=== PATIENT | female | born 1930 | race African-American/Black ===

== ENCOUNTER 2017-04-25 16:04 | Emergency (ER) | payer MEDICARE, MEDICAID ==
[2017-04-25 17:36] LABS: #Eosinphils 0.2 thou/uL (0.0-0.7); #Monocytes 0.5 thou/uL (0.11-0.59); #Neutrophils 3.4 thou/uL (1.40-6.50); %Basophils 0.6 % (0.0-1.0); %Eosinophils 2.3 % (0.0-10.0); %Lymphocytes 41.5 % (21.0-51.0); %Monocytes 7.2 % (0.0-10.0); %Neutrophils 48.4 % (42.0-75.0); Hemoglobin 11.1 g/dL (12.0-16.0); Mean Corpuscular HGB CONC 32.6 g/dL (32.0-36.0); Mean Corpuscular Volume 95.2 fl (81.0-99.0); Mean Platelet Volume 8.3 fL (7.4-10.4); Platelet Count 185 thou/uL (130-400); RBC Distribution Width 12.7 % (11.5-14.5); Red Blood Cell (RBC) Count 3.58 mill/uL (4.20-5.40); White Blood Cell (WBC) Count 7.1 thou/uL (4.8-10.8)
[2017-04-25 17:57] LABS: ALT (SGPT) Less than 7 U/L (8-55); AST (SGOT) 12 U/L (5-34); Albumin 3.5 g/dL (3.4-4.8); Alkaline Phosphatase 49 U/L (40-150); Anion Gap 13 mmol/L (10-20); BUN (Urea Nitrogen) 27 mg/dL (9.8-20.1); Bilirubin, Total 0.2 mg/dL (0.2-1.2); Calc. Creatinine Clearance 0 mL/min (70-130); Calcium 9.6 mg/dL (7.8-10.44); Carbon Dioxide 27 mmol/L (23-31); Chloride 103 mmol/L (98-107); Estimated GFR-MDRD 31; Globulin 3.9 g/dL (2.4-3.5); Glucose 181 mg/dL (83-110); Potassium 3.8 mmol/L (3.5-5.1); Protein, Total 7.4 g/dL (6.0-8.3); Sodium 139 mmol/L (136-145)
--- NOTE | 2017-04-25 18:45 | CT ---
CT BRAIN 04/25/17 PROVIDED CLINICAL HISTORY: Altered mental status. FINDINGS: Comparison made with the study dated 10/24/16. The ventricular system is normal in size and morphology. There is no evidence for intracranial hemorr brielle or mass effect. There is partial opacification of the right frontal sinus and right sided ethmoi d air cells as well as frontal ethmoidal recess,. The extracranial soft tissues and osseous structure s appear otherwise unremarkable. IMPRESSION: No evidence for intracranial hemorrhage or mass effect. POS: [facility]
--- NOTE | 2017-04-25 18:49 | RAD ---
TWO VIEWS CHEST 04/25/17 PROVIDED CLINICAL HISTORY: Altered mental status. FINDINGS: Comparison 07/09/16. Cardiac and mediastinal silhouette is unchanged in appearance. Atherosclerosis is noted involving the aortic arch. There is no focal consolidation, pleural fluid or pneumothorax apparent. IMPRESSION: No evidence for an acute cardiopulmonary process. POS: [facility]
[2017-04-25 19:46] LABS: CKMB 0.6 ng/mL (0-6.6); Troponin I 0.024 ng/mL (< 0.028)
[2017-04-25 20:18] LABS: Bilirubin Small (Negative); Blood, Urine Negative (Negative); Clarity CLEAR (Clear); Glucose, Urine (Dipstick) Negative (Negative); Leukocyte Small (Negative); Nitrite Negative (Negative); Protein, Urine (Dipstick) Negative (Neg-Trace); Specific Gravity, Urine 1.018 (1.002-1.036); Urobilinogen 0.2 mg/dL (0.2-1.0)
[2017-04-25 20:21] LABS: Bacteria/HPF None Seen HPF (None Seen); Pathc Cast-AUWi Flag 0.13 (0-2.49)
[2017-04-25 20:30] LABS: Hyaline Casts/LPF 0-3 HYALINE CAST LPF (0-3 Hyaline)
[2017-04-25 20:31] LABS: RBC/HPF 0-3 HPF (0-3)
[2017-04-25] MEDS ORDERED: Nitrofurantoin Monohyd/M-Cryst 100 MG CAP PO SCH (21:00)
== END 2017-04-25 21:05 | disposition home or self-care (01) ==
LOC: ERS 16:04
DX: N39.0 Urinary tract infection, site not specified (principal); E11.9 Type 2 diabetes mellitus without complications; E78.5 Hyperlipidemia, unspecified; I10 Essential (primary) hypertension; Z79.84 Long term (current) use of oral hypoglycemic drugs; Z79.891 Long term (current) use of opiate analgesic
CPT/HCPCS: 36415; 70450; 71046; 80053; 81003; 81015; 82140; 82550; 82553; 83605; 84484; 85025; 87086; 93005; 96360

== ENCOUNTER 2017-04-27 15:54 | Inpatient (IN) | payer MEDICARE, MEDICAID ==
[2017-04-27 16:39] LABS: #Eosinphils 0.7 thou/uL (0.0-0.7); #Lymphocytes 1.7 thou/uL (1.20-3.40); #Monocytes 0.5 thou/uL (0.11-0.59); #Neutrophils 9.6 thou/uL (1.40-6.50); %Basophils 0.3 % (0.0-1.0); %Eosinophils 5.3 % (0.0-10.0); %Lymphocytes 13.8 % (21.0-51.0); %Monocytes 4.3 % (0.0-10.0); %Neutrophils 76.3 % (42.0-75.0); Hemoglobin 10.2 g/dL (12.0-16.0); Mean Corpuscular HGB CONC 32.7 g/dL (32.0-36.0); Mean Corpuscular Hemoglobin 31.4 pg (27.0-31.0); Mean Platelet Volume 8.6 fL (7.4-10.4); Platelet Count 158 thou/uL (130-400); RBC Distribution Width 12.8 % (11.5-14.5); Red Blood Cell (RBC) Count 3.24 mill/uL (4.20-5.40); White Blood Cell (WBC) Count 12.6 thou/uL (4.8-10.8)
[2017-04-27 17:05] LABS: ALT (SGPT) Less than 7 U/L (8-55); AST (SGOT) 16 U/L (5-34); Alkaline Phosphatase 42 U/L (40-150); Anion Gap 13 mmol/L (10-20); BUN (Urea Nitrogen) 35 mg/dL (9.8-20.1); Bilirubin, Total 0.3 mg/dL (0.2-1.2); CK (CPK) 527 U/L (29-168); Calc. Creatinine Clearance 0 mL/min (70-130); Calcium 8.5 mg/dL (7.8-10.44); Carbon Dioxide 24 mmol/L (23-31); Chloride 105 mmol/L (98-107); Estimated GFR-MDRD 27; Globulin 3.6 g/dL (2.4-3.5); Glucose 174 mg/dL (83-110); Magnesium 1.5 mg/dL (1.6-2.6); Potassium 3.6 mmol/L (3.5-5.1); Protein, Total 6.6 g/dL (6.0-8.3); Sodium 138 mmol/L (136-145)
[2017-04-27 17:11] LABS: CKMB 3.1 ng/mL (0-6.6); Troponin I 0.036 ng/mL (< 0.028)
--- NOTE | 2017-04-27 17:16 | RAD ---
AP VIEW OF THE CHEST 04/27/17 INDICATION: Weakness. COMPARISON: Prior exam dated 04/25/17. FINDINGS: There is cardiomegaly with pulmonary vascular congestion and perihilar edema. There is small bilatera l pleural effusions, left greater than right. Right total shoulder replacement is similar. Diffuse os teopenia is similar. IMPRESSION: Findings suggesting mild CHF. POS: [facility]
[2017-04-27 17:21] LABS: Bilirubin Moderate (Negative); Blood, Urine Negative (Negative); Clarity CLOUDY (Clear); Glucose, Urine (Dipstick) Negative (Negative); Leukocyte Negative (Negative); Nitrite Negative (Negative); Protein, Urine (Dipstick) Negative (Neg-Trace); Specific Gravity, Urine 1.022 (1.002-1.036); Urobilinogen 0.2 mg/dL (0.2-1.0)
[2017-04-27 17:31] LABS: Amphetamine Not Detected (NotDetected); Barbiturates Screen Not Detected (NotDetected); Benzodiazepine Screen Not Detected (NotDetected); Cocaine Metabolite Screen Not Detected (NotDetected); Medtox Control Line Valid? VALID (VALID); Medtox Reader # READER 1; Methadone Not Detected (NotDetected); Methamphetamine Not Detected (NotDetected); Opiate Screen Detected (NotDetected); Oxycodone Screen Not Detected (NotDetected); Phencyclidine (PCP) Not Detected (NotDetected); THC/Cannabinoid Screen Not Detected (NotDetected); Tricyclic Screen Not Detected (NotDetected)
--- NOTE | 2017-04-27 20:08 | CT ---
NONCONTRAST HEAD CT 04/27/17 HISTORY: Right sided weakness and facial droop. Altered mental status. COMPARISON: 04/25/17. TECHNIQUE: A noncontrast head CT is performed from skull base to skull vertex. FINDINGS: No parenchymal hemorrhage. No extra-axial hematoma. No midline shift. Basilar cisterns are patent. B rain volume is age appropriate. Cortical zee-white matter differentiation is preserved. Ventricles and sulci are patent and symmetric. Stable sclerosis of the right frontal bone. Stable opa cification of the right frontal sinus and anterior right ethmoid air cells. Adequate aeration of the mastoid air cells. IMPRESSION: No acute intracranial process. Stable changes in the right paranasal sinuses along with stable change s of the osseous margins of the right frontal sinus suggesting chronic sinus disease. POS: [facility]
[2017-04-27 22:28] LABS: Troponin I 0.038 ng/mL (< 0.028)
[2017-04-27] MEDS ORDERED: hydrALAZINE 20 MG/ML VIAL SLOW IVP PRN (23:29)
[2017-04-27] MEDS ORDERED: Ondansetron HCl/PF 4 MG/2 ML Vial IVP PRN (23:39)
[2017-04-27] MEDS ORDERED: Magnesium 2 GM/NS 0.9% 100 ML 2 GM in Premix Bag 1 BAG IVPB SCH (23:59)
[2017-04-28 00:27] VITALS: BMI 37.4
[2017-04-28 00:30] LABS: Troponin I 0.035 ng/mL (< 0.028)
[2017-04-28] MEDS ORDERED: Sodium Chloride 0.9% 1,000 ML IV SCH (03:30)
[2017-04-28] MEDS: Mometasone/Formoterol 120 PUFF INHALER INH SCH ×2 (07:21→19:30)
--- NOTE | 2017-04-28 08:34 | HP ---
PRIMARY CARE DOCTOR: None reported. CODE STATUS: The patient has expressed DNR/DNI status in front of her daughter. CHIEF COMPLAINT: Participation was right-sided weakness. HISTORY OF PRESENT ILLNESS: This is an 87-year-old female patient with past medical history of diabetes, hyperlipidemia, hypertension, pulmonary embolism years ago who came to the hospital after having right-sided weakness, associated with right-sided facial droop, symptoms has improved, lasted for few hours, no clear tears, no alleviating factors, gait was not affected. As noted , the patient had been treated for UTI 2 days ago. REVIEW OF SYSTEMS: Constitutional: The patient reported generalized weakness. RESPIRATORY: No cough, sputum production, no shortness of breath. CARDIOVASCULAR: No chest pain or palpitations. No shortness of breath. GASTROINTESTINAL: No nausea or vomiting. No diarrhea, no abdominal pain. SECURITY SYSTEM ENGINEER: No dizziness, headache. The patient is not feeling lightheaded. The patient had right-sided weakness and right-sided facial droop. GENITOURINARY: On burning with urination. EXTREMITIES: Leg swelling. All other systems reviewed were negative except for the finding mentioned above. PAST MEDICAL HISTORY: Please see HPI. SOCIAL HISTORY: The patient had no history of alcohol use, known drug use. No smoking history. PAST SURGICAL HISTORY: Left knee, back surgery, carpal tunnel surgery, shoulder and neck surgery. PSYCHIATRIC HISTORY: No previous psychiatric history. KNOWN ALLERGIES: To PENICILLIN. REPORTED MEDICATIONS: Amlodipine/valsartan 5 mg/320 mg 1 tablet daily, citalopram 10 mg 1 tablet once a day, metformin 500 mg 1 tablet once a day, Crestor 10 mg 1 tablet once a day, gabapentin 300 mg 1 tablet orally 3 times a day, hydralazine 50 mg the patient takes 75 mg 3 times a day, carvedilol 12.5 mg 2 times a day, Advair Diskus 250mcg/50 mcg unknown dose, Lasix 20 mg orally once a day, Klor-Con 20 mEq once a day, fentanyl 72 hours patch the patient use 75 mcg transdermal, Macrobid 100 mg 1 tablet orally 2 times a day. PHYSICAL EXAMINATION: VITAL SIGNS: Blood pressure 101/49 with heart rate 68, respiratory rate 20, temperature 98, pain 0/10, oxygen saturation 100 on room air, blood pressure has been fluctuating between the 90s and 100s. GENERAL APPEARANCE: The patient is alert, oriented, no acute distress. HEENT: Eye: Normal conjunctivae. Moist mucous membranes. NECK: Anicteric. No JVD. RESPIRATORY: Bilateral air entry. No rales, bilateral wheezing, symmetric expansion. CARDIOVASCULAR: Normal rate, regular rhythm. No murmurs or gallops. No edema. ABDOMEN: Soft. Normal bowel sounds. MUSCULOSKELETAL: Baseline range of motion and strength. No tenderness. NEUROLOGIC: Baseline sensory. No evidence of any new focal weakness. Baseline speech. Cranial nerves seem to be intact. PSYCHIATRIC: The patient is in good mood. No anxiety, oriented, optimal judgment. LABORATORY DATA: Reviewed. The patient has white count 12.6, hemoglobin 10.2, platelet count 158. Sodium 138, potassium 3.6, chloride 105, anion gap 13, BUN 35, creatinine 2.06, GFR 27, glucose 174, lactic acid 1.9, calcium 9.5, magnesium 1.5, total bilirubin 0.3, AST 16, ALT 7, alkaline phosphatase 42. CK 527, troponin 0.036, second troponin 0.035, beta-natriuretic peptide 206.3. Serum total protein 6.6, albumin 3.0, globulin 3.6, albumin globulin ratio 0.8. Urine was reviewed and was negative. Toxicology was reviewed and the patient has opiates in urine. EKG was reviewed. The patient has sinus arrhythmia in rate of 65. No evidence of any acute ischemia. This was discussed with her doctor. Chest x-ray suggested the finding of mild CHF. Brain CT showed no acute intracranial process, stable changes in the right paranasal sinuses along with stable changes of the margin of the right frontal sinus suggesting chronic sinus disease. ASSESSMENT AND PLAN: 1. Possible transient ischemic attack. The patient has right-sided numbness and tingling and right-sided facial droop, we will do stroke protocol, management depending on findings.this place pt at high risk given new neurological symptoms, 2. Leukocytosis, unclear etiology. The patient had a recent urinary tract infection; however, urinary analysis was negative today. We will send cultures and adjust medications as needed. 3. Normocytic anemia, this is chronic. The patient seems to have chronic kidney disease, could be secondary to it, can be managed as outpatient. 4. Chronic kidney disease and previous records reviewed. The BUN and creatinine has been increasing slowly. It might be a component of acute kidney injury now. The patient is showing congestive heart failure findings on chest x -ray, so we are limited with fluids. Might need Nephrology evaluation if not improving. 5. Uncontrolled diabetes with blood sugar 174, hyperglycemia, we will treat with sliding scale, reconcile home medications. 6. Acute hypomagnesemia. The patient to receive magnesium replacement. 7. Mildly elevated troponins in the range of 0.036, 0.035, may need Cardiology evaluation in the morning. No chest pain. 8. Possible congestive heart failure with beta-natriuretic peptide of 206, reconcile home medications. The patient is in kidney failure. We will not diurese aggressively, might need Nephrology assistance for diuresis if needed. 9. Deep venous thrombosis prophylaxis. [facility]
[2017-04-28] MEDS ORDERED: Potassium Chloride 10 MEQ TAB PO SCH (09:00)
[2017-04-28] MEDS ORDERED: Furosemide 40 MG TAB PO SCH (09:00)
[2017-04-28] MEDS ORDERED: Aspirin 325 mg Enteric Coated Tablet PO SCH (09:00)
[2017-04-28] MEDS ORDERED: Non-Formulary Item 1 EACH (Fluticasone/Salmeterol [Advair Diskus 250/50] 2 INH) IH SCH (09:00)
[2017-04-28] MEDS ORDERED: Valsartan 80 MG TAB PO SCH (09:00)
[2017-04-28] MEDS ORDERED: fentaNYL 75 mcg/hour Patch TD SCH (09:00)
[2017-04-28] MEDS ORDERED: HYDROcodone/Acetaminophen 10/325 mg Tablet PO PRN (09:08)
--- NOTE | 2017-04-28 09:12 | PDOC.PN ---
- Subjective Encounter Start Date: 04/28/17 Encounter Start Time: 08:30 Subjective: Pleasant, cooperative and coherent. c/o diffuse aches, and back pain - Objective Resuscitation Status: Resuscitation Status DNR:Do Not Resuscitate MAR Reviewed: Yes Vital Signs & Weight: Vital Signs (12 hours) Temp Pulse Resp BP BP Pulse Ox 04/28/17 07:21 71 16 04/28/17 07:14 71 16 04/28/17 07:10 97.9 F 63 20 127/54 L 98 04/28/17 05:11 68 110/54 L 04/28/17 04:00 98.1 F 66 20 89/44 L 100 04/28/17 00:06 97.7 F 74 20 04/27/17 22:47 97.7 F 74 20 108/55 L 94 L Weight Weight 218 lb 4.122 oz Result Diagrams: 04/27/17 16:28 04/27/17 16:28 Radiology Reviewed by me: Yes Phys Exam - Physical Examination Constitutional: NAD HEENT: PERRLA discharge rt eye Neck: supple, full ROM crackles r greater than left Cardiovascular: RRR, no significant murmur Gastrointestinal: soft, non-tender, no distention Musculoskeletal: no edema Neurological: non-focal, moves all 4 limbs Psychiatric: normal affect, A&O x 3 Skin: no rash Dx/Plan (1) TIA (transient ischemic attack) Status: Acute (2) Anemia, normocytic normochromic Code(s): D64.9 - ANEMIA, UNSPECIFIED Status: Chronic (3) DM type 2 (diabetes mellitus, type 2) Status: Chronic Qualifiers: (4) HTN (hypertension) Code(s): I10 - ESSENTIAL (PRIMARY) HYPERTENSION Status: Chronic Qualifiers: (5) Obesity (BMI 30-39.9) Code(s): E66.9 - OBESITY, UNSPECIFIED Status: Chronic (6) Osteoarthritis Code(s): M19.90 - UNSPECIFIED OSTEOARTHRITIS, UNSPECIFIED SITE Status: Chronic (7) Physical deconditioning Code(s): R53.81 - OTHER MALAISE Status: Chronic (8) Acute kidney failure Status: Acute (9) Encephalopathy Code(s): G93.40 - ENCEPHALOPATHY, UNSPECIFIED Status: Resolved (10) Pulmonary hypertension Code(s): I27.2 - OTHER SECONDARY PULMONARY HYPERTENSION * DO NOT USE * Status : Chronic - Plan cont current plan of care, plan discussed w/ family, continue antibiotics neurology and cards eval pending * .
[2017-04-28] MEDS: Carvedilol 6.25 MG TAB PO SCH ×2 (09:44→21:28)
[2017-04-28] MEDS: Citalopram 10 MG TAB PO SCH (09:44)
[2017-04-28] MEDS: Heparin 5,000 UNITS/ML VIAL SC SCH ×2 (09:46→21:29)
--- NOTE | 2017-04-28 12:16 | CON ---
DATE OF CONSULTATION: 04/28/2017 CONSULTING PHYSICIAN: Hospitalist Service IMPRESSION: 1. Possible transient ischemic attack with transient right-sided weakness. 2. Diabetes. 3. Hypotension. 4. Chronic pain. 5. Renal insufficiency. PLAN: 1. Restart aspirin and Crestor. 2. Echocardiogram. 3. Carotid ultrasound. 4. MRI of the brain. HISTORY OF PRESENT ILLNESS: Ms. Melissa is an 87-year-old black female with the above noted medical pr oblems. Earlier this week, she had some mental status changes and was seen in the emergency room. S he was diagnosed with a urinary tract infection and treated with antibiotics. She was discharged jenny e. Daughter reported that she seemed to develop some right-sided weakness yesterday involving both a rm and the leg. She brought her back into the Emergency Room via ambulance. Reportedly, she was hyp otensive en route. She had a workup in the ER including a CT scan of the brain and lab work, nothing remarkable was found other than the renal insufficiency. Her daughter states that she had discontin ued all of her medications for about 5 days prior to this event since admission. At this point, she does not report any lateralized weakness or numbness. She also does not report any headache, nausea, vomiting, vertigo, or difficulty swallowing. PAST MEDICAL HISTORY: As listed above. ALLERGIES: PENICILLIN. MEDICATIONS: List was reviewed. SOCIAL HISTORY: No tobacco or alcohol use. FAMILY HISTORY: Noncontributory. REVIEW OF SYSTEMS: Chronic back pain. No complaints of chest pain or shortness of breath. PHYSICAL EXAMINATION: VITAL SIGNS: Blood pressure 127/54, pulse 63, respirations 20, temperature 97.9. HEENT: Pupils are equal and minimally reactive. Conjunctivae are a bit muddy. Oropharynx is clear. NECK: No lymphadenopathy noted. EXTREMITIES: No cyanosis noted. NEUROLOGIC: She is alert and cooperative. Her speech is fluent and clear. Cranial nerves II throug h XII are intact. Motor exam showed symmetric antigravity strength in arms and legs. Sensation was intact to light touch. No tremor or dysmetria was present. Gait was not tested. No abnormal moveme nts were seen. SUMMARY: An elderly lady who presented with possible right-sided weakness that has since improved. The hypotension may have been a contributing factor. She was off her usual medications which include aspirin and Crestor. I would restart these and complete her workup.
[2017-04-28] MEDS: Amlodipine 5 MG TAB PO SCH (12:17)
--- NOTE | 2017-04-28 12:40 | MRI ---
NONCONTRAST ENHANCED MRI BRAIN: Date: 04/28/17 HISTORY: 87-year-old with history of TIA versus stroke. Generalized weakness. TECHNIQUE: Multiplanar, multisequence noncontrast enhanced MRI brain obtained. COMPARISON: Previous MRI from 02/22/16. FINDINGS: Images demonstrate paranasal sinus disease in the right frontal sinus, as well as extensive paranasal sinus disease in right and left ethmoid sinuses. The patient has had bilateral cataract surgeries. The brain demonstrates old areas of infarction in the inferior cerebellar regions. There is age-appro priate cortical atrophy. No evidence of acute intracranial masses, hemorrhages, or strokes seen. No e vidence of areas of diffusion restriction seen. IMPRESSION: 1. 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 2. No evidence of acute intracranial strokes, hemorrhages, or lesions seen. POS: [facility]
[2017-04-28] MEDS: Gabapentin 300 MG CAP PO SCH ×2 (13:54→21:28)
[2017-04-28] MEDS: HYDROcodone/Acetaminophen 10/325 mg Tablet PO PRN (13:55)
--- NOTE | 2017-04-28 14:13 | ULT ---
ULTRASOUND RENAL BILATERAL: Date: 04/28/17 HISTORY: Kidney failure. COMPARISON: None. FINDINGS: Right kidney measures 10.9 x 3.9 x 3.9 cm. Left kidney measures 11.4 x 5.7 x 5.8 cm. Pre-void urinary bladder volume is 235 mL. No hydronephrosis. Superior pole left kidney has a simple cyst, exophytic, measuring 4.3 x 3.5 x 3.5 cm. IMPRESSION: Large superior pole simple cyst left kidney. POS: [facility]
[2017-04-28] MEDS: fentaNYL 50 mcg/hour Patch TD SCH (15:03)
[2017-04-28] MEDS ORDERED: VALSARTAN PO SCH (15:15)
[2017-04-28] MEDS ORDERED: AMLODIPINE PO SCH (15:15)
[2017-04-28] MEDS ORDERED: metFORMIN XR 500 MG TAB PO SCH (17:00)
[2017-04-28] MEDS ORDERED: Non-Formulary Item 1 EACH (Metformin Hcl [Metformin Hcl Er] 500 MG) PO SCH (17:00)
[2017-04-28] MEDS ORDERED: Sodium Chloride 0.9% 500 ML IV SCH (17:45)
[2017-04-28] MEDS: Sodium Chloride 0.9% 1,000 ML IV SCH (17:57)
--- NOTE | 2017-04-28 19:49 | CON ---
DATE OF CONSULTATION: 04/28/2017 INDICATION FOR CONSULTATION: An 87-year-old female with a TIA with indeterminate cardiac enzymes wit h a history of coronary artery disease, we were asked to see her in consultation. HISTORY OF PRESENT ILLNESS: This is a very unfortunate 87-year-old female who was admitted after, I believe, some mental status changes were noted. She also has some right-sided weakness. She was in the emergency room. There has been no acute findings on the CT scan and appears that she has possibl y suffered a TIA, but she did not have any significant specific findings that would indicate any type of CVA at this time and appears to have been already resolved. She has a long history of multiple m edical problems, which include diabetes, chronic pain syndrome, and chronic kidney disease. She has had a history of coronary artery disease. She had, I believe, a cardiac catheterization in 2006 whic h showed a 20% proximal right coronary artery lesion and she did not have any significant disease. S he had an echocardiogram in 2014, which showed an ejection fraction of 60-65%. She does have a histo ry of PE in 2006 as well as a history of COPD and some history of hypertension and peripheral neuropa thy. At this time, she appears to be very comfortable; howevear, her history of present illness is s omewhat confused and is unable to give a clear history. PAST MEDICAL HISTORY: Significant for history of TIAs in the past, perhaps coronary artery disease, COPD, history of asbestos exposure, pulmonary embolus in 2006, hypertension, diabetes, peripheral vik ropathy, chronic back pain, as well as chronic kidney disease. PAST SURGICAL HISTORY: She had hysterectomy, cholecystectomy, total left knee replacement, cataract surgery. She had small bowel obstruction which required surgical correction. Carpal tunnel release on the left side. MEDICATIONS: Prior to admission included Celexa, Neurontin, Crestor, metformin, Apresoline, insulin, Advair Diskus, Coreg, NovoLog, Humulin insulin 70/30, amlodipine, ipratropium, albuterol, DuoNebs, a spirin 81 mg a day, hydrocodone/acetaminophen, furosemide, Lasix 20 mg tablets 40 mg b.i.d., Duragesi c patches, tizanidine, and Coreg 12.5 mg 3 times a day. ALLERGIES: She is allergic to PENICILLIN. SOCIAL HISTORY: No history of alcohol or tobacco abuse. FAMILY HISTORY: Noncontributory. REVIEW OF SYSTEMS: A 12-point review of systems is difficult to obtain this patient who appears to b e somewhat confused and unable to give a clear history or review of systems. LABORATORY AND X-RAY FINDINGS: Indicates hemoglobin of 10.2. Her cardiac enzymes are indeterminate, the highest is 0.038. Her BNP is 206, which is not comparable with significant congestive heart marleni lure. This may be some mild heart failure. Her LDL was 68. Her creatinine was 2.06 with BUN of 35. Blood sugar was 174, total CK was 527. PHYSICAL EXAMINATION: GENERAL: Reveals an elderly female, who is in no acute distress. VITAL SIGNS: Blood pressure is 99/39, earlier was 122/66. O2 saturation 98%, respiratory rate was 2 0, heart rate is 61 and regular. She is afebrile. HEENT: Reveals the head to be normocephalic and atraumatic. Carotid pulses are present. Does not h ear any bruits. CHEST: Clear to auscultation. CARDIOVASCULAR: Exam reveals a regular rhythm, somewhat bradycardiac. Heart sounds are distant. Ve ry soft systolic murmur at the apex, otherwise unremarkable. ABDOMEN: Shows obesity with positive bowel sounds. No organomegaly or masses are noted. Femoral pu lses are difficult to palpate due to large pannus. EXTREMITIES: Showed no clubbing, cyanosis, or edema. I cannot palpate pedal pulses. NEUROLOGIC: The patient appears to be somewhat confused. This may be just overall dementia. Do not have any baseline. There were no family members present. IMPRESSION: 1. Abnormal cardiac enzymes which would not be too unremarkable in someone who has chronic kidney di sease and also has an elevated CK, uncertain the elevation of CK when she had a fall or not, but she had elevated CK also. At this time, we would just continue to monitor her. She did have some mild c oronary artery disease several years ago, be unlikely for developed severe coronary artery disease in such a short amount of time given her overall age. At this time, there will be no further cardiac e valuation indicated. As far as coronary artery disease is concerned, we will obtain echocardiogram a nd we will evaluate that and further recommendations will be pending versus the results of the echoca rdiogram. 2. Diabetes. This will be dealt with by the primary care service. 3. Hypertension. This is actually on the low side. At this time, she is hypotensive and will need to follow this very carefully. She may need more volume. Once we evaluate the echocardiogram, we ca n determine whether or not she may be volume depleted and would not appear so, looks like she just sun s chronic kidney disease. 4. History in the past of pulmonary emboli. 5. History of hypercholesterolemia. We would continue her present medications. We will be more than happy to continue to follow the patient with you through her hospital course. Armin hong will be very conservative in care of this patient without any aggressive cardiac interventions at t his time.
[2017-04-28] MEDS ORDERED: Atorvastatin Calcium 40 MG TAB PO SCH (21:00)
[2017-04-28] MEDS: Rosuvastatin 10 MG TAB PO SCH (21:29)
[2017-04-28] MEDS: Acetaminophen 325 MG TAB PO PRN (23:32)
[2017-04-29 05:31] LABS: #Eosinphils 0.5 thou/uL (0.0-0.7); #Lymphocytes 1.6 thou/uL (1.20-3.40); #Monocytes 0.6 thou/uL (0.11-0.59); %Basophils 0.2 % (0.0-1.0); %Eosinophils 6.8 % (0.0-10.0); %Lymphocytes 20.9 % (21.0-51.0); %Monocytes 7.3 % (0.0-10.0); %Neutrophils 64.9 % (42.0-75.0); Hemoglobin 9.5 g/dL (12.0-16.0); Mean Corpuscular HGB CONC 32.3 g/dL (32.0-36.0); Mean Corpuscular Hemoglobin 30.9 pg (27.0-31.0); Mean Corpuscular Volume 95.8 fl (81.0-99.0); Mean Platelet Volume 9.1 fL (7.4-10.4); Platelet Count 147 thou/uL (130-400); RBC Distribution Width 12.6 % (11.5-14.5); Red Blood Cell (RBC) Count 3.06 mill/uL (4.20-5.40); White Blood Cell (WBC) Count 7.7 thou/uL (4.8-10.8)
[2017-04-29 05:54] LABS: Anion Gap 13 mmol/L (10-20); BUN (Urea Nitrogen) 48 mg/dL (9.8-20.1); Calc. Creatinine Clearance 23 mL/min (70-130); Calcium 8.6 mg/dL (7.8-10.44); Carbon Dioxide 22 mmol/L (23-31); Chloride 103 mmol/L (98-107); Estimated GFR-MDRD 21; Glucose 132 mg/dL (83-110); Potassium 4.1 mmol/L (3.5-5.1); Sodium 134 mmol/L (136-145)
[2017-04-29] MEDS: Mometasone/Formoterol 120 PUFF INHALER INH SCH ×2 (07:25→20:56)
[2017-04-29] MEDS: HYDROcodone/Acetaminophen 10/325 mg Tablet PO PRN (07:36)
--- NOTE | 2017-04-29 08:18 | ULT ---
ULTRASOUND CAROTID DOPPLER: Date: 04/29/17/ HISTORY: TIA. COMPARISON: None. FINDINGS: There is low graft plaque of the proximal internal carotid arteries bilaterally. Antegrade flow both vertebral arteries. Elevated peak systolic velocity within the left proximal and mid internal carotid artery. Right ICA/CCA ratio is 0.94. Left ICA/CCA ratio is 1.47. 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 C T angiogram may be beneficial. CODE T. POS: [facility]
[2017-04-29] MEDS: Citalopram 10 MG TAB PO SCH (09:00)
[2017-04-29] MEDS ORDERED: VALSARTAN PO SCH (09:00)
[2017-04-29] MEDS: AMLODIPINE PO SCH (09:00)
[2017-04-29] MEDS ORDERED: AMLODIPINE PO SCH (09:00)
[2017-04-29] MEDS: Amlodipine 5 MG TAB PO SCH (09:00)
[2017-04-29] MEDS: VALSARTAN PO SCH (09:00)
[2017-04-29] MEDS: Heparin 5,000 UNITS/ML VIAL SC SCH ×2 (09:00→21:23)
[2017-04-29] MEDS: Aspirin 81 mg Enteric Coated Tablet PO SCH (09:00)
[2017-04-29] MEDS: Gabapentin 300 MG CAP PO SCH ×2 (09:00→21:23)
--- NOTE | 2017-04-29 10:22 | PDOC.PN ---
- Subjective Encounter Start Date: 04/29/17 Encounter Start Time: 07:30 Subjective: I FEEL BAD TODAY, LOTS OF ACHES - Objective MAR Reviewed: Yes Result Diagrams: 04/29/17 05:10 04/29/17 05:10 Phys Exam - Physical Examination MILD DISTRESS, ANXIOUS HEENT: moist MMs, sclera anicteric Neck: supple, full ROM Respiratory: no wheezing, no rhonchi Cardiovascular: RRR Gastrointestinal: soft, non-tender Musculoskeletal: no edema Neurological: moves all 4 limbs Psychiatric: A&O x 3 Deviation from normal: COHERENCY WAX AND WANE Skin: no rash Dx/Plan (1) TIA (transient ischemic attack) Status: Acute (2) Anemia, normocytic normochromic Code(s): D64.9 - ANEMIA, UNSPECIFIED Status: Chronic (3) DM type 2 (diabetes mellitus, type 2) Status: Chronic Qualifiers: (4) HTN (hypertension) Code(s): I10 - ESSENTIAL (PRIMARY) HYPERTENSION Status: Chronic Qualifiers: (5) Obesity (BMI 30-39.9) Code(s): E66.9 - OBESITY, UNSPECIFIED Status: Chronic (6) Osteoarthritis Code(s): M19.90 - UNSPECIFIED OSTEOARTHRITIS, UNSPECIFIED SITE Status: Chronic (7) Physical deconditioning Code(s): R53.81 - OTHER MALAISE Status: Chronic (8) Acute kidney failure Status: Acute (9) Encephalopathy Code(s): G93.40 - ENCEPHALOPATHY, UNSPECIFIED Status: Acute (10) Pulmonary hypertension Code(s): I27.2 - OTHER SECONDARY PULMONARY HYPERTENSION * DO NOT USE * Status : Chronic - Plan cont current plan of care, plan discussed w/ family I BELIEVE MS CHANGES ARE FROM OPIATES AND DECREASED CLEARANCE -: SECONDARY TO WORSENING RENAL FXN. NEPHROLOGY CONSULT REQUESTED. -: OPIATES HELD TODAY. LEFT ICA WITH 50-69% MAY ALSO BE CONTRIBUTING, WILL -: DEFER TO NEUROLOGY IF CEA IS INDICATED. * .
[2017-04-29] MEDS: Carvedilol 6.25 MG TAB PO SCH ×2 (10:40→21:23)
--- NOTE | 2017-04-29 12:55 | PRG ---
DATE OF SERVICE: 04/29/2017 SUBJECTIVE: Ms. Melissa had some transient confusion earlier today with some slurred speech. The nurs e thought she might have a bit of facial droop. This occurred while she was sitting up on the bedsid e toilet. I checked her vital signs and her blood pressure was in a normal range. She was moved renard k to bed and her symptoms seem to improve. She had an MRI of the brain done yesterday, which failed to reveal any acute ischemic changes. Carot id Doppler shows 50%-69% left carotid stenosis. Echocardiogram showed a normal ejection fraction of 60%-65% without other anomalies. She has been afebrile overnight. PHYSICAL EXAMINATION: On exam, she was alert and cooperative, is complaining of pain in her extremit ies. Her speech is fluent and clear. Cranial nerves were intact. She had equal cook tortilla strength. No fix or drift was noted. Sensation was intact to light touch. I do not see anything remarkable on her exam. It is possible that the narcotics might be playing a r ole in her transient slurring and confusion. Her neurologic workup is, otherwise, unremarkable at is point. Continue antiplatelet therapy and statin.
[2017-04-29] MEDS: Acetaminophen 325 MG TAB PO PRN ×2 (15:16→21:21)
[2017-04-29] MEDS: Sodium Chloride 0.9% 1,000 ML IV SCH ×2 (15:16→15:21)
[2017-04-29] MEDS ORDERED: Aspirin 81 mg Enteric Coated Tablet PO SCH (19:00)
--- NOTE | 2017-04-29 20:05 | PDOC.CTH ---
<Annette Merino - Last Filed: 04/29/17 19:58> Cardiology Progress Note - Subjective The pt seen and examined. She is having severe SOB with wheezing after receiving about 400ml NS today. She has to sit right up to breath now. Per RN , she also had low grade temp and greenish sputum. - Objective Vital Signs Temp Pulse Resp BP BP Pulse Ox 04/29/17 15:40 99.4 F 65 18 143/64 H 97 04/29/17 12:00 98.7 F 60 18 118/63 95 04/29/17 10:40 117/60 04/29/17 09:00 113 H 04/28/17 04/29/17 04/30/17 06:59 06:59 06:59 Intake Total 800 Balance 800 - Physical Examination General/Neuro: alert & oriented x3 Neck: no JVD present Lungs: other: (Wheezing) Heart: RRR Abdomen: soft Extremities: other: (No edema) - Telemetry Telemetry Rhythm: SR - Labs Result Diagrams: 04/29/17 05:10 04/29/17 05:10 Troponin/CKMB CK-MB (CK-2) 3.1 ng/mL (0-6.6) 04/27/17 16:28 Troponin I 0.035 ng/mL (< 0.028) H 04/27/17 23:58 - Assessment/Plan 1. SOB w/ wheezing - Wheezing after receiving 400ml NS today; also per RN, the pt had low-grade temp with greenish sputum today. EF during this admission was 60-65%; STAT CXR now; Possible [place]? managed by PCP 2. TIA - stable; managed by neourologist 3. HTN - stable with Coreg, but the pt's family has refused Norvasc. 4. DM type 2 - on ACHS BG check with Metformin; managed by PCP 5. SALLY - managed by string studies director 6. Hyperlipidemia - on Statin 7. Hx of PE - MAR reviewed Review of Systems - Review of Systems Constitutional: reports: weakness EENTM: reports: no symptoms reported Respiratory: reports: see HPI Cardiac (ROS): reports: no symptoms reported <Liz Yi - Last Filed: 04/29/17 20:44> Cardiology Progress Note - Objective Vital Signs Temp Pulse Resp BP BP Pulse Ox 04/29/17 15:40 99.4 F 65 18 143/64 H 97 04/29/17 12:00 98.7 F 60 18 118/63 95 04/29/17 10:40 117/60 04/29/17 09:00 113 H 04/28/17 04/29/17 04/30/17 06:59 06:59 06:59 Intake Total 800 Balance 800 - Labs Result Diagrams: 04/29/17 05:10 04/29/17 05:10 Troponin/CKMB CK-MB (CK-2) 3.1 ng/mL (0-6.6) 04/27/17 16:28 Troponin I 0.035 ng/mL (< 0.028) H 04/27/17 23:58 - Assessment/Plan Pt. was seen and eval. by me this PM. She appears more confused this pm. She denies any symptoms but is not reliable.I agree with the A/P by the [employer]. Chest : few basilar rales, wheezing. O2 sats are good. RRR.
--- NOTE | 2017-04-29 21:06 | RAD ---
CHEST 1 VIEW: Date: 04/29/17 HISTORY: Shortness of breath. COMPARISON: 04/29/15. FINDINGS: Atherosclerosis of aorta. Stable cardiac silhouette. Calcified lymph nodes in the left hilum are note d. Slight increased prominence of the pulmonary vasculature. Reticulonodular opacities are noted. No masses or consolidation. No pneumothorax. Right shoulder replacement is unchanged. IMPRESSION: Pulmonary vascular prominence and interstitial opacities. Correlate for volume overload. POS: RAD[facility]
[2017-04-29] MEDS: Rosuvastatin 10 MG TAB PO SCH (21:22)
--- NOTE | 2017-04-29 21:25 | CON ---
DATE OF CONSULTATION: 04/29/2017 CONSULTING PHYSICIAN: Dr. Leblanc. REASON FOR CONSULTATION: Acute kidney injury and oliguria. REASON FOR ADMISSION: Right-sided weakness. HISTORY OF PRESENT ILLNESS: This is an 87-year-old female with history of type 2 diabetes, hypertens ion, hyperlipidemia, who came to the hospital with above complaints and was found to have inability t o urinate and creatinine level going up, this morning was 2.5. Patient was on valsartan, which was s topped and she was also on metformin. She was given IV fluids at 50 mL per hour, but then she was hy pertensive yesterday and IV fluids were off. Patient denies any abdominal pain, no nausea, vomiting, no chest pain. Family members at the bedside. PAST MEDICAL HISTORY: Positive for hyperlipidemia, hypertension, diabetes. PAST SURGICAL HISTORY: Left knee surgery, back surgery, carpal tunnel surgery, shoulder and neck rahul geries. HOME MEDICATIONS: Include amlodipine, valsartan, citalopram, metformin, Crestor, gabapentin, hydrala zine, carvedilol, Advair, Lasix, Klor-Con, Macrobid. ALLERGIES: PENICILLIN. SOCIAL HISTORY: No smoking, alcohol, or illicit drug abuse. FAMILY HISTORY: No history of any kidney disease. REVIEW OF SYSTEM: The following complete review of systems was negative, unless otherwise mentioned in the HPI or below: Constitutional: Weight loss or gain, ability to conduct usual activities. Skin: Rash, itching. Eyes: Double vision, pain. ENT/Mouth: Nose bleeding, neck stiffness, pain, tenderness. Cardiovascular: Palpitations, dyspnea on exertion, orthopnea. Respiratory: Shortness of breath, wheezing, cough, hemoptysis, fever or night sweats. Gastrointestinal: Poor appetite, abdominal pain, heartburn, nausea, vomiting, constipation, or diarr hea. Genitourinary: Urgency, frequency, dysuria, nocturia. Musculoskeletal: Pain, swelling. Neurologic/Psychiatric: Anxiety, depression. Allergy/Immunologic: Skin rash, bleeding tendency. PHYSICAL EXAMINATION: GENERAL: This is a well-built female in no apparent distress. VITAL SIGNS: Temperature 99.4, pulse 64, respiratory rate 18, blood pressure 118/63. LABORATORY DATA: Potassium is 4.1, BUN is 40, creatinine is 2.5. ASSESSMENT AND PLAN: 1. Acute kidney injury - most likely from ischemic acute tubular necrosis. We will increase IV flui ds to 100 mL per hour. I talked with the nurse, check bladder ultrasound, renal ultrasound yesterday was unremarkable. 2. Hyponatremia. 3. Acidosis. 4. Hypertension. 5. Anemia. MEDICATION LIST: Reviewed. We will stop metformin and valsartan. Renally dose gabapentin and cauti ous use of pain medication built up. Continue supportive care with IV antibiotics. Plan is to increase IV fluids to 100 mL per hour. Avoid nephrotoxins. Renally dose all the medicine s and we will follow. Family updated at the bedside. Thank you for the consultation.
[2017-04-29] MEDS ORDERED: Furosemide 40 MG/4 ML VIAL SLOW IVP SCH (23:45)
[2017-04-30 05:44] LABS: #Eosinphils 0.6 thou/uL (0.0-0.7); #Lymphocytes 1.9 thou/uL (1.20-3.40); #Monocytes 0.6 thou/uL (0.11-0.59); #Neutrophils 3.8 thou/uL (1.40-6.50); %Basophils 0.1 % (0.0-1.0); %Eosinophils 8.3 % (0.0-10.0); %Lymphocytes 27.6 % (21.0-51.0); %Monocytes 8.1 % (0.0-10.0); %Neutrophils 55.9 % (42.0-75.0); Hemoglobin 9.4 g/dL (12.0-16.0); Mean Corpuscular HGB CONC 32.5 g/dL (32.0-36.0); Mean Corpuscular Volume 95.3 fl (81.0-99.0); Mean Platelet Volume 9.2 fL (7.4-10.4); Platelet Count 166 thou/uL (130-400); RBC Distribution Width 12.5 % (11.5-14.5); Red Blood Cell (RBC) Count 3.03 mill/uL (4.20-5.40); White Blood Cell (WBC) Count 6.9 thou/uL (4.8-10.8)
[2017-04-30] MEDS: Sodium Chloride 0.9% 1,000 ML IV SCH ×3 (06:10→20:49)
[2017-04-30 06:13] LABS: Anion Gap 9 mmol/L (10-20); BUN (Urea Nitrogen) 44 mg/dL (9.8-20.1); Calc. Creatinine Clearance 51 mL/min (70-130); Calcium 9.4 mg/dL (7.8-10.44); Carbon Dioxide 27 mmol/L (23-31); Chloride 105 mmol/L (98-107); Estimated GFR-MDRD 52; Glucose 119 mg/dL (83-110); Potassium 4.2 mmol/L (3.5-5.1); Sodium 137 mmol/L (136-145)
[2017-04-30] MEDS: Mometasone/Formoterol 120 PUFF INHALER INH SCH ×2 (07:03→18:51)
[2017-04-30] MEDS ORDERED: Furosemide 20 MG/2 ML VIAL SLOW IVP SCH (08:30)
[2017-04-30] MEDS ORDERED: Amlodipine 5 MG TAB PO SCH (09:00)
--- NOTE | 2017-04-30 09:48 | PRG ---
DATE OF SERVICE: 04/30/2017 SUBJECTIVE: An 87-year-old female being seen for acute kidney injury. The patient denies any nausea , vomiting or chest pain. PHYSICAL EXAMINATION: GENERAL: Patient is awake, alert. VITAL SIGNS: Afebrile, pulse 92, breathing at 16, blood pressure 156/62. OBJECTIVE: See above. Awake, alert, in no acute distress. GENERAL APPEARANCE AND MENTAL STATUS: Fair. HEAD/NECK: Normocephalic. Atraumatic. EYES: EOMI. No deformity. EARS: Clear. No ulcers. NOSE: Intact. No lesions. MOUTH: Clear. No discharge. THROAT: Clear. No exudate. LUNGS: Clear. No crackles. CARDIAC: S1, S2. No rub. ABDOMEN: Benign. BS+. GENITALIA/RECTUM: Beltran absent. BACK/EXTREMITIES: Edema 0+ Ulcer- NEUROLOGICAL: Alert and motor intact. SKIN: Rash- Bruise- LYMPHATICS: Edema- Ulcer- LABORATORY: Hemoglobin 9.4, creatinine 1.1. RECOMMENDATIONS: 1. Acute kidney injury, improved. 2. Hypertension. 3. Anemia, stable. 4. Medications based on GFR are appropriate.
[2017-04-30] MEDS: Aspirin 81 mg Enteric Coated Tablet PO SCH (10:05)
[2017-04-30] MEDS: Heparin 5,000 UNITS/ML VIAL SC SCH ×2 (10:06→20:48)
[2017-04-30] MEDS: Citalopram 10 MG TAB PO SCH (10:06)
[2017-04-30] MEDS: Carvedilol 6.25 MG TAB PO SCH ×2 (11:35→20:47)
[2017-04-30] MEDS: Acetaminophen 325 MG TAB PO PRN ×2 (11:35→20:47)
[2017-04-30] MEDS: VALSARTAN PO SCH (11:36)
[2017-04-30] MEDS: AMLODIPINE PO SCH (11:36)
[2017-04-30] MEDS: fentaNYL 50 mcg/hour Patch TD SCH (16:18)
--- NOTE | 2017-04-30 16:49 | PDOC.PN ---
- Subjective Encounter Start Date: 04/30/17 Encounter Start Time: 16:48 Subjective: feels better. wants to go home.breathing easier now. -: some whhezing -: family at bedside.Care discussed - Objective MAR Reviewed: Yes Vital Signs & Weight: Vital Signs (12 hours) Temp Pulse Pulse Pulse Resp BP BP 04/30/17 15:08 98.5 F 65 18 04/30/17 14:20 62 66 145/95 H 146/54 H 04/30/17 11:08 99.3 F 74 14 04/30/17 08:00 99.3 F 74 14 04/30/17 07:13 99.3 F 65 22 H 04/30/17 07:03 73 20 04/30/17 04:58 98.9 F 67 20 BP Pulse Ox 04/30/17 15:08 149/67 H 96 04/30/17 14:20 04/30/17 11:08 167/69 H 94 L 04/30/17 08:00 04/30/17 07:13 150/62 H 92 L 04/30/17 07:03 04/30/17 04:58 156/62 H 93 L Weight Weight 200 lb I&O: 04/29/17 04/30/17 05/01/17 06:59 06:59 06:59 Intake Total 830 480 Balance 830 480 Result Diagrams: 04/30/17 05:12 04/30/17 05:12 Additional Labs: Accuchecks 04/30/17 04/30/17 04/29/17 10:27 04:56 20:19 POC Glucose 162 H 122 H 143 H 04/29/17 16:53 POC Glucose 213 H Laboratory Tests 04/27/17 04/29/17 04/30/17 16:28 05:10 05:12 Creatinine 2.06 H 2.59 H 1.18 H Phys Exam - Physical Examination Constitutional: NAD HEENT: PERRLA, moist MMs, sclera anicteric, TM's clear, oral pharynx no lesions , 2+ tonsils Neck: no nodes, no JVD, supple, full ROM Respiratory: no rales, no rhonchi, wheezing present, clear to auscultation bilateral Cardiovascular: RRR systolic murmur Gastrointestinal: soft, non-tender, no distention, positive bowel sounds Musculoskeletal: no edema, pulses present Neurological: non-focal, normal sensation, moves all 4 limbs Psychiatric: normal affect, A&O x 3 Skin: no rash Dx/Plan (1) Acute kidney failure Status: Acute Comment: improving (2) Chronic CHF (congestive heart failure) Code(s): I50.9 - HEART FAILURE, UNSPECIFIED Status: Acute Qualifiers: Congestive heart failure type: diastolic Qualified Code(s): I50.32 - Chronic diastolic (congestive) heart failure (3) Encephalopathy Code(s): G93.40 - ENCEPHALOPATHY, UNSPECIFIED Status: Resolved (4) Anemia, normocytic normochromic Code(s): D64.9 - ANEMIA, UNSPECIFIED Status: Chronic (5) Anxiety and depression Code(s): F41.9 - ANXIETY DISORDER, UNSPECIFIED; F32.9 - MAJOR DEPRESSIVE DISORDER, SINGLE EPISODE, UNSPECIFIED Status: Chronic (6) DM type 2 (diabetes mellitus, type 2) Status: Chronic Qualifiers: (7) HTN (hypertension) Code(s): I10 - ESSENTIAL (PRIMARY) HYPERTENSION Status: Chronic Qualifiers: (8) Osteoarthritis Code(s): M19.90 - UNSPECIFIED OSTEOARTHRITIS, UNSPECIFIED SITE Status: Chronic (9) Physical deconditioning Code(s): R53.81 - OTHER MALAISE Status: Chronic (10) Pulmonary hypertension Code(s): I27.2 - OTHER SECONDARY PULMONARY HYPERTENSION * DO NOT USE * Status : Chronic - Plan plan discussed w/ family, PT/OT, social worker health services, out of bed/ambulate, DVT proph w/SCDs AMS resolved.likley hypotensive episode.will adjust home meds -: lasix X 1 today for mild fluid OL.cont nebs,O2 -: home o2 eval on Dc again. -: renal Fx improving.nephrology following. -: Bp higher now. monitor & slowly re introduce meds * .DC ABX. urine Cx negative X2. Review of Systems - Review of Systems Constitutional: weakness. negative: fever, chills, sweats, malaise, other ENT: negative: Ear Pain, Ear Discharge, Nose Pain, Nose Discharge, Nose Congestion, Mouth Pain, Mouth Swelling, Throat Pain, Throat Swelling, Other Respiratory: SOB with Excertion. negative: Cough, Dry, Shortness of Breath, Hemoptysis, Pleuritic Pain, Sputum, Wheezing Cardiovascular: negative: chest pain, palpitations, orthopnea, paroxysmal nocturnal dyspnea, edema, light headedness, other Gastrointestinal: negative: Nausea, Vomiting, Abdominal Pain, Diarrhea, Constipation, Melena, Hematochezia, Other Genitourinary: negative: Dysuria, Frequency, Incontinence, Hematuria, Retention , Other Musculoskeletal: negative: Neck Pain, Shoulder Pain, Arm Pain, Back Pain, Hand Pain, Leg Pain, Foot Pain, Other Neurological: negative: Weakness, Numbness, Incoordination, Change in Speech, Confusion, Seizures, Other - Medications/Allergies Allergies/Adverse Reactions: Allergies Allergy/AdvReac Type Severity Reaction Status Date / Time Penicillins Allergy Verified 04/27/17 23:06 Medications: Current Medications Acetaminophen (Tylenol) 650 mg PO Q4H PRN PRN Reason: Headache/Fever or Pain Last Admin: 04/30/17 11:35 Dose: 650 mg Albuterol/Ipratropium (Duoneb) 3 ml NEB Q4H PRN PRN Reason: Dyspnea Last Admin: 04/30/17 07:03 Dose: 3 ml Aspirin (Ecotrin) 81 mg PO DAILY [facility] Last Admin: 04/30/17 10:05 Dose: 81 mg Carvedilol (Coreg) 12.5 mg PO BID [facility] Last Admin: 04/30/17 11:35 Dose: 12.5 mg Citalopram Hydrobromide (Celexa) 10 mg PO DAILY [facility] Last Admin: 04/30/17 10:06 Dose: 10 mg Fentanyl (Duragesic) 50 mcg TD Q2D [facility] Last Admin: 04/30/17 16:18 Dose: 50 mcg Gabapentin (Neurontin) 300 mg PO HS [facility] Last Admin: 04/29/17 21:23 Dose: 300 mg Heparin Sodium (Porcine) (Heparin) 5,000 units SC Q12HR [facility] Last Admin: 04/30/17 10:06 Dose: 5,000 units Hydralazine HCl (Apresoline) 10 mg SLOW IVP Q4H PRN PRN Reason: BP > 220/110 Sodium Chloride (Normal Saline 0.9%) 1,000 mls @ 100 mls/hr IV .Q10H [facility] Last Admin: 04/30/17 11:37 Dose: Not Given Mometasone Furoate/Formoterol Fumar (Dulera 200 Mcg/5 Mcg Inhaler) 2 puff INH BID-RT [facility] Last Admin: 04/30/17 07:03 Dose: 2 puff Amlodipine/Valsartan (5mg/320mg Tab) 0 each PO DAILY [facility] Last Admin: 04/30/17 11:36 Dose: Not Given Rosuvastatin Calcium (Crestor) 10 mg PO HS [facility] Last Admin: 04/29/17 21:22 Dose: 10 mg Sodium Chloride (Flush - Normal Saline) 10 ml IVF Q12HR [facility] Last Admin: 04/30/17 10:09 Dose: 10 ml Sodium Chloride (Flush - Normal Saline) 10 ml IVF PRN PRN PRN Reason: Saline Flush
[2017-04-30] MEDS: Gabapentin 300 MG CAP PO SCH (20:48)
[2017-04-30] MEDS: Rosuvastatin 10 MG TAB PO SCH (20:49)
[2017-05-01] MEDS: Acetaminophen 325 MG TAB PO PRN (04:47)
[2017-05-01 05:56] LABS: #Eosinphils 0.4 thou/uL (0.0-0.7); #Lymphocytes 1.7 thou/uL (1.20-3.40); #Monocytes 0.5 thou/uL (0.11-0.59); #Neutrophils 3.7 thou/uL (1.40-6.50); %Basophils 0.2 % (0.0-1.0); %Eosinophils 6.7 % (0.0-10.0); %Lymphocytes 27.2 % (21.0-51.0); %Monocytes 7.6 % (0.0-10.0); %Neutrophils 58.3 % (42.0-75.0); Hemoglobin 10.3 g/dL (12.0-16.0); Mean Corpuscular HGB CONC 32.2 g/dL (32.0-36.0); Mean Corpuscular Hemoglobin 30.8 pg (27.0-31.0); Mean Corpuscular Volume 95.5 fl (81.0-99.0); Platelet Count 172 thou/uL (130-400); RBC Distribution Width 12.5 % (11.5-14.5); Red Blood Cell (RBC) Count 3.33 mill/uL (4.20-5.40); White Blood Cell (WBC) Count 6.3 thou/uL (4.8-10.8)
[2017-05-01 06:01] LABS: Anion Gap 12 mmol/L (10-20); BUN (Urea Nitrogen) 23 mg/dL (9.8-20.1); Calc. Creatinine Clearance 74 mL/min (70-130); Carbon Dioxide 27 mmol/L (23-31); Chloride 107 mmol/L (98-107); Estimated GFR-MDRD 89; Glucose 129 mg/dL (83-110); Potassium 3.9 mmol/L (3.5-5.1); Sodium 142 mmol/L (136-145)
[2017-05-01] MEDS: Mometasone/Formoterol 120 PUFF INHALER INH SCH (07:08)
[2017-05-01] MEDS: Sodium Chloride 0.9% 1,000 ML IV SCH (09:00)
[2017-05-01] MEDS ORDERED: Furosemide 20 MG/2 ML VIAL SLOW IVP SCH (09:00)
[2017-05-01] MEDS: Heparin 5,000 UNITS/ML VIAL SC SCH (09:01)
[2017-05-01] MEDS: Citalopram 10 MG TAB PO SCH (09:02)
[2017-05-01] MEDS: Carvedilol 6.25 MG TAB PO SCH (09:02)
[2017-05-01] MEDS: Aspirin 81 mg Enteric Coated Tablet PO SCH (09:03)
[2017-05-01] MEDS: hydrALAZINE 25 MG TAB PO SCH ×2 (09:10→18:37)
[2017-05-01] MEDS: VALSARTAN PO SCH (09:10)
[2017-05-01] MEDS: AMLODIPINE PO SCH (09:10)
[2017-05-01] MEDS ORDERED: Polyethylene Glycol 3350 17 GM Packet PO PRN (11:31)
[2017-05-01 11:41] VITALS: BP 161/94; TEMP 98.4
--- NOTE | 2017-05-02 00:38 | DIS ---
DATE OF ADMISSION: 04/28/2017 DATE OF DISCHARGE: 05/01/2017 CONDITION AT THE TIME OF DISCHARGE: Stable and improved. PRIMARY CARE PHYSICIAN: Nicole Gary M.D. DISCHARGE DIAGNOSES: 1. Altered mental status. 2. Acute renal insufficiency. 3. Chronic congestive heart failure. 4. Normocytic normochromic anemia. 5. Diabetes. 6. Anxiety. 7. Hypertension. 8. Osteoarthritis. 9. Pulmonary hypertension. 10. Physical deconditioning. DISCHARGE DISPOSITION: Home with home health as per the patient's request. DISCHARGE MEDICATIONS: Nebulizers as needed, NovoLog 70/30 five units at bedtime and 10 units in the morning, Advair Diskus 2 inhalations b.i.d., Duragesic patch 50 mcg every 2 days, Lasix 40 mg p.o. b .i.d., Crestor 10 mg daily, aspirin 81 mg daily, hydralazine 75 mg p.o. t.i.d., amlodipine/valsartan 5/320 one tablet daily, tizanidine as needed, Coreg 12.5 mg p.o. b.i.d., Neurontin 300 mg p.o. b.i.d. , Celexa 10 mg daily, metformin 500 mg daily. CONSULTATIONS IN-HOUSE: 1. Neurology, Dr. Matheus Wing. 2. Cardiology, Dr. Haley Yi. 3. Nephrology, Dr. Lopez. PROCEDURES DONE IN THE HOSPITAL: 1. Renal ultrasound, which showed large superior pole simple cyst of the left kidney. 2. CT scan of the brain upon presentation, which is negative for any acute intracranial process. Tan hong has chronic sinus disease. 3. 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 4. Carotid Doppler ultrasound, which was once again negative for any hemodynamically significant dahlia nosis. 5. Transthoracic echocardiogram, which showed preserved ejection fraction of 60% to 65% with normal size and wall motions. HISTORY OF PRESENTING ILLNESS: Ms. Melissa is an 87-year-old female with known history of chronic willis estive heart failure with multiple hospitalizations in the past, who presented to the emergency room with complaints of altered mental status as well as some right-sided weakness and right-sided facial droop. The patient's symptoms have resolved prior to her admission to the hospital. She was admitte d with a presumptive diagnosis of possible transient ischemic attack. Initial EKG and a CT scan of t he brain were unremarkable. Chest x-ray was adjusted mild congestive heart failure. She was admitte d to the stroke floor and Neurology was consulted. Please see admission history and physical for fur ther details. The patient's symptoms did not return. She had some waxing and waning of her mentation, which eventu ally stabilized and she was back to her being herself and awake, alert, and oriented x3. Neurology s aw her and her TIA/CVA workup was essentially unremarkable. It was thought more so to be metabolic e ncephalopathy. She did have mild elevation of her cardiac enzymes upon presentation to 0.036 range. Cardiology was consulted with regards and Dr. Yi saw the patient. She had no further recommendation except for co ntinuation of medical management. The patient has chronically elevated troponins in the setting of c hronic kidney disease. Nephrology was consulted as the patient had some evidence of acute kidney injury and oliguria. This was treated with some IV fluids and her renal function improved back to baseline. On the day of , her GFR is at 89. She was seen on a day to day basis and all of her workup was negative. Her urine culture showed non- hemolytic streptococci with less than 5000 CFU per HPF. She was seen and examined prior to discharge. Discharge plan was discussed with the patient and aziza castano. She wanted to go home and did not want to go rehabilitation. This was arranged for her. PHYSICAL EXAMINATION: VITAL SIGNS: Temperature 98.4, pulse is 72, respirations 14, saturating 91% on room air. Blood pres sure 161/94. GENERAL: In no acute distress. CHEST: Clear to auscultation. Rate and rhythm is regular. NEUROLOGIC: Nonfocal. The patient is instructed to follow with her primary care physician and home health was arranged for her. She is back to her baseline. All questions were answered for the family. Prescriptions were p rovided and medications were reconciled as needed. Total time spent in the discharge of this patient 32 minutes.
--- NOTE | 2017-05-05 13:44 | EKG ---
Test Reason : WEAKNESS Blood Pressure : / mmHG Vent. Rate : 065 BPM Atrial Rate : 065 BPM P-R Int : 164 ms QRS Dur : 078 ms QT Int : 424 ms P-R-T Axes : 030 022 007 degrees QTc Int : 440 ms Normal sinus rhythm with sinus arrhythmia Nonspecific T wave abnormality Abnormal ECG Confirmed by SRINIVASAN MCKINLEY ([id number]), medical transcription editor WILLIAM ALANIZ ([id number]) on 05/05/2017 1:44:03 PM Referred By: Confirmed By:SRINIVASAN MCKINLEY
== END 2017-05-01 15:00 | disposition home health service (06) | DRG 71 ==
LOC: ERS 15:54 → 2SE 20:45 → OBSVTOIN 04-29 08:26
PROVIDERS: ADMIT Hospitalist; ATTEND Hospitalist
PROC: B030ZZZ Magnetic Resonance Imaging (MRI) of Brain (ICD-10-PCS; principal; 2017-04-28)
DX: G93.41 Metabolic encephalopathy (principal); N17.9 Acute kidney failure, unspecified; E87.2 Acidosis; E11.65 Type 2 diabetes mellitus with hyperglycemia; I27.20 Pulmonary hypertension, unspecified; E83.42 Hypomagnesemia; E87.1 Hypo-osmolality and hyponatremia; I13.0 Hypertensive heart and chronic kidney disease with heart failure and stage 1 through stage 4 chronic kidney disease, or unspecified chronic kidney disease; I50.32 Chronic diastolic (congestive) heart failure; J84.10 Pulmonary fibrosis, unspecified; D64.9 Anemia, unspecified; I25.10 Atherosclerotic heart disease of native coronary artery without angina pectoris; D72.829 Elevated white blood cell count, unspecified; E78.00 Pure hypercholesterolemia, unspecified; E78.5 Hyperlipidemia, unspecified; N18.9 Chronic kidney disease, unspecified; M19.90 Unspecified osteoarthritis, unspecified site; E66.9 Obesity, unspecified; Z68.34 Body mass index [BMI] 34.0-34.9, adult; R74.8 Abnormal levels of other serum enzymes; Z88.0 Allergy status to penicillin; Z91.19 Patient's noncompliance with other medical treatment and regimen; Z66 Do not resuscitate; Z96.652 Presence of left artificial knee joint; Z86.711 Personal history of pulmonary embolism
CPT/HCPCS: 36415; 36416; 51701; 70450; 70551; 71045; 76770; 80048; 80053; 80061; 80306; 81003; 82550; 82553; 83605; 83735; 83880; 84484; 85025; 87086; 93005; 93306; 93880; 94640; 94664; A4216; G8978-GP-CK; G8979-GP-CI; J0360; J1644; J1940; J1956; J3475; J7620

== ENCOUNTER 2017-05-03 09:18 | Inpatient (IN) | payer MEDICARE, MEDICAID ==
[2017-05-03 09:59] LABS: #Eosinphils 0.2 thou/uL (0.0-0.7); #Lymphocytes 1.2 thou/uL (1.20-3.40); #Monocytes 0.3 thou/uL (0.11-0.59); #Neutrophils 12.2 thou/uL (1.40-6.50); %Basophils 0.2 % (0.0-1.0); %Eosinophils 1.4 % (0.0-10.0); %Lymphocytes 8.4 % (21.0-51.0); %Monocytes 2.1 % (0.0-10.0); %Neutrophils 87.9 % (42.0-75.0); Hemoglobin 11.5 g/dL (12.0-16.0); Mean Corpuscular HGB CONC 31.9 g/dL (32.0-36.0); Mean Corpuscular Hemoglobin 30.4 pg (27.0-31.0); Mean Corpuscular Volume 95.2 fl (81.0-99.0); Mean Platelet Volume 8.3 fL (7.4-10.4); Platelet Count 250 thou/uL (130-400); RBC Distribution Width 12.5 % (11.5-14.5); Red Blood Cell (RBC) Count 3.78 mill/uL (4.20-5.40); White Blood Cell (WBC) Count 13.9 thou/uL (4.8-10.8)
[2017-05-03] MEDS ORDERED: Ondansetron HCl/PF 4 MG/2 ML Vial ONE (10:02)
--- NOTE | 2017-05-03 10:16 | RAD ---
CHEST ONE VIEW: History: Dyspnea, difficulty breathing. Comparison: 04-29-17 FINDINGS: Right reverse total shoulder arthroplasty. Moderate pulmonary edema as well as cephalization of pulmo nary vasculature. Small effusions. No pneumothorax. IMPRESSION: Mildly worsening pulmonary edema. POS: OFF
[2017-05-03 10:20] LABS: ALT (SGPT) Less than 7 U/L (8-55); AST (SGOT) 18 U/L (5-34); Albumin 3.4 g/dL (3.4-4.8); Alkaline Phosphatase 61 U/L (40-150); Anion Gap 14 mmol/L (10-20); BUN (Urea Nitrogen) 12 mg/dL (9.8-20.1); Bilirubin, Total 0.9 mg/dL (0.2-1.2); CK (CPK) 125 U/L (29-168); Calc. Creatinine Clearance 0 mL/min (70-130); Carbon Dioxide 29 mmol/L (23-31); Chloride 100 mmol/L (98-107); Estimated GFR-MDRD 84; Globulin 4.5 g/dL (2.4-3.5); Glucose 194 mg/dL (83-110); Potassium 3.5 mmol/L (3.5-5.1); Protein, Total 7.9 g/dL (6.0-8.3); Sodium 139 mmol/L (136-145)
[2017-05-03 10:23] LABS: CKMB 0.6 ng/mL (0-6.6); Troponin I 0.026 ng/mL (< 0.028)
--- NOTE | 2017-05-03 11:13 | CT ---
CT OF THE ABDOMEN AND PELVIS WITH IV CONTRAST: Date: 05/03/17 INDICATION: Right-sided abdominal pain. COMPARISON: CT of the abdomen and pelvis dated 10/12/[address] of the chest dated 03/16/12 and 03/08/16. FINDINGS: There is an area of persistent peripheral consolidation within the right lower lobe which has increas ed in size from the 2016, now measuring 4.2 cm. There is a calcified granuloma in the left lower lobe . There is some subsegmental volume loss within both lower lobes. There is a small hiatal hernia. Gallbladder is surgically absent. No focal hepatic lesion is evident. There are stable bilateral nick l cysts. There is a calcified granuloma in the spleen. No drainable fluid collection is evident. No d efinite acute osseous abnormality is noted. IMPRESSION: 1. Persistent right lower lobe peripheral air space consolidation. Findings are concerning for adeno carcinoma of the lung versus a chronic area of pulmonary consolidation, possibly related to cryptogen ic organizing pneumonia or chronic eosinophilic pneumonia. Chronic pulmonary infarct cannot be entire ly excluded. Would recommend pulmonary consultation and a complete CT of the thorax with IV contrast for additional evaluation for additional pulmonary lesions. 2. No definite acute abnormality seen within the abdomen or pelvis. 3. Stable bilateral renal cysts and postsurgical change of prior cholecystectomy. Uterus is surgical ly absent. There is postsurgical change of a small bowel resection with anastomosis in the right lowe r quadrant of the abdomen. 4. Other chronic findings as above. CODE T. POS: [facility]
[2017-05-03] MEDS ORDERED: Albuterol Sulfate 2.5 mg/3 ml Neb ONE (11:17)
[2017-05-03] MEDS ORDERED: Albuterol Sulfate 2.5 mg/0.5 ml Neb ONE (11:17)
[2017-05-03] MEDS ORDERED: Piperacillin/Tazobactam 3.375 GM in Sodium Chloride 0.9% 100 ML IVPB ONE (11:30)
[2017-05-03] MEDS ORDERED: ISOVUE-370 76%-LOCM 1 ML ONE (13:00)
[2017-05-03] MEDS ORDERED: Ondansetron ODT 4 MG TAB SL PRN (14:41)
[2017-05-03] MEDS ORDERED: Acetaminophen 325 MG TAB PO PRN (14:41)
[2017-05-03] MEDS ORDERED: Ondansetron HCl/PF 4 MG/2 ML Vial IVP PRN ×2 (14:41→14:51)
[2017-05-03] MEDS ORDERED: Albuterol Sulfate 2.5 mg/3 ml Neb NEB PRN (14:44)
[2017-05-03 14:47] VITALS: BMI 27.1
[2017-05-03] MEDS ORDERED: hydrALAZINE 20 MG/ML VIAL SLOW IVP PRN (14:51)
[2017-05-03] MEDS ORDERED: Ondansetron ODT 4 MG TAB PO PRN (14:51)
[2017-05-03] MEDS ORDERED: Dextrose 5% in Water 1,000 ML IV PRN (14:51)
[2017-05-03] MEDS ORDERED: Dextrose 50% Abboject 50 ML SYRINGE SLOW IVP PRN (14:51)
[2017-05-03] MEDS ORDERED: Furosemide 40 MG/4 ML VIAL SLOW IVP SCH (15:15)
[2017-05-03] MEDS: hydrALAZINE 25 MG TAB PO SCH ×2 (16:00→20:46)
--- NOTE | 2017-05-03 17:05 | HP ---
PRIMARY CARE PHYSICIAN: Nicole Gary M.D. CHIEF COMPLAINT: Epigastric pain and shortness of breath. HISTORY OF PRESENT ILLNESS: The history of present illness is taken primarily from the patient's son who is at the bed. The patient also does contribute some information as well. Ms. Melissa is a very pleasant 87-year-old female that has a history of COPD as well as chronic kidney disease and diabetes mellitus. She was actually recently discharged from our facility approximately 3 days ago. At that time, she was admitted for some confusion as well as some right-sided weakness. She had a full work up including an MRI of the brain as well as an echocardiogram and carotid Dopplers, these were essent ially negative. She did have some mild increase in velocities in the carotid artery, but it was attr ibuted to being a transient ischemic attack. Her symptoms had essentially resolved. She also had de veloped some acute on chronic kidney disease and this was likely from volume depletion and this has a lso resolved. The patient was doing well at home other than being a little bit weaker than her basel ine according to her family when this morning she began complaining of some epigastric discomfort and some cramping. She also had some nausea off and on. She also appeared to be short of breath and wa s having trouble breathing. They called EMS and they came and placed her on oxygen and she was impro denae. Then when they arrived in the emergency room, she was being evaluated and in the process of the evaluation, they found that she had 2 fentanyl patches on. They removed both patches and then her s ymptoms of shortness of breath as well as the epigastric pain actually resolved. Now, she feels back at her baseline. However, during the course of her evaluation in the ER, she had a CT scan of her a bdomen and pelvis performed and on the CT scan, it demonstrated that she had a persistent right lower lobe peripheral airspace disease which was concerning for either adenocarcinoma versus a chronic are a of pulmonary consolidation. It is actually for this reason that she is being admitted to the [facility]. She also may have some degree of acute on chronic systolic heart failure. Otherwise, the patie nt has no other complaints. She complains of chronic headache off and on and also chronic back pain. REVIEW OF SYSTEMS: Constitutional: There have been no fevers or chills. No night sweats, no weight loss. HEENT: She does complain of headache which she says is chronic. No visual changes, no sore throat, no rhinorrhea, no adenopathy. Pulmonary: As in the history of present illness. She denies any cough or congestion. No hemoptysis. Cardiovascular: She denies any chest pain. She did have s ome shortness of breath starting this morning at rest. No PND, no orthopnea. No lower extremity chichi ma. Gastrointestinal: She has complained of some epigastric discomfort, no vomiting. She has been constipated which she says is chronic. No blood in the stool. Her last bowel movement was this morn ing and she says it was normal. Genitourinary: No urinary frequency, hematuria, or hesitancy. Neur ologic: She denies any focal weakness. Her family does say that she seems to be more or less weak a ll around, more generalized with difficulty with activities of daily living. Musculoskeletal: She d oes complain of chronic low back pain, but no focal weakness once again. Skin/Integument: No skin c hanges. No rashes. Psychiatric: No symptoms of anxiety or depression. PAST MEDICAL HISTORY: Significant for diabetes mellitus, hyperlipidemia, remote history of pulmonary embolism, pulmonary hypertension, osteoarthritis, COPD, chronic kidney disease. PAST SURGICAL HISTORY: She has had back surgery, cholecystectomy, knee surgery, and 3 shoulder surge carmen. ALLERGIES: PENICILLIN. FAMILY HISTORY: No known heritable diseases. CURRENT MEDICATIONS: As taken from the emergency room records as she says these were given to the [facility]. These include amlodipine/valsartan 5/320 one daily, citalopram 10 mg daily, metformin 500 mg americo navarro, gabapentin 300 mg t.i.d., hydralazine 75 mg t.i.d., carvedilol 12.5 mg twice a day, Lasix 20 mg daily, aspirin 81 mg daily, etodolac 500 mg twice a day. PHYSICAL EXAMINATION: GENERAL: She is alert and oriented. She appears to be in no acute distress. VITAL SIGNS: Blood pressure was 179/90, heart rate 80, respiratory rate of 24, temperature is 99.3. HEENT: Pupils are equal, round, and reactive. Extraocular muscles are intact. Her sclerae are anic teric. Throat; no erythema, no exudates. NECK: No adenopathy, no bruits. LUNGS: She has some scattered mild expiratory wheezing. She did have some rales in the left base wi th some rhonchi. CARDIOVASCULAR: She has a normal S1 and S2. I did appreciate 2/6 systolic murmur around the base. ABDOMEN: Obese, it is soft. There is some mild diffuse tenderness. There is no rebound, no guardin g. Positive for bowel sounds. EXTREMITIES: There is some trace nonpitting edema. NEUROLOGIC: Cranial nerves II-XII are grossly intact. Her muscle strength is 5/5 in both her upper and lower extremities. SKIN AND INTEGUMENT: There are no significant skin lesions or rash. SIGNIFICANT LABORATORY AND X-RAY FINDINGS: White blood cell count 13.9, hemoglobin 11.5, hematocrit 36.1, platelet count is 250. Sodium 139, potassium 3.5, chloride is 100, CO2 is 29, BUN 12, creatini ne 0.78, glucose is 195. Troponin is 0.026, natriuretic peptide was 225.7. The patient had a chest x-ray showing mild worsening of pulmonary edema and CT scan findings are as previously mentioned and include a persistent right lower lobe infiltrate or airspace disease, some of which were concerning f or possible adenocarcinoma. ASSESSMENT AND PLAN: 1. This is a very pleasant 87-year-old female who is being admitted for a transient episode of epiga stric pain as well as shortness of breath. This appears to have actually resolved in the ER after th e removal of the fentanyl patches. Some of her symptoms could be the result of an accidental opiate overmedication with the fentanyl; however, she does have some volume overload radiographically. She will be admitted to the medical floor. We will give her one dose of IV Lasix to help with the volume overload and then likely this could be transitioned back to her regular oral dose tomorrow. We will treat her for pneumonia given the findings on the CT scan and will also consult her video news editor Dr Cynthia Gay for further recommendations. 2. With regards to diabetes mellitus, we will actually hold metformin for now until we get further r ecommendations from Dr. Gay and cover her with a sliding scale insulin. 3. Chronic obstructive pulmonary disease. We will continue DuoNebs both scheduled and p.r.n. She w ill also be placed on deep venous thrombosis and gastrointestinal prophylaxis.
[2017-05-03] MEDS: HumaLOG 300 UNITS/3 ML VIAL SC PRN ×2 (17:20→20:48)
--- NOTE | 2017-05-03 17:27 | CON ---
DATE OF CONSULTATION: 05/03/2017 CONSULTING PHYSICIAN: Dr. Méndez from [facility]. REASON FOR CONSULTATION: Lung mass and pneumonia. HISTORY OF PRESENT ILLNESS: History is obtained from speaking with the patient , her family, reviewing notes in the chart. She is an 87-year-old female who just got discharged from the hospital 2 days ago. She came in today complaining of increasing shortness of breath and weakness. One of her family members told me that they found that they had inadvertently put 2 fentanyl patches on her as soon as they took the patch is off. Her breathing became better. The patient has been coughing since her last hospitalization. Discharge summary indicates at that time, she was being treated for altered mental status, but did not mention the possibility of pneumonia. During this emergency room visit, she underwent a CT scan of the abdomen, which was called a right lower lobe pneumonia; however, in reviewing films from 03/2016, she had an infiltrate in the exact same region compared to that. In fact, the size has not changed very much. The patient denies any fever or chills. PAST MEDICAL HISTORY: 1. COPD - followed by Dr. Gay. 2. Diabetes mellitus. 3. Hyperlipidemia. 4. Hypertension. 5. Pulmonary embolism. 6. Anxiety. PAST SURGICAL HISTORY: Cholecystectomy, hysterectomy, rotator cuff repair, arthroplasty, cataract surgery, small bowel removal. MEDICATIONS: Prior to admission, amlodipine 5 mg daily, valsartan 320 mg daily , citalopram 10 mg daily, metformin 500 mg daily, gabapentin 300 mg 3 times daily, carvedilol 12.5 mg twice daily, hydralazine 75 mg 3 times daily, Lasix 20 mg daily, aspirin 81 mg daily, etodolac 500 mg daily. Additionally, she is on some type of Duragesic patch. ALLERGIES: PENICILLINS. SOCIAL HISTORY: Nonsmoker, does not consume alcohol. REVIEW OF SYSTEMS: Twelve point review of systems otherwise negative. PHYSICAL EXAMINATION: VITAL SIGNS: Temperature 98.4, pulse 65, respirations 18, O2 sat 97% on 2 liters, blood pressure 172/67. GENERAL: She is awake and alert and in no acute distress. HEENT: Unremarkable. NECK: Without adenopathy or JVD. LUNGS: She has some coarse crackles bilaterally. No wheezes. CARDIAC: S1, S2 regular, without murmur. ABDOMEN: Soft, nontender. EXTREMITIES: No clubbing, cyanosis, or edema. NEUROLOGIC: Grossly intact throughout. SKIN: Shows no lesions. PSYCHIATRIC: Alert and oriented x3. LABORATORY DATA: White blood cell count 13.9, hematocrit 36.1, platelet count 250. Sodium 139, potassium 3.5, chloride 100, CO2 of 29, BUN 12, creatinine 0.7 , glucose 194. I personally reviewed her current CT of the abdomen as well as a CT of the chest from 2016. Her chest x-ray from today shows some blunting of costophrenic angles, but overall does not look bad. ASSESSMENT: 1. Aforementioned area in the right lower lobe is probably chronic scarring in nature. I doubt that this is malignancy. 2. Question of concurrent underlying pneumonia. More likely, her respiratory status is also due to excess Duragesic in her system. 3. Underlying chronic obstructive pulmonary disease. RECOMMENDATIONS: I would consolidate her antibiotics rapidly. Continue nebulization treatments. I will have Dr. Gay look at the case tomorrow. Currently, I would not favor doing any type of biopsy. 70 min spent on patient at the bedside and/or on the patient's floor [facility]
[2017-05-03] MEDS: HYDROcodone/Acetaminophen 5/325 mg Tablet PO PRN (17:42)
[2017-05-03] MEDS ORDERED: Piperacillin/Tazobactam 3.375 GM in Sodium Chloride 0.9% 100 ML IVPB SCH (20:00)
[2017-05-03] MEDS: Docusate 100 MG CAP PO SCH (20:47)
[2017-05-03] MEDS: Rosuvastatin 10 MG TAB PO SCH (20:47)
[2017-05-03] MEDS: Gabapentin 300 MG CAP PO SCH (20:47)
[2017-05-03] MEDS: Carvedilol 25 MG TAB PO SCH (20:47)
[2017-05-03] MEDS: Famotidine 20 MG TAB PO SCH (20:47)
[2017-05-04] MEDS ORDERED: Vancomycin HCl 1 GM in Premix Bag 1 BAG IVPB SCH (01:00)
[2017-05-04] MEDS: Acetaminophen 325 MG TAB PO PRN ×2 (01:00→21:29)
[2017-05-04 05:14] LABS: Anion Gap 12 mmol/L (10-20); BUN (Urea Nitrogen) 20 mg/dL (9.8-20.1); Calc. Creatinine Clearance 36 mL/min (70-130); Calcium 8.8 mg/dL (7.8-10.44); Carbon Dioxide 27 mmol/L (23-31); Chloride 97 mmol/L (98-107); Estimated GFR-MDRD 50; Glucose 288 mg/dL (83-110); Potassium 4.2 mmol/L (3.5-5.1); Sodium 132 mmol/L (136-145)
[2017-05-04] MEDS: HumaLOG 300 UNITS/3 ML VIAL SC PRN ×2 (05:42→12:18)
[2017-05-04 06:13] LABS: Band 26 % (5-11); Hemoglobin 9.4 g/dL (12.0-16.0); Lymphocytes 5 % (21-51); MDiff Complete? YES; Mean Corpuscular HGB CONC 31.3 g/dL (32.0-36.0); Mean Corpuscular Hemoglobin 29.9 pg (27.0-31.0); Mean Corpuscular Volume 95.5 fl (81.0-99.0); Mean Platelet Volume 8.6 fL (7.4-10.4); Monocytes 3 % (0-10); Neutrophil 66 % (42-75); Platelet Count 235 thou/uL (130-400); RBC Distribution Width 12.3 % (11.5-14.5); Red Blood Cell (RBC) Count 3.14 mill/uL (4.20-5.40); White Blood Cell (WBC) Count 19.4 thou/uL (4.8-10.8)
[2017-05-04] MEDS ORDERED: HYDROcodone/Acetaminophen 10/325 mg Tablet PO PRN ×2 (07:31→07:39)
[2017-05-04] MEDS ORDERED: Chloraseptic Spray 180 ml Bottle PO PRN (07:35)
[2017-05-04] MEDS ORDERED: Loperamide HCl 2 MG CAP PO PRN (07:35)
[2017-05-04] MEDS ORDERED: Mag-Al 1200 mg/1200 mg/30 ML UDCUP PO PRN (07:35)
[2017-05-04] MEDS ORDERED: Loratadine 10 MG TAB PO PRN (07:35)
[2017-05-04] MEDS ORDERED: Eucerin (Mineral Oil/Petrolatum,White) 30 gm Jar TOP PRN (07:35)
[2017-05-04] MEDS ORDERED: Milk Of Magnesia 30 ML UDCUP PO PRN (07:35)
[2017-05-04] MEDS ORDERED: Artificial Tears 18 DROP/0.9 ML EA EYE PRN (07:35)
[2017-05-04] MEDS ORDERED: Diabetic Tussin 200 MG/10 ML UDCUP PO PRN (07:35)
[2017-05-04] MEDS ORDERED: Sodium Chloride 0.65% Nasal 44 ML BOT EA NARE PRN (07:35)
[2017-05-04] MEDS: Aspirin 81 mg Enteric Coated Tablet PO SCH (08:32)
[2017-05-04] MEDS: Valsartan 80 MG TAB PO SCH (08:32)
[2017-05-04] MEDS: Docusate 100 MG CAP PO SCH ×2 (08:32→21:21)
[2017-05-04] MEDS: Amlodipine 5 MG TAB PO SCH (08:33)
[2017-05-04] MEDS: Famotidine 20 MG TAB PO SCH ×2 (08:39→21:21)
[2017-05-04] MEDS: Citalopram 10 MG TAB PO SCH (08:39)
[2017-05-04] MEDS: Gabapentin 300 MG CAP PO SCH ×2 (08:39→21:21)
[2017-05-04] MEDS: Enoxaparin Sodium 30 MG/0.3 ML SYRINGE SC SCH (08:43)
[2017-05-04] MEDS: Carvedilol 25 MG TAB PO SCH ×2 (08:44→21:20)
[2017-05-04] MEDS ORDERED: Furosemide 40 MG TAB PO SCH (09:00)
[2017-05-04] MEDS ORDERED: Furosemide 20 MG TAB PO SCH (09:00)
[2017-05-04] MEDS ORDERED: ETODOLAC 500 MG PO SCH (09:00)
[2017-05-04] MEDS: fentaNYL 50 mcg/hour Patch TD SCH (10:22)
[2017-05-04] MEDS: hydrALAZINE 25 MG TAB PO SCH ×3 (10:25→21:21)
[2017-05-04] MEDS: Insulin NPH/Reg Insulin Hm 300 UNITS/3 ML VIAL SC SCH ×2 (10:26→21:27)
--- NOTE | 2017-05-04 10:27 | PRG ---
DATE OF SERVICE: 05/04/2017 She is an 87-year-old female who is a DNR was admitted last night with shortness of breath, confusion . PHYSICAL EXAMINATION: VITAL SIGNS: Sats are 90% on 2 liters, temperature 98, blood pressure 109/58, respirations 18. GENE RAL: She is awake, alert, responsive. CHEST: Chest reveals bilateral crackles. There is no wheezing. CARDIAC: Normal S1, S2. ABDOMEN: Soft, no masses. LABORATORY: Glucose 263. Sodium 132, creatinine 1.23. White count 19,000. Chest x-ray taken yeste rday, it is noted the report shows bilateral increased interstitial marking, slightly more pronounced in the left base. Clearly, there is no mass. It is unclear whether a CT of the abdomen was ordered, but the lower half of the lung on the CT abdomen shows no masses that I can see. IMPRESSION: 1. Respiratory failure. 2. Former smoker. Pulmonary function tests showing restrictive pulmonary impairment. PLAN: Continue present neb treatments, deescalate antibiotics, steroids. I see no evidence of staph. Hopefully, she can be discharged home in the next several days.
--- NOTE | 2017-05-04 11:34 | PDOC.PN ---
- Subjective Encounter Start Date: 05/04/17 Encounter Start Time: 10:30 -: old records requested/rev Patient seen and examined. No new complaints. No overnight events has cough, has dyspnea - Objective Resuscitation Status: Resuscitation Status DNR:Do Not Resuscitate MAR Reviewed: Yes Vital Signs & Weight: Vital Signs (12 hours) Temp Pulse Resp BP BP BP BP 05/04/17 10:25 64 137/68 05/04/17 09:50 120/66 138/64 05/04/17 08:33 68 05/04/17 06:56 68 14 05/04/17 06:52 98.2 F 68 16 119/58 L 05/04/17 05:00 98.5 F 60 20 163/65 H 05/04/17 00:47 61 14 05/04/17 00:28 98.3 F 60 19 130/64 Pulse Ox Pulse Ox Pulse Ox 05/04/17 10:25 05/04/17 09:50 100 100 05/04/17 08:33 05/04/17 06:56 05/04/17 06:52 99 05/04/17 05:00 99 05/04/17 00:47 98 05/04/17 00:28 99 Weight Admit Weight 163 lb 1 oz Weight 163 lb 1 oz I&O: 05/03/17 05/04/17 05/05/17 06:59 06:59 06:59 Intake Total 1150 Balance 1150 Result Diagrams: 05/04/17 04:21 05/04/17 04:21 Additional Labs: Accuchecks 05/04/17 05/03/17 05/03/17 05:40 20:46 15:55 POC Glucose 263 H 337 H 287 H Radiology Reviewed by me: Yes (Chest xray and CT abdomen) Phys Exam - Physical Examination Constitutional: NAD HEENT: PERRLA, moist MMs, sclera anicteric Neck: no JVD, supple Respiratory: no wheezing, no rhonchi right base rales Cardiovascular: RRR, no significant murmur, no rub Gastrointestinal: soft, non-tender, no distention, positive bowel sounds Musculoskeletal: no edema, pulses present Neurological: non-focal, normal sensation Lymphatic: no nodes Psychiatric: normal affect, A&O x 3 Skin: no rash, normal turgor Dx/Plan (1) Right lower lobe pneumonia Code(s): J18.1 - LOBAR PNEUMONIA, UNSPECIFIED ORGANISM Status: Acute Qualifiers: Aspiration pneumonia type: unspecified (2) Anemia, normocytic normochromic Code(s): D64.9 - ANEMIA, UNSPECIFIED Status: Chronic (3) Anxiety and depression Code(s): F41.9 - ANXIETY DISORDER, UNSPECIFIED; F32.9 - MAJOR DEPRESSIVE DISORDER, SINGLE EPISODE, UNSPECIFIED Status: Chronic (4) CKD (chronic kidney disease) stage 3, GFR 30-59 ml/min Code(s): N18.3 - CHRONIC KIDNEY DISEASE, STAGE 3 (MODERATE) Status: Chronic (5) COPD (chronic obstructive pulmonary disease) Status: Chronic (6) DM type 2 (diabetes mellitus, type 2) Status: Chronic Qualifiers: (7) HTN (hypertension) Code(s): I10 - ESSENTIAL (PRIMARY) HYPERTENSION Status: Chronic Qualifiers: (8) Osteoarthritis Code(s): M19.90 - UNSPECIFIED OSTEOARTHRITIS, UNSPECIFIED SITE Status: Chronic (9) Physical deconditioning Code(s): R53.81 - OTHER MALAISE Status: Chronic (10) Pulmonary hypertension Code(s): I27.2 - OTHER SECONDARY PULMONARY HYPERTENSION * DO NOT USE * Status : Chronic - Plan cont current plan of care, continue antibiotics, respiratory therapy * currently on levaquin and vancomycin * pulmonary consulted * continue respiratory therapy * continue selected home meds * medication reviewed as below * symptomatic treatment * will repeat labs tomorrow. Review of Systems - Review of Systems Constitutional: weakness. negative: fever, chills, sweats, malaise, other Respiratory: Cough, Shortness of Breath. negative: Dry, Hemoptysis, SOB with Excertion, Pleuritic Pain, Sputum, Wheezing Cardiovascular: negative: chest pain, palpitations, orthopnea, paroxysmal nocturnal dyspnea, edema, light headedness, other Gastrointestinal: negative: Nausea, Vomiting, Abdominal Pain, Diarrhea, Constipation, Melena, Hematochezia, Other Genitourinary: negative: Dysuria, Frequency, Incontinence, Hematuria, Retention , Other Musculoskeletal: negative: Neck Pain, Shoulder Pain, Arm Pain, Back Pain, Hand Pain, Leg Pain, Foot Pain, Other Skin: negative: Rash, Lesions, Calos, Bruising, Other - Medications/Allergies Allergies/Adverse Reactions: Allergies Allergy/AdvReac Type Severity Reaction Status Date / Time Penicillins Allergy Verified 04/27/17 23:06 Medications: Current Medications Acetaminophen (Tylenol) 650 mg PO Q4H PRN PRN Reason: Headache/Fever or Pain Last Admin: 05/04/17 01:00 Dose: 650 mg Hydrocodone Bitart/Acetaminophen ([place] 5/325) 1 tab PO Q4H PRN PRN Reason: Moderate Pain (4-6) Last Admin: 05/03/17 17:42 Dose: 1 tab Hydrocodone Bitart/Acetaminophen ([place] 10/325) 1 tab PO Q4H PRN PRN Reason: Pain Al Hydroxide/Mg Hydroxide (Maalox) 15 ml PO Q4H PRN PRN Reason: Heartburn or Indigestion Albuterol Sulfate (Ventolin) 5 mg NEB Q4H PRN PRN Reason: SOB &/or Wheezing Albuterol/Ipratropium (Duoneb) 3 ml NEB [id number] [facility] Last Admin: 05/04/17 06:56 Dose: 3 ml Albuterol/Ipratropium (Duoneb) 3 ml NEB [id number] PRN PRN Reason: SOB &/or Wheezing Amlodipine Besylate (Norvasc) 5 mg PO DAILY [facility] Last Admin: 05/04/17 08:33 Dose: 5 mg Artificial Tears (Tears Naturale) 0 drop EA EYE PRN PRN PRN Reason: Dry Eyes Aspirin (Ecotrin) 81 mg PO DAILY [facility] Last Admin: 05/04/17 08:32 Dose: 81 mg Carvedilol (Coreg) 12.5 mg PO BID [facility] Last Admin: 05/04/17 08:44 Dose: 12.5 mg Citalopram Hydrobromide (Celexa) 10 mg PO DAILY [facility] Last Admin: 05/04/17 08:39 Dose: 10 mg Dextrose/Water (Dextrose 50%) 25 gm SLOW IVP PRN PRN PRN Reason: Hypoglycemia Docusate Sodium (Colace) 100 mg PO BID [facility] Last Admin: 05/04/17 08:32 Dose: 100 mg Enoxaparin Sodium (Lovenox) 30 mg SC 0900 [facility] Last Admin: 05/04/17 08:43 Dose: 30 mg Famotidine (Pepcid) 20 mg PO BID [facility] Last Admin: 02/02/18 08:39 Dose: 20 mg Fentanyl (Duragesic) 50 mcg TD Q2DAYS [facility] Last Admin: 05/04/17 10:22 Dose: 50 mcg Gabapentin (Neurontin) 300 mg PO BID [facility] Last Admin: 05/04/17 08:39 Dose: 300 mg Glucagon (Glucagon) 1 mg IM PRN PRN PRN Reason: Hypoglycemia Guaifenesin (Robitussin Sf) 200 mg PO Q4H PRN PRN Reason: Cough Hydralazine HCl (Apresoline) 10 mg SLOW IVP Q4H PRN PRN Reason: Systolic BP > 180 Hydralazine HCl (Apresoline) 75 mg PO TID [facility] Last Admin: 05/04/17 10:25 Dose: 75 mg Dextrose/Water (D5w) 1,000 mls @ 0 mls/hr IV .Q0M PRN; As Directed PRN Reason: Hypoglycemia Insulin Human Isoph/Insulin Regular (Humulin 70/30) 5 units SC [facility] Insulin Human Isoph/Insulin Regular (Humulin 70/30) 10 units SC QAM [facility] Last Admin: 05/04/17 10:26 Dose: 10 unit Insulin Human Lispro (Humalog) 0 units SC .MODERATE SLIDING SC PRN PRN Reason: Moderate Correctional Scale Last Admin: 05/04/17 05:42 Dose: 6 unit Insulin Human Lispro (Humalog) 0 units SC .BEDTIME SLIDING SC PRN PRN Reason: Bedtime Correctional Scale Last Admin: 05/03/17 20:48 Dose: 4 unit Levofloxacin (Levaquin) 500 mg PO 0600 [facility] Loperamide HCl (Imodium) 2 mg PO PRN PRN PRN Reason: Diarrhea/Loose Stools Loratadine (Claritin) 10 mg PO DAILYPRN PRN PRN Reason: Sinus Symptoms Magnesium Hydroxide (Milk Of Magnesium) 30 ml PO DAILYPRN PRN PRN Reason: Constipation Metformin HCl (Glucophage Xr) 500 mg PO 1700 [facility] Mineral Oil/White Petrolatum (Eucerin Cream) 0 gm TOP BIDPRN PRN PRN Reason: Dry Skin Ondansetron HCl (Zofran Odt) 4 mg PO Q6H PRN PRN Reason: Nausea/Vomiting Ondansetron HCl (Zofran) 4 mg IVP Q6H PRN PRN Reason: Nausea/Vomiting [Etodolac] 500 Mg 0 each PO BID [facility] Phenol (Chloraseptic [place] 180 Ml Bot) 0 ml PO PRN PRN PRN Reason: Sore Throat Prednisone (Prednisone) 20 mg PO QAM[facility] Rosuvastatin Calcium (Crestor) 10 mg PO HS [facility] Last Admin: 05/03/17 20:47 Dose: 10 mg Sodium Chloride (Flush - Normal Saline) 10 ml IVF Q12HR [facility] Last Admin: 05/04/17 10:26 Dose: 10 ml Sodium Chloride (Flush - Normal Saline) 10 ml IVF PRN PRN PRN Reason: Saline Flush Sodium Chloride ([place] Nasal [place] 0.65%) 0 ml EA NARE QIDPRN PRN PRN Reason: Nasal Congestion Valsartan (Diovan) 320 mg PO DAILY [facility] Last Admin: 05/04/17 08:32 Dose: 320 mg
[2017-05-04] MEDS ORDERED: Non-Formulary Item 1 EACH (Metformin Hcl [Metformin Hcl Er] 500 MG) PO SCH (17:00)
[2017-05-04] MEDS: metFORMIN XR 500 MG TAB PO SCH (17:33)
[2017-05-04] MEDS ORDERED: INSULIN ASPART PROTAMINE SC SCH (21:00)
[2017-05-04] MEDS ORDERED: [UNRECOGNIZED DRUG - OTHER] SC SCH (21:00)
[2017-05-04] MEDS ORDERED: INSULIN ASPART SC SCH (21:00)
[2017-05-04] MEDS: Rosuvastatin 10 MG TAB PO SCH (21:33)
[2017-05-05 05:23] LABS: #Eosinphils 0.3 thou/uL (0.0-0.7); #Lymphocytes 2.4 thou/uL (1.20-3.40); #Monocytes 0.6 thou/uL (0.11-0.59); #Neutrophils 9.7 thou/uL (1.40-6.50); %Basophils 0.1 % (0.0-1.0); %Eosinophils 2.5 % (0.0-10.0); %Lymphocytes 18.3 % (21.0-51.0); %Monocytes 4.6 % (0.0-10.0); %Neutrophils 74.6 % (42.0-75.0); Hemoglobin 9.1 g/dL (12.0-16.0); Mean Corpuscular HGB CONC 32.6 g/dL (32.0-36.0); Mean Corpuscular Hemoglobin 31.4 pg (27.0-31.0); Mean Corpuscular Volume 96.3 fl (81.0-99.0); Mean Platelet Volume 8.7 fL (7.4-10.4); Platelet Count 267 thou/uL (130-400); RBC Distribution Width 12.5 % (11.5-14.5)
[2017-05-05 06:07] LABS: ALT (SGPT) 7 U/L (8-55); AST (SGOT) 16 U/L (5-34); Albumin 2.7 g/dL (3.4-4.8); Alkaline Phosphatase 52 U/L (40-150); Anion Gap 15 mmol/L (10-20); BUN (Urea Nitrogen) 33 mg/dL (9.8-20.1); Bilirubin, Total 0.3 mg/dL (0.2-1.2); Calc. Creatinine Clearance 33 mL/min (70-130); Calcium 8.8 mg/dL (7.8-10.44); Carbon Dioxide 26 mmol/L (23-31); Chloride 99 mmol/L (98-107); Estimated GFR-MDRD 44; Globulin 3.9 g/dL (2.4-3.5); Glucose 115 mg/dL (83-110); Protein, Total 6.6 g/dL (6.0-8.3); Sodium 136 mmol/L (136-145)
[2017-05-05] MEDS: Aspirin 81 mg Enteric Coated Tablet PO SCH (08:01)
[2017-05-05] MEDS: Famotidine 20 MG TAB PO SCH ×2 (08:01→20:28)
[2017-05-05] MEDS: Gabapentin 300 MG CAP PO SCH ×2 (08:01→20:28)
[2017-05-05] MEDS: Docusate 100 MG CAP PO SCH ×2 (08:01→20:28)
[2017-05-05] MEDS: predniSONE 20 MG TAB PO SCH (08:02)
[2017-05-05] MEDS: Carvedilol 25 MG TAB PO SCH ×2 (08:02→20:27)
[2017-05-05] MEDS: Citalopram 10 MG TAB PO SCH (08:02)
[2017-05-05] MEDS: hydrALAZINE 25 MG TAB PO SCH ×3 (08:02→20:28)
[2017-05-05] MEDS: Amlodipine 5 MG TAB PO SCH (08:02)
[2017-05-05] MEDS: Valsartan 80 MG TAB PO SCH (08:14)
[2017-05-05] MEDS: Enoxaparin Sodium 30 MG/0.3 ML SYRINGE SC SCH (08:14)
[2017-05-05] MEDS: Insulin NPH/Reg Insulin Hm 300 UNITS/3 ML VIAL SC SCH ×2 (08:14→20:31)
[2017-05-05] MEDS: HYDROcodone/Acetaminophen 5/325 mg Tablet PO PRN (12:16)
--- NOTE | 2017-05-05 12:51 | PDOC.PN ---
- Subjective Encounter Start Date: 05/05/17 Encounter Start Time: 09:10 Patient seen and examined. No new complaints. No overnight events - Objective Resuscitation Status: Resuscitation Status DNR:Do Not Resuscitate MAR Reviewed: Yes Vital Signs & Weight: Vital Signs (12 hours) Temp Pulse Resp BP BP Pulse Ox 05/05/17 08:06 98.2 F 65 16 155/70 H 98 05/05/17 08:02 62 155/70 H 05/05/17 08:00 98.2 F 62 18 05/05/17 07:51 65 15 98 Weight Admit Weight 163 lb 1 oz Weight 163 lb 1 oz I&O: 05/04/17 05/05/17 05/06/17 06:59 06:59 06:59 Intake Total 1150 975 Balance 1150 975 Result Diagrams: 05/05/17 04:19 05/05/17 04:19 Additional Labs: Accuchecks 05/05/17 05/05/17 05/04/17 11:41 05:53 20:44 POC Glucose 178 H 133 H 181 H 05/04/17 16:50 POC Glucose 183 H Phys Exam - Physical Examination Constitutional: NAD HEENT: PERRLA, moist MMs, sclera anicteric Neck: no JVD, supple Respiratory: no wheezing, no rhonchi right base rales Cardiovascular: RRR, no significant murmur, no rub Gastrointestinal: soft, non-tender, no distention, positive bowel sounds Musculoskeletal: no edema, pulses present Neurological: non-focal, normal sensation, moves all 4 limbs Psychiatric: normal affect, A&O x 3 Skin: no rash, normal turgor Dx/Plan (1) Right lower lobe pneumonia Code(s): J18.1 - LOBAR PNEUMONIA, UNSPECIFIED ORGANISM Status: Acute Qualifiers: Aspiration pneumonia type: unspecified (2) Anemia, normocytic normochromic Code(s): D64.9 - ANEMIA, UNSPECIFIED Status: Chronic (3) Anxiety and depression Code(s): F41.9 - ANXIETY DISORDER, UNSPECIFIED; F32.9 - MAJOR DEPRESSIVE DISORDER, SINGLE EPISODE, UNSPECIFIED Status: Chronic (4) CKD (chronic kidney disease) stage 3, GFR 30-59 ml/min Code(s): N18.3 - CHRONIC KIDNEY DISEASE, STAGE 3 (MODERATE) Status: Chronic (5) COPD (chronic obstructive pulmonary disease) Status: Chronic (6) DM type 2 (diabetes mellitus, type 2) Status: Chronic Qualifiers: (7) HTN (hypertension) Code(s): I10 - ESSENTIAL (PRIMARY) HYPERTENSION Status: Chronic Qualifiers: (8) Osteoarthritis Code(s): M19.90 - UNSPECIFIED OSTEOARTHRITIS, UNSPECIFIED SITE Status: Chronic (9) Physical deconditioning Code(s): R53.81 - OTHER MALAISE Status: Chronic (10) Pulmonary hypertension Code(s): I27.2 - OTHER SECONDARY PULMONARY HYPERTENSION * DO NOT USE * Status : Chronic - Plan cont current plan of care, continue antibiotics * pt wants to go to rehab * medication reviewed as below * symptomatic treatment * continue levaquin. Review of Systems - Review of Systems Constitutional: weakness. negative: fever, chills, sweats, malaise, other ENT: negative: Ear Pain, Ear Discharge, Nose Pain, Nose Discharge, Nose Congestion, Mouth Pain, Mouth Swelling, Throat Pain, Throat Swelling, Other Respiratory: negative: Cough, Dry, Shortness of Breath, Hemoptysis, SOB with Excertion, Pleuritic Pain, Sputum, Wheezing Cardiovascular: negative: chest pain, palpitations, orthopnea, paroxysmal nocturnal dyspnea, edema, light headedness, other Gastrointestinal: negative: Nausea, Vomiting, Abdominal Pain, Diarrhea, Constipation, Melena, Hematochezia, Other Genitourinary: negative: Dysuria, Frequency, Incontinence, Hematuria, Retention , Other Musculoskeletal: negative: Neck Pain, Shoulder Pain, Arm Pain, Back Pain, Hand Pain, Leg Pain, Foot Pain, Other - Medications/Allergies Allergies/Adverse Reactions: Allergies Allergy/AdvReac Type Severity Reaction Status Date / Time Penicillins Allergy Verified 04/27/17 23:06 Medications: Current Medications Acetaminophen (Tylenol) 650 mg PO Q4H PRN PRN Reason: Headache/Fever or Pain Last Admin: 05/04/17 21:29 Dose: 650 mg Hydrocodone Bitart/Acetaminophen ([place] 5/325) 1 tab PO Q4H PRN PRN Reason: Moderate Pain (4-6) Last Admin: 05/05/17 12:16 Dose: 1 tab Hydrocodone Bitart/Acetaminophen ([place] 10/325) 1 tab PO Q4H PRN PRN Reason: Pain Al Hydroxide/Mg Hydroxide (Maalox) 15 ml PO Q4H PRN PRN Reason: Heartburn or Indigestion Albuterol Sulfate (Ventolin) 5 mg NEB Q4H PRN PRN Reason: SOB &/or Wheezing Albuterol/Ipratropium (Duoneb) 3 ml NEB [id number] [facility] Last Admin: 05/05/17 07:51 Dose: 3 ml Albuterol/Ipratropium (Duoneb) 3 ml NEB [id number] PRN PRN Reason: SOB &/or Wheezing Amlodipine Besylate (Norvasc) 5 mg PO DAILY [facility] Last Admin: 05/05/17 08:02 Dose: 5 mg Artificial Tears (Tears Naturale) 0 drop EA EYE PRN PRN PRN Reason: Dry Eyes Aspirin (Ecotrin) 81 mg PO DAILY [facility] Last Admin: 05/05/17 08:01 Dose: 81 mg Carvedilol (Coreg) 12.5 mg PO BID [facility] Last Admin: 05/05/17 08:02 Dose: 12.5 mg Citalopram Hydrobromide (Celexa) 10 mg PO DAILY [facility] Last Admin: 05/05/17 08:02 Dose: 10 mg Dextrose/Water (Dextrose 50%) 25 gm SLOW IVP PRN PRN PRN Reason: Hypoglycemia Docusate Sodium (Colace) 100 mg PO BID [facility] Last Admin: 05/05/17 08:01 Dose: 100 mg Enoxaparin Sodium (Lovenox) 30 mg SC 0900 [facility] Last Admin: 05/05/17 08:14 Dose: 30 mg Famotidine (Pepcid) 20 mg PO BID [facility] Last Admin: 05/05/17 08:01 Dose: 20 mg Fentanyl (Duragesic) 50 mcg TD Q2DAYS [facility] Last Admin: 05/04/17 10:22 Dose: 50 mcg Gabapentin (Neurontin) 300 mg PO BID [facility] Last Admin: 05/05/17 08:01 Dose: 300 mg Glucagon (Glucagon) 1 mg IM PRN PRN PRN Reason: Hypoglycemia Guaifenesin (Robitussin Sf) 200 mg PO Q4H PRN PRN Reason: Cough Last Admin: 05/04/17 14:43 Dose: 200 mg Hydralazine HCl (Apresoline) 10 mg SLOW IVP Q4H PRN PRN Reason: Systolic BP > 180 Hydralazine HCl (Apresoline) 75 mg PO TID [facility] Last Admin: 05/05/17 08:02 Dose: 75 mg Dextrose/Water (D5w) 1,000 mls @ 0 mls/hr IV .Q0M PRN; As Directed PRN Reason: Hypoglycemia Insulin Human Isoph/Insulin Regular (Humulin 70/30) 5 units SC [facility] Last Admin: 05/04/17 21:27 Dose: 5 unit Insulin Human Isoph/Insulin Regular (Humulin 70/30) 10 [facility] [place] [facility] Last Admin: 05/05/17 08:14 Dose: 10 unit Insulin Human Lispro (Humalog) 0 units SC .MODERATE SLIDING SC PRN PRN Reason: Moderate Correctional Scale Last Admin: 05/04/17 12:18 Dose: 4 unit Insulin Human Lispro (Humalog) 0 units SC .BEDTIME SLIDING SC PRN PRN Reason: Bedtime Correctional Scale Last Admin: 05/03/17 20:48 Dose: 4 unit Levofloxacin (Levaquin) 500 mg PO 0600 [facility] Last Admin: 05/05/17 06:22 Dose: 500 mg Loperamide HCl (Imodium) 2 mg PO PRN PRN PRN Reason: Diarrhea/Loose Stools Loratadine (Claritin) 10 mg PO DAILYPRN PRN PRN Reason: Sinus Symptoms Magnesium Hydroxide (Milk Of Magnesium) 30 ml PO DAILYPRN PRN PRN Reason: Constipation Last Admin: 05/04/17 14:43 Dose: 30 ml Metformin HCl (Glucophage Xr) 500 mg PO 1700 [facility] Last Admin: 05/04/17 17:33 Dose: 500 mg Mineral Oil/White Petrolatum (Eucerin Cream) 0 gm TOP BIDPRN PRN PRN Reason: Dry Skin Ondansetron HCl (Zofran Odt) 4 mg PO Q6H PRN PRN Reason: Nausea/Vomiting Ondansetron HCl (Zofran) 4 mg IVP Q6H PRN PRN Reason: Nausea/Vomiting [Etodolac] 500 Mg 0 each PO BID [facility] Last Admin: 05/05/17 07:59 Dose: Not Given Phenol (Chloraseptic [place] 180 Ml Bot) 0 ml PO PRN PRN PRN Reason: Sore Throat Prednisone (Prednisone) 20 mg PO QAM-[facility] Last Admin: 05/05/17 08:02 Dose: 20 mg Rosuvastatin Calcium (Crestor) 10 mg PO HS [facility] Last Admin: 05/04/17 21:33 Dose: 10 mg Sodium Chloride (Flush - Normal Saline) 10 ml IVF Q12HR [facility] Last Admin: 05/05/17 08:22 Dose: 10 ml Sodium Chloride (Flush - Normal Saline) 10 ml IVF PRN PRN PRN Reason: Saline Flush Sodium Chloride ([place] Nasal [place] 0.65%) 0 ml EA NARE QIDPRN PRN PRN Reason: Nasal Congestion Valsartan (Diovan) 320 mg PO DAILY [facility] Last Admin: 05/05/17 08:14 Dose: 320 mg
[2017-05-05] MEDS: metFORMIN XR 500 MG TAB PO SCH (17:09)
[2017-05-05] MEDS: HumaLOG 300 UNITS/3 ML VIAL SC PRN ×2 (17:10→20:33)
--- NOTE | 2017-05-05 17:35 | EKG ---
Test Reason : ER INDICATION Blood Pressure : / mmHG Vent. Rate : 073 BPM Atrial Rate : 073 BPM P-R Int : 152 ms QRS Dur : 088 ms QT Int : 418 ms P-R-T Axes : 044 013 036 degrees QTc Int : 460 ms Normal sinus rhythm Normal ECG Confirmed by GINA PRICE D.O. ([id number]), online content editor WILLIAM ALANIZ ([id number]) on 05/05/2017 5:34:43 PM Referred By: Confirmed By:GINA PRICE D.O.
[2017-05-05] MEDS: Rosuvastatin 10 MG TAB PO SCH (20:28)
[2017-05-05] MEDS: Acetaminophen 325 MG TAB PO PRN (21:03)
--- NOTE | 2017-05-05 21:14 | PRG ---
DATE OF SERVICE: 05/05/2017 SERVICE: Pulmonary Medicine. INTERVAL HISTORY: The patient is doing really quite well from a respiratory standpoint. She denies any current fevers or chills. She is on a little bit of oxygen. Otherwise, there has been no interval change to her condition. She feels fairly comfortable today. She is able to walk with physical therapy, but at one point became extraordinarily weak and had to rest abruptly. Outside of that, she has been able to get around her room a little bit with some minimal assistance. PHYSICAL EXAMINATION: VITAL SIGNS: Afebrile, pulse 65, blood pressure 155/70, respirations 16, and saturation 98% on 2 liters nasal cannula. GENERAL: Patient is awake, alert, in no apparent distress. LUNGS: Decreased air entry. There is no prolonged expiratory phase. Dependent crackles are minimal. HEART: Normal rate, regular. ABDOMEN: Soft, nontender, nondistended. Bowel sounds positive. MUSCULOSKELETAL: No cyanosis or clubbing. There is trace to 1+ pitting in the bilateral lower extremities. NEUROLOGIC: Grossly nonfocal. LABORATORY DATA: WBC 13.0, hemoglobin 9.1, platelets 267,000. Creatinine 1.37 and gently up trending. Basic metabolic profile and liver function studies are otherwise unremarkable. Influenza A and B is negative. Blood cultures x2 is unremarkable. ASSESSMENT: 1. Acute hypoxic respiratory failure. 2. Acute on chronic diastolic heart failure. 3. Minimal volume overload. 4. Pulmonary infiltrate that dates back all the way of May 2013. PLAN: I give the patient dose of Lasix tomorrow morning. From my perspective, she is stable for transition out of the hospital. The question of what this infiltrate is in the recess of the right lower lobe is never been answered. That being said, it has been very slow to grow over a period of 4 years. In this 87-year-old with limited functional status, I would argue that we really do not need to investigate this. Pulmonary Critical Care will continue to follow while she remains in this location, but otherwise, supportive measures will be continue. GREGORIO
[2017-05-06 06:16] LABS: Anion Gap 11 mmol/L (10-20); BUN (Urea Nitrogen) 29 mg/dL (9.8-20.1); Calc. Creatinine Clearance 52 mL/min (70-130); Calcium 9.1 mg/dL (7.8-10.44); Carbon Dioxide 30 mmol/L (23-31); Chloride 103 mmol/L (98-107); Estimated GFR-MDRD 75; Glucose 118 mg/dL (83-110); Potassium 4.7 mmol/L (3.5-5.1); Sodium 139 mmol/L (136-145)
[2017-05-06] MEDS: Valsartan 80 MG TAB PO SCH (07:52)
[2017-05-06] MEDS: predniSONE 20 MG TAB PO SCH (07:53)
[2017-05-06] MEDS: Gabapentin 300 MG CAP PO SCH ×2 (07:53→20:16)
[2017-05-06] MEDS: Amlodipine 5 MG TAB PO SCH (07:53)
[2017-05-06] MEDS: Famotidine 20 MG TAB PO SCH ×2 (07:53→20:15)
[2017-05-06] MEDS: hydrALAZINE 25 MG TAB PO SCH ×3 (07:53→20:15)
[2017-05-06] MEDS: Citalopram 10 MG TAB PO SCH (07:54)
[2017-05-06] MEDS: Enoxaparin Sodium 30 MG/0.3 ML SYRINGE SC SCH (07:54)
[2017-05-06] MEDS: Furosemide 40 MG/4 ML VIAL SLOW IVP SCH (07:54)
[2017-05-06] MEDS: Aspirin 81 mg Enteric Coated Tablet PO SCH (07:54)
[2017-05-06] MEDS: Insulin NPH/Reg Insulin Hm 300 UNITS/3 ML VIAL SC SCH ×2 (07:54→20:16)
[2017-05-06] MEDS: Carvedilol 25 MG TAB PO SCH ×2 (07:54→20:16)
[2017-05-06] MEDS: Docusate 100 MG CAP PO SCH ×2 (07:54→20:15)
[2017-05-06] MEDS: HYDROcodone/Acetaminophen 5/325 mg Tablet PO PRN ×2 (10:08→20:22)
[2017-05-06] MEDS: fentaNYL 50 mcg/hour Patch TD SCH (10:13)
--- NOTE | 2017-05-06 11:17 | PDOC.PN ---
- Subjective Encounter Start Date: 05/06/17 Encounter Start Time: 09:10 Patient seen and examined. No new complaints. No overnight events she wants to go to rehab - Objective Resuscitation Status: Resuscitation Status DNR:Do Not Resuscitate MAR Reviewed: Yes Vital Signs & Weight: Vital Signs (12 hours) Temp Pulse Resp BP BP BP Pulse Ox 05/06/17 10:10 132/71 05/06/17 08:00 98.2 F 67 18 05/06/17 07:53 67 187/74 H 05/06/17 07:46 98.2 F 67 16 187/74 H 97 05/06/17 06:47 98 05/06/17 06:46 76 15 98 05/06/17 01:30 70 16 97 Weight Admit Weight 163 lb 1 oz Weight 163 lb 1 oz I&O: 05/05/17 05/06/17 05/07/17 06:59 06:59 06:59 Intake Total 975 Balance 975 Result Diagrams: 05/05/17 04:19 05/06/17 04:57 Additional Labs: Accuchecks 05/06/17 05/05/17 05/05/17 04:26 20:32 20:01 POC Glucose 148 H 274 H 286 H 05/05/17 05/05/17 16:49 11:41 POC Glucose 362 H 178 H Phys Exam - Physical Examination Constitutional: NAD HEENT: PERRLA, moist MMs, sclera anicteric Neck: no JVD, supple Respiratory: no wheezing, no rhonchi right base rales Cardiovascular: RRR, no significant murmur, no rub Gastrointestinal: soft, non-tender, no distention, positive bowel sounds Musculoskeletal: no edema, pulses present Neurological: non-focal, normal sensation, moves all 4 limbs Lymphatic: no nodes Psychiatric: normal affect, A&O x 3 Skin: no rash, normal turgor Dx/Plan (1) Right lower lobe pneumonia Code(s): J18.1 - LOBAR PNEUMONIA, UNSPECIFIED ORGANISM Status: Acute Qualifiers: Aspiration pneumonia type: unspecified (2) Anemia, normocytic normochromic Code(s): D64.9 - ANEMIA, UNSPECIFIED Status: Chronic (3) Anxiety and depression Code(s): F41.9 - ANXIETY DISORDER, UNSPECIFIED; F32.9 - MAJOR DEPRESSIVE DISORDER, SINGLE EPISODE, UNSPECIFIED Status: Chronic (4) CKD (chronic kidney disease) stage 3, GFR 30-59 ml/min Code(s): N18.3 - CHRONIC KIDNEY DISEASE, STAGE 3 (MODERATE) Status: Chronic (5) COPD (chronic obstructive pulmonary disease) Status: Chronic (6) DM type 2 (diabetes mellitus, type 2) Status: Chronic Qualifiers: (7) HTN (hypertension) Code(s): I10 - ESSENTIAL (PRIMARY) HYPERTENSION Status: Chronic Qualifiers: (8) Osteoarthritis Code(s): M19.90 - UNSPECIFIED OSTEOARTHRITIS, UNSPECIFIED SITE Status: Chronic (9) Physical deconditioning Code(s): R53.81 - OTHER MALAISE Status: Chronic (10) Pulmonary hypertension Code(s): I27.2 - OTHER SECONDARY PULMONARY HYPERTENSION * DO NOT USE * Status : Chronic - Plan cont current plan of care, 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 * lasix given * will repeat labs tomorrow Review of Systems - Review of Systems ENT: negative: Ear Pain, Ear Discharge, Nose Pain, Nose Discharge, Nose Congestion, Mouth Pain, Mouth Swelling, Throat Pain, Throat Swelling, Other Respiratory: negative: Cough, Dry, Shortness of Breath, Hemoptysis, SOB with Excertion, Pleuritic Pain, Sputum, Wheezing Cardiovascular: negative: chest pain, palpitations, orthopnea, paroxysmal nocturnal dyspnea, edema, light headedness, other Gastrointestinal: negative: Nausea, Vomiting, Abdominal Pain, Diarrhea, Constipation, Melena, Hematochezia, Other Genitourinary: negative: Dysuria, Frequency, Incontinence, Hematuria, Retention , Other Musculoskeletal: negative: Neck Pain, Shoulder Pain, Arm Pain, Back Pain, Hand Pain, Leg Pain, Foot Pain, Other Skin: negative: Rash, Lesions, Calos, Bruising, Other - Medications/Allergies Allergies/Adverse Reactions: Allergies Allergy/AdvReac Type Severity Reaction Status Date / Time Penicillins Allergy Verified 04/27/17 23:06 Medications: Current Medications Acetaminophen (Tylenol) 650 mg PO Q4H PRN PRN Reason: Headache/Fever or Pain Last Admin: 05/05/17 21:03 Dose: 650 mg Hydrocodone Bitart/Acetaminophen ([place] 5/325) 1 tab PO Q4H PRN PRN Reason: Moderate Pain (4-6) Last Admin: 05/06/17 10:08 Dose: 1 tab Hydrocodone Bitart/Acetaminophen ([place] 10/325) 1 tab PO Q4H PRN PRN Reason: Pain Al Hydroxide/Mg Hydroxide (Maalox) 15 ml PO Q4H PRN PRN Reason: Heartburn or Indigestion Albuterol Sulfate (Ventolin) 5 mg NEB Q4H PRN PRN Reason: SOB &/or Wheezing Albuterol/Ipratropium (Duoneb) 3 ml NEB [id number] [facility] Last Admin: 05/06/17 06:46 Dose: 3 ml Albuterol/Ipratropium (Duoneb) 3 ml NEB [id number] PRN PRN Reason: SOB &/or Wheezing Amlodipine Besylate (Norvasc) 5 mg PO DAILY [facility] Last Admin: 05/06/17 07:53 Dose: 5 mg Artificial Tears (Tears Naturale) 0 drop EA EYE PRN PRN PRN Reason: Dry Eyes Aspirin (Ecotrin) 81 mg PO DAILY [facility] Last Admin: 05/06/17 07:54 Dose: 81 mg Carvedilol (Coreg) 12.5 mg PO BID [facility] Last Admin: 05/06/17 07:54 Dose: 12.5 mg Citalopram Hydrobromide (Celexa) 10 mg PO DAILY [facility] Last Admin: 05/06/17 07:54 Dose: 10 mg Dextrose/Water (Dextrose 50%) 25 gm SLOW IVP PRN PRN PRN Reason: Hypoglycemia Docusate Sodium (Colace) 100 mg PO BID [facility] Last Admin: 05/06/17 07:54 Dose: 100 mg Enoxaparin Sodium (Lovenox) 30 mg SC 0900 [facility] Last Admin: 05/06/17 07:54 Dose: 30 mg Famotidine (Pepcid) 20 mg PO BID [facility] Last Admin: 05/06/17 07:53 Dose: 20 mg Fentanyl (Duragesic) 50 mcg TD Q2DAYS [facility] Last Admin: 05/06/17 10:13 Dose: 50 mcg Furosemide (Lasix) 40 mg SLOW IVP DAILY [facility] Stop: 05/08/17 09:01 Last Admin: 05/06/17 07:54 Dose: 40 mg Gabapentin (Neurontin) 300 mg PO BID [facility] Last Admin: 05/06/17 07:53 Dose: 300 mg Glucagon (Glucagon) 1 mg IM PRN PRN PRN Reason: Hypoglycemia Guaifenesin (Robitussin Sf) 200 mg PO Q4H PRN PRN Reason: Cough Last Admin: 05/04/17 14:43 Dose: 200 mg Hydralazine HCl (Apresoline) 10 mg SLOW IVP Q4H PRN PRN Reason: Systolic BP > 180 Hydralazine HCl (Apresoline) 75 mg PO TID [facility] Last Admin: 05/06/17 07:53 Dose: 75 mg Dextrose/Water (D5w) 1,000 mls @ 0 mls/hr IV .Q0M PRN; As Directed PRN Reason: Hypoglycemia Insulin Human Isoph/Insulin Regular (Humulin 70/30) 5 units SC [facility] Last Admin: 05/05/17 20:31 Dose: 5 unit Insulin Human Isoph/Insulin Regular (Humulin 70/30) 10 units [facility] Last Admin: 05/06/17 07:54 Dose: 10 unit Insulin Human Lispro (Humalog) 0 units SC .MODERATE SLIDING SC PRN PRN Reason: Moderate Correctional Scale Last Admin: 05/05/17 17:10 Dose: 10 unit Insulin Human Lispro (Humalog) 0 units SC .BEDTIME SLIDING SC PRN PRN Reason: Bedtime Correctional Scale Last Admin: 05/05/17 20:33 Dose: 3 unit Levofloxacin (Levaquin) 500 mg PO 0600 [facility] Last Admin: 05/06/17 05:42 Dose: 500 mg Loperamide HCl (Imodium) 2 mg PO PRN PRN PRN Reason: Diarrhea/Loose Stools Loratadine (Claritin) 10 mg PO DAILYPRN PRN PRN Reason: Sinus Symptoms Last Admin: 05/05/17 20:40 Dose: 10 mg Magnesium Hydroxide (Milk Of Magnesium) 30 ml PO DAILYPRN PRN PRN Reason: Constipation Last Admin: 05/04/17 14:43 Dose: 30 ml Metformin HCl (Glucophage Xr) 500 mg PO 1700 [facility] Last Admin: 05/05/17 17:09 Dose: 500 mg Mineral Oil/White Petrolatum (Eucerin Cream) 0 gm TOP BIDPRN PRN PRN Reason: Dry Skin Ondansetron HCl (Zofran Odt) 4 mg PO Q6H PRN PRN Reason: Nausea/Vomiting Ondansetron HCl (Zofran) 4 mg IVP Q6H PRN PRN Reason: Nausea/Vomiting [Etodolac] 500 Mg 0 each PO BID [facility] Last Admin: 05/06/17 08:08 Dose: Not Given Phenol (Chloraseptic [place] 180 Ml Bot) 0 ml PO PRN PRN PRN Reason: Sore Throat Prednisone (Prednisone) 20 mg PO QAM-WM [facility] Last Admin: 05/06/17 07:53 Dose: 20 mg Rosuvastatin Calcium (Crestor) 10 mg PO HS [facility] Last Admin: 05/05/17 20:28 Dose: 10 mg Sodium Chloride (Flush - Normal Saline) 10 ml IVF Q12HR [facility] Last Admin: 05/06/17 08:09 Dose: 10 ml Sodium Chloride (Flush - Normal Saline) 10 ml IVF PRN PRN PRN Reason: Saline Flush Sodium Chloride ([place] Nasal [place] 0.65%) 0 ml EA NARE QIDPRN PRN PRN Reason: Nasal Congestion Valsartan (Diovan) 320 mg PO DAILY [facility] Last Admin: 05/06/17 07:52 Dose: 320 mg
[2017-05-06] MEDS: metFORMIN XR 500 MG TAB PO SCH (17:16)
--- NOTE | 2017-05-06 19:08 | PRG ---
DATE OF SERVICE: 05/06/2017 SERVICE: Pulmonary Medicine. INTERVAL HISTORY: The patient is breathing comfortably today. She denies any current chest pain, fe vers, chills, nausea or vomiting. She does not feel much better today compared to yesterday. That jose mckee said, she is no worse off. Otherwise, there has been no interval change to her condition. PHYSICAL EXAMINATION: VITAL SIGNS: Afebrile, pulse 73, blood pressure 173/69, respirations 16, saturation 97% on 1 liter n nicholas cannula. GENERAL: Patient is awake, alert, in no apparent distress. LUNGS: Good air entry. Dependent crackles are minimal. No prolonged expiratory phase is identified . HEART: Normal rate, regular. ABDOMEN: Soft, nontender, nondistended. Bowel sounds positive. MUSCULOSKELETAL: No cyanosis or clubbing. No pitting in the bilateral lower extremities. NEUROLOGIC: Grossly nonfocal. LABORATORY DATA: Creatinine 0.86. Basic metabolic profile is otherwise unremarkable. Blood culture s x2 and Influenza A and B are unremarkable. ASSESSMENT: 1. Acute hypoxic respiratory failure, improving. 2. Acute on chronic diastolic heart failure. 3. Pulmonary infiltrate that dates all the way back to 05/2013. PLAN: We will give the patient an additional dose of Lasix tomorrow morning. From a clearly respira tory standpoint, she is stable for transition out of the hospital. The infiltrate probably requires no additional investigation as it is growing extraordinarily slowly over period of 4 years. That aftab jay said, Dr. Gay can address this in the outpatient setting.
[2017-05-06] MEDS: Rosuvastatin 10 MG TAB PO SCH (20:16)
[2017-05-06] MEDS: HumaLOG 300 UNITS/3 ML VIAL SC PRN (20:17)
[2017-05-07 05:10] LABS: #Basophils 0.1 thou/uL (0.0-0.2); #Eosinphils 0.2 thou/uL (0.0-0.7); #Lymphocytes 3.1 thou/uL (1.20-3.40); #Monocytes 0.6 thou/uL (0.11-0.59); #Neutrophils 7.6 thou/uL (1.40-6.50); %Basophils 0.5 % (0.0-1.0); %Eosinophils 1.7 % (0.0-10.0); %Lymphocytes 27.1 % (21.0-51.0); %Neutrophils 65.7 % (42.0-75.0); Hemoglobin 9.9 g/dL (12.0-16.0); Mean Corpuscular Volume 96.8 fl (81.0-99.0); Platelet Count 313 thou/uL (130-400); RBC Distribution Width 12.7 % (11.5-14.5); Red Blood Cell (RBC) Count 3.19 mill/uL (4.20-5.40); White Blood Cell (WBC) Count 11.5 thou/uL (4.8-10.8)
[2017-05-07 05:45] LABS: Anion Gap 10 mmol/L (10-20); BUN (Urea Nitrogen) 23 mg/dL (9.8-20.1); Calc. Creatinine Clearance 53 mL/min (70-130); Calcium 9.2 mg/dL (7.8-10.44); Carbon Dioxide 31 mmol/L (23-31); Chloride 101 mmol/L (98-107); Estimated GFR-MDRD 77; Glucose 89 mg/dL (83-110); Potassium 4.2 mmol/L (3.5-5.1); Sodium 138 mmol/L (136-145)
[2017-05-07] MEDS: Furosemide 40 MG/4 ML VIAL SLOW IVP SCH (08:44)
[2017-05-07] MEDS: Carvedilol 25 MG TAB PO SCH (08:45)
[2017-05-07] MEDS: Citalopram 10 MG TAB PO SCH (08:45)
[2017-05-07] MEDS: Docusate 100 MG CAP PO SCH (08:45)
[2017-05-07] MEDS: hydrALAZINE 25 MG TAB PO SCH ×2 (08:45→16:01)
[2017-05-07] MEDS: predniSONE 20 MG TAB PO SCH (08:45)
[2017-05-07] MEDS: Aspirin 81 mg Enteric Coated Tablet PO SCH (08:45)
[2017-05-07] MEDS: Gabapentin 300 MG CAP PO SCH (08:46)
[2017-05-07] MEDS: Famotidine 20 MG TAB PO SCH (08:46)
[2017-05-07] MEDS: Enoxaparin Sodium 30 MG/0.3 ML SYRINGE SC SCH (08:46)
[2017-05-07] MEDS: Amlodipine 5 MG TAB PO SCH (08:46)
[2017-05-07] MEDS: Insulin NPH/Reg Insulin Hm 300 UNITS/3 ML VIAL SC SCH (08:48)
--- NOTE | 2017-05-07 09:35 | PRG ---
DATE OF SERVICE: 05/07/2017 PHYSICAL EXAMINATION: VITAL SIGNS: Sats are 94% on room air, respirations 20, temperature 98, pulse 57, blood pressure 180 /71. CHEST: Denies difficulty breathing or coughing. Chest reveals bilateral crackles. CARDIAC: Normal S1 and S2. ABDOMEN: Soft, no masses. LABORATORY: White count 11,000, H&H 9 and 30. Electrolytes are normal. IMPRESSION: 1. Bilateral crackles, chronic. 2. Chronic lung disease. 3. Diastolic dysfunction. 4. Respiratory failure. 5. Obesity. PLAN: She can be discharged home anytime with oral medication. Follow up with her primary care phys agustina. Follow up with Dr. Gay in a month.
[2017-05-07] MEDS: Valsartan 80 MG TAB PO SCH (10:17)
--- NOTE | 2017-05-07 11:43 | PDOC.PN ---
- Subjective Encounter Start Date: 05/07/17 Encounter Start Time: 08:20 Patient seen and examined. No new complaints. No overnight events - Objective Resuscitation Status: Resuscitation Status DNR:Do Not Resuscitate MAR Reviewed: Yes Vital Signs & Weight: Vital Signs (12 hours) Temp Pulse Resp BP BP Pulse Ox 05/07/17 08:46 57 L 181/71 H 05/07/17 08:45 57 L 181/71 H 05/07/17 07:42 98.3 F 57 L 20 181/71 H 94 L 05/07/17 06:35 59 L 16 99 05/07/17 04:16 96 05/07/17 00:07 65 16 98 Weight Admit Weight 163 lb 1 oz Weight 163 lb 1 oz I&O: 05/06/17 05/07/17 05/08/17 06:59 06:59 06:59 Intake Total 460 180 Balance 460 180 Result Diagrams: 05/07/17 04:14 05/07/17 04:14 Additional Labs: Accuchecks 05/07/17 05/06/17 05/06/17 06:20 19:34 17:15 POC Glucose 97 356 H 295 H 05/06/17 11:13 POC Glucose 159 H Phys Exam - Physical Examination Constitutional: NAD HEENT: PERRLA, moist MMs, sclera anicteric Neck: no JVD, supple Respiratory: no wheezing, no rales, no rhonchi Cardiovascular: RRR, no significant murmur, no rub Gastrointestinal: soft, non-tender, no distention, positive bowel sounds Musculoskeletal: no edema, pulses present Neurological: non-focal, normal sensation, moves all 4 limbs Lymphatic: no nodes Psychiatric: normal affect, A&O x 3 Skin: no rash, normal turgor Dx/Plan (1) Right lower lobe pneumonia Code(s): J18.1 - LOBAR PNEUMONIA, UNSPECIFIED ORGANISM Status: Acute Qualifiers: Aspiration pneumonia type: unspecified (2) Anemia, normocytic normochromic Code(s): D64.9 - ANEMIA, UNSPECIFIED Status: Chronic (3) Anxiety and depression Code(s): F41.9 - ANXIETY DISORDER, UNSPECIFIED; F32.9 - MAJOR DEPRESSIVE DISORDER, SINGLE EPISODE, UNSPECIFIED Status: Chronic (4) CKD (chronic kidney disease) stage 3, GFR 30-59 ml/min Code(s): N18.3 - CHRONIC KIDNEY DISEASE, STAGE 3 (MODERATE) Status: Chronic (5) COPD (chronic obstructive pulmonary disease) Status: Chronic (6) DM type 2 (diabetes mellitus, type 2) Status: Chronic Qualifiers: (7) HTN (hypertension) Code(s): I10 - ESSENTIAL (PRIMARY) HYPERTENSION Status: Chronic Qualifiers: (8) Osteoarthritis Code(s): M19.90 - UNSPECIFIED OSTEOARTHRITIS, UNSPECIFIED SITE Status: Chronic (9) Physical deconditioning Code(s): R53.81 - OTHER MALAISE Status: Chronic (10) Pulmonary hypertension Code(s): I27.2 - OTHER SECONDARY PULMONARY HYPERTENSION * DO NOT USE * Status : Chronic - Plan cont current plan of care, continue antibiotics * medication reviewed as below * symptomatic treatment * await rehab placement if approved * if not approved, will DC to home tomorrow. Review of Systems - Review of Systems ENT: negative: Ear Pain, Ear Discharge, Nose Pain, Nose Discharge, Nose Congestion, Mouth Pain, Mouth Swelling, Throat Pain, Throat Swelling, Other Respiratory: negative: Cough, Dry, Shortness of Breath, Hemoptysis, SOB with Excertion, Pleuritic Pain, Sputum, Wheezing Cardiovascular: negative: chest pain, palpitations, orthopnea, paroxysmal nocturnal dyspnea, edema, light headedness, other Gastrointestinal: negative: Nausea, Vomiting, Abdominal Pain, Diarrhea, Constipation, Melena, Hematochezia, Other Genitourinary: negative: Dysuria, Frequency, Incontinence, Hematuria, Retention , Other Musculoskeletal: negative: Neck Pain, Shoulder Pain, Arm Pain, Back Pain, Hand Pain, Leg Pain, Foot Pain, Other - Medications/Allergies Allergies/Adverse Reactions: Allergies Allergy/AdvReac Type Severity Reaction Status Date / Time Penicillins Allergy Verified 04/27/17 23:06 Medications: Current Medications Acetaminophen (Tylenol) 650 mg PO Q4H PRN PRN Reason: Headache/Fever or Pain Last Admin: 05/05/17 21:03 Dose: 650 mg Hydrocodone Bitart/Acetaminophen ([place] 5/325) 1 tab PO Q4H PRN PRN Reason: Moderate Pain (4-6) Last Admin: 05/06/17 20:22 Dose: 1 tab Hydrocodone Bitart/Acetaminophen ([place] 10/325) 1 tab PO Q4H PRN PRN Reason: Pain Al Hydroxide/Mg Hydroxide (Maalox) 15 ml PO Q4H PRN PRN Reason: Heartburn or Indigestion Albuterol Sulfate (Ventolin) 5 mg NEB Q4H PRN PRN Reason: SOB &/or Wheezing Albuterol/Ipratropium (Duoneb) 3 ml NEB [id number] [facility] Last Admin: 05/07/17 06:35 Dose: 3 ml Albuterol/Ipratropium (Duoneb) 3 ml NEB [id number] PRN PRN Reason: SOB &/or Wheezing Amlodipine Besylate (Norvasc) 5 mg PO DAILY [facility] Last Admin: 05/07/17 08:46 Dose: 5 mg Artificial Tears (Tears Naturale) 0 drop EA EYE PRN PRN PRN Reason: Dry Eyes Aspirin (Ecotrin) 81 mg PO DAILY [facility] Last Admin: 05/07/17 08:45 Dose: 81 mg Carvedilol (Coreg) 12.5 mg PO BID [facility] Last Admin: 05/07/17 08:45 Dose: 12.5 mg Citalopram Hydrobromide (Celexa) 10 mg PO DAILY [facility] Last Admin: 05/07/17 08:45 Dose: 10 mg Dextrose/Water (Dextrose 50%) 25 gm SLOW IVP PRN PRN PRN Reason: Hypoglycemia Docusate Sodium (Colace) 100 mg PO BID [facility] Last Admin: 05/07/17 08:45 Dose: 100 mg Enoxaparin Sodium (Lovenox) 30 mg SC 0900 [facility] Last Admin: 05/07/17 08:46 Dose: 30 mg Famotidine (Pepcid) 20 mg PO BID [facility] Last Admin: 05/07/17 08:46 Dose: 20 mg Fentanyl (Duragesic) 50 mcg TD Q2DAYS [facility] Last Admin: 05/06/17 10:13 Dose: 50 mcg Furosemide (Lasix) 40 mg SLOW IVP DAILY [facility] Stop: 05/08/17 09:01 Last Admin: 05/07/17 08:44 Dose: 40 mg Gabapentin (Neurontin) 300 mg PO BID [facility] Last Admin: 05/07/17 08:46 Dose: 300 mg Glucagon (Glucagon) 1 mg IM PRN PRN PRN Reason: Hypoglycemia Guaifenesin (Robitussin Sf) 200 mg PO Q4H PRN PRN Reason: Cough Last Admin: 05/04/17 14:43 Dose: 200 mg Hydralazine HCl (Apresoline) 10 mg SLOW IVP Q4H PRN PRN Reason: Systolic BP > 180 Hydralazine HCl (Apresoline) 75 mg PO TID [facility] Last Admin: 05/07/17 08:45 Dose: 75 mg Dextrose/Water (D5w) 1,000 mls @ 0 mls/hr IV .Q0M PRN; As Directed PRN Reason: Hypoglycemia Insulin Human Isoph/Insulin Regular (Humulin 70/30) 5 units SC [facility] Last Admin: 05/06/17 20:16 Dose: 5 unit Insulin Human Isoph/Insulin Regular (Humulin 70/30) 10 units [facility] Last Admin: 05/07/17 08:48 Dose: 10 unit Insulin Human Lispro (Humalog) 0 units SC .MODERATE SLIDING SC PRN PRN Reason: Moderate Correctional Scale Last Admin: 05/05/17 17:10 Dose: 10 unit Insulin Human Lispro (Humalog) 0 units SC .BEDTIME SLIDING SC PRN PRN Reason: Bedtime Correctional Scale Last Admin: 05/06/17 20:17 Dose: 5 unit Levofloxacin (Levaquin) 500 mg PO 0600 [facility] Last Admin: 05/07/17 05:28 Dose: 500 mg Loperamide HCl (Imodium) 2 mg PO PRN PRN PRN Reason: Diarrhea/Loose Stools Loratadine (Claritin) 10 mg PO DAILYPRN PRN PRN Reason: Sinus Symptoms Last Admin: 05/05/17 20:40 Dose: 10 mg Magnesium Hydroxide (Milk Of Magnesium) 30 ml PO DAILYPRN PRN PRN Reason: Constipation Last Admin: 05/04/17 14:43 Dose: 30 ml Metformin HCl (Glucophage Xr) 500 mg PO 1700 [facility] Last Admin: 05/06/17 17:16 Dose: 500 mg Mineral Oil/White Petrolatum (Eucerin Cream) 0 gm TOP BIDPRN PRN PRN Reason: Dry Skin Ondansetron HCl (Zofran Odt) 4 mg PO Q6H PRN PRN Reason: Nausea/Vomiting Ondansetron HCl (Zofran) 4 mg IVP Q6H PRN PRN Reason: Nausea/Vomiting [Etodolac] 500 Mg 0 each PO BID [facility] Last Admin: 05/07/17 08:48 Dose: Not Given Phenol (Chloraseptic [place] 180 Ml Bot) 0 ml PO PRN PRN PRN Reason: Sore Throat Prednisone (Prednisone) 20 mg PO QAM-WM [facility] Last Admin: 05/07/17 08:45 Dose: 20 mg Rosuvastatin Calcium (Crestor) 10 mg PO HS [facility] Last Admin: 05/06/17 20:16 Dose: 10 mg Sodium Chloride (Flush - Normal Saline) 10 ml IVF Q12HR [facility] Last Admin: 05/07/17 08:48 Dose: 10 ml Sodium Chloride (Flush - Normal Saline) 10 ml IVF PRN PRN PRN Reason: Saline Flush Sodium Chloride ([place] Nasal [place] 0.65%) 0 ml EA NARE QIDPRN PRN PRN Reason: Nasal Congestion Valsartan (Diovan) 320 mg PO DAILY [facility] Last Admin: 05/07/17 10:17 Dose: 320 mg
[2017-05-07] MEDS: HumaLOG 300 UNITS/3 ML VIAL SC PRN (12:04)
[2017-05-07] MEDS: HYDROcodone/Acetaminophen 5/325 mg Tablet PO PRN (12:05)
[2017-05-07 16:02] VITALS: BP 144/69
[2017-05-07 16:03] VITALS: TEMP 98.7
[2017-05-07] MEDS ORDERED: hydrALAZINE 25 MG TAB PO SCH (16:15)
--- NOTE | 2017-05-07 16:35 | DIS ---
PRIMARY CARE PHYSICIAN: Nicole Gary M.D. DATE OF ADMISSION: 05/03/2017 DATE OF DISCHARGE: 05/07/2017 DISCHARGE DISPOSITION: Rehabilitation. PRIMARY DISCHARGE DIAGNOSES: Right lower lobe pneumonia; acute on chronic diastolic heart failure; a cute hypoxic respiratory failure, resolved; chronic obstructive pulmonary disease exacerbation. SECONDARY DISCHARGE DIAGNOSES: Pulmonary hypertension, physical deconditioning, osteoarthritis, hype rtension, diabetes type 2, COPD, chronic kidney disease stage 3, anxiety, depression, normocytic norm ochromic anemia, chronic diastolic heart failure. PRIMARY PROCEDURES/OPERATIONS: None. RADIOLOGICAL INVESTIGATION: Chest x-ray showed right lower lobe infiltration as well as mildly worse tutu pulmonary edema. Abdomen and pelvis CT scan showed persistent right lower lobe peripheral airsp tres consolidation. SIGNIFICANT LABS: WBC 11.5, hemoglobin 9.9, platelets 313. Sodium 138, potassium 4.2, BUN 23, creat inine 0.84, calcium 9.2. Blood culture negative, influenza negative. DISCHARGE MEDICATIONS: Amlodipine with valsartan 5/320 one tablet p.o. daily, aspirin 81 mg p.o. halle ly, Coreg 12.5 mg p.o. t.i.d., Celexa 10 mg p.o. daily, etodolac 500 mg p.o. b.i.d., Duragesic 50 mcg transdermal every 2 days, Advair 2 inhalations b.i.d., Lasix 40 mg p.o. b.i.d., gabapentin 300 mg p. o. t.i.d., hydralazine 75 mg p.o. t.i.d., [place] 1 tablet q.4 hourly p.r.n., insulin 70/30 10 units in the morning and 5 units at bedtime, DuoNeb q.4 hourly, Levaquin 500 mg p.o. daily for 7 days, metfor min 500 mg p.o. daily, prednisone 20 mg p.o. daily for 7 days, Crestor 10 mg p.o. at bedtime. CONTRAINDICATIONS: None. CODE STATUS: DNR. INPATIENT CONSULTANTS: Dr. Mchugh, Dr. Gay, and Dr. Priest saw this patient while in hospital and they are not thinking that this patient needs anymore investigation and they are not thinking about adenocarcinoma of lung. DISCHARGE PLAN: Post hospital, the patient is planned for discharge to rehab. Subsequently, the pat ient will follow up with primary care physician. HOSPITAL COURSE: An 87-year-old female with above-mentioned medical problem who was admitted by Dr. Méndez. Please see her H&P for further details. This patient was presented to the emergency room wi th increasing shortness of breath and epigastric pain. She had chest x-ray which showed worsening pu lmonary edema as the patient was complaining of epigastric pain and that is why CT of the abdomen and pelvis was done which showed right lower lobe persistent infiltration. The patient was treated with IV Lasix. The patient was given empiric antibiotic therapy. Dr. Gay, Dr. Mchugh, and Dr. Priest saw this patient while in hospital. She was also treated for COPD flare-up. This patient requested to go to rehab because of her physical deconditioning. This patient was DNR. Palliative Care saw t his patient. Out of hospital DNR paperwork was done. The patient was accepted for rehab today. Paperwork for discharge done. Discharge medication reconc iliation done. The patient was earlier seen bedside and examined. Please see my progress note from today for furthe r detail. After rehabilitation acceptance, the patient was notified and the patient is planned for d ischarge to rehabilitation. Overall, the patient is medically stable for discharge today. Total time spent on discharge day 31 minutes.
[2017-05-07] MEDS: metFORMIN XR 500 MG TAB PO SCH (17:06)
== END 2017-05-07 17:14 | DRG 177 ==
LOC: ERS 09:18 → T4-B 11:39
PROVIDERS: ADMIT Internal Medicine; ATTEND Internal Medicine
DX: J69.0 Pneumonitis due to inhalation of food and vomit (principal); J96.01 Acute respiratory failure with hypoxia; I50.33 Acute on chronic diastolic (congestive) heart failure; J44.0 Chronic obstructive pulmonary disease with (acute) lower respiratory infection; J44.1 Chronic obstructive pulmonary disease with (acute) exacerbation; I13.0 Hypertensive heart and chronic kidney disease with heart failure and stage 1 through stage 4 chronic kidney disease, or unspecified chronic kidney disease; I27.20 Pulmonary hypertension, unspecified; M19.90 Unspecified osteoarthritis, unspecified site; F41.9 Anxiety disorder, unspecified; F32.9 Major depressive disorder, single episode, unspecified; D64.9 Anemia, unspecified; Z66 Do not resuscitate; E78.5 Hyperlipidemia, unspecified; Z86.711 Personal history of pulmonary embolism; E11.22 Type 2 diabetes mellitus with diabetic chronic kidney disease; N18.3 Chronic kidney disease, stage 3 (moderate); Z79.84 Long term (current) use of oral hypoglycemic drugs; Z79.82 Long term (current) use of aspirin; E66.9 Obesity, unspecified; Z87.891 Personal history of nicotine dependence; Z68.27 Body mass index [BMI] 27.0-27.9, adult
CPT/HCPCS: 36415; 36416; 71045; 74177; 80048; 80053; 82553; 83605; 83880; 84484; 85025; 87040; 93005; 94640; 94760; 96365; 96375; A4216; G8978-GP-CI; G8979-GP-CI; G8980-GP-CI; G8987-GO-CL; G8988-GO-CI; J1650; J1940; J1956; J2405; J2543; J3370; J7050; J7506; J7611; J7620

== ENCOUNTER 2017-05-15 19:03 | Inpatient (IN) | payer MEDICARE, MEDICAID ==
[2017-05-15 19:55] LABS: #Lymphocytes 1.5 thou/uL (1.20-3.40); #Monocytes 0.5 thou/uL (0.11-0.59); #Neutrophils 14.3 thou/uL (1.40-6.50); %Basophils 0.2 % (0.0-1.0); %Eosinophils 0.3 % (0.0-10.0); %Lymphocytes 9.2 % (21.0-51.0); %Monocytes 2.9 % (0.0-10.0); %Neutrophils 87.5 % (42.0-75.0); Hemoglobin 11.6 g/dL (12.0-16.0); Mean Corpuscular HGB CONC 32.5 g/dL (32.0-36.0); Mean Corpuscular Hemoglobin 30.5 pg (27.0-31.0); Mean Corpuscular Volume 93.9 fl (81.0-99.0); Mean Platelet Volume 8.1 fL (7.4-10.4); Platelet Count 292 thou/uL (130-400); Red Blood Cell (RBC) Count 3.81 mill/uL (4.20-5.40); White Blood Cell (WBC) Count 16.3 thou/uL (4.8-10.8)
[2017-05-15] MEDS ORDERED: Ondansetron HCl/PF 4 MG/2 ML Vial ONE (20:05)
[2017-05-15 20:18] LABS: ALT (SGPT) Less than 7 U/L (8-55); AST (SGOT) 13 U/L (5-34); Albumin 3.6 g/dL (3.4-4.8); Alkaline Phosphatase 49 U/L (40-150); Anion Gap 17 mmol/L (10-20); BUN (Urea Nitrogen) 73 mg/dL (9.8-20.1); Bilirubin, Total 0.4 mg/dL (0.2-1.2); Calc. Creatinine Clearance 0 mL/min (70-130); Calcium 9.4 mg/dL (7.8-10.44); Carbon Dioxide 31 mmol/L (23-31); Chloride 91 mmol/L (98-107); Estimated GFR-MDRD 16; Globulin 3.9 g/dL (2.4-3.5); Glucose 225 mg/dL (83-110); Lipase 126 U/L (8-78); Potassium 5.3 mmol/L (3.5-5.1); Protein, Total 7.5 g/dL (6.0-8.3); Sodium 134 mmol/L (136-145)
--- NOTE | 2017-05-15 21:06 | CT ---
ABDOMEN AND PELVIC CT NONCONTRAST 05/15/17 INDICATION: Abdominal pain and vomiting. Reference made to 05/11/13 exam. There is abnormal distention of the small bowel with fluid and fecal contents, incompletely assessed by noncontrast technique although given decompressed small caliber distal small bowel, this indicates a moderate to high grade mechanical obstruction. There is prominent distention of the gastric lumen, as well. No portal venous gas or disseminated free air. There is moderate distention of the urinary bladder. Diffuse vascular disease present. Redemonstration of exophytic hypodensity emanating from th e posterolateral left kidney. Splenic granulomatous calcifications are present and there are calcifie d granulomas of the imaged lower chest. Fibrosis and/or scarring seen at the lung bases. There is shabana stomotic suture material seen within the right lower quadrant. Correlate with prior surgical history. IMPRESSION: Findings indicate moderate to high grade mechanical bowel obstruction, although limited by noncontras t technique. Site of transition is favored to reside within the central low abdomen. Recommend surgic al consultation for further assessment. POS: [facility]
[2017-05-15 22:00] LABS: Bilirubin Negative (Negative); Blood, Urine Negative (Negative); Clarity CLEAR (Clear); Glucose, Urine (Dipstick) Negative (Negative); Leukocyte Negative (Negative); Nitrite Negative (Negative); Protein, Urine (Dipstick) Negative (Neg-Trace); Specific Gravity, Urine 1.018 (1.002-1.036); Urobilinogen 0.2 mg/dL (0.2-1.0); pH, Urine 5.5 (5.0-9.0)
--- NOTE | 2017-05-15 22:59 | RAD ---
PORTABLE AP CHEST X-RAY 05/15/17 HISTORY: Small bowel obstruction. FINDINGS: Comparison 05/03/17. FINDINGS: A nasogastric tube is noted in place, but the tip overlies the right main stem bronchus with the tip at the right lung base. The cardiac silhouette and pulmonary vasculature are within normal limits. Mi nimal interstitial densities are seen at each lung base probably related to mild chronic lung change The lungs are otherwise clear. There is gaseous distention of the stomach. Postsurgical changes relat ed to right glenohumeral prosthesis are present. Vascular calcifications are seen in the thoracic aor ta. IMPRESSION: 1. Nasogastric tube is noted to overlie the right main stem bronchus and should be removed. 2. Gaseous distention of the stomach. 3. Mild chronic lung changes without evidence of an acute cardiopulmonary process. 4. Above findings discussed with Dr. Chavira in the Emergency Department on 05/15/17 at 2247 hour s POS: [facility]
--- NOTE | 2017-05-15 23:36 | RAD ---
AP ABDOMINAL RADIOGRAPH 05/15/17 HISTORY: Small bowel obstruction. Nasogastric tube placement. FINDINGS: Nasogastric tube is noted in place with the tip overlying the body of the stomach. There is gaseous d istention of the stomach. Remainder of the bowel gas pattern appears nonspecific. Surgical clips over lie the right upper quadrant. Minimal mild chronic bibasilar lung changes are present. Degenerative c hanges are noted in the spine. IMPRESSION: Nasogastric tube noted in place with tip overlying the body of the stomach. There is gaseous distenti on of the stomach. POS: [facility]
[2017-05-16] MEDS ORDERED: Ondansetron HCl/PF 4 MG/2 ML Vial IVP PRN (00:49)
[2017-05-16] MEDS ORDERED: Ondansetron ODT 4 MG TAB SL PRN (00:49)
[2017-05-16] MEDS: Sodium Chloride 0.9% 1,000 ML IV SCH ×4 (01:20→23:29)
[2017-05-16 05:01] LABS: #Lymphocytes 2.1 thou/uL (1.20-3.40); #Monocytes 0.9 thou/uL (0.11-0.59); #Neutrophils 13.7 thou/uL (1.40-6.50); %Basophils 0.1 % (0.0-1.0); %Eosinophils 0.3 % (0.0-10.0); %Lymphocytes 12.5 % (21.0-51.0); %Monocytes 5.4 % (0.0-10.0); %Neutrophils 81.8 % (42.0-75.0); Mean Corpuscular Hemoglobin 31.3 pg (27.0-31.0); Mean Corpuscular Volume 94.9 fl (81.0-99.0); Mean Platelet Volume 8.6 fL (7.4-10.4); Platelet Count 263 thou/uL (130-400); RBC Distribution Width 12.9 % (11.5-14.5); Red Blood Cell (RBC) Count 3.52 mill/uL (4.20-5.40); White Blood Cell (WBC) Count 16.8 thou/uL (4.8-10.8)
[2017-05-16 05:23] LABS: ALT (SGPT) Less than 7 U/L (8-55); AST (SGOT) 13 U/L (5-34); Albumin 3.3 g/dL (3.4-4.8); Alkaline Phosphatase 46 U/L (40-150); Anion Gap 15 mmol/L (10-20); BUN (Urea Nitrogen) 73 mg/dL (9.8-20.1); Bilirubin, Total 0.4 mg/dL (0.2-1.2); Calc. Creatinine Clearance 17 mL/min (70-130); Calcium 8.8 mg/dL (7.8-10.44); Carbon Dioxide 31 mmol/L (23-31); Chloride 95 mmol/L (98-107); Estimated GFR-MDRD 18; Globulin 3.6 g/dL (2.4-3.5); Glucose 104 mg/dL (83-110); Potassium 4.9 mmol/L (3.5-5.1); Protein, Total 6.9 g/dL (6.0-8.3); Sodium 136 mmol/L (136-145)
--- NOTE | 2017-05-16 09:07 | RAD ---
2 VIEWS ABDOMEN: Date: 05/16/17 HISTORY: Evaluate for small bowel obstruction. COMPARISON: 05/15/17. FINDINGS: Supine and left lateral decubitus abdomen radiograph series demonstrates a nasogastric tube in the ep igastric region. There is no evidence of small bowel distention or dilatation. There is mild gastric prominence. No differential air fluid levels. No definite pneumoperitoneum. Scattered fecal material in nondistended, nondilated colon. IMPRESSION: Nonspecific bowel gas pattern. POS: [facility]
--- NOTE | 2017-05-16 11:11 | PRG ---
DATE OF SERVICE: 05/16/2017 SUBJECTIVE: Ms. Melissa is an 87-year-old black female who was seen for an acute kidney injury at the rehab. At that time she was getting ARB, diuretics and diclofenac. This was discontinued yesterday. She was given IV hydration on admission here and there is already slight improvement with her renal function. She most likely has a hemodynamically mediated renal dysfunction. She was transferred fr rehab due to the nausea and vomiting. CT scan showed moderate to high grade mechanical bowel obst ruction. Surgery is following her up. No new complaints today. She has an NG tube noted. PHYSICAL EXAMINATION: VITAL SIGNS: Blood pressure is 112/59, heart rate 72, respiratory rate 18, temperature 98.1, pulse o x 95%. GENERAL: Noted to be awake, alert, comfortable, not in distress. SKIN: Adequate turgor. HEENT: She has pinkish conjunctivae, anicteric sclerae. NECK: No neck mass, no carotid bruits, no JVD. CHEST: No deformities. LUNGS: Clear breath sounds. No wheezing, no crackles. HEART: Normal sinus rhythm. No murmur, no gallops or rubs. ABDOMEN: Globular, soft, nontender, no masses. EXTREMITIES: No edema, no deformities. MEDICATIONS: 05/16/2017 - Reviewed. LABORATORY: 05/15/2017 - Urinalysis benign, no casts noted. 05/16/2017 - Sodium 136, potassium 4.9, chloride 95, carbon dioxide 31, BUN 73, creatinine 2.9. 05/15/2017 - Creatinine 3.73, 3.27. Previous to this, the creatinine was noted at 3.5 and prior to this the renal function was normal. ASSESSMENT AND PLAN: Acute kidney injury - hemodynamically mediated renal dysfunction. Continue c urrent management. Continue gentle volume repletion. Consider decreasing normal saline from 150 to 100 mL per hour. She is off of her losartan, diuretics, and diclofenac. I do anticipate eventual im provement of the renal function back to baseline. No indication for any dialytic intervention.
[2017-05-16] MEDS ORDERED: Dextrose 50% Abboject 50 ML SYRINGE SLOW IVP PRN ×2 (11:30→20:21)
[2017-05-16] MEDS ORDERED: Dextrose 5% in Water 1,000 ML IV PRN ×2 (11:30→20:21)
[2017-05-16] MEDS ORDERED: Heparin 5,000 UNITS/ML VIAL SC SCH ×2 (12:00→21:00)
[2017-05-16] MEDS: Clindamycin/D5W 600 MG in Premix Bag 1 BAG IVPB SCH ×2 (12:16→22:30)
--- NOTE | 2017-05-16 12:22 | HP ---
HISTORY OF PRESENT ILLNESS: Tanisha Melissa is an 87-year-old female, who lives at home with diabetes, hypertension, has been sick since Sunday, 6 days obstipated, seen in the emergency room last night. X-rays and CAT scans suggestive of a complete bowel obstruction. NG tube placed. She has had fecul ent output, foul smelling. She had an abdominal x-ray this morning suggesting a nonspecific bowel ga s pattern, but the patient has not passed any flatus or stool. Her abdomen is very tender on the lef t with guarding. White count was 16 on admission yesterday, 16.8 today. Hemoglobin 11.6 yesterday, 11.0 today. BUN was 73 yesterday, 73 this morning. Creatinine 3.27 yesterday, 2.9 today. Her carbo n dioxide remains at 31, sodium 136. I believe the ER physician consult, Dr. Robles, who saw this esau jay believes that her acute kidney injury is hemodynamically mediated due to dehydration. She has bee n on 1.5 maintenance IV fluids. I have talked to the patient and her daughter and plan is for laparo rian due to bowel obstruction as well as placement of a central line. ALLERGIES: PENICILLIN. TOBACCO: Never. ALCOHOL: None. MEDICATIONS: At home, Zanaflex 4 tablets at bedtime; etodolac 500 mg p.r.n. pain, discontinued due t o acute kidney injury; amlodipine 5/320 daily; hydrocodone p.r.n. pain; gabapentin 300 mg t.i.d.; Adv air Diskus 2 inhalers INH b.i.d.; Celexa 10 mg daily; carvedilol 12.5 mg t.i.d.; aspirin 81 mg daily; metformin 500 mg 17:00;, hydralazine 75 mg t.i.d.; Duragesic patch q.2 days; Crestor 10 mg at bedtim e; DuoNeb p.r.n.; insulin 5 units subcu at bedtime and 10 units a.m.; insulin NovoLog 70/30 FlexPen. PAST SURGICAL HISTORY: Hysterectomy, she is not sure if she had oophorectomy; cholecystectomy; rotat or cuff repair, arthroplasty, cataract surgery. She has had a laparotomy in the past for small bowel resection done several years ago. PAST MEDICAL HISTORY: COPD, followed by Dr. Gay. Diabetes mellitus, insulin dependent; hyperlipide natividad, hypertension, history of pulmonary embolism, anxiety. PHYSICAL EXAMINATION: VITAL SIGNS: 5 feet 5, 181 pounds, 30 BMI, 98.1, 72, 18, 112/59. HEAD, EYES, EARS, NOSE, AND THROAT: Unremarkable. LUNGS: Clear to auscultation. CARDIAC: Regular rate and rhythm without murmur, rub, or gallop. ABDOMEN: Soft, bowel sounds present, exquisitely tender with guarding in her left abdomen. EXTREMITIES: Unremarkable. NG tube in place with feculent drainage. ASSESSMENT AND PLAN: 1. Small-bowel obstruction by CAT scan yesterday, and even though her abdominal x-rays today look be tter, she is having feculent output of her NG tube and has significant guarding with leukocytosis. Armin hong would recommend laparotomy to rule out ischemic bowel and indicated procedures. I have discussed w lora the patient and her daughter, both consent, we will plan today. We will plan to give her DuoNeb, Hibiclens bath, and Lovenox preoperatively. 2. Acute kidney injury, improved with hydration. Dr. Robles is following, NSAIDs have been discontinue d. 3. History of diabetes mellitus. Accu-Cheks instituted 4. Hypertension. 5. Chronic obstructive pulmonary disease, followed by Pulmonary Medicine. 6. DNR status. We will suspend that currently and order it postoperatively.
[2017-05-16] MEDS ORDERED: Fentanyl 100 MCG/2 ML VIAL ONE ×2 (14:08)
[2017-05-16] MEDS ORDERED: Midazolam HCl 2 mg/2 ml Vial ONE (14:08)
[2017-05-16] MEDS ORDERED: Albumin 5% 500 ML ONE (14:37)
[2017-05-16] MEDS ORDERED: Phenylephrine HCL 10 MG/ML VIAL ONE (14:45)
[2017-05-16] MEDS ORDERED: Succinylcholine Chloride 20 MG/ML 10 ml SYRINGE FS ONE (16:00)
[2017-05-16] MEDS ORDERED: Propofol 200 MG/20 ML VIAL ONE (16:00)
[2017-05-16] MEDS ORDERED: ePHEDrine/0.9% NaCl/PF SYRINGE 50 mg/10 ml ONE (16:00)
[2017-05-16] MEDS ORDERED: Lidocaine 1% PF 5 ML VIAL ONE (16:00)
[2017-05-16] MEDS ORDERED: PHENYLEPHRINE-NS 100 MCG/ML 10 ML SYRINGE ONE (16:00)
[2017-05-16] MEDS ORDERED: Ventilator Sedation Protocol 1 EACH FS SCH (20:21)
[2017-05-16] MEDS ORDERED: [UNRECOGNIZED DRUG - REMARK] IVPB PRN (20:26)
[2017-05-16] MEDS ORDERED: Propofol 1,000 MG/100 ML VIAL IV PRN (20:29)
[2017-05-16] MEDS ORDERED: Fentanyl BOLUS 250 ML IVPB PRN (20:29)
[2017-05-16] MEDS ORDERED: Lorazepam 2 MG/ML VIAL SLOW IVP PRN (20:29)
[2017-05-16] MEDS ORDERED: DISCONTINUE PREVIOUS NARCOTIC PAIN MEDICATIONS AND BENZODIAZEPINES FS SCH (20:29)
[2017-05-16] MEDS ORDERED: fentaNYL Citrate/PF 2,000 MCG in Sodium Chloride 0.9% 60 ML IV SCH (20:29)
[2017-05-16] MEDS ORDERED: Morphine 2 MG/ML SYRINGE SLOW IVP PRN (20:29)
[2017-05-16 20:35] LABS: ALV-art Gradient 268.825 (0-20); Actual Bicarbonate (HCO3a) 20.8 mEq/L (22-26); Base Excess (BEa) -3.6 mEq/L (0 (+/-) 2.5); CO2 Tension 35.1 mmHg (35.0-45.0); Hematocrit-ABG 33.3 % (36.0-47.0); Hemoglobin (Hb) 10.6 g/dL (12.0-16.0); O2 Tension (PaO2) 186.4 mmHg (80.0-100.0); Puncture Site ALINE; pH, Arterial 7.39 (7.35-7.45)
[2017-05-16] MEDS ORDERED: Sodium Chloride 0.9% 1,000 ML IV SCH (20:45)
--- NOTE | 2017-05-16 21:05 | RAD ---
PORTABLE AP CHEST X-RAY 05/16/17 HISTORY: On ventilator. Central line placement. COMPARISON: 05/15/17. FINDINGS: The nasogastric tube has been repositioned in the interim with the nasogastric tube now coursing into the upper abdomen, the tip of which is not imaged. Endotracheal tube is now noted in place with the tip overlying the T3-4 level and above the level of the jenny. The left subclavian central venous ca theter is noted in place with tip overlying the cavoatrial junction. There is no evidence of a pneumo thorax. There is minimal patchy density at the right lung base which may represent atelectasis. Lungs otherwise appear clear. There is no other interval change from the prior exam. IMPRESSION: 1. Lines and tubes in place as described above. 2. Probable mild atelectasis at the right lung base. This can be re-evaluated on followup exam. POS: [facility]
[2017-05-16 21:08] LABS: #Lymphocytes 0.8 thou/uL (1.20-3.40); #Monocytes 0.1 thou/uL (0.11-0.59); #Neutrophils 4.8 thou/uL (1.40-6.50); %Basophils 0.8 % (0.0-1.0); %Eosinophils 0.4 % (0.0-10.0); %Lymphocytes 13.4 % (21.0-51.0); %Monocytes 1.7 % (0.0-10.0); %Neutrophils 83.7 % (42.0-75.0); Hemoglobin 10.6 g/dL (12.0-16.0); Mean Corpuscular HGB CONC 32.7 g/dL (32.0-36.0); Mean Corpuscular Volume 94.9 fl (81.0-99.0); Mean Platelet Volume 7.7 fL (7.4-10.4); Platelet Count 182 thou/uL (130-400); RBC Distribution Width 12.8 % (11.5-14.5); White Blood Cell (WBC) Count 5.8 thou/uL (4.8-10.8)
[2017-05-16] MEDS: Norepinephrine 8 MG/250 ML BAG IVPB PRN ×2 (21:52)
[2017-05-16] MEDS: Heparin 5,000 UNITS/ML VIAL SC SCH (22:28)
[2017-05-16] MEDS: HumaLOG 300 UNITS/3 ML VIAL SC PRN (23:50)
--- NOTE | 2017-05-17 01:58 | OP ---
DATE OF PROCEDURE: 05/16/2017 PREOPERATIVE DIAGNOSES: Small-bowel obstruction secondary to adhesions from prior surgery (prior his tory of bowel resection), poor IV access. POSTOPERATIVE DIAGNOSES: Small-bowel obstruction secondary to adhesions from prior surgery (prior hi story of bowel resection), poor IV access. PROCEDURES PERFORMED: Left subclavian vein central line. Laparotomy with four hours of adhesiolysis , two segments of small bowel resection, terminal ileum slightly more than 1 foot and jejunum approxi mately 3 inches, closure of enterotomies, Seprafilm application to the pelvis and anterior abdominal wall, wound VAC application to skin and subcutaneous tissues, NG tube exchange. SURGEON: Dr. Armando Cartagena. ANESTHESIA: General. BLOOD TRANSFUSED: One unit of blood transfused. PROCEDURE IN DETAIL: The patient was taken to the operating room where under general anesthesia, lef t periclavicular area and abdomen were prepared with ChloraPrep, draped in routine fashion. Using st erile technique and Seldinger technique, left subclavian vein central line placed, Biopatch applied. Line secured with 3-0 silk suture. Each port aspirated blood and flushed with saline solution. Aroldo rile dressing applied. Abdomen was draped in routine fashion. Incision was made in the midline and carried down through the skin and subcutaneous tissue and midline fascia. There were extensive visceral adhesions, omental a dhesions to the anterior abdominal wall and interbowel loop adhesions, 4-1/2 hours of adhesiolysis un dertaken and there were severe adhesions of small bowel into the pelvis. There was a complete bowel obstruction with dilatation of the proximal bowel and marked decompression and small ileum. More berta n 1 foot of ileum was resected due to severe adhesions. There were multiple enterotomies in [facility]. Mesentery divided between clamps and ligated with 2-0 silk ties. A small bowel and small bowel anastomosis created with a staple technique, SAVANNAH-75 stapler, the enterotomy closed with a SAVANNAH staple r. Staple line reinforced with interrupted Lembert suture of 3-0 silk and mesentery closed with 2-0 silk [id number]. More proximal jejunal resection undertaken due to adjacent enterotomies. A si milar anastomosis was performed. Small bowel was run from the cecum proximally to the ligament of Tr eitz, six times, all seromuscular tears were closed with 3-0 silk Lembert sutures. Small bowel sandra nts were milked retrograde into the stomach. NG tube had to be exchanged twice. The patient's abdom inal cavity was thoroughly irrigated with more than 5 liters of saline solution. Irrigant evacuated. Good hemostasis noted. Of note, the appendix is still present. All instruments and needle counts were correct . Seprafilm was placed in the pelvis the viscera and anterior abdominal wall and NG tub e palpating good position prior to closures, the fascia approximated with #1 PDS. Skin and subcutane ous tissues irrigated, skin about the umbilicus closed with kai and wound VAC was applied. The p atient tolerated the procedure well and transferred to the ICU on the ventilator.
[2017-05-17 04:32] LABS: Hemoglobin A1c 6.5 % (4.0-6.0)
[2017-05-17 04:45] LABS: Magnesium 1.8 mg/dL (1.6-2.6); Phosphorus 3.8 mg/dL (2.3-4.7)
[2017-05-17] MEDS: Clindamycin/D5W 600 MG in Premix Bag 1 BAG IVPB SCH ×3 (05:28→21:35)
[2017-05-17 06:59] LABS: #Monocytes 0.5 thou/uL (0.11-0.59); #Neutrophils 3.5 thou/uL (1.40-6.50); %Eosinophils 0.1 % (0.0-10.0); %Lymphocytes 19.3 % (21.0-51.0); %Monocytes 9.4 % (0.0-10.0); %Neutrophils 70.1 % (42.0-75.0); Hemoglobin 13.5 g/dL (12.0-16.0); Mean Corpuscular HGB CONC 33.2 g/dL (32.0-36.0); Mean Corpuscular Volume 93.4 fl (81.0-99.0); Mean Platelet Volume 9.2 fL (7.4-10.4); Platelet Count 224 thou/uL (130-400); RBC Distribution Width 13.8 % (11.5-14.5); Red Blood Cell (RBC) Count 4.35 mill/uL (4.20-5.40)
[2017-05-17 07:06] LABS: Anion Gap 15 mmol/L (10-20); BUN (Urea Nitrogen) 72 mg/dL (9.8-20.1); Calc. Creatinine Clearance 16 mL/min (70-130); Calcium 7.5 mg/dL (7.8-10.44); Carbon Dioxide 21 mmol/L (23-31); Chloride 107 mmol/L (98-107); Estimated GFR-MDRD 17; Glucose 153 mg/dL (83-110); Potassium 3.9 mmol/L (3.5-5.1); Sodium 139 mmol/L (136-145)
[2017-05-17] MEDS: Sodium Chloride 0.9% 1,000 ML IV SCH ×3 (07:25→21:29)
[2017-05-17] MEDS: Sodium Chloride 0.9% 2,000 ML IV SCH ×2 (07:25→08:51)
[2017-05-17 08:27] LABS: Actual Bicarbonate (HCO3a) 19.9 mEq/L (22-26); Base Excess (BEa) -3.7 mEq/L (0 (+/-) 2.5); CO2 Tension 31.3 mmHg (35.0-45.0); Hemoglobin (Hb) 11.1 g/dL (12.0-16.0); O2 Tension (PaO2) 149.8 mmHg (80.0-100.0); pH, Arterial 7.42 (7.35-7.45)
[2017-05-17 08:28] LABS: ALV-art Gradient 167.575 (0-20); Calcium, Ionized 0.9 mmol/L (1.12-1.30); Puncture Site LINE
[2017-05-17] MEDS ORDERED: cefTRIAXone\\ROCEPHIN 1 GM in Sodium Chloride 0.9% 100 ML IVPB SCH (08:30)
[2017-05-17] MEDS: Heparin 5,000 UNITS/ML VIAL SC SCH ×2 (08:33→21:32)
--- NOTE | 2017-05-17 08:44 | RAD ---
FRONTAL VIEW CHEST: Date: 05/17/17 COMPARISON: Previous day. INDICATION: Ventilated patient. FINDINGS: Supportive line and tubes are stable. No new consolidation. Cardiomediastinal silhouette is stable. IMPRESSION: Stable chest. POS: [facility]
[2017-05-17] MEDS ORDERED: Albumin 25% 25 GM/100 ML BOT IVPB SCH (08:45)
[2017-05-17] MEDS: cefTRIAXone\\ROCEPHIN 1 GM, Syringe 0.4 ML in Sterile Water 9.6 ML SLOW IVP SCH (08:48)
[2017-05-17] MEDS: Hydrocortisone Sod Succ/PF 100 mg/2 ml Vial IVP SCH ×3 (09:04→21:30)
--- NOTE | 2017-05-17 09:50 | PRG ---
DATE OF SERVICE: 05/17/2017 SUBJECTIVE: Ms. Melissa is an 87-year-old black female who was admitted for an acute abdomen. She was found to have small-bowel obstruction. She underwent an exploratory laparotomy yesterday for an adh esiolysis - with 2 segments of small bowel resection and subsequent closure of enterostomies. A woun d VAC was also applied after the surgery. Overnight, the patient noted to have decreased urine outpu t. She was aggressively volume repleted by her surgeon. She has received several liters of fluid to day. Currently we are finishing normal saline to 100 mL per hour. She has made some urine with this . I decreased the normal saline to 150 mL an hour for maintenance. She is also getting salt poor al bumin as needed. PHYSICAL EXAMINATION: VITAL SIGNS: Blood pressure is currently ranging from 99/53 to 110/61 with a heart rate of 115, O2 s at 99%. GENERAL: The patient is intubated on ventilator support. She is arousable, not in distress. SKIN: Adequate turgor. HEENT: She has pinkish conjunctivae, anicteric sclerae. NECK: No neck mass, no carotid bruits, no JVD. CHEST: No deformities. LUNGS: Clear breath sounds. No wheezing, no crackles. HEART: Normal sinus rhythm. No murmur, no gallops, no rubs. ABDOMEN: Globular, soft, nontender, no masses. She has a wound VAC in the abdomen. EXTREMITIES: No edema or deformities. MEDICATIONS: 05/17/2017 - Reviewed. LABORATORY: 05/17/2017 - White count 5, hemoglobin 13.5, sodium 139, potassium 3.9, chloride 107, ca rbon dioxide 21, BUN 72, creatinine 3.16, glucose 153, calcium 7.5. ASSESSMENT AND PLAN: 1. Fluctuating creatinine - creatinine yesterday was noted at 2.90. Currently, it is now 3.16. Con tinue to optimize hemodynamics. Continue to maintain BP to at least greater than 90 systolic. Celeste ntly on IV fluids, on low dose pressor support. Also on salt poor albumin. The plan is to give her salt poor albumin 25 grams IV q.6h. for a total of 3 days. There is no indication for any dialytic i ntervention. I will be repeating another urinalysis and urine chemistries with this patient. She mo st likely has a simple prerenal azotemia. 2. Acute abdomen. The patient has bowel obstruction and this has been surgically corrected by Dr. Jerry lindo - he did an exploratory laparotomy with adhesiolysis. Overall, prognosis remains guarded.
[2017-05-17] MEDS ORDERED: Norepinephrine 8 MG/0.9% NS 250 ML ONE ×2 (10:29→17:24)
--- NOTE | 2017-05-17 11:09 | PDOC.GSPN ---
Surgery Progress Note: Subj - Subjective Narrative: on pressors overnight. more stable this am. borderline UOP Surgery Progress Note: Obj - Vital signs Vital signs: Vital Signs - Most Recent Temp Pulse Resp BP Pulse Ox 100.5 F H 93 13 112/59 L 98 05/17/17 08:00 05/17/17 07:59 05/17/17 10:00 05/16/17 08:00 05/16/17 20:00 - Physical Exam General: no distress, other (on vent) Respiratory: coarse breath sounds Abdomen: soft, distended, tender Wound: wound vac Surgery Progress Note: Results - Labs Result Diagrams: 05/17/17 04:00 05/17/17 04:00 Lab results: Laboratory Results - last 24 hr 05/16/17 05/16/17 05/17/17 17:30 23:28 03:30 WBC RBC Hgb Hct MCV MCH MCHC RDW Plt Count MPV Neutrophils % Lymphocytes % Monocytes % Eosinophils % Basophils % Neutrophils # Lymphocytes # Monocytes # Eosinophils # Basophils # Specimen Type Puncture Site Bicarbonate Actual ABG pH ABG pCO2 ABG pO2 ABG O2 Sat Calc/Evan ABG O2 Content ABG Base Excess ABG Hematocrit ABG Hemoglobin ABG Oxyhemoglobin ABG Carboxyhemoglobin ABG Methemoglobin A-a O2 Gradient Ionized Calcium Mode of Support Mechanical Rate Inspired O2 Tidal Volume Pressure Support PEEP or CPAP Sodium Potassium Chloride Carbon Dioxide Anion Gap BUN Creatinine Estimated GFR (MDRD) Glucose POC Glucose 209 H Hemoglobin A1c Calcium Phosphorus 3.8 Magnesium 1.8 Prealbumin Cortisol Blood Type A POSITIVE Antibody Screen NEGATIVE Crossmatch See Detail 05/17/17 05/17/17 05/17/17 03:30 04:00 04:00 WBC RBC Hgb Hct MCV MCH MCHC RDW Plt Count MPV Neutrophils % Lymphocytes % Monocytes % Eosinophils % Basophils % Neutrophils # Lymphocytes # Monocytes # Eosinophils # Basophils # Specimen Type Puncture Site Bicarbonate Actual ABG pH ABG pCO2 ABG pO2 ABG O2 Sat Calc/Evan ABG O2 Content ABG Base Excess ABG Hematocrit ABG Hemoglobin ABG Oxyhemoglobin ABG Carboxyhemoglobin ABG Methemoglobin A-a O2 Gradient Ionized Calcium Mode of Support Mechanical Rate Inspired O2 Tidal Volume Pressure Support PEEP or CPAP Sodium 139 Potassium 3.9 Chloride 107 Carbon Dioxide 21 L Anion Gap 15 BUN 72 H Creatinine 3.16 H Estimated GFR (MDRD) 17 Glucose 153 H POC Glucose Hemoglobin A1c 6.5 H Calcium 7.5 L Phosphorus Magnesium Prealbumin 20.0 Cortisol Blood Type Antibody Screen Crossmatch 05/17/17 05/17/17 05/17/17 04:00 05:37 08:00 WBC 5.0 RBC 4.35 Hgb 13.5 Hct 40.7 MCV 93.4 MCH 31.0 MCHC 33.2 RDW 13.8 Plt Count 224 MPV 9.2 Neutrophils % 70.1 Lymphocytes % 19.3 L Monocytes % 9.4 Eosinophils % 0.1 Basophils % 1.0 Neutrophils # 3.5 Lymphocytes # 1.0 L Monocytes # 0.5 Eosinophils # 0.0 Basophils # 0.0 Specimen Type ARTERIAL Puncture Site LINE Bicarbonate Actual 19.9 L ABG pH 7.42 ABG pCO2 31.3 L ABG pO2 149.8 H ABG O2 Sat Calc/Evan 99.1 ABG O2 Content 15.5 L ABG Base Excess -3.7 L ABG Hematocrit 33.0 L ABG Hemoglobin 11.1 L ABG Oxyhemoglobin 97.3 H ABG Carboxyhemoglobin 1.0 ABG Methemoglobin 0.8 A-a O2 Gradient 167.575 H Ionized Calcium 0.9 L Mode of Support SIMV Mechanical Rate 14 Inspired O2 50 Tidal Volume 500 Pressure Support 10 PEEP or CPAP 5.0 Sodium 140 Potassium 4.2 Chloride 105 Carbon Dioxide Anion Gap BUN Creatinine Estimated GFR (MDRD) Glucose POC Glucose 129 H Hemoglobin A1c Calcium Phosphorus Magnesium Prealbumin Cortisol Blood Type Antibody Screen Crossmatch 05/17/17 05/17/17 08:40 08:43 WBC RBC Hgb Hct MCV MCH MCHC RDW Plt Count MPV Neutrophils % Lymphocytes % Monocytes % Eosinophils % Basophils % Neutrophils # Lymphocytes # Monocytes # Eosinophils # Basophils # Specimen Type Puncture Site Bicarbonate Actual ABG pH ABG pCO2 ABG pO2 ABG O2 Sat Calc/Evan ABG O2 Content ABG Base Excess ABG Hematocrit ABG Hemoglobin ABG Oxyhemoglobin ABG Carboxyhemoglobin ABG Methemoglobin A-a O2 Gradient Ionized Calcium Mode of Support Mechanical Rate Inspired O2 Tidal Volume Pressure Support PEEP or CPAP Sodium Potassium Chloride Carbon Dioxide Anion Gap BUN Creatinine Estimated GFR (MDRD) Glucose POC Glucose 124 H Hemoglobin A1c Calcium Phosphorus Magnesium Prealbumin Cortisol 21.70 Blood Type Antibody Screen Crossmatch Surgery Progress Note: A/P - Problem (1) Small bowel obstruction Current Visit: Yes Code(s): K56.609 - UNSP INTESTNL OBST, UNSP TO PARTIAL VERSUS COMPLETE OBST Status: Acute Assessment and Plan: POD 1 ex lap, remedios, small bowel resection. cont ng to liws (2) Chronic renal insufficiency Current Visit: Yes Code(s): N18.9 - CHRONIC KIDNEY DISEASE, UNSPECIFIED Status: Acute Assessment and Plan: renal function worsened slightly postop, expect improvement with rehydration
[2017-05-17 11:20] LABS: Bilirubin Small (Negative); Blood, Urine Negative (Negative); Clarity CLOUDY (Clear); Glucose, Urine (Dipstick) Negative (Negative); Leukocyte Small (Negative); Nitrite Negative (Negative); Protein, Urine (Dipstick) 30 mg/dL (Neg-Trace); Specific Gravity, Urine 1.021 (1.002-1.036); Urobilinogen 0.2 mg/dL (0.2-1.0); pH, Urine 5.5 (5.0-9.0)
[2017-05-17 11:30] LABS: Squamous Epithelial 0-3 HPF (0-3)
[2017-05-17 11:37] LABS: Yeast-AUWi Flag 33.8 (0-25.0)
[2017-05-17 11:56] LABS: Bacteria/HPF 1+ HPF (None Seen); Hyaline Casts/LPF 0-3 HYALINE CAST LPF (0-3 Hyaline); RBC/HPF None Seen HPF (0-3)
[2017-05-17 11:57] LABS: Manual Microscopic Reviewed? No Path Casts Seen; Yeast-All Forms None Seen HPF (None Seen)
--- NOTE | 2017-05-17 14:55 | CON ---
DATE OF CONSULTATION: 05/17/2017 HISTORY OF PRESENT ILLNESS: Ms. Tanisha Melissa is an 87-year-old female who was well known to me. Dr. Cartagena, General Surgery, took her to OR yesterday after she came in with bowel obstruction. He lysed much of adhesions. Postoperatively, she was hypottensive and developed worsening renal failure prior from azotemia and shock. She is now on the vent, intubated on Levophed and sedated . She is also sedated eyes. She was just recently discharged from the hospital with extensive history were outlined in multiple medical records. Ms. Melissa has chronic crackles bilaterally suggestiveof interstitial lung disease. She probably has evidence of some diastolic dysfunction. She has a former history of smoker. PAST MEDICAL HISTORY: COPD, interstitial lung disease, diabetes, hypertension, previous PE, previous anxiety. PAST SURGICAL HISTORY: Extensively outlined include small bowel surgery, hysterectomy, cataract, and arthroplasty. HOME MEDICATIONS: List of medicine from home includes Zanaflex, amlodipine 5, gabapentin 300, Advair, Celexa 10, Coreg 12.5 three tablets a day, metformin 500 , hydralazine 75, fentanyl 50, Crestor, DuoNeb, insulin. ALLERGIES: PENICILLIN. SOCIAL HISTORY: Unremarkable. FAMILY HISTORY: Former smoker, smoked years ago. REVIEW OF SYSTEMS: Otherwise unobtainable, vented but negative. I reviewed all medical records. PHYSICAL EXAMINATION: GENERAL: Awake. VITAL SIGNS: Pulse 94, blood pressure 110/80, on Levophed, sats are 100%, respiration 14. CHEST: Reveals decreased breath sound without any wheezing. CARDIAC: Normal S1, S2, no gallops. ABDOMEN: Soft, no masses. LABORATORY DATA AND IMAGING: A pO2 149, [id number] ph 7.35 on present vent settings , rate of14 White count 5000, H&H is 13 and 40, platelet count 224. BUN and creatinine are 72 and 3.16; on 05/08/2017, they were normal. Normal chest x-ray, personally reviewed multiple, no acute infiltrates were seen. He had a CT exam of the abdomen, which shows evidence of adhesions, small bowel obstructions. IMPRESSION: 1. Status post lap. 2. Hypertension and shock, probably sepsis. 3. Renal failure, prerenal. 4. Diastolic dysfunction. 5. Chronic obstructive pulmonary disease. 6. History of lung disease. 7. Diabetes. 8. Previously, she did not want to be intubated, she was DNR. PLAN: I will discuss with family as they arrive. In the meantime, I will start her back on neb treatments, steroids, antibiotics, clindamycin, Levaquin _ ____ (03:15). I may add some Maxipime to her present coverage. Wean slowly. Input from Renal, DVT prophylaxis. We will follow. Forty-Five minutes critical care time. GREGORIO
[2017-05-18] MEDS: Norepinephrine 8 MG/250 ML BAG IVPB PRN ×2 (01:00)
[2017-05-18] MEDS: Hydrocortisone Sod Succ/PF 100 mg/2 ml Vial IVP SCH ×4 (02:23→20:13)
[2017-05-18] MEDS: Sodium Chloride 0.9% 1,000 ML IV SCH ×4 (02:24→16:51)
[2017-05-18 04:17] LABS: Anion Gap 17 mmol/L (10-20); BUN (Urea Nitrogen) 53 mg/dL (9.8-20.1); Calc. Creatinine Clearance 27 mL/min (70-130); Calcium 7.1 mg/dL (7.8-10.44); Carbon Dioxide 18 mmol/L (23-31); Chloride 113 mmol/L (98-107); Estimated GFR-MDRD 29; Glucose 193 mg/dL (83-110); Potassium 4.7 mmol/L (3.5-5.1); Sodium 143 mmol/L (136-145)
[2017-05-18 04:38] LABS: Band 63 % (5-11); Dohle Bodies SLIGHT; Hemoglobin 11.4 g/dL (12.0-16.0); Lymphocytes 4 % (21-51); MDiff Complete? YES; Mean Corpuscular HGB CONC 32.6 g/dL (32.0-36.0); Mean Corpuscular Hemoglobin 30.6 pg (27.0-31.0); Mean Corpuscular Volume 94.1 fl (81.0-99.0); Mean Platelet Volume 9.5 fL (7.4-10.4); Metamyelocyte 5 % (0-0); Monocytes 2 % (0-10); Neutrophil 26 % (42-75); Platelet Count 171 thou/uL (130-400); RBC Distribution Width 13.6 % (11.5-14.5); Red Blood Cell (RBC) Count 3.74 mill/uL (4.20-5.40); Vacuoles SLIGHT; White Blood Cell (WBC) Count 11.4 thou/uL (4.8-10.8)
[2017-05-18] MEDS: Clindamycin/D5W 600 MG in Premix Bag 1 BAG IVPB SCH (05:14)
[2017-05-18] MEDS: HumaLOG 300 UNITS/3 ML VIAL SC PRN ×3 (06:06→18:23)
--- NOTE | 2017-05-18 08:04 | RAD ---
ONE VIEW CHEST: COMPARISON: 05/17/17. HISTORY: Ventilated patient. Respiratory distress. FINDINGS: Redemonstration of an endotracheal tube, nasogastric tube, and left-sided central venous catheter. S table configuration of the cardiac silhouette. Possible nodule in the right mid lung measuring 7 mm. Otherwise, lung parenchyma is unchanged. IMPRESSION: Possible right lung nodule. POS: [facility]
--- NOTE | 2017-05-18 08:13 | PRG ---
DATE OF SERVICE: 05/18/2017 This morning she is awake, alert, responsive on the vent. PHYSICAL EXAMINATION: VITAL SIGNS: Her blood pressure is in the low 110/49 on the A-line, 90 systolic, pulse 109, respirat ions 25, sats 98%. GENERAL: She is awake, responsive, denies any pain. I's & O's have been 6579 in, 1832 out. CHEST: Chest reveals decreased breath sounds with minimal crackles. CARDIAC: Normal S1, S2. ABDOMEN: Soft, no masses. LABORATORY DATA: White count 11,000, H&H 9 and 35, platelet count is 175, 63 bands, 26 neutrophils. Chest x-ray shows slightly increased cephalization. Creatinine is 1.94, improved from her previous creatinine 3.16. IMPRESSION: 1. Status post lap for small-bowel obstruction with adhesiolysis. 2. Respiratory failure. 3. Underlying chronic interstitial lung disease based on PFT. 4. History of previous PE. 5. Bandemia. PLAN: Continue antibiotics, clindamycin, Levaquin, ceftriaxone. Neb treatments, supportive care, steroids. We will try and wean and hopefully extubate. Consider why the bandemia. The abdomen is clearly soft. I will follow. One-half hour critical care time.
[2017-05-18] MEDS: Heparin 5,000 UNITS/ML VIAL SC SCH ×2 (08:44→20:13)
[2017-05-18] MEDS: cefTRIAXone\\ROCEPHIN 1 GM, Syringe 0.4 ML in Sterile Water 9.6 ML SLOW IVP SCH (08:46)
[2017-05-18] MEDS ORDERED: DC Sedation Protocol FS ONE (09:29)
[2017-05-18] MEDS ORDERED: Fentanyl 100 MCG/2 ML VIAL SLOW IVP PRN (10:21)
--- NOTE | 2017-05-18 10:51 | PDOC.GSPN ---
Surgery Progress Note: Subj - Subjective Narrative: Extubated. Complaining of severe pain. She takes daily Loyal at home for chronic back pain. OG tube out. Not c/o nausea Surgery Progress Note: Obj - Vital signs Vital signs: Vital Signs - Most Recent Temp Pulse Resp BP Pulse Ox 100.5 F H 113 H 23 H 94/40 L 97 05/18/17 08:00 05/18/17 08:19 05/18/17 08:19 05/18/17 07:21 05/18/17 08:19 - Physical Exam General: no distress Cardiovascular: regular rate and rhythm Respiratory: clear to auscultation Abdomen: soft, decreased bowel sounds, distended Wound: wound vac Surgery Progress Note: Results - Labs Result Diagrams: 05/18/17 03:18 05/18/17 03:18 Lab results: Laboratory Results - last 24 hr 05/16/17 05/18/17 05/18/17 17:20 01:12 03:18 WBC RBC Hgb Hct MCV MCH MCHC RDW Plt Count MPV Neutrophils % (Manual) Band Neuts % (Manual) Lymphocytes % (Manual) Monocytes % (Manual) Metamyelocytes % (Man) WBC Morphology Dohle Bodies Sodium 143 Potassium 4.7 Chloride 113 H Carbon Dioxide 18 L Anion Gap 17 BUN 53 H Creatinine 1.94 H Estimated GFR (MDRD) 29 Glucose 193 H POC Glucose 191 H 166 H Calcium 7.1 L 05/18/17 05/18/17 03:18 06:01 WBC 11.4 H RBC 3.74 L Hgb 11.4 L Hct 35.2 L MCV 94.1 MCH 30.6 MCHC 32.6 RDW 13.6 Plt Count 171 MPV 9.5 Neutrophils % (Manual) 26 L Band Neuts % (Manual) 63 H Lymphocytes % (Manual) 4 L Monocytes % (Manual) 2 Metamyelocytes % (Man) 5 H WBC Morphology SLIGHT Dohle Bodies SLIGHT Sodium Potassium Chloride Carbon Dioxide Anion Gap BUN Creatinine Estimated GFR (MDRD) Glucose POC Glucose 189 H Calcium Surgery Progress Note: A/P - Problem (1) Small bowel obstruction Current Visit: Yes Code(s): K56.609 - UNSP INTESTNL OBST, UNSP TO PARTIAL VERSUS COMPLETE OBST Status: Acute Assessment and Plan: Extubated. Will leave NG out for now but keep NPO. Bandemia today. Repeat CT tomorrow if it persists. She will be better off with [employer] given her chronic baseline pain (2) Chronic renal insufficiency Current Visit: Yes Code(s): N18.9 - CHRONIC KIDNEY DISEASE, UNSPECIFIED Status: Acute
[2017-05-18] MEDS: Fentanyl 100 MCG/2 ML VIAL SLOW IVP PRN ×6 (12:12→20:07)
--- NOTE | 2017-05-18 16:48 | PQF ---
ANGELICA MONROE RICHARD D MD [id number] CLINICAL DOCUMENTATION IMPROVEMENT CLARIFICATION FORM: ICD-10 Updated PLEASE DO AN ADDENDUM TO THE PROGRESS NOTE WITH ANY DOCUMENTATION UPDATES OR ADDITIONS AND CARRY THROUGH TO DC SUMMARY. THANK YOU. DATE: 05-18-17 ATTN: Please exercise your independent, professional judgment in responding to the clarification form. Clinical indicators are provided on the bottom of this form for your review Please check appropriate box(s): [ ] Hypovolemic Shock [ ] Septic Shock [ ] Hemorrhagic Shock due to surgery: LAPAROTOMY W/ 4 HRS OF ADHESIOLYSIS; 2 SEGMENT OF SMALL BOWEL RESECTION [ ] Shock Unspecified [ ] Other diagnosis [ ] Unable to determine In addition, please specify: Present on Admission (POA): [ ] Yes [ ] No [ ] Unable to determine For continuity of documentation, please document condition throughout progress notes and discharge summary. Thank You. CLINICAL INDICATORS - SIGNS / SYMPTOMS / LABS 05-16 NEPHRO PN: SALLY 05-17 PULM CONSULT: POSTOPERATIVELY, SHE WAS HYPOTENSIVE AND DEVELOPED WORSENING RENAL FAILURE PRIOR FROM AZOTEMIA AND SHOCK LABS: BUN CREAT GFR Hgb Hct 05-15 73 3.27 16 11.6 35.8 05-16 73 2.90 18 10.6 32.3 BP -14 @ 2006 73/56 -14 @ 2014 60/31 14 @ 2029 91/47 14 @ 2045 89/46 RISK FACTORS H&P: SBO OP NOTE: LAPAROTOMY W/ 4 HRS OF ADHESIOLYSIS; 2 SEGMENT OF SMALL BOWEL RSECTION 550 EBL PULM CONSULT: PROBABLY SEPSIS TREATMENTS: ICU VENTILATOR 05-16 @ 2017 OFF VENT 16 @ 0819 2 UPRBC 05-16 MAR: NS @ 150 mls/hr 05-17 NS 2,000 mls/hr - BOLUS ROCEPHIN IV 05-17 LEVAQUIN 05-16 / 05-18 NOREPINEPHRIN 05-17 CLEOCIN 05-16 / 05-17 THANK YOU, KRISTIN (This form is maintained as a part of the permanent medical record) 2014 [employer]. All Rights Reserved Kristin Weaver RN, BS Cell MTDD
[2017-05-18] MEDS: Diltiazem HCl 125 MG, Admixture Fee 1 EACH in Sodium Chloride 0.9% 100 ML IVPB SCH (16:51)
--- NOTE | 2017-05-18 17:02 | PRG ---
SUBJECTIVE: Mr. Melissa is an 87-year-old black female who was admitted for acute abdomen secondary to a small-bowel obstruction - underwent exploratory laparotomy with relief of this mechanical obstruct ion. Adhesiolysis was done by Dr. Cartagena. We are following her up for acute kidney injury that was hemodynamically mediated. She continues to have intermittent paroxysms of palpitations - ? of paroxy smal atrial fibrillation. A Cardiology consult has been done. No new complaints today. OBJECTIVE: VITAL SIGNS: Blood pressure 124/62, heart rate 107, respiratory rate 24, pulse ox 99%. GENERAL: Awake, alert, comfortable, not in distress. SKIN: Adequate turgor. HEENT: She has pinkish conjunctivae, anicteric sclerae. NECK: No neck mass. No carotid bruits. No JVD. CHEST: No deformities. LUNGS: Clear breath sounds. No wheezing. No crackles. HEART: Normal sinus rhythm. No murmur, no gallops, no rubs. ABDOMEN: Globular, soft, nontender. No masses. LUNGS: Decreased bowel sounds. EXTREMITIES: No edema. MEDICATIONS: Medications of 05/18/2017 was reviewed. LABORATORY DATA: Laboratories of 05/18/2017, white count 11.4, hemoglobin 11.4. Sodium 143, potassi um 4.7, chloride 113, carbon dioxide 18, BUN 53, creatinine 1.94, glucose 193, calcium 7.1. ASSESSMENT AND PLAN: 1. Acute kidney injury - hemodynamically mediated renal dysfunction. Much improved renal function w ith IV hydration. The patient has been receiving crystalloids and IV infusion. No indication for an y dialytic intervention. 2. Status post acute abdomen - surgical intervention has been done. Dr. Cartagena did an adhesiolysis. Overall, doing well. We will be rechecking base met and CBC. Please note again that there is no i ndication for any dialytic intervention.
--- NOTE | 2017-05-18 19:11 | CON ---
DATE OF CONSULTATION: 05/18/2017 Time will be 30 minutes. HISTORY OF PRESENT ILLNESS: The patient is a pleasant 87-year-old woman with a history of mild coronary artery disease, who underwent surgery and was noted to have a rapid irregular heart rate. The patient has a history of hypertension and diabetes mellitus. She has a history of mild coronary artery disease. She was in her usual state of health when she presented with abdominal discomfort. She underwent an emergent surgery. Following the procedure, she is noted to have a regular heart rhythm. The patient denies having any palpitations. The patient denies having any chest discomfort. PAST MEDICAL HISTORY: 1. Coronary artery disease. 2. Hypertension. 3. Diabetes mellitus. 4. Chronic obstructive pulmonary disease. 5. Pulmonary embolus. 6. Chronic back pain. PAST SURGICAL HISTORY: Hysterectomy, cholecystectomy, knee surgery, small bowel surgery, and carpal tunnel surgery. MEDICATIONS: See nursing list. ALLERGIES: PENICILLIN. SOCIAL HISTORY: Nonsmoker. PHYSICAL EXAMINATION GENERAL: Ill-appearing woman, in mild distress with a blood pressure 136/52. NECK: Full. LUNGS: Coarse breath sounds bilateral. HEART: Regular rate and rhythm, normal S1, S2. ABDOMEN: Distended with no bowel sounds. EXTREMITIES: Showed trace edema. LABORATORY DATA: White blood count 11.4, hemoglobin 11.4, hematocrit 35.4 and her platelets were 171. Sodium was 143, potassium 4.7, chloride 113, bicarbonate 18, BUN 53, creatinine 1.94. EKG revealed normal sinus rhythm with a normal ECG. Her monitoring manager revealed atrial fibrillation with a rapid ventricular response. IMPRESSION: 1. Paroxysmal atrial fibrillation. 2. Status post colon surgery. 3. History of mild coronary artery disease. 4. Hypertension. 5. Renal insufficiency. 6. History of pulmonary embolism. 7. Diabetes mellitus. This patient presents with paroxysmal atrial fibrillation. We will start her on IV Cardizem to control her heart rate. We will follow this patient with you through her hospitalization. GREGORIO
[2017-05-18] MEDS: Acetaminophen 1,000 MG in Premix Bag 1 BAG IVPB SCH (19:37)
[2017-05-18] MEDS ORDERED: HYDROmorphone 10 mg/100 ml CADD IV PRN (20:29)
[2017-05-18] MEDS ORDERED: diphenhydrAMINE 25 MG CAP PO PRN (20:29)
[2017-05-18] MEDS ORDERED: Naloxone HCl 0.4 mg/ml Vial IV PRN (20:29)
[2017-05-18] MEDS: Ondansetron HCl/PF 4 MG/2 ML Vial IVP PRN (22:06)
[2017-05-19] MEDS: Sodium Chloride 0.9% 1,000 ML IV SCH ×2 (02:00→06:09)
[2017-05-19] MEDS: Hydrocortisone Sod Succ/PF 100 mg/2 ml Vial IVP SCH ×4 (02:21→20:03)
[2017-05-19] MEDS: Acetaminophen 1,000 MG in Premix Bag 1 BAG IVPB SCH ×4 (02:21→19:59)
[2017-05-19] MEDS: Diltiazem HCl 125 MG, Admixture Fee 1 EACH in Sodium Chloride 0.9% 100 ML IVPB SCH ×2 (03:54→16:48)
[2017-05-19 04:33] LABS: Anion Gap 13 mmol/L (10-20); BUN (Urea Nitrogen) 42 mg/dL (9.8-20.1); Calc. Creatinine Clearance 42 mL/min (70-130); Calcium 7.7 mg/dL (7.8-10.44); Carbon Dioxide 22 mmol/L (23-31); Chloride 116 mmol/L (98-107); Estimated GFR-MDRD 45; Glucose 159 mg/dL (83-110); Potassium 4.1 mmol/L (3.5-5.1); Sodium 147 mmol/L (136-145)
[2017-05-19 04:47] LABS: Band 25 % (5-11); Hemoglobin 10.3 g/dL (12.0-16.0); Lymphocytes 5 % (21-51); MDiff Complete? YES; Mean Corpuscular HGB CONC 32.5 g/dL (32.0-36.0); Mean Corpuscular Hemoglobin 31.1 pg (27.0-31.0); Mean Corpuscular Volume 95.7 fl (81.0-99.0); Mean Platelet Volume 9.2 fL (7.4-10.4); Monocytes 2 % (0-10); Neutrophil 68 % (42-75); Platelet Count 149 thou/uL (130-400); RBC Distribution Width 13.8 % (11.5-14.5); Red Blood Cell (RBC) Count 3.32 mill/uL (4.20-5.40); White Blood Cell (WBC) Count 10.3 thou/uL (4.8-10.8)
[2017-05-19] MEDS: cefTRIAXone\\ROCEPHIN 1 GM, Syringe 0.4 ML in Sterile Water 9.6 ML SLOW IVP SCH (09:07)
[2017-05-19] MEDS: Heparin 5,000 UNITS/ML VIAL SC SCH ×2 (09:09→20:15)
--- NOTE | 2017-05-19 09:13 | RAD ---
CHEST 1 VIEW: HISTORY: Dyspnea. Followup. COMPARISON: 05/18/17. FINDINGS: Cardiac silhouette is magnified by projection. Pulmonary vasculature is more engorged. Mediastinum is midline with aortic calcification. Left subclavian central venous catheter remains in place. Arnoldo ogastric tube and endotracheal catheter are no longer visible. Nodule projecting over the right base on the previous exam is no longer evident. electronic device monitor celena ds overlie the chest. IMPRESSION: 1. Interval removal of the endotracheal catheter and nasogastric tube. 2. Slight interval increase in pulmonary vascular congestion. POS: [facility]
[2017-05-19] MEDS: fentaNYL 50 mcg/hour Patch TD SCH (09:22)
--- NOTE | 2017-05-19 10:00 | PRG ---
DATE OF SERVICE: 05/19/2017 RENAL MEDICINE SUBJECTIVE: Mr. Melissa is an 87-year-old black female who was admitted for acute abdomen and small-prashant wel obstruction status post exploratory laparotomy and we are following this patient for acute kidney injury that was hemodynamically mediated. Renal function has is much improved with volume repletion . She is currently extubated. No acute events noted last night. PHYSICAL EXAMINATION: VITAL SIGNS: Blood pressure 154/63, heart rate 91, respiratory rate is 12, pulse ox 96%. GENERAL: Awake, comfortable, not in distress. SKIN: Adequate turgor. HEENT: She has pinkish conjunctivae, anicteric sclerae. NECK: No neck mass, no carotid bruits, no JVD. CHEST: No deformities. LUNGS: Clear breath sounds. No wheezing, no crackles. HEART: Normal sinus rhythm. No murmur, no gallops or rubs. ABDOMEN: Globular, soft, nontender, no masses. Positive for surgical wound. EXTREMITIES: No edema, no deformities. MEDICATIONS: Of 05/19/2017 reviewed. LABORATORY DATA: Of 05/19/2007, white count 10.3, hemoglobin 10.3, hematocrit 31.8, Sodium 147, pota ssium 4.1, chloride 116, carbon dioxide 22, BUN 42, creatinine 1.33, glucose 159, and calcium 7.7. ASSESSMENT AND PLAN: 1. Acute kidney injury - hemodynamically mediated renal dysfunction. Renal function is much improve d. Most recent creatinine is now 1.33. Continue current management. Continue gentle volume repleti on. No indication for any dialytic intervention. 2. Mild hypernatremia, change IV fluid to D5 half normal at 100 mL per hour. 3. Acute abdominal obstruction status post exploratory laparotomy. Surgery is following. The patie nt is doing well.
--- NOTE | 2017-05-19 10:11 | PDOC.GSPN ---
Surgery Progress Note: Subj - Subjective Narrative: Pain control issues. 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 No flatus, or bowel movement Surgery Progress Note: Obj - Vital signs Vital signs: Vital Signs - Most Recent Temp Pulse Resp BP Pulse Ox 98.3 F 95 22 H 146/57 H 98 05/19/17 07:20 05/19/17 08:44 05/19/17 07:10 05/19/17 08:44 05/19/17 08:44 - Physical Exam General: no distress Cardiovascular: regular rate and rhythm Respiratory: clear to auscultation Abdomen: soft, decreased bowel sounds, distended Wound: wound vac Surgery Progress Note: Results - Labs Result Diagrams: 05/19/17 03:40 05/19/17 03:40 Lab results: Laboratory Results - last 24 hr 05/18/17 05/19/17 05/19/17 22:20 03:40 03:40 WBC 10.3 RBC 3.32 L Hgb 10.3 L Hct 31.8 L MCV 95.7 MCH 31.1 H MCHC 32.5 RDW 13.8 Plt Count 149 MPV 9.2 Neutrophils % (Manual) 68 Band Neuts % (Manual) 25 H Lymphocytes % (Manual) 5 L Monocytes % (Manual) 2 Sodium 147 H Potassium 4.1 Chloride 116 H Carbon Dioxide 22 L Anion Gap 13 BUN 42 H Creatinine 1.33 H Estimated GFR (MDRD) 45 Glucose 159 H POC Glucose 124 H Calcium 7.7 L 05/19/17 03:41 WBC RBC Hgb Hct MCV MCH MCHC RDW Plt Count MPV Neutrophils % (Manual) Band Neuts % (Manual) Lymphocytes % (Manual) Monocytes % (Manual) Sodium Potassium Chloride Carbon Dioxide Anion Gap BUN Creatinine Estimated GFR (MDRD) Glucose POC Glucose 148 H Calcium Surgery Progress Note: A/P - Problem (1) Small bowel obstruction Current Visit: Yes Code(s): K56.609 - UNSP INTESTNL OBST, UNSP TO PARTIAL VERSUS COMPLETE OBST Status: Acute Assessment and Plan: Still awaiting bowel function. Anesthesia to write for IV dilaudid and will replace fentanyl patch. She has severe chronic back pain on narcotics at home. (2) Chronic renal insufficiency Current Visit: Yes Code(s): N18.9 - CHRONIC KIDNEY DISEASE, UNSPECIFIED Status: Acute
[2017-05-19] MEDS ORDERED: Furosemide 40 MG/4 ML VIAL SLOW IVP SCH (10:15)
[2017-05-19] MEDS: Dextrose 5 %-0.45 % NaCl 1,000 ML IV SCH ×2 (10:19→20:03)
[2017-05-19] MEDS: HumaLOG 300 UNITS/3 ML VIAL SC PRN ×3 (10:25→22:17)
[2017-05-19] MEDS: HYDROmorphone 0.5 MG/0.5 ML SYRINGE SLOW IVP PRN ×5 (11:38→21:54)
--- NOTE | 2017-05-19 20:53 | PRG ---
DATE OF SERVICE: 05/19/2017 SUBJECTIVE: Ms. Melissa is still having some abdominal discomfort. She is unable to manage a SULPHATE TESTER pump . OBJECTIVE: VITAL SIGNS: She is afebrile, heart rate is 90, blood pressure 136/47. Oximetry is 96 on 2 liters. LUNGS: Clear. HEART: Regular rhythm. ABDOMEN: Soft and diffusely mildly tender. LABORATORY DATA: Hemoglobin is 10.3, white count is 10.3, platelets 149. Sodium 147, potassium 4.1, chloride 116, bicarbonate 22, BUN 42, creatinine 1.33, glucose 159. IMPRESSION: Status post surgery for a small-bowel obstruction. Pain meds are being adjusted. She w ill remain in the critical care unit for now.
[2017-05-19] MEDS: diphenhydrAMINE 50 MG/ML VIAL IM/IV PRN (22:03)
[2017-05-20] MEDS: HYDROmorphone 0.5 MG/0.5 ML SYRINGE SLOW IVP PRN ×7 (00:40→15:09)
[2017-05-20] MEDS: Hydrocortisone Sod Succ/PF 100 mg/2 ml Vial IVP SCH ×4 (02:32→21:13)
[2017-05-20] MEDS: HumaLOG 300 UNITS/3 ML VIAL SC PRN ×2 (04:07→10:23)
[2017-05-20 04:51] LABS: Band 6 % (5-11); Hemoglobin 10.6 g/dL (12.0-16.0); Lymphocytes 7 % (21-51); MDiff Complete? YES; Mean Corpuscular HGB CONC 32.7 g/dL (32.0-36.0); Mean Corpuscular Hemoglobin 31.2 pg (27.0-31.0); Mean Corpuscular Volume 95.5 fl (81.0-99.0); Mean Platelet Volume 9.4 fL (7.4-10.4); Neutrophil 87 % (42-75); Platelet Count 158 thou/uL (130-400); Red Blood Cell (RBC) Count 3.41 mill/uL (4.20-5.40); White Blood Cell (WBC) Count 12.1 thou/uL (4.8-10.8)
[2017-05-20 04:52] LABS: Anion Gap 13 mmol/L (10-20); BUN (Urea Nitrogen) 35 mg/dL (9.8-20.1); Calc. Creatinine Clearance 52 mL/min (70-130); Calcium 8.7 mg/dL (7.8-10.44); Carbon Dioxide 23 mmol/L (23-31); Chloride 115 mmol/L (98-107); Estimated GFR-MDRD 57; Glucose 255 mg/dL (83-110); Potassium 3.5 mmol/L (3.5-5.1); Sodium 147 mmol/L (136-145)
[2017-05-20] MEDS: Dextrose 5 %-0.45 % NaCl 1,000 ML IV SCH ×2 (05:23→17:38)
[2017-05-20] MEDS: Heparin 5,000 UNITS/ML VIAL SC SCH ×2 (08:20→21:13)
[2017-05-20] MEDS: cefTRIAXone\\ROCEPHIN 1 GM, Syringe 0.4 ML in Sterile Water 9.6 ML SLOW IVP SCH (08:22)
[2017-05-20] MEDS: Diltiazem HCl 125 MG, Admixture Fee 1 EACH in Sodium Chloride 0.9% 100 ML IVPB SCH ×2 (08:22→21:12)
--- NOTE | 2017-05-20 08:44 | RAD ---
CHEST 1 VIEW: HISTORY: Dyspnea. Followup. COMPARISON: 05/19/17. FINDINGS: Cardiac silhouette is magnified by projection. Pulmonary vasculature remains engorged and accentuate d by shallow inspiration. Mediastinum is midline with aortic calcification and a left subclavian leann tral venous catheter. No evidence of pneumothorax. nocturnist physician leads overlie the chest. IMPRESSION: Mild pulmonary vascular congestion appears stable compared to the previous exam. POS: CHRISTINE
--- NOTE | 2017-05-20 09:47 | PDOC.GSPN ---
Surgery Progress Note: Subj - Subjective Narrative: Pain seems under better control now. No flatus or bowel movement yet. Still confused Surgery Progress Note: Obj - Vital signs Vital signs: Vital Signs - Most Recent Temp Pulse Resp BP Pulse Ox 98.1 F 86 24 H 146/57 H 95 05/20/17 07:00 05/20/17 07:18 05/20/17 07:18 05/19/17 08:44 05/20/17 01:05 - Physical Exam General: other (Confused) Cardiovascular: regular rate and rhythm Respiratory: clear to auscultation Abdomen: soft, decreased bowel sounds, distended Wound: wound vac Surgery Progress Note: Results - Labs Result Diagrams: 05/20/17 04:25 05/20/17 04:25 Lab results: Laboratory Results - last 24 hr 05/19/17 05/20/17 05/20/17 22:17 04:04 04:25 WBC RBC Hgb Hct MCV MCH MCHC RDW Plt Count MPV Neutrophils % (Manual) Band Neuts % (Manual) Lymphocytes % (Manual) Sodium 147 H Potassium 3.5 Chloride 115 H Carbon Dioxide 23 Anion Gap 13 BUN 35 H Creatinine 1.10 Estimated GFR (MDRD) 57 Glucose 255 H POC Glucose 210 H 215 H Calcium 8.7 05/20/17 04:25 WBC 12.1 H RBC 3.41 L Hgb 10.6 L Hct 32.6 L MCV 95.5 MCH 31.2 H MCHC 32.7 RDW 14.0 Plt Count 158 MPV 9.4 Neutrophils % (Manual) 87 H Band Neuts % (Manual) 6 Lymphocytes % (Manual) 7 L Sodium Potassium Chloride Carbon Dioxide Anion Gap BUN Creatinine Estimated GFR (MDRD) Glucose POC Glucose Calcium Surgery Progress Note: A/P - Problem (1) Small bowel obstruction Current Visit: Yes Code(s): K56.609 - UNSP INTESTNL OBST, UNSP TO PARTIAL VERSUS COMPLETE OBST Status: Acute Assessment and Plan: Kidney function normalized Await bowel function. will allow water, ice Transfer to [facility] (2) Chronic renal insufficiency Current Visit: Yes Code(s): N18.9 - CHRONIC KIDNEY DISEASE, UNSPECIFIED Status: Acute
--- NOTE | 2017-05-20 10:36 | PRG ---
DATE OF SERVICE: 05/20/2017 SERVICE: Renal Medicine. SUBJECTIVE: Ms. Melissa is an 87-year-old black female who was seen for an acute kidney injury that wa s hemodynamically mediated renal dysfunction. Renal function is much improved. It is now near matt l. She received IV hydration. She also was admitted for an acute abdomen. She was found to have ob struction and this was surgically relieved by an exploratory laparotomy by Dr. Cartagena. No other comp laints. She feels thirsty. She is still on n.p.o. PHYSICAL EXAMINATION: VITAL SIGNS: Blood pressure is noted at 130/53, heart rate 93, respiratory rate 25, pulse ox 95%. GENERAL: Awake, alert, comfortable, not in distress. SKIN: Adequate turgor. HEENT: Pinkish conjunctivae, anicteric sclerae. NECK: No neck mass, no carotid bruits, no JVD. CHEST: No deformities. LUNGS: Decreased breath sounds. HEART: Normal sinus rhythm. No murmur, no gallops, no rubs. ABDOMEN: Globular, soft, nontender, no masses. EXTREMITIES: No edema. MEDICATIONS: Of 05/20/2017 was reviewed. LABORATORY DATA: Of 05/20/2017, white count 12.1, hemoglobin 10.6, sodium 147, potassium is 3.5, chl oride 105, carbon dioxide 23, BUN 35, creatinine 1.1, calcium 8.7. ASSESSMENT AND PLAN: 1. Acute kidney injury - hemodynamically mediated renal dysfunction. Much improved renal function w ith IV hydration. Please note, renal function is now within normal. Due to the much improved renal dysfunction, we will be signing off. 2. Mild hypernatremia, on D5 half normal - continue increasing free water intake. Overall, agree with current management.
--- NOTE | 2017-05-20 11:20 | PRG ---
DATE OF SERVICE: 05/20/2017 SUBJECTIVE: Ms. Melissa is doing well, although she moans in pain. She says she is doing well. She is scheduled to transfer out to the floor. OBJECTIVE: VITAL SIGNS: Actually do not reflect that she is in any distress. Heart rate is in the 80s, blood p ressure 130/53 and respiratory rate is in the low 20s. Oximetry is 94% on cannula oxygen. LUNGS: Clear. HEART: Regular rhythm. ABDOMEN: Soft. EXTREMITIES: Without asymmetry or edema. LABORATORY DATA: White count is 12.1, hemoglobin is 10.6 and platelets 158,000. Sodium 147, potassi um 3.5, chloride 115, bicarb 23, BUN 35, creatinine 1.1 and glucose 255. IMPRESSION: Status post laparotomy for bowel obstruction. She is tentatively scheduled to move to t surgery for. She does not appear to be critically ill and this seems reasonable at this time.
[2017-05-20] MEDS: Ondansetron HCl/PF 4 MG/2 ML Vial IVP PRN (17:07)
[2017-05-21] MEDS: Dextrose 5 %-0.45 % NaCl 1,000 ML IV SCH ×2 (03:46→12:41)
[2017-05-21] MEDS: Hydrocortisone Sod Succ/PF 100 mg/2 ml Vial IVP SCH ×4 (03:46→20:20)
[2017-05-21] MEDS: HumaLOG 300 UNITS/3 ML VIAL SC PRN ×4 (03:53→23:37)
[2017-05-21 06:39] LABS: Anion Gap 11 mmol/L (10-20); BUN (Urea Nitrogen) 28 mg/dL (9.8-20.1); Calc. Creatinine Clearance 59 mL/min (70-130); Calcium 9.1 mg/dL (7.8-10.44); Carbon Dioxide 25 mmol/L (23-31); Chloride 116 mmol/L (98-107); Estimated GFR-MDRD 66; Glucose 334 mg/dL (83-110); Potassium 3.5 mmol/L (3.5-5.1); Sodium 148 mmol/L (136-145)
--- NOTE | 2017-05-21 08:01 | PDOC.GSPN ---
Surgery Progress Note: Subj - Subjective Narrative: Vomitted overnight. NG placed and replaced when she pulled it out. Confused Surgery Progress Note: Obj - Vital signs Vital signs: Vital Signs - Most Recent Temp Pulse Resp BP Pulse Ox 99.0 F 87 18 169/69 H 96 05/21/17 07:35 05/21/17 07:35 05/21/17 07:35 05/21/17 07:35 05/21/17 07:35 - Physical Exam General: no distress Cardiovascular: regular rate and rhythm Respiratory: clear to auscultation Abdomen: decreased bowel sounds, appropriately tender, distended Wound: wound vac Surgery Progress Note: Results - Labs Result Diagrams: 05/20/17 04:25 05/21/17 06:00 Lab results: Laboratory Results - last 24 hr 05/21/17 05/21/17 05/21/17 00:01 03:51 06:00 Sodium 148 H Potassium 3.5 Chloride 116 H Carbon Dioxide 25 Anion Gap 11 BUN 28 H Creatinine 0.96 Estimated GFR (MDRD) 66 Glucose 334 H POC Glucose 268 H 290 H Calcium 9.1 Surgery Progress Note: A/P - Problem (1) Small bowel obstruction Current Visit: Yes Code(s): K56.609 - UNSP INTESTNL OBST, UNSP TO PARTIAL VERSUS COMPLETE OBST Status: Acute Assessment and Plan: Ileus. NG placed. Check placement with KUB. Start TPN (2) Chronic renal insufficiency Current Visit: Yes Code(s): N18.9 - CHRONIC KIDNEY DISEASE, UNSPECIFIED Status: Acute
[2017-05-21 08:32] LABS: Band 6 % (5-11); Hemoglobin 10.2 g/dL (12.0-16.0); Lymphocytes 8 % (21-51); MDiff Complete? YES; Mean Corpuscular HGB CONC 31.4 g/dL (32.0-36.0); Mean Corpuscular Hemoglobin 30.1 pg (27.0-31.0); Mean Corpuscular Volume 95.7 fl (81.0-99.0); Mean Platelet Volume 9.2 fL (7.4-10.4); Monocytes 4 % (0-10); Neutrophil 82 % (42-75); Platelet Count 165 thou/uL (130-400); RBC Distribution Width 13.9 % (11.5-14.5); White Blood Cell (WBC) Count 7.1 thou/uL (4.8-10.8)
[2017-05-21] MEDS: cefTRIAXone\\ROCEPHIN 1 GM, Syringe 0.4 ML in Sterile Water 9.6 ML SLOW IVP SCH (09:11)
[2017-05-21] MEDS: Heparin 5,000 UNITS/ML VIAL SC SCH ×2 (09:12→20:20)
[2017-05-21] MEDS: Diltiazem HCl 125 MG, Admixture Fee 1 EACH in Sodium Chloride 0.9% 100 ML IVPB SCH (09:12)
[2017-05-21] MEDS: HYDROmorphone 0.5 MG/0.5 ML SYRINGE SLOW IVP PRN ×2 (10:10→12:35)
--- NOTE | 2017-05-21 10:22 | RAD ---
AP VIE WOF THE ABDOMEN: INDICATION: NG tube placement. COMPARISON: Abdominal radiograph dated 05/16/[address] abdomen and pelvis dated 05/15/17. FINDINGS: There prominent gaseous distention of the stomach. The small bowel appears nondistended. Surgical clips overlying the lower midline abdomen. A gastric catheter projects in the region of the proximal body. Cholecystectomy clips are seen within the right upper quadrant of the abdomen. Lung bases are clear. Scattered degenerative changes are seen involving the thoracolumbar spine and face t joints. IMPRESSION: 1. Nasogastric tube tip seen over the region of the proximal gastric body. 2. Prominent gaseous distention of the stomach may be related to postop ileus or possible gastropare sis. Followup is recommended. POS: CHRISTINE
[2017-05-21] MEDS ORDERED: Diltiazem HCl 125 MG, Admixture Fee 1 EACH in Sodium Chloride 0.9% 100 ML IVPB SCH (12:24)
[2017-05-21] MEDS ORDERED: Metoprolol Tartrate 5 MG/5 ML VIAL IVP SCH (12:30)
--- NOTE | 2017-05-21 15:10 | PRG ---
DATE OF SERVICE: 05/21/2017 This morning she is awake, alert, responsive. She is having abdominal pain. PHYSICAL EXAMINATION: VITAL SIGNS: Sats are 97% on 2 liters, respirations 18, temperature 99, blood pressure 160/53. KUB shows a large area of air in the gastric area. CHEST: Chest reveals decreased breath sounds without any wheezing. CARDIAC: Normal S1, S2, no gallops. ABDOMEN: Distended, but soft. IMPRESSION: 1. Status post small-bowel obstruction, status post surgery. 2. Ongoing ileus. 3. Renal failure, resolved. 4. Diabetes mellitus. 5. Chronic obstructive pulmonary disease. PLAN: Antibiotics. I am going to decrease the steroids. Relatively her adrenal insufficiency is im proved. Continue PT. Await input from General Surgery.
[2017-05-21] MEDS: Metoprolol Tartrate 5 MG/5 ML VIAL IVP SCH ×2 (17:28→23:37)
[2017-05-21] MEDS ORDERED: Dextrose 5% in Water 1,000 ML IV PRN (19:30)
[2017-05-21] MEDS: POTASSIUM CHLORIDE IV SCH ×11 (22:42)
[2017-05-21] MEDS: FAT EMULSION IV SCH ×11 (22:42)
[2017-05-21] MEDS: SODIUM ACETATE IV SCH ×11 (22:42)
[2017-05-21] MEDS: Sodium Chloride 0.45% 1,000 ML IV SCH (22:42)
[2017-05-21] MEDS: [UNRECOGNIZED DRUG - OTHER] IV SCH ×11 (22:42)
[2017-05-22] MEDS: HYDROmorphone 0.5 MG/0.5 ML SYRINGE SLOW IVP PRN ×2 (00:42→10:12)
[2017-05-22] MEDS: Hydrocortisone Sod Succ/PF 100 mg/2 ml Vial IVP SCH ×4 (03:17→20:40)
[2017-05-22] MEDS: HumaLOG 300 UNITS/3 ML VIAL SC PRN ×3 (04:18→23:22)
[2017-05-22] MEDS: Metoprolol Tartrate 5 MG/5 ML VIAL IVP SCH ×5 (05:22→20:32)
[2017-05-22] MEDS ORDERED: Diltiazem HCl 125 MG, Admixture Fee 1 EACH in Sodium Chloride 0.9% 100 ML IVPB SCH ×2 (07:42→08:00)
--- NOTE | 2017-05-22 08:22 | PRG ---
DATE OF SERVICE: 05/22/2017 This morning appears to be somewhat encephalopathic, but in no distress. PHYSICAL EXAMINATION: VITAL SIGNS: Sats 99% on 2 liters, respirations 20, temperature 98, blood pressure 189/84. NEURO: Awake, responsive. CHEST: Chest reveals decreased breath sounds, no wheezing. CARDIAC: Normal S1, S2. ABDOMEN: Soft, no masses. LABORATORY DATA: White count 7000, H&H 10 and 32. Blood sugars are slightly elevated. IMPRESSION: 1. Status post lap ileus. 2. Chronic obstructive pulmonary disease. 3. Respiratory failure. 4. Diastolic dysfunction. PLAN: She is on TPN. Continue supportive care. Her x-ray is improved. Will go ahead and decrease steroids. Hopefully, when GI tract starts working will start some nutrition. I will follow.
[2017-05-22] MEDS: hydrALAZINE 20 MG/ML VIAL SLOW IVP SCH ×3 (09:21→20:45)
[2017-05-22] MEDS: Heparin 5,000 UNITS/ML VIAL SC SCH (09:22)
[2017-05-22] MEDS: cefTRIAXone\\ROCEPHIN 1 GM, Syringe 0.4 ML in Sterile Water 9.6 ML SLOW IVP SCH (09:38)
[2017-05-22] MEDS: fentaNYL 50 mcg/hour Patch TD SCH (10:35)
--- NOTE | 2017-05-22 20:27 | PRG ---
DATE OF SERVICE: 05/22/2017 SUBJECTIVE: Tanisha Melissa has been moved to the ICU to the [facility]. The patient underwent, 05/16/2017, 4-hour laparotomy, adhesiolysis, 2 small bowel resections and anastomosis for small-bowel obstructio n. 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 Unfo rtunately, when she is extubated, NG tube was removed. It was expected that she would have a prolong ed ileus. She required replacement of another NG tube with more than 2 liters of gastric contents as pirated. The patient at home prior to the surgery did have a history of mild dementia and own . She was in rehabilitation prior to this admission. The patient has suffered confusion and the fam melanie is concerned. Prior to her surgery, she is a DNR and options given for palliative hospice measur es versus operative intervention, they chose the latter. The patient postoperatively has not been ou t of bed. Physical therapy orders had been written, but have been discontinued. As I enter the room this morning, the patient has an NG tube in place and the family is present. Nasogastric output the last 24 hour is 3.35 liters. Urine output 1.625 liters with a Beltran catheter in place. She has sof t restraints to prevent her from remove her NG tube. LABORATORY DATA: White count is 7, hemoglobin 10.2. Sodium yesterday 148, potassium 3.5, chloride 116, BUN 28, creati nine 0.96, GFR 66 recovering from her acute kidney injury. Accu-Cheks [id number] on TPN. Hemoglobi n A1c perioperatively 6.5. Magnesium, phosphorus, last checked 05/17/2017 were normal. Phosphorus 3 .8, magnesium 1.8. Prealbumin preoperatively 20, cortisol level 21. Last chest x-ray 05/20/2017, [place] vascular congestion, no change. Abdominal x-ray yesterday, NG tube seen over the region of th e proximal gastric body, changes consistent with ileus. Personal review of the NG tube yesterday rev eals it is in good position, but there is marked gastric distention. OBJECTIVE: LUNGS: Clear to auscultation, no wheezing. CARDIAC: Regular rate and rhythm. ABDOMEN: Soft, nondistended. Occasional bowel sounds. VITAL SIGNS: 99.4 degrees, 106, respiratory rate 24, 170/70. EXTREMITIES: Wound VAC midline wound. Extremities unremarkable, no edema. ASSESSMENT AND PLAN: 1. The patient has not been out of bed postoperatively. I have discussed this with the family and e mphasized the need for mobility and up out of bed. Physical therapy orders have fallen off the chart somehow and we will renew those. She [facility] amb[facility] and would work towards ambulation again. I personally with Surjit, her nurse clinical lab assistant, and another nurse, got her out of bed into a chair today. She did partially weight bear very limited, but was able to take a few steps and stand with assistance. She was very cooperative. We will order physical therapy and continue to get her out of bed 2-3 times a day, staying in a jorge r, out of bed for 2-3 hours at a time as tolerated. She has severe weakening and will need extensive therapy, would recommend twice a day. We would recommend nursing get her out of bed in the morning and possibly in afternoon as able and not rely on physical therapy to get her into a chair. 2. Ileus. Continue NG tube, ice chips, gum and hard candy as able. Soft restraints to allow NG tub e to be in place. Await GI function. I did hear one bowel sound on abdominal auscultation. No flat us or stool today. 3. Malnutrition. Continue TP. 4. Open wound, skin and subcutaneous tissue. View wound tomorrow during the VAC change. 5. Check electrolytes. 6. We will likely adjust her TPN for elevated glucose tomorrow. 7. Dementia. The patient has mild dementia and has confusion. I have reassured the family, this is normal finding postoperatively and it should improve with time. We would try to avoid narcotics and sedatives. We would try to improve her mobility today during the day so that she might sleep better during the night. 8. Continue Beltran at this time. 9. Continue DNR status with efforts to improve her. 10. Deep venous thrombosis prophylaxis, now that her renal function has improved, discontinued subcu heparin and institute Lovenox. 11. As her GI function resumes in the future, we would plan to send her to rehabilitation again if p ossible.
[2017-05-22] MEDS: Enoxaparin Sodium 40 MG/0.4 ML SYRINGE SC SCH (20:41)
[2017-05-22] MEDS ORDERED: DILTIAZEM HCL SLOW IVP SCH (22:45)
[2017-05-22] MEDS: Ketorolac Tromethamine 30 MG/ML VIAL IVP PRN (22:50)
[2017-05-22] MEDS: SODIUM ACETATE IV SCH ×11 (23:13)
[2017-05-22] MEDS: FAT EMULSION IV SCH ×11 (23:13)
[2017-05-22] MEDS: [UNRECOGNIZED DRUG - OTHER] IV SCH ×11 (23:13)
[2017-05-22] MEDS: POTASSIUM CHLORIDE IV SCH ×11 (23:13)
[2017-05-23] MEDS: Metoprolol Tartrate 5 MG/5 ML VIAL IVP SCH ×6 (01:09→20:38)
[2017-05-23] MEDS: hydrALAZINE 20 MG/ML VIAL SLOW IVP SCH ×4 (02:14→20:33)
[2017-05-23] MEDS: Hydrocortisone Sod Succ/PF 100 mg/2 ml Vial IVP SCH ×4 (02:16→20:41)
[2017-05-23] MEDS ORDERED: Diltiazem HCl 125 MG, Admixture Fee 1 EACH in Sodium Chloride 0.9% 100 ML IVPB SCH (04:15)
[2017-05-23 05:00] LABS: Anion Gap 14 mmol/L (10-20); BUN (Urea Nitrogen) 36 mg/dL (9.8-20.1); Calc. Creatinine Clearance 57 mL/min (70-130); Calcium 9.7 mg/dL (7.8-10.44); Carbon Dioxide 32 mmol/L (23-31); Chloride 109 mmol/L (98-107); Estimated GFR-MDRD 65; Magnesium 1.6 mg/dL (1.6-2.6); Sodium 152 mmol/L (136-145)
[2017-05-23 05:05] LABS: Glucose 555 mg/dL (83-110); Potassium 2.8 mmol/L (3.5-5.1)
[2017-05-23] MEDS: HumaLOG 300 UNITS/3 ML VIAL SC PRN ×5 (05:16→22:52)
[2017-05-23 05:26] LABS: Mean Corpuscular HGB CONC 33.4 g/dL (32.0-36.0); Mean Corpuscular Hemoglobin 31.3 pg (27.0-31.0); Mean Corpuscular Volume 93.8 fl (81.0-99.0); Mean Platelet Volume 10.6 fL (7.4-10.4); Platelet Count 208 thou/uL (130-400); RBC Distribution Width 13.7 % (11.5-14.5); Red Blood Cell (RBC) Count 3.83 mill/uL (4.20-5.40); White Blood Cell (WBC) Count 7.2 thou/uL (4.8-10.8)
[2017-05-23 05:27] LABS: Band 10 % (5-11); Lymphocytes 17 % (21-51); MDiff Complete? YES; Monocytes 12 % (0-10); Neutrophil 61 % (42-75)
--- NOTE | 2017-05-23 05:52 | PRG ---
DATE OF SERVICE: 05/23/2017 Unfortunately this morning she is encephalopathic. Confused. PHYSICAL EXAMINATION: VITAL SIGNS: Her sats are 95% on room air, pulse 105, respirations 20, blood pressure 182/69. CHEST: Chest revealed decreased breath sounds without wheezing. CARDIAC: Normal S1-S2. No gallops. ABDOMEN: Soft, no masses. IMPRESSION: 1. Status post lap for small bowel ileus. 2. Encephalopathy. 3. Respiratory failure. PLAN: Continue antibiotics. Continue NG. TPN and supportive care. Prognosis is guarded. She is a DNR.
[2017-05-23] MEDS ORDERED: Potassium Phosphate 15 MMOL in Sodium Chloride 0.9% 250 ML 250 ML IV PRN (07:37)
[2017-05-23] MEDS ORDERED: Potassium Phosphate 12 MMOL in Sodium Chloride 0.9% 250 ML 250 ML IV PRN (07:37)
[2017-05-23] MEDS ORDERED: CCU ELECTROLYTE REPLACEMENT PROTOCOL FS PRN (07:37)
[2017-05-23] MEDS ORDERED: Potassium Phosphate 9 MMOL in Sodium Chloride 0.9% 100 ML IVPB PRN (07:37)
[2017-05-23] MEDS ORDERED: Magnesium Oxide 400 MG TAB PO PRN ×2 (07:37)
[2017-05-23] MEDS ORDERED: Potassium Chloride 40 MEQ in Sodium Chloride 0.9% 250 ML 250 ML IVPB PRN (07:37)
[2017-05-23] MEDS ORDERED: Potassium Chloride 20 MEQ TAB PO PRN (07:37)
[2017-05-23] MEDS ORDERED: CCU Electrolyte Replacement 1 EACH FS SCH ×2 (07:45)
--- NOTE | 2017-05-23 08:25 | PRG ---
DATE OF SERVICE: 05/23/2017 Tanisha Melissa is an 87-year-old female, who this morning is doing well. NG tube had to be replaced l ast night because she removed it. It is at 55 cm. The patient is conversive, but confused as she h as been. PHYSICAL EXAMINATION: VITAL SIGNS: Temperature 98.3 degrees, heart rate 135, respiratory rate 20, O2 sats 96%, 191/73. LUNGS: Clear to auscultation. CARDIAC: Sinus tachycardia. ABDOMEN: Soft, no bowel sounds. NG tube output last 24 hours reported at 800 mL, relative to output 24 hours prior 3.3 liters and 2.2 liters the day prior. Urine output recorded 4400 mL. LABORATORY: This morning her sodium is elevated to 152, relative to 2 days ago 148, potassium 2.8, c arbon dioxide 32, BUN 36, creatinine 0.97, GFR 65, Accu-Cheks, however are 387 to 436. White count i s 7.2, hemoglobin 12.0, elevated from yesterday 10.2, 61% neutrophils, 10% bands, which is normal. PLAN: 1. Ileus persists without bowel sounds, but NG tube output is diminished. This is encouraging. We will obtain abdominal x-ray to assure NG tube is in proper position and may need to be advanced. An 1 8-Khmer NG tube was placed, replacing the dislodged one. We will obtain abdominal x-ray to assure p sofiya positioning, continue n.p.o. status except for ice chips. 2. Hypokalemia, replaced. 3. Elevated glucoses, will adjust TPN for elevated sodium, elevated Accu-Cheks, add insulin to the T PN. 4. Borderline low magnesium, low dose magnesium replacement. 5. Deconditioning. Will need aggressive physical therapy and out of bed. 6. Open wound abdomen. This was inspected, the upper half of the wound open is granulating, the low er half is less granulating and does have a foul smell, yet there is no enteric drainage and inspecti on of the canister reveals absence of any significant canister drainage. Continue to monitor the wou nd. 7. DNR status. Continue all other measures for care other than CPR, defibrillation. Condition discussed with the family yesterday. Family is not present this morning.
[2017-05-23] MEDS: Acetaminophen 1,000 MG in Premix Bag 1 BAG IVPB PRN ×2 (08:32→15:07)
[2017-05-23] MEDS: Ketorolac Tromethamine 30 MG/ML VIAL IVP PRN ×2 (08:33→15:14)
[2017-05-23] MEDS: Potassium Chloride 40 MEQ in Premix Bag 1 BAG IVPB PRN (08:34)
[2017-05-23] MEDS: cefTRIAXone\\ROCEPHIN 1 GM, Syringe 0.4 ML in Sterile Water 9.6 ML SLOW IVP SCH (08:41)
--- NOTE | 2017-05-23 09:45 | RAD ---
PORTABLE CHEST ONE VIEW: Date: 05-23-17 Time: 8:41 a.m. History: COPD. FINDINGS/IMPRESSION: Comparison is made with exam of 05-20-17. Left sided central line remains in place. Gastric tube with tip in the direction of the stomach. The heart size is stable. No confluent areas of consolidation, pneumothorax, arlette pulmonary edema or ple ural effusions are seen. POS: RAD[facility]
--- NOTE | 2017-05-23 10:00 | RAD ---
ABDOMEN ONE VIEW: History: 87-year-old female with history of NG tube placement for position evaluation. Comparison: 05-21-17 FINDINGS: An NG tube is noted with the tip and side hole extending into the stomach. The previously noted marke dly dilated stomach has considerably decompressed. Right parasagittal surgical clips are noted. There is prominent right hemidiaphragm elevation with some minimal bibasilar parenchymal changes. There is minimal gas and fecal material in the colon. IMPRESSION: NG tube in satisfactory location. Considerable decompression of the dilated stomach when compared to the prior study. POS: [facility]
[2017-05-23] MEDS: metroNIDAZOLE 500 MG in Premix Bag 1 BAG IVPB SCH ×2 (13:20→22:45)
[2017-05-23] MEDS: Sodium Chloride 0.45% 1,000 ML IV SCH (15:07)
[2017-05-23 16:17] LABS: Hemoglobin 12.2 g/dL (12.0-16.0); Mean Corpuscular HGB CONC 32.5 g/dL (32.0-36.0); Mean Corpuscular Hemoglobin 30.6 pg (27.0-31.0); Mean Platelet Volume 9.8 fL (7.4-10.4); Platelet Count 202 thou/uL (130-400); RBC Distribution Width 13.7 % (11.5-14.5); Red Blood Cell (RBC) Count 3.98 mill/uL (4.20-5.40); White Blood Cell (WBC) Count 9.9 thou/uL (4.8-10.8)
[2017-05-23 16:35] LABS: Band 19 % (5-11); Lymphocytes 22 % (21-51); MDiff Complete? YES; Monocytes 5 % (0-10); Neutrophil 52 % (42-75); PLT Morphology Comment Appears Adequate; Reactive Lymphocytes 2 % (0-10); Target Cells SLIGHT = 2-5 cells (100X) (0-1/hpf); Toxic Granulation SLIGHT; Vacuoles SLIGHT
[2017-05-23] MEDS: Diltiazem 125 MG, Admixture Fee 1 EACH in Sodium Chloride 0.9% 100 ML IVPB SCH (17:13)
[2017-05-23] MEDS: Morphine 10 MG/ML CARPUJECT SLOW IVP PRN (17:28)
[2017-05-23] MEDS: Enoxaparin Sodium 40 MG/0.4 ML SYRINGE SC SCH (20:37)
[2017-05-23] MEDS ORDERED: [UNRECOGNIZED DRUG - OTHER] IV SCH ×12 (22:00)
[2017-05-23] MEDS ORDERED: POTASSIUM ACETATE IV SCH ×12 (22:00)
[2017-05-23] MEDS ORDERED: SODIUM ACETATE IV SCH ×12 (22:00)
[2017-05-23] MEDS ORDERED: FAT EMULSION IV SCH ×12 (22:00)
[2017-05-24] MEDS: Ketorolac Tromethamine 30 MG/ML VIAL IVP PRN ×3 (02:20→17:58)
[2017-05-24] MEDS: Metoprolol Tartrate 5 MG/5 ML VIAL IVP SCH ×6 (02:20→20:41)
[2017-05-24] MEDS: hydrALAZINE 20 MG/ML VIAL SLOW IVP SCH ×4 (02:20→20:37)
[2017-05-24] MEDS: Hydrocortisone Sod Succ/PF 100 mg/2 ml Vial IVP SCH ×4 (02:21→20:39)
[2017-05-24] MEDS: Diltiazem 125 MG, Admixture Fee 1 EACH in Sodium Chloride 0.9% 100 ML IVPB SCH ×2 (05:07→20:45)
[2017-05-24] MEDS: metroNIDAZOLE 500 MG in Premix Bag 1 BAG IVPB SCH ×3 (05:07→22:36)
[2017-05-24 05:34] LABS: #Lymphocytes 1.2 thou/uL (1.20-3.40); #Monocytes 0.7 thou/uL (0.11-0.59); #Neutrophils 9.4 thou/uL (1.40-6.50); %Basophils 0.1 % (0.0-1.0); %Eosinophils 0.2 % (0.0-10.0); %Lymphocytes 10.7 % (21.0-51.0); %Monocytes 6.2 % (0.0-10.0); %Neutrophils 82.7 % (42.0-75.0); Mean Corpuscular HGB CONC 32.4 g/dL (32.0-36.0); Mean Corpuscular Hemoglobin 30.7 pg (27.0-31.0); Mean Corpuscular Volume 94.6 fl (81.0-99.0); Mean Platelet Volume 10.1 fL (7.4-10.4); Platelet Count 203 thou/uL (130-400); RBC Distribution Width 13.7 % (11.5-14.5); Red Blood Cell (RBC) Count 3.92 mill/uL (4.20-5.40); White Blood Cell (WBC) Count 11.4 thou/uL (4.8-10.8)
[2017-05-24 05:47] LABS: Anion Gap 12 mmol/L (10-20); BUN (Urea Nitrogen) 47 mg/dL (9.8-20.1); Calc. Creatinine Clearance 56 mL/min (70-130); Calcium 9.3 mg/dL (7.8-10.44); Carbon Dioxide 33 mmol/L (23-31); Chloride 111 mmol/L (98-107); Estimated GFR-MDRD 71; Glucose 411 mg/dL (83-110); Sodium 153 mmol/L (136-145)
[2017-05-24] MEDS: HumaLOG 300 UNITS/3 ML VIAL SC PRN ×4 (06:13→17:57)
[2017-05-24] MEDS: Potassium Chloride 40 MEQ in Premix Bag 1 BAG IVPB PRN (06:42)
[2017-05-24] MEDS: cefTRIAXone\\ROCEPHIN 1 GM, Syringe 0.4 ML in Sterile Water 9.6 ML SLOW IVP SCH (09:06)
--- NOTE | 2017-05-24 10:04 | PQF ---
ANGELICA MONROE RICHARD D MD [id number] CLINICAL DOCUMENTATION IMPROVEMENT CLARIFICATION FORM: ICD-10 Updated PLEASE DO AN ADDENDUM TO THE PROGRESS NOTE WITH ANY DOCUMENTATION UPDATES OR ADDITIONS AND CARRY THROUGH TO DC SUMMARY. THANK YOU. DATE: 05-18-17 ATTN: ROCHELLE Please exercise your independent, professional judgment in responding to the clarification form. Clinical indicators are provided on the bottom of this form for your review Please check appropriate box(s): [ ] Hypovolemic Shock [ ] Septic Shock [ ] Hemorrhagic Shock due to surgery: LAPAROTOMY W/ 4 HRS OF ADHESIOLYSIS; 2 SEGMENT OF SMALL BOWEL RESECTION [ ] Shock Unspecified [ ] Other diagnosis [ ] Unable to determine In addition, please specify: Present on Admission (POA): [ ] Yes [ ] No [ ] Unable to determine For continuity of documentation, please document condition throughout progress notes and discharge summary. Thank You. CLINICAL INDICATORS - SIGNS / SYMPTOMS / LABS 05-16 NEPHRO PN: SALLY 05-17 PULM CONSULT: POSTOPERATIVELY, SHE WAS HYPOTENSIVE AND DEVELOPED WORSENING RENAL FAILURE PRIOR FROM AZOTEMIA AND SHOCK LABS: BUN CREAT GFR Hgb Hct 05-15 73 3.27 16 11.6 35.8 05-16 73 2.90 18 10.6 32.3 BP -14 @ 2006 73/56 -14 @ 2014 60/31 -14 @ 2029 91/47 -14 @ 2045 89/46 RISK FACTORS H&P: SBO OP NOTE: LAPAROTOMY W/ 4 HRS OF ADHESIOLYSIS; 2 SEGMENT OF SMALL BOWEL RSECTION 550 EBL PULM CONSULT: PROBABLY SEPSIS TREATMENTS: ICU VENTILATOR 05-16 @ 2017 OFF VENT 16 @ 0819 2 UPRBC 05-16 MAR: NS @ 150 mls/hr 05-17 / 05-18 NS 2,000 mls/hr - BOLUS ROCEPHIN IV 05-17 LEVAQUIN 05-16 / 05-18 NOREPINEPHRIN 05-17 CLEOCIN 05-16 / 05-17 /05-18 THANK YOU, KRISTIN (This form is maintained as a part of the permanent medical record) 2014 [employer]. All Rights Reserved Kristin Weaver, RN, BS [email or web address] [facility]
--- NOTE | 2017-05-24 15:50 | PRG ---
DATE OF SERVICE: 05/24/2017 SUBJECTIVE: Tanisha Melissa is in the IMCU. She continues to be almost a total transfer and left. She does partially stand, but is very weak. Nursing has been doing an excellent job sitting in a stacey ir 3-4 times per day. The patient is still confused. OBJECTIVE: VITAL SIGNS: Temperature 97.8, pulse 82, blood pressure 145/52. NG tube output last 24 hours 1350, urine output 2400. LUNGS: Clear to auscultation. CARDIAC: Regular rate and rhythm. Rate better controlled. ABDOMEN: Rare bowel sounds, soft. No stool. No flatus. EXTREMITIES: Unremarkable. Wound VAC in place. LABORATORY DATA: Sodium 153, potassium 3.0, chloride 111, carbon dioxide 33, BUN 47, creatinine 0.9. Glucose is Accu-Cheks 380 to 413 with 2 units of regular insulin per 100 mL of TPN. White count 11 , hemoglobin 12, platelet count 203,000. ASSESSMENT AND PLAN: 1. Ileus after 4-hour adhesiolysis and bowel resection. Continue TPN, NG tube, n.p.o. 2. On TPN, low potassium replaced, increase potassium and TPN. 3. Hypernatremia. Removed sodium from TPN. There is very little currently. 4. Acute kidney injury, resolved. Kidney function essentially normal with slightly increased BUN an d slightly increased hemoglobin observed. Urine output is very good. 5. Severe deconditioning. 6. Partially open wound, skin and subcutaneous tissue, wound VAC, view wound tomorrow. 7. Postoperatively, the patient did not have IV fluids for 12 hours and was in hypovolemic shock, on pressors. I spoke to the nurse 0700 finding out that she is on pressors and she was given 2 saline boluses and high rate IV fluids to rehydrate her and pressors were weaned. The problem is CPOE issue s in computer entry and lack of communication.
--- NOTE | 2017-05-24 16:38 | PRG ---
DATE OF SERVICE: 05/24/2017 SUBJECTIVE: Ms. Tanisha Melissa looks better than the last time I around on her. OBJECTIVE: VITAL SIGNS: Heart rate 82, blood pressure 149/57. She is afebrile, respiratory rate is 18-20, oxim etry is 96 on room air. LUNGS: Clear. HEART: Regular rhythm. ABDOMEN: Nontender. LABORATORY DATA: White count 11.4, hemoglobin 12.0, platelets 203,000. Sodium 153, potassium 3, chloride 111, bicarbonate 33, BUN 47, creatinine 0.9, glucose has been in 30 0-400 range. IMPRESSION: 1. Status post laparotomy. 2. Mild hyperchloremia. 3. Mild prerenal azotemia. 4. Ileus with NG tube still in place with green drainage from her NG tube. She is eating ice chips occasionally. 5. Acute on chronic kidney disease. 6. Severe deconditioning. PLAN: We will continue with supportive care. The deconditioning is probably the biggest factor mal jay down the road as to whether or not she survives care home. She could very easily end up, complete ly bedridden, requiring 2-3 people to care for moving forward. She is DO NOT RESUSCITATE patient, wh ich is appropriate. I met with the family and answered all their questions.
[2017-05-24] MEDS: Enoxaparin Sodium 40 MG/0.4 ML SYRINGE SC SCH (20:37)
[2017-05-24] MEDS ORDERED: FAT EMULSION IV SCH ×12 (22:00)
[2017-05-24] MEDS ORDERED: [UNRECOGNIZED DRUG - OTHER] IV SCH ×12 (22:00)
[2017-05-24] MEDS ORDERED: POTASSIUM CHLORIDE IV SCH ×12 (22:00)
[2017-05-24] MEDS ORDERED: POTASSIUM ACETATE IV SCH ×12 (22:00)
[2017-05-25] MEDS: Metoprolol Tartrate 5 MG/5 ML VIAL IVP SCH ×6 (00:50→20:13)
[2017-05-25] MEDS: hydrALAZINE 20 MG/ML VIAL SLOW IVP SCH ×4 (02:11→20:09)
[2017-05-25] MEDS: Hydrocortisone Sod Succ/PF 100 mg/2 ml Vial IVP SCH ×4 (02:16→20:14)
[2017-05-25] MEDS: Morphine 10 MG/ML CARPUJECT SLOW IVP PRN ×2 (02:17→08:14)
[2017-05-25] MEDS: HumaLOG 300 UNITS/3 ML VIAL SC PRN ×2 (04:40→10:41)
[2017-05-25] MEDS: Ketorolac Tromethamine 30 MG/ML VIAL IVP PRN ×3 (05:41→23:43)
[2017-05-25] MEDS: metroNIDAZOLE 500 MG in Premix Bag 1 BAG IVPB SCH ×3 (05:44→23:03)
[2017-05-25 06:29] LABS: Anion Gap 12 mmol/L (10-20); BUN (Urea Nitrogen) 69 mg/dL (9.8-20.1); Calc. Creatinine Clearance 55 mL/min (70-130); Calcium 8.9 mg/dL (7.8-10.44); Carbon Dioxide 32 mmol/L (23-31); Chloride 111 mmol/L (98-107); Estimated GFR-MDRD 68; Glucose 264 mg/dL (83-110); Magnesium 2.1 mg/dL (1.6-2.6); Potassium 3.6 mmol/L (3.5-5.1); Sodium 151 mmol/L (136-145)
[2017-05-25] MEDS: cefTRIAXone\\ROCEPHIN 1 GM, Syringe 0.4 ML in Sterile Water 9.6 ML SLOW IVP SCH (08:23)
[2017-05-25] MEDS: fentaNYL 50 mcg/hour Patch TD SCH (09:47)
--- NOTE | 2017-05-25 10:16 | PRG ---
DATE OF SERVICE: 05/25/2017 SUBJECTIVE: Ms. Melissa is doing well in [facility] She continues with NG tube. Nurses are doing an excell ent job, getting her out of bed 2-4 times a day. She is almost a total lift. OBJECTIVE: VITAL SIGNS: Temperature 97.7 degrees, blood pressure 157/62, 97% saturation, 24 respiratory rate re cently usually 18. Nasogastric tube output 24 hours 1250. Beltran output reported 400 for 12 hours, I do not have a 24-hour output perhaps it is 900 recorded in different areas, but at least 900 over 24 hours adequate. LUNGS: Clear to auscultation. CARDIAC: Regular rate and rhythm, controlled rate. ABDOMEN: Soft. No bowel sounds audible. EXTREMITIES: Unremarkable. LABORATORY: Reveal white count 11.4, hemoglobin of 12, which is stable. Sodium 151, potassium 3.6, carbon dioxide 32, BUN 69, creatinine 0.94. Accu-Cheks are better control 193-230, calcium 8.9. Mag nesium 2.1 this morning. ASSESSMENT AND PLAN: 1. Severe deconditioning. Continue mobility efforts, she will need rehabilitation or skilled nursin g when she recovers. 2. TPN dependent. Continue TPN until ileus resolves. 3. Electrolytes have been corrected. Accu-Cheks are improved. We added insulin in her TPN. 4. Wound, upper wound portion is granulating. Lower wound has some soupy discharge, it is not odoro us. It is slightly light vidal colored, certainly does not appear feculent and is of minimal volume, n ot filling the canister, continued to observe.
--- NOTE | 2017-05-25 12:13 | PRG ---
DATE OF SERVICE: 05/25/2017 SUBJECTIVE: Tanisha Melissa remains afebrile. He is still receiving TPN. He still has NG tube suctio n. PHYSICAL EXAMINATION: VITAL SIGNS: Heart rate is in the 70s, blood pressure 157/62, respiratory rate is 18-24, and oximetr y is 97% on room air. LUNGS: Clear. HEART: Regular rhythm. ABDOMEN: Soft. LABORATORY DATA: Sodium 151, potassium 3.6, chloride 111, bicarbonate 32, BUN 69, creatinine 0.94, g lucose is 264. IMPRESSION: 1. Prolonged ileus. 2. Extreme deconditioning. 3. Advanced age. PLAN: Continue nutritional support and gastric suction per General Surgery.
[2017-05-25] MEDS: Enoxaparin Sodium 40 MG/0.4 ML SYRINGE SC SCH (20:11)
[2017-05-25] MEDS: POTASSIUM CHLORIDE IV SCH ×12 (23:03)
[2017-05-25] MEDS: FAT EMULSION IV SCH ×12 (23:03)
[2017-05-25] MEDS: POTASSIUM ACETATE IV SCH ×12 (23:03)
[2017-05-25] MEDS: [UNRECOGNIZED DRUG - OTHER] IV SCH ×12 (23:03)
[2017-05-26] MEDS: Metoprolol Tartrate 5 MG/5 ML VIAL IVP SCH ×6 (02:15→20:34)
[2017-05-26] MEDS: hydrALAZINE 20 MG/ML VIAL SLOW IVP SCH ×4 (02:16→20:39)
[2017-05-26] MEDS: Hydrocortisone Sod Succ/PF 100 mg/2 ml Vial IVP SCH ×4 (02:17→20:33)
[2017-05-26 05:28] LABS: #Eosinphils 0.1 thou/uL (0.0-0.7); #Lymphocytes 0.8 thou/uL (1.20-3.40); #Monocytes 0.6 thou/uL (0.11-0.59); #Neutrophils 15.8 thou/uL (1.40-6.50); %Basophils 0.2 % (0.0-1.0); %Eosinophils 0.6 % (0.0-10.0); %Lymphocytes 4.8 % (21.0-51.0); %Monocytes 3.4 % (0.0-10.0); Hemoglobin 10.6 g/dL (12.0-16.0); Mean Corpuscular HGB CONC 32.7 g/dL (32.0-36.0); Mean Corpuscular Volume 94.7 fl (81.0-99.0); Mean Platelet Volume 10.8 fL (7.4-10.4); Platelet Count 205 thou/uL (130-400); RBC Distribution Width 13.5 % (11.5-14.5); Red Blood Cell (RBC) Count 3.42 mill/uL (4.20-5.40); White Blood Cell (WBC) Count 17.3 thou/uL (4.8-10.8)
[2017-05-26] MEDS: metroNIDAZOLE 500 MG in Premix Bag 1 BAG IVPB SCH ×3 (05:29→22:33)
[2017-05-26] MEDS: HumaLOG 300 UNITS/3 ML VIAL SC PRN ×2 (05:32→17:54)
[2017-05-26 05:45] LABS: Anion Gap 11 mmol/L (10-20); BUN (Urea Nitrogen) 90 mg/dL (9.8-20.1); Calc. Creatinine Clearance 46 mL/min (70-130); Calcium 8.7 mg/dL (7.8-10.44); Carbon Dioxide 33 mmol/L (23-31); Chloride 106 mmol/L (98-107); Estimated GFR-MDRD 54; Glucose 357 mg/dL (83-110); Magnesium 2.1 mg/dL (1.6-2.6); Phosphorus 4.6 mg/dL (2.3-4.7); Sodium 146 mmol/L (136-145)
--- NOTE | 2017-05-26 08:28 | PRG ---
DATE OF SERVICE: 05/26/2017 SUBJECTIVE: Ms. Melissa is resting comfortably this morning. No complaints. The patient still has the NG tube in place. No chest pain or pressure reported. PHYSICAL EXAMINATION: VITAL SIGNS: Blood pressure 115/44 and pulse 69, it is sinus with PACs. LUNGS: Clear. CARDIAC: Normal S1, normal S2. EXTREMITIES: No edema. SKIN: Warm and dry. ASSESSMENT: 1. Paroxysmal atrial fibrillation, maintaining sinus rhythm. 2. Small-bowel obstruction. PLAN: The patient is on intravenous diltiazem and intravenous metoprolol. We will change to oral wh en she is able to take oral medicines.
[2017-05-26] MEDS: cefTRIAXone\\ROCEPHIN 1 GM, Syringe 0.4 ML in Sterile Water 9.6 ML SLOW IVP SCH (09:02)
--- NOTE | 2017-05-26 12:31 | PRG ---
DATE OF SERVICE: 05/26/2017 SUBJECTIVE: The patient is sitting up in a chair. She says she wants to have one sip of Pepsi. Waqas arently she is being kept n.p.o. except for ice chips because of mechanical bowel obstruction. PHYSICAL EXAMINATION: VITAL SIGNS: Her temperature is 97.8, pulse 69, respirations 18, O2 saturation 94% on room air, bloo d pressure 118/44. HEENT: Unremarkable. NECK: No JVD. CHEST: Clear. CARDIAC: S1 and S2 regular. ABDOMEN: Slightly distended. Bowel sounds hypoactive. EXTREMITIES: No edema. ASSESSMENT: 1. Ileus. 2. Deconditioning. PLAN: She is continuing antibiotic therapy and conservative care with NG tube per General Surgery. She is on TPN. Her status appears to be stable and advancement of diet will be predicated on the opi nion of the general surgeons involved in this case.
[2017-05-26] MEDS: Diltiazem 125 MG, Admixture Fee 1 EACH in Sodium Chloride 0.9% 100 ML IVPB SCH (17:54)
[2017-05-26] MEDS: Enoxaparin Sodium 40 MG/0.4 ML SYRINGE SC SCH (20:35)
--- NOTE | 2017-05-26 21:31 | PRG ---
DATE OF SERVICE: 05/26/2017 SUBJECTIVE: Ms. Tanisha Melissa remains in IMCU. She has an NG tube in place. Nursing again continue to do an excellent job getting her out of bed several times a day. She is near a total lift. NG tu be has remained in place with soft restraints. Output last in 24 hours is 2430. She has had 1100 mL urine output. LABORATORY DATA: This morning, her white count 17, hemoglobin 10, sodium 146, carbon dioxide 33, BUN 90, creatinine 1.14, glucose is 225 to 292. OBJECTIVE: LUNGS: Clear to auscultation. CARDIAC: Regular rate and rhythm without murmur or gallop. ABDOMEN: Soft, rare bowel sounds. EXTREMITIES: No ankle edema. ASSESSMENT AND PLAN: 1. Diabetes. Accu-Cheks. Much improved with insulin addition of TPN. We will add Levemir insulin. 2. Malnutrition. 3. Ileus, prolonged. 10 days status post 4-1/2 hour adhesiolysis and two bowel resections. Await G I function. Continue mobility. 4. Paroxysmal atrial fibrillation/flutter. Medical treatment per Cardiology with parenteral medicat ions.
[2017-05-26] MEDS: [UNRECOGNIZED DRUG - OTHER] IV SCH ×12 (22:29)
[2017-05-26] MEDS: FAT EMULSION IV SCH ×12 (22:29)
[2017-05-26] MEDS: POTASSIUM CHLORIDE IV SCH ×12 (22:29)
[2017-05-26] MEDS: POTASSIUM ACETATE IV SCH ×12 (22:29)
[2017-05-27] MEDS: hydrALAZINE 20 MG/ML VIAL SLOW IVP SCH ×4 (02:07→21:04)
[2017-05-27] MEDS: Metoprolol Tartrate 5 MG/5 ML VIAL IVP SCH ×6 (02:07→21:03)
[2017-05-27] MEDS: Hydrocortisone Sod Succ/PF 100 mg/2 ml Vial IVP SCH ×4 (02:08→21:04)
[2017-05-27] MEDS: HumaLOG 300 UNITS/3 ML VIAL SC PRN ×2 (04:38→21:47)
[2017-05-27] MEDS: metroNIDAZOLE 500 MG in Premix Bag 1 BAG IVPB SCH ×2 (05:07→14:26)
[2017-05-27] MEDS: Sodium Chloride 0.45% 1,000 ML IV SCH ×2 (05:11→23:19)
[2017-05-27 05:20] LABS: #Eosinphils 0.1 thou/uL (0.0-0.7); #Lymphocytes 0.8 thou/uL (1.20-3.40); #Monocytes 0.6 thou/uL (0.11-0.59); %Basophils 0.2 % (0.0-1.0); %Eosinophils 0.8 % (0.0-10.0); %Lymphocytes 6.2 % (21.0-51.0); %Neutrophils 88.7 % (42.0-75.0); Hemoglobin 9.8 g/dL (12.0-16.0); Mean Corpuscular HGB CONC 32.3 g/dL (32.0-36.0); Mean Corpuscular Hemoglobin 30.6 pg (27.0-31.0); Mean Corpuscular Volume 94.7 fl (81.0-99.0); Mean Platelet Volume 11.8 fL (7.4-10.4); Platelet Count 226 thou/uL (130-400); RBC Distribution Width 13.3 % (11.5-14.5); White Blood Cell (WBC) Count 13.5 thou/uL (4.8-10.8)
[2017-05-27 05:29] LABS: Anion Gap 13 mmol/L (10-20); BUN (Urea Nitrogen) 106 mg/dL (9.8-20.1); Calc. Creatinine Clearance 43 mL/min (70-130); Calcium 8.6 mg/dL (7.8-10.44); Carbon Dioxide 29 mmol/L (23-31); Chloride 103 mmol/L (98-107); Estimated GFR-MDRD 51; Glucose 283 mg/dL (83-110); Magnesium 2.3 mg/dL (1.6-2.6); Phosphorus 5.1 mg/dL (2.3-4.7); Potassium 4.3 mmol/L (3.5-5.1); Sodium 141 mmol/L (136-145)
[2017-05-27] MEDS: cefTRIAXone\\ROCEPHIN 1 GM, Syringe 0.4 ML in Sterile Water 9.6 ML SLOW IVP SCH (09:14)
[2017-05-27] MEDS: Insulin Detemir 100 UNITS/ML 5 UNITS in Pre-Filled Syringe 1 EACH SC SCH (09:14)
--- NOTE | 2017-05-27 09:24 | PRG ---
DATE OF SERVICE: 05/27/2017 SUBJECTIVE: Ms. Melissa is awake and alert today, no complaints. NG tube is still in place. PHYSICAL EXAMINATION: VITAL SIGNS: Blood pressure 119/41, pulse 64 and regular. LUNGS: Clear. CARDIAC: Normal S1 and S2. ASSESSMENT: 1. Nasogastric tube remains in place. 2. Paroxysmal atrial fibrillation, maintaining sinus rhythm. PLAN: Continue current regimen. The nurse indicated that the patient has some bowel sounds earlier.
--- NOTE | 2017-05-27 09:51 | PRG ---
DATE OF SERVICE: 05/27/2017 SUBJECTIVE: The patient is doing somewhat better, had no acute complaints this morning. PHYSICAL EXAMINATION: VITAL SIGNS: Temperature is 97.2, pulse 64, respiratory rate 16, O2 sat 97% on room air. HEENT: Unremarkable. NECK: Supple. No JVD. CHEST: Clear. CARDIAC: S1 and S2 regular. ABDOMEN: Soft. Bowel sounds hypoactive. EXTREMITIES: No edema. LABORATORY DATA: White blood cell count 13, hematocrit 30, platelet count 226. Sodium 141, potassiu m 4.3, chloride 103, CO2 of 29, BUN 106, creatinine 1.2, glucose 283. ASSESSMENT: 1. Ileus. 2. Renal insufficiency. 3. Deconditioning. PLAN: The patient can probably be transferred out to the surgical floor. There are no acute pulmona ry issues at this time, may need Nephrology input concerning her renal status.
[2017-05-27] MEDS ORDERED: Sodium Chloride 0.9% 1,000 ML IV SCH (18:15)
--- NOTE | 2017-05-27 18:31 | PRG ---
DATE OF SERVICE: 05/27/2017 SUBJECTIVE: Ms. Melissa is doing well today. She is in her bed. She states she has been up in the ch air this morning. She asked me when she can have her NG tube out. She has not had a bowel movement or passed flatus. OBJECTIVE: VITAL SIGNS: Temperature 97.8 degrees, 75, 120/43. NG tube output in the last 24 hours, 1750, urine output 1050. LUNGS: Clear to auscultation. CARDIAC: Regular rate and rhythm without murmur or gallop. ABDOMEN: Soft, occasional bowel sounds. EXTREMITIES: Unremarkable. LABORATORY DATA: White count 13, hemoglobin 9.8. Basic metabolic profile normal. BUN 6 and creatin ine 1.21. ASSESSMENT AND PLAN: 1. Prolonged ileus. Continue TPN, NG tube and n.p.o. 2. Slight increased BUN and creatinine. We will get increase her IV fluid rate and give her a fluid bolus. 3. Deconditioning and weakness. She will need snf rehabilitation eventually when GI fun ction returns. 4. Open wound of abdomen. Continue wound VAC, view her wound tomorrow.
[2017-05-27] MEDS: diphenhydrAMINE 50 MG/ML VIAL IM/IV PRN (21:03)
[2017-05-27] MEDS: Enoxaparin Sodium 40 MG/0.4 ML SYRINGE SC SCH (21:04)
[2017-05-27] MEDS: POTASSIUM ACETATE IV SCH ×12 (21:46)
[2017-05-27] MEDS: [UNRECOGNIZED DRUG - OTHER] IV SCH ×12 (21:46)
[2017-05-27] MEDS: FAT EMULSION IV SCH ×12 (21:46)
[2017-05-27] MEDS: POTASSIUM CHLORIDE IV SCH ×12 (21:46)
[2017-05-27] MEDS: Acetaminophen 1,000 MG in Premix Bag 1 BAG IVPB SCH (23:09)
[2017-05-28] MEDS: Metoprolol Tartrate 5 MG/5 ML VIAL IVP SCH ×6 (01:47→23:42)
[2017-05-28] MEDS: hydrALAZINE 20 MG/ML VIAL SLOW IVP SCH ×4 (02:21→22:35)
[2017-05-28] MEDS: Hydrocortisone Sod Succ/PF 100 mg/2 ml Vial IVP SCH (03:47)
[2017-05-28] MEDS: HumaLOG 300 UNITS/3 ML VIAL SC PRN (04:05)
[2017-05-28 05:46] LABS: #Basophils 0.1 thou/uL (0.0-0.2); #Eosinphils 0.1 thou/uL (0.0-0.7); #Lymphocytes 0.9 thou/uL (1.20-3.40); #Monocytes 0.7 thou/uL (0.11-0.59); #Neutrophils 8.2 thou/uL (1.40-6.50); %Basophils 0.6 % (0.0-1.0); %Eosinophils 0.9 % (0.0-10.0); %Lymphocytes 9.3 % (21.0-51.0); %Monocytes 6.8 % (0.0-10.0); %Neutrophils 82.4 % (42.0-75.0); Hemoglobin 9.2 g/dL (12.0-16.0); Mean Corpuscular HGB CONC 32.8 g/dL (32.0-36.0); Mean Corpuscular Hemoglobin 31.2 pg (27.0-31.0); Mean Platelet Volume 11.3 fL (7.4-10.4); Platelet Count 227 thou/uL (130-400); RBC Distribution Width 13.6 % (11.5-14.5); Red Blood Cell (RBC) Count 2.95 mill/uL (4.20-5.40); White Blood Cell (WBC) Count 9.9 thou/uL (4.8-10.8)
[2017-05-28 05:58] LABS: Anion Gap 11 mmol/L (10-20); BUN (Urea Nitrogen) 106 mg/dL (9.8-20.1); Calc. Creatinine Clearance 46 mL/min (70-130); Calcium 8.2 mg/dL (7.8-10.44); Carbon Dioxide 30 mmol/L (23-31); Chloride 105 mmol/L (98-107); Estimated GFR-MDRD 53; Glucose 176 mg/dL (83-110); Magnesium 2.3 mg/dL (1.6-2.6); Phosphorus 5.3 mg/dL (2.3-4.7); Potassium 4.2 mmol/L (3.5-5.1); Sodium 142 mmol/L (136-145)
[2017-05-28] MEDS: Acetaminophen 1,000 MG in Premix Bag 1 BAG IVPB SCH ×4 (06:13→23:44)
[2017-05-28] MEDS: Insulin Detemir 100 UNITS/ML 5 UNITS in Pre-Filled Syringe 1 EACH SC SCH (08:52)
[2017-05-28] MEDS: fentaNYL 50 mcg/hour Patch TD SCH (09:46)
[2017-05-28] MEDS: Ketorolac Tromethamine 30 MG/ML VIAL IVP PRN (10:46)
--- NOTE | 2017-05-28 12:55 | PRG ---
DATE OF SERVICE: 05/28/2017 HISTORY OF PRESENT ILLNESS: Tanisha Melissa is an 87-year-old female in [facility]. The patient is statu s post 05/16/2017 (12 days) 4-hour laparotomy with 2 small bowel resections. She is hemodynamically stable. She has an NG tube down, output has been 1075 in the last 24 hours, which is decreased from 1750 the day prior and 2430 the day prior to that. Urine output is good. The patient's wound VAC wa s changed today and the upper half of the wound is granulating and healing well, the lower half has f eculent drainage. This was not evident with the VAC, but is evident on the VAC change. There was a small fascial defect present in the lower part of the wound, probably fingertip size. LABORATORY: White count 9, hemoglobin 9.2, sodium 192, BUN 106, creatinine 1.17, which is stable fro m yesterday. Accu-Cheks 140 to 180, phosphorus 5.3, magnesium 2.3. PHYSICAL EXAMINATION: LUNGS: Clear to auscultation. CARDIAC: Regular rate and rhythm without murmur or gallop. ABDOMEN: Soft, occasional bowel sounds. EXTREMITIES: Unremarkable. 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 We will discuss with Wound Care and since she is hemodynamic ally stable we will discuss management of either non-VAC care versus VAC care. This fistula may clos e spontaneously. There is no evidence of mucosa protruding through the small fascial defect. Would treat her nonoperatively at this point and continue TPN and NG tube suction and monitor output. 2. Deconditioning. Continue mobility efforts. 3. Paroxysmal atrial fibrillation under good control. 4. Accu-Cheks under better control with subcu insulin.
[2017-05-28] MEDS: Octreotide Acetate 100 MCG/ML VIAL SC SCH ×2 (15:08→23:43)
[2017-05-28] MEDS: Morphine 10 MG/ML CARPUJECT SLOW IVP PRN (15:29)
--- NOTE | 2017-05-28 16:03 | PRG ---
DATE OF SERVICE: 05/28/2017 SUBJECTIVE: Ms. Melissa remains stable. PHYSICAL EXAMINATION: VITAL SIGNS: She is afebrile, heart rate is in the 70s, respiratory rate 20, oximetry is 99% on room air, blood pressure 154/54. LUNGS: Clear anteriorly. HEART: Regular rhythm. S1 and S2 are normal. ABDOMEN: Soft. She is not complaining of abdominal pain. EXTREMITIES: Without asymmetry or edema. She has developed clinical enterocutaneous fistula per Dr. Cartagena's note. She has an NG tube still i n with significant amount of bile in the canister next of the bed. Other issues include deconditioning, atrial fibrillation, and diabetes. PLAN: Continue with supportive care.
[2017-05-28] MEDS ORDERED: Insulin Detemir 100 UNITS/ML 7 UNITS in Pre-Filled Syringe 1 EACH SC SCH (21:00)
[2017-05-28] MEDS: POTASSIUM ACETATE IV SCH ×12 (22:16)
[2017-05-28] MEDS: FAT EMULSION IV SCH ×12 (22:16)
[2017-05-28] MEDS: POTASSIUM CHLORIDE IV SCH ×12 (22:16)
[2017-05-28] MEDS: [UNRECOGNIZED DRUG - OTHER] IV SCH ×12 (22:16)
[2017-05-28] MEDS: Enoxaparin Sodium 40 MG/0.4 ML SYRINGE SC SCH (23:43)
[2017-05-28] MEDS: Diltiazem 125 MG, Admixture Fee 1 EACH in Sodium Chloride 0.9% 100 ML IVPB SCH (23:51)
[2017-05-29] MEDS: Metoprolol Tartrate 5 MG/5 ML VIAL IVP SCH ×6 (01:36→18:26)
[2017-05-29] MEDS: hydrALAZINE 20 MG/ML VIAL SLOW IVP SCH ×4 (02:12→18:28)
[2017-05-29] MEDS: Dextrose 50% Abboject 50 ML SYRINGE SLOW IVP PRN ×2 (05:07→11:44)
[2017-05-29] MEDS: Acetaminophen 1,000 MG in Premix Bag 1 BAG IVPB SCH ×3 (05:34→18:29)
[2017-05-29] MEDS: Octreotide Acetate 100 MCG/ML VIAL SC SCH ×3 (05:34→21:09)
[2017-05-29 05:46] LABS: Band 30 % (5-11); Eosinophils 6 % (0-10); Hemoglobin 9.4 g/dL (12.0-16.0); Lymphocytes 19 % (21-51); MDiff Complete? YES; Mean Corpuscular HGB CONC 31.5 g/dL (32.0-36.0); Mean Corpuscular Hemoglobin 30.3 pg (27.0-31.0); Mean Corpuscular Volume 96.1 fl (81.0-99.0); Mean Platelet Volume 11.5 fL (7.4-10.4); Metamyelocyte 2 % (0-0); Monocytes 2 % (0-10); Neutrophil 41 % (42-75); PLT Morphology Comment Appears Adequate; Platelet Count 271 thou/uL (130-400); Red Blood Cell (RBC) Count 3.12 mill/uL (4.20-5.40); White Blood Cell (WBC) Count 10.6 thou/uL (4.8-10.8)
[2017-05-29 06:20] LABS: Anion Gap 13 mmol/L (10-20); BUN (Urea Nitrogen) 117 mg/dL (9.8-20.1); Calc. Creatinine Clearance 48 mL/min (70-130); Calcium 8.2 mg/dL (7.8-10.44); Carbon Dioxide 30 mmol/L (23-31); Chloride 103 mmol/L (98-107); Estimated GFR-MDRD 55; Potassium 4.5 mmol/L (3.5-5.1); Sodium 141 mmol/L (136-145)
[2017-05-29 06:25] LABS: Glucose 31 mg/dL (83-110)
--- NOTE | 2017-05-29 08:26 | PRG ---
DATE OF SERVICE: 05/29/2017 SUBJECTIVE: Tanisha Melissa is awake and communicative. PHYSICAL EXAMINATION: VITAL SIGNS: Heart rate 67, 91/53, respiratory rate 14, NG tube in place, 800 mL 24 hour output whic h is markedly improved from 1075 the day before and 1750 day prior. Beltran output 1400 per 24 hours. Patient has enterocutaneous fistula draining to her lower midline incision. Wound VAC drainage is m inimal and still wound VAC is being used. LUNGS: Clear to auscultation. CARDIAC: Regular rate and rhythm, heart rate 80. ABDOMEN: Soft. Diminished bowel sounds, no bowel movements or flatus today. EXTREMITIES: Unremarkable. ASSESSMENT AND PLAN: 1. Enterocutaneous fistula. We will continue TPN, NG tube decompression, Sandostatin subcu q.8 hour s to decrease enteric drainage. So far the wound VAC is putting out very little and we will view her wound tomorrow. We will obtain a CAT scan of the abdomen and pelvis tomorrow morning. 2. Chronic anemia, stable hemoglobin 9.4, platelet count 271,000. 3. Hypoglycemia. We will adjust her nighttime Levemir. Her Accu-Cheks 140 and 111 with insulin in her TPN and Levemir subcu. We will decrease her phosphorus and her TPN and consider phosphorus level . 4. Deconditioning. Continue physical therapy. Continue nursing up out of bed 2-3 times a day. 5. Expect enterocutaneous fistula, hopefully resolve nonoperatively.
[2017-05-29] MEDS ORDERED: Diltiazem 125 MG, Admixture Fee 1 EACH in Sodium Chloride 0.9% 100 ML IVPB SCH (08:29)
[2017-05-29] MEDS: Insulin Detemir 100 UNITS/ML 7 UNITS in Pre-Filled Syringe 1 EACH SC SCH (09:35)
[2017-05-29] MEDS ORDERED: FAT EMULSION IV SCH ×20 (14:00→22:00)
[2017-05-29] MEDS ORDERED: POTASSIUM ACETATE IV SCH ×20 (14:00→22:00)
[2017-05-29] MEDS ORDERED: [UNRECOGNIZED DRUG - OTHER] IV SCH ×20 (14:00→22:00)
[2017-05-29] MEDS ORDERED: CALCIUM CHLORIDE IV SCH ×20 (14:00→22:00)
[2017-05-29] MEDS: CALCIUM CHLORIDE IV SCH ×9 (15:23)
[2017-05-29] MEDS: POTASSIUM ACETATE IV SCH ×9 (15:23)
[2017-05-29] MEDS: FAT EMULSION IV SCH ×9 (15:23)
[2017-05-29] MEDS: [UNRECOGNIZED DRUG - OTHER] IV SCH ×9 (15:23)
[2017-05-29] MEDS: Dextrose 10% in Water 1,000 ML IV SCH (18:29)
--- NOTE | 2017-05-29 21:01 | PRG ---
DATE OF SERVICE: 05/29/2017 SUBJECTIVE: Ms. Garay is sleeping more today. She would awaken. She had no new complaints. OBJECTIVE: VITAL SIGNS: She is afebrile, heart rate is 90, blood pressure is 132/43 this evening. Her oximetry is 96-100 on room air. LUNGS: Clear. HEART: Regular rhythm. ABDOMEN: Soft. She did have hypoglycemia. All of the insulin has been removed from her next bag of TPN. LABORATORY DATA: White count is 10.6, hemoglobin 9.4, platelets 271,000. Sodium 141, potassium 4.5, chloride 103, bicarbonate 30, BUN 117, creatinine 1.13. IMPRESSION: 1. Hypoglycemia. Hopefully this is indicative of early sepsis. 2. Enterocutaneous fistula. 3. Status post laparotomy with a prolonged ileus. 4. Prerenal azotemia, in spite of several days of positive fluid balance. Her prognosis for survival I think is quite poor. We have changed her TPN today to remove the insuli n from her TPN. We will continue supportive care. I met with family in the room both yesterday and today and answered all their questions.
[2017-05-29] MEDS: Insulin Detemir 100 UNITS/ML 4 UNITS in Pre-Filled Syringe 1 EACH SC SCH (21:08)
[2017-05-29] MEDS: Enoxaparin Sodium 40 MG/0.4 ML SYRINGE SC SCH (21:09)
[2017-05-30] MEDS: hydrALAZINE 20 MG/ML VIAL SLOW IVP SCH ×3 (00:50→17:45)
[2017-05-30] MEDS: Acetaminophen 1,000 MG in Premix Bag 1 BAG IVPB SCH ×4 (00:50→17:45)
[2017-05-30] MEDS: Metoprolol Tartrate 5 MG/5 ML VIAL IVP SCH ×6 (00:50→20:45)
[2017-05-30] MEDS: Octreotide Acetate 100 MCG/ML VIAL SC SCH ×3 (05:10→20:45)
[2017-05-30] MEDS: HumaLOG 300 UNITS/3 ML VIAL SC PRN ×4 (05:10→20:45)
[2017-05-30 05:40] LABS: #Basophils 0.1 thou/uL (0.0-0.2); #Eosinphils 0.4 thou/uL (0.0-0.7); #Monocytes 0.5 thou/uL (0.11-0.59); #Neutrophils 7.2 thou/uL (1.40-6.50); %Basophils 1.6 % (0.0-1.0); %Eosinophils 4.7 % (0.0-10.0); %Lymphocytes 10.8 % (21.0-51.0); %Monocytes 5.4 % (0.0-10.0); %Neutrophils 77.6 % (42.0-75.0); Hemoglobin 8.8 g/dL (12.0-16.0); Mean Corpuscular HGB CONC 31.1 g/dL (32.0-36.0); Mean Corpuscular Hemoglobin 30.1 pg (27.0-31.0); Mean Corpuscular Volume 96.9 fl (81.0-99.0); Mean Platelet Volume 11.4 fL (7.4-10.4); Platelet Count 260 thou/uL (130-400); Red Blood Cell (RBC) Count 2.93 mill/uL (4.20-5.40); White Blood Cell (WBC) Count 9.3 thou/uL (4.8-10.8)
[2017-05-30 06:14] LABS: ALT (SGPT) Less than 7 U/L (8-55); AST (SGOT) 14 U/L (5-34); Alkaline Phosphatase 86 U/L (40-150); Anion Gap 10 mmol/L (10-20); BUN (Urea Nitrogen) 88 mg/dL (9.8-20.1); Bilirubin, Direct 0.2 mg/dL (0.1-0.3); Bilirubin, Total 0.3 mg/dL (0.2-1.2); Calc. Creatinine Clearance 47 mL/min (70-130); Carbon Dioxide 29 mmol/L (23-31); Chloride 101 mmol/L (98-107); Estimated GFR-MDRD 53; Glucose 539 mg/dL (83-110); Magnesium 2.4 mg/dL (1.6-2.6); Phosphorus 4.1 mg/dL (2.3-4.7); Potassium 5.3 mmol/L (3.5-5.1); Protein, Total 5.3 g/dL (6.0-8.3); Sodium 135 mmol/L (136-145)
--- NOTE | 2017-05-30 10:11 | CT ---
CT ABDOMEN AND PELVIS WITHOUT CONTRAST: HISTORY: Bowel resection. Wound vac. Evaluate for a leak. COMPARISON: CT abdomen and pelvis 05/15/17. FINDINGS: There is consolidation in the right lung base. Atelectasis in the left lung base. No significant pe ricardial effusion. Numerous calcified mediastinal lymph nodes. There is an enterocutaneous fistula with contrast and gas extending to the midline surgical wound wit h a wound vac in place. There is also a collection of fluid in the deep pelvis extending along the l eft paracolic gutter which does not contain ingested contrast, although it is likely the sequelae of either a 2nd leak or a leak for which contrast has not yet reached. Numerous suture lines. The aortic contour is nonaneurysmal. There is some gas within the urinary bladder. Splenic granulomas are present. Liver is unremarkable. Prior cholecystectomy. There is a hypodensity superior pole left kidney suggestive of a cyst. IMPRESSION: 1. Enterpcutaneous fistula with a small focus of ingested oral contrast and air extending to the mid line wound. 2. Collection of fluid within the pelvic cul-de-sac and along the left paracolic gutter. This does not contain ingested oral contrast, although contrast only seen to the level of the proximal small. This may represent a contained leak. 3. Extensive facet arthropathy lower lumbar spine. POS: [facility]
[2017-05-30] MEDS: Insulin Detemir 100 UNITS/ML 7 UNITS in Pre-Filled Syringe 1 EACH SC SCH (10:35)
--- NOTE | 2017-05-30 12:56 | PRG ---
DATE OF SERVICE: 05/30/2017 SUBJECTIVE: Ms. Tanisha Melissa is doing well today. OBJECTIVE: VITAL SIGNS: Temperature 98.8 degrees, pulse 75, respirations 18 and blood pressure 139/46. Drainag e from her NG tube 24 hours is 350. Output is 3500, urine output. LUNGS: Clear to auscultation. CARDIAC: Regular rate and rhythm without murmur or gallop. ABDOMEN: Soft. Rare bowel sounds. EXTREMITIES: Unremarkable. LABORATORY AND IMAGING DATA: This morning, her white count is 9 and hemoglobin 8.8. Sodium 135, pot assium 5.3, BUN 88 and creatinine 1.16. Accu-Cheks 300-400. Liver function tests normal. Magnesium and phosphorus are normal. She underwent a CAT scan this morning, abdomen and pelvis, oral contrast , no IV contrast. There is an enterocutaneous fistula with contrast and gas seen to the midline surg ical wound with a wound VAC in place. There is a collection of fluid in the deep pelvis seen in the left pericolic gutter, which does not contain a contrast. ASSESSMENT AND PLAN: 1. Enterocutaneous fistula. Continue wound VAC care, nonoperative therapy. She is on Sandostatin, NG tube decompression and TPN nutrition supplements. I will need to adjust her TPN for high potassiu m. 2. Deconditioning. Continue mobility efforts. 3. It is encouraging that her NG tube output is diminished and the wound VAC output is not significa nt and when I inspected her wound this morning, the wound was not overwhelmed with enteric fluid. We will continue current regimen and mobility efforts.
[2017-05-30] MEDS: fentaNYL 50 mcg/hour Patch TD SCH (13:13)
[2017-05-30] MEDS: [UNRECOGNIZED DRUG - OTHER] IV SCH ×9 (14:15)
[2017-05-30] MEDS: CALCIUM CHLORIDE IV SCH ×9 (14:15)
[2017-05-30] MEDS: FAT EMULSION IV SCH ×9 (14:15)
[2017-05-30] MEDS: POTASSIUM ACETATE IV SCH ×9 (14:15)
[2017-05-30] MEDS: Dextrose 10% in Water 1,000 ML IV SCH (14:19)
--- NOTE | 2017-05-30 15:42 | PRG ---
DATE OF SERVICE: 05/30/2017 SUBJECTIVE: Ms. Tanisha Melissa is essentially the same. LABORATORY DATA: Blood glucose got up to 539, it is down to 376 now. PH 7.42, CO2 of 31, pO2 149. OBJECTIVE: LUNGS: Clear. HEART: Regular rhythm. ABDOMEN: Soft. LABORATORY DATA: White count is 9.3, hemoglobin 8.8, platelets 260. Sodium 135, potassium 5.3, chlo ride 101, bicarbonate 29, BUN 88, creatinine is 1.16. Intake and output was negative 965. IMPRESSION: 1. Respiratory insufficiency. She is clinically stable, but her muscle weakness is the biggest issu e. 2. Enterocutaneous fistula. 3. Hyperglycemia. Yesterday, insulin has been removed from her TPN. We might be able to move forwa rd with 20-30 units of slow long-acting insulin like Lantus a day with an additional sliding scale to continue with NG suction and wound care.
[2017-05-30] MEDS: Enoxaparin Sodium 40 MG/0.4 ML SYRINGE SC SCH (20:44)
[2017-05-30] MEDS: Insulin Detemir 100 UNITS/ML 4 UNITS in Pre-Filled Syringe 1 EACH SC SCH (20:45)
[2017-05-31] MEDS: Metoprolol Tartrate 5 MG/5 ML VIAL IVP SCH ×6 (00:35→21:45)
[2017-05-31] MEDS: Acetaminophen 1,000 MG in Premix Bag 1 BAG IVPB SCH ×4 (00:35→16:50)
[2017-05-31] MEDS: hydrALAZINE 20 MG/ML VIAL SLOW IVP SCH ×3 (00:35→16:49)
[2017-05-31] MEDS: Octreotide Acetate 100 MCG/ML VIAL SC SCH ×3 (06:12→21:45)
[2017-05-31] MEDS: HumaLOG 300 UNITS/3 ML VIAL SC PRN ×2 (06:14→11:43)
[2017-05-31 07:23] LABS: Anion Gap 7 mmol/L (10-20); BUN (Urea Nitrogen) 61 mg/dL (9.8-20.1); Calc. Creatinine Clearance 67 mL/min (70-130); Calcium 8.5 mg/dL (7.8-10.44); Carbon Dioxide 29 mmol/L (23-31); Chloride 104 mmol/L (98-107); Estimated GFR-MDRD 81; Glucose 284 mg/dL (83-110); Potassium 4.9 mmol/L (3.5-5.1); Sodium 135 mmol/L (136-145)
[2017-05-31] MEDS: Insulin Detemir 100 UNITS/ML 7 UNITS in Pre-Filled Syringe 1 EACH SC SCH (09:33)
--- NOTE | 2017-05-31 11:23 | PRG ---
DATE OF SERVICE: 05/31/2017 SUBJECTIVE: Ms. Melissa is afebrile. She says she is not hurting today. OBJECTIVE: VITAL SIGNS: Heart rate is 80, blood pressure 150/50 and oximetry is 97% on room air. LUNGS: Remarkable clear. HEART: Regular rhythm. ABDOMEN: Soft. LABORATORY DATA: White count 9.3, hemoglobin 8.8 and platelets 260. Sodium 135, potassium 4.9, chlo ride 104, bicarb 29, BUN 61 and creatinine 0.81. IMPRESSION: 1. Enterocutaneous fistula. 2. Respiratory insufficiency, doing well. 3. Diabetes. 4. Hyperglycemia. 5. Her blood glucoses are trending downward. They are now below 300 with low of 226 today. 6. Anemia of chronic disease combined with some blood loss anemia associated with blood draws. PLAN: Continue supportive care under the guidance of General Surgery. She has no respiratory issues at this point in time.
[2017-05-31] MEDS ORDERED: CALCIUM CHLORIDE IV SCH ×10 (14:00)
[2017-05-31] MEDS ORDERED: [UNRECOGNIZED DRUG - OTHER] IV SCH ×10 (14:00)
[2017-05-31] MEDS ORDERED: MAGNESIUM SULFATE IV SCH ×10 (14:00)
[2017-05-31] MEDS ORDERED: FAT EMULSION IV SCH ×10 (14:00)
[2017-05-31] MEDS: Dextrose 10% in Water 1,000 ML IV SCH (14:10)
[2017-05-31] MEDS: Morphine 10 MG/ML CARPUJECT SLOW IVP PRN (16:50)
--- NOTE | 2017-05-31 17:55 | PRG ---
DATE OF.DATE OF SERVICE: 05/31/2017 SUBJECTIVE: Tanisha Melissa is doing well. Nurses have done a good job, getting her out of bed into a chair. It is reported that she is bearing all weight and become a little stronger. OBJECTIVE: VITAL SIGNS: 98.2 degrees, 77, 135/50. Her gastric drainage is 900 mL over the last 24 hours, urine output 3125. LUNGS: Clear to auscultation. CARDIAC: Regular rate and rhythm without murmur or gallop. ABDOMEN: Soft, rare bowel sounds. No bowel movement. No flatus. VAC canister reveals some drainag e in the canister, but this is not overwhelmed. LABORATORY DATA: White count 9, hemoglobin 8.8, sodium 135, potassium 4.9, BUN 61, creatinine 0.81 w hich is markedly improved. Accu-Cheks are low 200s. ASSESSMENT AND PLAN: 1. Enterocutaneous fistula postoperative. Continue NG tube, bowel rest, TPN, Sandostatin. Hopefull y, this will resolve nonoperatively. 2. Ileus. Await GI function. 3. Deconditioning. 4. Continue TPN and mobility.
[2017-05-31] MEDS: Enoxaparin Sodium 40 MG/0.4 ML SYRINGE SC SCH (21:45)
[2017-05-31] MEDS: Insulin Detemir 100 UNITS/ML 4 UNITS in Pre-Filled Syringe 1 EACH SC SCH (21:45)
[2017-06-01] MEDS: Acetaminophen 1,000 MG in Premix Bag 1 BAG IVPB SCH (00:47)
[2017-06-01] MEDS: Metoprolol Tartrate 5 MG/5 ML VIAL IVP SCH ×7 (00:47→20:14)
[2017-06-01] MEDS: hydrALAZINE 20 MG/ML VIAL SLOW IVP SCH ×4 (00:47→17:08)
[2017-06-01] MEDS: Dextrose 50% Abboject 50 ML SYRINGE SLOW IVP PRN (04:49)
[2017-06-01] MEDS: Octreotide Acetate 100 MCG/ML VIAL SC SCH ×3 (04:49→22:14)
[2017-06-01 05:50] LABS: Anion Gap 10 mmol/L (10-20); BUN (Urea Nitrogen) 56 mg/dL (9.8-20.1); Calc. Creatinine Clearance 75 mL/min (70-130); Calcium 8.6 mg/dL (7.8-10.44); Carbon Dioxide 28 mmol/L (23-31); Chloride 104 mmol/L (98-107); Estimated GFR-MDRD Greater than 90; Glucose 62 mg/dL (83-110); Potassium 4.2 mmol/L (3.5-5.1); Sodium 138 mmol/L (136-145)
[2017-06-01] MEDS: Morphine 10 MG/ML CARPUJECT SLOW IVP PRN (09:06)
[2017-06-01] MEDS: Insulin Detemir 100 UNITS/ML 7 UNITS in Pre-Filled Syringe 1 EACH SC SCH (09:08)
--- NOTE | 2017-06-01 11:12 | PRG ---
DATE OF SERVICE: 06/01/2017 She is doing well. She is at bedside chair. Her daughter is in the room. Her daughter is happy that she is here, but wishes progress would be qu icker as do we all. PHYSICAL EXAMINATION: VITAL SIGNS: She is afebrile, heart rate 100, respiratory rate 16, oximetry is 99 on room air, blood pressure 137/49. LUNGS: Lungs are clear anteriorly. HEART: Regular rhythm. ABDOMEN: Abdomen is soft. She has had 550 mL out of her gastric tube. There is no recording of wound VAC amounts with the outp ut section in the computer. IMPRESSION: 1. Status post enterocutaneous fistula after a laparotomy after a bowel obstruction. 2. Deconditioning with advanced age. PLAN: 1. Continue wound care. NG suction. 2. Wound VAC suction. We need to try to keep her out of bed a little bit longer each day.
[2017-06-01] MEDS: Ketorolac Tromethamine 30 MG/ML VIAL IVP PRN (12:35)
[2017-06-01] MEDS: FAT EMULSION IV SCH ×10 (13:44)
[2017-06-01] MEDS: CALCIUM CHLORIDE IV SCH ×10 (13:44)
[2017-06-01] MEDS: [UNRECOGNIZED DRUG - OTHER] IV SCH ×10 (13:44)
[2017-06-01] MEDS: MULTIVITAMINS IV SCH ×10 (13:44)
[2017-06-01] MEDS: Enoxaparin Sodium 40 MG/0.4 ML SYRINGE SC SCH (20:12)
--- NOTE | 2017-06-01 20:34 | PRG ---
DATE OF SERVICE: 06/01/2017 SUBJECTIVE: Ms. Tanisha Melissa is doing well today in [facility]. Her spirits are good. She has been out of bed into a chair for several hours, 97 degrees, heart rate 80, 142/48. LABORATORY DATA: Her 24-hour gastric drainage is 550 mL. Urine output 725 mL. This morning, her [facility] metabolic profile: Sodium 138, potassium 4.2, GFR greater than 90, BUN 56, creatinine 0.73. Acc u-Cheks are 65-103. Her insulin has been decreasing her TPN. Her Levemir held and will be discontin ued. OBJECTIVE: LUNGS: Clear to auscultation. CARDIAC: Regular rate and rhythm without murmur or gallop. ABDOMEN: Soft. Minimal bowel sounds. No stool or flatus. Wound VAC to be changed today. ASSESSMENT AND PLAN: 1. Enterocutaneous fistula. Continue TPN and Sandostatin. NG tube decompression. 2. Adjust insulin and TPN and Levemir for Accu-Cheks. 3. Deconditioning. Continue physical therapy and mobility up in a chair several times a day. Dr. Lazcano will be covering the weekend.
[2017-06-02] MEDS: hydrALAZINE 20 MG/ML VIAL SLOW IVP SCH ×3 (01:26→18:11)
[2017-06-02] MEDS: Metoprolol Tartrate 5 MG/5 ML VIAL IVP SCH ×6 (01:27→20:29)
[2017-06-02] MEDS: Octreotide Acetate 100 MCG/ML VIAL SC SCH ×3 (05:38→22:44)
[2017-06-02 06:24] LABS: Anion Gap 9 mmol/L (10-20); BUN (Urea Nitrogen) 48 mg/dL (9.8-20.1); Calc. Creatinine Clearance 76 mL/min (70-130); Calcium 8.4 mg/dL (7.8-10.44); Carbon Dioxide 30 mmol/L (23-31); Chloride 102 mmol/L (98-107); Estimated GFR-MDRD Greater than 90; Glucose 215 mg/dL (83-110); Potassium 3.9 mmol/L (3.5-5.1); Sodium 137 mmol/L (136-145)
[2017-06-02 06:36] LABS: Band 18 % (5-11); Eosinophils 1 % (0-10); Hemoglobin 8.5 g/dL (12.0-16.0); Lymphocytes 11 % (21-51); MDiff Complete? YES; Mean Corpuscular Hemoglobin 30.8 pg (27.0-31.0); Mean Corpuscular Volume 93.5 fl (81.0-99.0); Mean Platelet Volume 10.3 fL (7.4-10.4); Metamyelocyte 1 % (0-0); Monocytes 7 % (0-10); Myelocyte 2 % (0-0); Neutrophil 60 % (42-75); Platelet Count 302 thou/uL (130-400); RBC Distribution Width 14.1 % (11.5-14.5); Red Blood Cell (RBC) Count 2.77 mill/uL (4.20-5.40); White Blood Cell (WBC) Count 10.1 thou/uL (4.8-10.8)
[2017-06-02] MEDS: fentaNYL 50 mcg/hour Patch TD SCH (09:46)
[2017-06-02] MEDS: HumaLOG 300 UNITS/3 ML VIAL SC PRN ×2 (10:58→22:44)
[2017-06-02] MEDS: Ketorolac Tromethamine 30 MG/ML VIAL IVP PRN (10:59)
[2017-06-02] MEDS: CALCIUM CHLORIDE IV SCH ×10 (14:17)
[2017-06-02] MEDS: FAT EMULSION IV SCH ×10 (14:17)
[2017-06-02] MEDS: MULTIVITAMINS IV SCH ×10 (14:17)
[2017-06-02] MEDS: [UNRECOGNIZED DRUG - OTHER] IV SCH ×10 (14:17)
--- NOTE | 2017-06-02 16:11 | PRG ---
DATE OF SERVICE: 06/02/2017 SERVICE: Pulmonary Medicine. INTERVAL HISTORY: The patient is doing really well from a respiratory standpoint. She remains on ro om air. She denies any shortness of breath, cough or sputum changes. She is a little sleepy right n ow, but wakes up easily. There have been no overnight events. PHYSICAL EXAMINATION: VITAL SIGNS: Afebrile, pulse 89, blood pressure 148/50, respirations 22, saturation 98% on room air. GENERAL: The patient is somnolent, but wakes up easily. She will stay awake longer than 10 seconds without stimulation. LUNGS: Excellent air entry. There is no prolonged expiratory phase, wheezing, rhonchi or crackles. HEART: Normal rate, regular. ABDOMEN: Soft, nontender, nondistended. Bowel sounds are positive. MUSCULOSKELETAL: No cyanosis or clubbing. No pitting in the bilateral lower extremities. NEUROLOGIC: Grossly nonfocal. LABORATORY DATA: WBC 10.1, hemoglobin 8.5, platelets 302,000. Band count is down trending to 18% wi th a neutrophil count that has improved to 60%. BUN 48, creatinine 0.7. ASSESSMENT: 1. Enterocutaneous fistula following laparotomy. 2. Deconditioning. 3. TPN. DISCUSSION AND PLAN: The patient is looking a little on the dry side. She has skin tenting. She do es not have any crackles of the lungs. I will introduce a little bit of half normal saline to comple ment her TPN, which is currently running at a very low rate. Pulmonary Critical Care will continue t o follow while the patient remains in this location. We will continue focusing efforts on mobilizing the patient so as to prevent her from getting too much more deconditioned during this hospital stay.
[2017-06-02] MEDS: Sodium Chloride 0.45% 1,000 ML IV SCH (16:28)
--- NOTE | 2017-06-02 18:27 | PRG ---
DATE OF SERVICE: 06/02/2017 ATTENDING PHYSICIAN: Dr. Lazcano. SUBJECTIVE: Ms. Tanisha Melissa is a patient of Dr. Cartagena who was in the [facility]. She has an enterocuta neous fistula. She had her wound VAC changed yesterday, but refused to have it replaced and instead wet to dry dressings were put on. This afternoon on exam, she denies any abdominal pain, nausea or v omiting. She voices no complaints. OBJECTIVE: VITAL SIGNS: Blood pressure 126/50, pulse 80, temperature 99.5, respirations 20 and O2 sat 100% on r oom air. GENERAL APPEARANCE: An elderly adult female sitting in bed. She has an NG tube in place. She does not appear to be in any acute distress. HEENT: She is normocephalic and atraumatic. RESPIRATORY: Her lungs are clear to auscultation bilaterally. CARDIAC: She has regular rate and rhythm without murmurs or gallops. ABDOMEN: Soft and obese, but nondistended. She has absent bowel sounds. Wet-to-dry dressing in constanza ce. LABORATORY DATA: Hematology: WBC is 10.1, hemoglobin 8.5, hematocrit 25.9 and platelets 302. Chemi stry: Sodium 137, potassium 3.9, chloride 102, bicarbonate 30, BUN 48, creatinine 0.70 and glucose 2 15. Hemoglobin A1c 8.4. IMAGING DATA: There are no images to review today. ASSESSMENT: Enterocutaneous fistula. PLAN: 1. Continue TPN and Sandostatin. NG tube was cleared at bedside. She has put out roughly 300 mL ov ernight, compared with 550 yesterday. Continue NG tube decompression. 2. Continue insulin and TPN as ordered and continue to follow glucose with Accu-Cheks. 3. Continue PT and OT as able. This patient was seen and discussed along with Dr. Lazcano, who agrees with the assessment and plan.
[2017-06-02] MEDS: Enoxaparin Sodium 40 MG/0.4 ML SYRINGE SC SCH (20:29)
[2017-06-03] MEDS: Metoprolol Tartrate 5 MG/5 ML VIAL IVP SCH ×6 (01:21→20:53)
[2017-06-03] MEDS: hydrALAZINE 20 MG/ML VIAL SLOW IVP SCH ×3 (01:21→16:58)
[2017-06-03] MEDS: Octreotide Acetate 100 MCG/ML VIAL SC SCH ×3 (05:46→21:09)
[2017-06-03] MEDS: HumaLOG 300 UNITS/3 ML VIAL SC PRN ×3 (05:48→22:07)
[2017-06-03 06:28] LABS: Anion Gap 10 mmol/L (10-20); BUN (Urea Nitrogen) 44 mg/dL (9.8-20.1); Calc. Creatinine Clearance 81 mL/min (70-130); Calcium 8.5 mg/dL (7.8-10.44); Carbon Dioxide 30 mmol/L (23-31); Chloride 102 mmol/L (98-107); Estimated GFR-MDRD Greater than 90; Glucose 181 mg/dL (83-110); Magnesium 1.3 mg/dL (1.6-2.6); Phosphorus 3.4 mg/dL (2.3-4.7); Potassium 3.8 mmol/L (3.5-5.1); Sodium 138 mmol/L (136-145)
[2017-06-03] MEDS: Magnesium 2 GM/NS 0.9% 100 ML 2 GM in Premix Bag 1 BAG IVPB PRN (06:41)
--- NOTE | 2017-06-03 13:41 | PRG ---
DATE OF SERVICE: 06/03/2017 Ms. Melissa states that she is feeling okay today. T-max was 100.5, blood pressure is mildly elevated at 157/56. Fingersticks have ranged from 144-241. Her wound is somewhat paler compared to yesterday . The patient had her VAC dressing removed and did not want it replaced at that time, so a wet-to-dr y dressing was done. However, the skin around the wound is looking slightly red and irritated, and t here is plaque on the gauze dressing on the skin. Fistula is visible in the base of the inferior wou nd. The upper wound is clean. She has some partial thickness decubitus ulcers of the sacral area, w hich are clean. She has a yeast like rash in the perineum. Her abdomen is soft and quiet, but not d istended. NG output is light green in color. ASSESSMENT: Small-bowel obstruction, status post lysis of adhesions and small bowel resection. Unfo rtunately, developing severe postoperative ileus and then an enterocutaneous fistula. The fistula is not very high volume. I have recommended replacing the VAC dressing. The patient and her son are o pen to this, so the VAC was replaced by the Wound Care team. I think this will be better for the per iwound area. I have also ordered some Lotrisone cream for the perineal rash, and at the skin, around the wounds starts to look more fungal, they can use that there as well. We are continuing TPN, margot l rest, and NG decompression, and somatostatin to try to allow the fistula to heal on its own.
[2017-06-03] MEDS: CALCIUM CHLORIDE IV SCH ×10 (14:12)
[2017-06-03] MEDS: MULTIVITAMINS IV SCH ×10 (14:12)
[2017-06-03] MEDS: FAT EMULSION IV SCH ×10 (14:12)
[2017-06-03] MEDS: [UNRECOGNIZED DRUG - OTHER] IV SCH ×10 (14:12)
[2017-06-03] MEDS ORDERED: Magnesium Sulfate 4 GM in Sodium Chloride 0.9% 250 ML 250 ML IVPB SCH (16:15)
--- NOTE | 2017-06-03 17:43 | PRG ---
DATE OF SERVICE: 06/03/2017 SERVICE: Pulmonary Medicine. INTERVAL HISTORY: The patient is doing fine from a respiratory standpoint. She remains on room air. She denies any chest pain, fevers, chills, nausea, vomiting. Otherwise, she remains in her usual s gibbs of health. She is extraordinarily sleepy today. That being said, she wakes up just fine. She is working with physical therapy, but does not like to get out of bed. PHYSICAL EXAMINATION: VITAL SIGNS: Afebrile currently with a T-max of 100.5, pulse 100, blood pressure 178/80, respiration s 22, saturation 98% on room air. GENERAL: The patient is awake and alert, in no apparent distress. LUNGS: Decent air entry. There is no prolonged expiratory phase or wheezing present. HEART: Normal rate, regular. ABDOMEN: Soft, nontender, nondistended. Bowel sounds positive. MUSCULOSKELETAL: No cyanosis or clubbing. No pitting in the bilateral lower extremities. SKIN: Tenting is improved. GENITOURINARY: Beltran catheter in place. NEUROLOGIC: Grossly nonfocal. LABORATORY DATA: BUN is gently down trending. Creatinine 0.67 and stable. Basic metabolic profile is otherwise unremarkable. Magnesium 1.3, phosphorus 3.4. ASSESSMENT: 1. Enterocutaneous fistula following laparotomy. 2. Deconditioning, severe. 3. Total parenteral nutrition. PLAN: We will replace the patient's magnesium. The patient is doing well from a respiratory standpo int. Pulmonary will continue to follow intermittently while the patient remains in IMCU. Dr. Sharma will resume care in the morning.
[2017-06-03] MEDS: Ketorolac Tromethamine 30 MG/ML VIAL IVP PRN (20:53)
[2017-06-03] MEDS: Clotrimazole 1 % Cream 30 GM TUBE TOP SCH (20:53)
[2017-06-03] MEDS: Enoxaparin Sodium 40 MG/0.4 ML SYRINGE SC SCH (20:53)
[2017-06-03] MEDS: Sodium Chloride 0.45% 1,000 ML IV SCH (21:09)
[2017-06-04] MEDS: Metoprolol Tartrate 5 MG/5 ML VIAL IVP SCH ×6 (01:20→20:52)
[2017-06-04] MEDS: hydrALAZINE 20 MG/ML VIAL SLOW IVP SCH ×3 (01:22→16:26)
[2017-06-04] MEDS: Octreotide Acetate 100 MCG/ML VIAL SC SCH ×3 (05:24→21:04)
[2017-06-04] MEDS: Ketorolac Tromethamine 30 MG/ML VIAL IVP PRN ×2 (05:30→12:46)
[2017-06-04 06:20] LABS: Anion Gap 10 mmol/L (10-20); BUN (Urea Nitrogen) 41 mg/dL (9.8-20.1); Calc. Creatinine Clearance 86 mL/min (70-130); Calcium 8.5 mg/dL (7.8-10.44); Carbon Dioxide 30 mmol/L (23-31); Chloride 102 mmol/L (98-107); Estimated GFR-MDRD Greater than 90; Glucose 149 mg/dL (83-110); Magnesium 2.1 mg/dL (1.6-2.6); Potassium 3.5 mmol/L (3.5-5.1); Sodium 138 mmol/L (136-145)
[2017-06-04] MEDS: Clotrimazole 1 % Cream 30 GM TUBE TOP SCH ×2 (08:17→20:55)
--- NOTE | 2017-06-04 10:48 | PRG ---
DATE OF SERVICE: 06/04/2017 Tanisha Melissa is in IMCU. She is status post 05/16/2017 4.5 hour adhesiolysis, segmental resection o f jejunum and ileum with anastomosis. She has had problems, atrial fibrillation and atrial flutter, controlled medically parenterally under Dr. Slaughter's guidance. PHYSICAL EXAMINATION: VITAL SIGNS: Temperature 99.2 degrees, 76, 20. NG tube output 350 mL, urine output good through her Beltran. GENERAL: She is up in a chair this morning. Nurses have been doing a good job IM getting her in a chair several times a day, sometimes she takes the initiative, sometimes she is resistant. LABORATORY: Hemoglobin 8.5 2 days ago, white count 10.1 two days ago. Basic metabolic profile unrem arkable. She has been afebrile. She had a temperature of 100.5 degrees on 06/03/2017, but otherwise she has b een 98-99 degrees. Last CAT scan obtained 05/30/2017 revealed changes of the fistula, but no intra-a bdominal fluid collections. LUNGS: Clear to auscultation. CARDIAC: Regular rate and rhythm without murmur or gallop. ABDOMEN: Soft, occasional bowel sounds. No bowel movement reported. EXTREMITIES: Unremarkable. No ankle edema. Over the weekend the patient refused a wound VAC. Dr. Lazcano saw the wound on 2 consecutive days. She appreciated the fistula. The fistula had low volume output during the time, the wound VAC was of f for 2 days over the weekend. She had a gauze dressing that was changed only once so that her outpu t from her fistula is low volume. ASSESSMENT AND PLAN: 1. Enterocutaneous fistula after a 4-1/2 hour adhesiolysis and 2 segmental small bowel resections pe rformed 05/16/2017. Would continue IV TPN, bowel rest, NG tube decompression and Sandostatin. We wi ll obtain a 2-view abdomen, 2 view chest x-ray tomorrow as possible considering her diminished mobili ty. Continue Sandostatin. NG tube treatment. 2. DNR status. 3. Poor mobility. Continue physical therapy and nursing efforts for mobility up in a chair. 4. Check laboratories in the morning. 5. Consider wound VAC changes twice a week, instead of 3 times a week.
[2017-06-04] MEDS: HumaLOG 300 UNITS/3 ML VIAL SC PRN ×2 (12:25→16:27)
--- NOTE | 2017-06-04 13:41 | PRG ---
DATE OF SERVICE: 06/04/2017 PHYSICAL EXAMINATION: VITAL SIGNS: Ms. Melissa is afebrile, heart rate is 76, respiratory rate is 20, oximetry is 97, blood pressure 171/60. She is still on room air. Still has her NG tube in place. LUNGS: Her lungs are clear. HEART: Regular rhythm. S1 and S2 are normal. ABDOMEN: Abdomen is soft. LABORATORY: Sodium 130, potassium 3.5, chloride 102, bicarbonate 30, BUN 41, creatinine 0.64. Intake and output is reviewed. her gastric drainage is 350 mL over 24 hours. There is no record of the amount of drainage in her wound VAC. IMPRESSION: 1. 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 Extreme deconditioning with advanced age. PLAN: Continue supportive care, nutritional support, wound care.
[2017-06-04] MEDS: [UNRECOGNIZED DRUG - OTHER] IV SCH ×10 (14:07)
[2017-06-04] MEDS: CALCIUM CHLORIDE IV SCH ×10 (14:07)
[2017-06-04] MEDS: FAT EMULSION IV SCH ×10 (14:07)
[2017-06-04] MEDS: MULTIVITAMINS IV SCH ×10 (14:07)
[2017-06-04] MEDS: Enoxaparin Sodium 40 MG/0.4 ML SYRINGE SC SCH (20:52)
[2017-06-05] MEDS: hydrALAZINE 20 MG/ML VIAL SLOW IVP SCH ×3 (00:28→16:49)
[2017-06-05] MEDS: Metoprolol Tartrate 5 MG/5 ML VIAL IVP SCH ×6 (01:24→21:21)
[2017-06-05] MEDS: Ketorolac Tromethamine 30 MG/ML VIAL IVP PRN ×4 (01:48→22:25)
[2017-06-05] MEDS: Sodium Chloride 0.45% 1,000 ML IV SCH (03:16)
[2017-06-05 04:26] LABS: #Eosinphils 0.1 thou/uL (0.0-0.7); #Lymphocytes 1.6 thou/uL (1.20-3.40); #Monocytes 0.4 thou/uL (0.11-0.59); #Neutrophils 7.4 thou/uL (1.40-6.50); %Basophils 0.1 % (0.0-1.0); %Eosinophils 1.1 % (0.0-10.0); %Lymphocytes 16.5 % (21.0-51.0); %Monocytes 4.3 % (0.0-10.0); Hemoglobin 7.6 g/dL (12.0-16.0); Mean Corpuscular Hemoglobin 30.8 pg (27.0-31.0); Mean Corpuscular Volume 93.4 fl (81.0-99.0); Mean Platelet Volume 9.5 fL (7.4-10.4); Platelet Count 256 thou/uL (130-400); RBC Distribution Width 14.2 % (11.5-14.5); Red Blood Cell (RBC) Count 2.48 mill/uL (4.20-5.40); White Blood Cell (WBC) Count 9.5 thou/uL (4.8-10.8)
[2017-06-05] MEDS: HumaLOG 300 UNITS/3 ML VIAL SC PRN ×3 (04:29→22:21)
[2017-06-05 04:52] LABS: ALT (SGPT) 16 U/L (8-55); AST (SGOT) 29 U/L (5-34); Albumin 1.9 g/dL (3.4-4.8); Alkaline Phosphatase 195 U/L (40-150); Anion Gap 11 mmol/L (10-20); BUN (Urea Nitrogen) 40 mg/dL (9.8-20.1); Bilirubin, Total 0.3 mg/dL (0.2-1.2); Calc. Creatinine Clearance 83 mL/min (70-130); Calcium 8.2 mg/dL (7.8-10.44); Carbon Dioxide 30 mmol/L (23-31); Chloride 100 mmol/L (98-107); Estimated GFR-MDRD Greater than 90; Globulin 4.1 g/dL (2.4-3.5); Glucose 155 mg/dL (83-110); Magnesium 1.6 mg/dL (1.6-2.6); Phosphorus 3.5 mg/dL (2.3-4.7); Potassium 3.7 mmol/L (3.5-5.1); Sodium 137 mmol/L (136-145)
[2017-06-05] MEDS: Octreotide Acetate 100 MCG/ML VIAL SC SCH ×3 (05:21→21:23)
[2017-06-05] MEDS: fentaNYL 50 mcg/hour Patch TD SCH (09:48)
[2017-06-05] MEDS: Clotrimazole 1 % Cream 30 GM TUBE TOP SCH ×2 (09:49→21:21)
--- NOTE | 2017-06-05 10:18 | RAD ---
RADIOGRAPH CHEST 1 VIEW: Date: 06-05-17 Time: 8:54 a.m. HISTORY: 87-year-old female with COPD. COMPARISON: 05-23-17 FINDINGS: NG tube, left subclavian central vascular catheter and right total glenohumeral joint replacement art hroplasty hardware, are again noted. Atherosclerosis of the thoracic aorta. No cardiomegaly. There is pulmonary vascular engorgement. No airspace opacity, arlette pulmonary edema, or pneumothorax. Lateral costophrenic angles are sharp. Diffuse osteopenia. No interval change. IMPRESSION: 1. Nasogastric tube and left subclavian central venous catheter. 2. Status post total right glenohumeral joint replacement arthroplasty. 3. Diffuse osteopenia. 4. Mild pulmonary vascular engorgement without pulmonary edema. 5. No interval change since 05-23-17. JN POS: TPC
--- NOTE | 2017-06-05 13:45 | PQF ---
ANGELICA MONROE RICHARD D MD [id number] CCU-C10 [id number] CLINICAL DOCUMENTATION IMPROVEMENT CLARIFICATION FORM: ICD-10 Updated PLEASE DO AN ADDENDUM TO THE PROGRESS NOTE WITH ANY DOCUMENTATION UPDATES OR ADDITIONS AND CARRY THROUGH TO DC SUMMARY. THANK YOU. Date: 06-05-17 ATTN: DR. LAYTON Please exercise your independent, professional judgment in responding to the clarification form. Clinical indicators are provided on the bottom of this form for your review Please check appropriate box(s): [ ] Protein Calorie Malnutrition: [ ] Mild [ ] Moderate [ ] Severe [ ] Other Malnutrition (please specify) __ [ ] Underweight without malnutrition [ ] Cachexia [ ] Other diagnosis [ ] Unable to determine CLINICAL INDICATORS - SIGNS / SYMPTOMS / LABS BMI of 33.5 PN 2-25 DR. LAYTON: MALNUTRITION NUTRITION ASSESSMENT 3-2: % WEIGHT CHANGE: +11% since admit 1+ PITTING EDEMA BLE STAGE 2 PU BUTTOCK PN 3-1 CALIN: ILEUS ; DECONDITIONING RISK FACTORS PN 3-5 CALIN: 4 1/2 HRS ADHESIOLYSIS AND 2 SEGMENTAL SMALL BOWEL RESECTIONS -18 PN 3-1 CALIN: ILEUS ; DECONDITIONING TREATMENT: MAR - TPN 2-21 TO 3-5 Moderate Malnutrition (in acute illness) Energy Intake: <75% of estimated energy requirement for > 7 days Weight Loss: 1-2%/1 week; 5%/ 1 month; 7.5%/3 months Other: mild body fat loss; mild muscle mass loss; mild fluid accumulation; Severe Malnutrition (in acute illness) Energy Intake: < 50% of estimated energy requirement for > 5 days Weight Loss: >1-2%/1 week; >5%/1 month; >7.5%/3 months Other: moderate body fat loss; moderate muscle mass loss; moderate- severe fluid accumulation; measurably reduced device sales consultant strength Moderate Malnutrition (in chronic illness) Energy Intake: <75% of estimated energy requirement for >1 month Weight Loss: 5%/1 month; 7.5%/3 months; 10%/6 months; 20%/1 year Other: mild body fat loss; mild muscle mass loss; mild fluid accumulation Severe Malnutrition (in chronic illness) Energy Intake: <75% of estimated energy requirement for >1 month Weight Loss: >5%/1 month; >7.5%/3 months; >10%/6 months; >20%/1 year Other: severe body fat loss; severe muscle mass loss; severe fluid accumulation ; measurably reduced device sales consultant strength THANK YOU, KRISTIN (This form is maintained as a part of the permanent medical record) 2015 [employer]. All Rights Reserved Kristin Weaver RN, BS [email or web address] [facility]
--- NOTE | 2017-06-05 13:59 | PQF ---
ANGELICA MONROE RICHARD D MD [id number] CCU-C10 [id number] CLINICAL DOCUMENTATION IMPROVEMENT CLARIFICATION FORM: ICD-10 Updated PLEASE DO AN ADDENDUM TO THE PROGRESS NOTE WITH ANY DOCUMENTATION UPDATES OR ADDITIONS AND CARRY THROUGH TO DC SUMMARY. THANK YOU. DATE: 06-05-17 ATTN: DR. LAYTON Please exercise your independent, professional judgment in responding to the clarification form. Clinical indicators are provided on the bottom of this form for your review Please check appropriate box(s): [ ] ILEUS related to current/recent surgery - complication [ ] ILEUS NOT related to current/recent surgery - Not complication [ ] Other diagnosis [ ] Unable to determine CLINICAL INDICATORS - SIGNS / SYMPTOMS / LABS PN 2-22 DR. LAYTON - ILEUS AFTER 4 HR ADHESIOLYSIS AND BOWEL RESECTION PN 2-23 DR. MADDOX - PROLONGED ILEUS PN 3-4 DR. PELLETIER - POSTOPERATIVE ILEUS RISK FACTORS H&P: SBO FROM PRIOR SURGERY 2--18 4 1/2 HR ADHESIOLYSIS AND 2 SEGMENTAL SMALL BOWEL RESECTIONS 2-17 SEVERE CHRONIC BACK PAIN ON NARCOTICS AT HOME TREATMENT: NGT PN 2-19: START TPN THANK YOU, KRISTIN (This form is maintained as a part of the permanent medical record) 2014 [employer]. All Rights Reserved Kristin Weaver RN, BS [email or web address] Cell [facility]
[2017-06-05] MEDS: CALCIUM CHLORIDE IV SCH ×10 (14:57)
[2017-06-05] MEDS: [UNRECOGNIZED DRUG - OTHER] IV SCH ×10 (14:57)
[2017-06-05] MEDS: FAT EMULSION IV SCH ×10 (14:57)
[2017-06-05] MEDS: MULTIVITAMINS IV SCH ×10 (14:57)
--- NOTE | 2017-06-05 16:00 | PRG ---
DATE OF SERVICE: 06/05/2017 SUBJECTIVE: Ms. Melissa has no new complaints. She is tired of being in bed. She did sit up for a wh ile today. OBJECTIVE: VITAL SIGNS: She is afebrile, heart rate is 78, blood pressure 150/55, respiratory rate is 22, oxime try is 97 on room air. LUNGS: Clear. HEART: Regular rhythm. ABDOMEN: Soft. Gastric drainage is 800 mL overnight. Her wound VAC drainage was 80 mL in the last 24 hours. IMPRESSION: 1. Enterocutaneous fistula. 2. Obesity. 3. Deconditioning. PLAN: Continue care. TPN. NG suction. Wound care.
--- NOTE | 2017-06-05 18:29 | PRG ---
DATE OF SERVICE: 06/05/2017 SUBJECTIVE: Ms. Melissa is doing well today. She is on IMCU. Her atrial fibrillation and flutter is well controlled medically by Dr. Slaughter. OBJECTIVE: VITAL SIGNS: 98.5 degrees, 82, 152/45. Gastric output over 24 hours, NG tube 800 mL. Urine output is good. LUNGS: Clear to auscultation. CARDIAC: Regular rate and rhythm without murmur or gallop. ABDOMEN: Soft, bowel sounds present. Wound VAC in place. IMAGING: Abdominal x-rays reveal gas in her colon, nonspecific bowel gas pattern. Chest x-ray Unrem arkable. LABORATORY DATA: This morning, white count 9.5, hemoglobin 7.6. Basic metabolic profile was normal. Glucose is under good control. Accu-Cheks 150-130. Her magnesium and phosphorus are normal. Prea lbumin is low 13. ASSESSMENT AND PLAN: 1. Ileus. Continue Sandostatin. NG tube, n.p.o., TPN and supportive care. 2. Deconditioning. Continue up out of bed. Nurses are doing an excellent job, getting her up in e chair. 3. Magnesium and phosphorus are good. Electrolytes are normal. Accu-Cheks are good control with cu rrent regimen insulin in her TPN. Consider small bowel follow through this week pending clinical cou rse. 4. View her open wound tomorrow and evaluate her fistula drainage output in the canister is low. Tan hong has enterocutaneous fistula with low output.
[2017-06-05] MEDS: Enoxaparin Sodium 40 MG/0.4 ML SYRINGE SC SCH (21:23)
[2017-06-06] MEDS: hydrALAZINE 20 MG/ML VIAL SLOW IVP SCH ×4 (00:52→20:39)
[2017-06-06] MEDS: Metoprolol Tartrate 5 MG/5 ML VIAL IVP SCH ×6 (01:02→20:40)
[2017-06-06] MEDS: Ketorolac Tromethamine 30 MG/ML VIAL IVP PRN (05:32)
[2017-06-06] MEDS: Octreotide Acetate 100 MCG/ML VIAL SC SCH ×3 (05:34→21:04)
[2017-06-06] MEDS: Sodium Chloride 0.45% 1,000 ML IV SCH (05:37)
[2017-06-06 05:52] LABS: Anion Gap 9 mmol/L (10-20); BUN (Urea Nitrogen) 40 mg/dL (9.8-20.1); Calc. Creatinine Clearance 89 mL/min (70-130); Calcium 8.4 mg/dL (7.8-10.44); Carbon Dioxide 33 mmol/L (23-31); Chloride 99 mmol/L (98-107); Estimated GFR-MDRD Greater than 90; Glucose 108 mg/dL (83-110); Magnesium 1.4 mg/dL (1.6-2.6); Potassium 3.6 mmol/L (3.5-5.1); Sodium 137 mmol/L (136-145)
[2017-06-06] MEDS: Clotrimazole 1 % Cream 30 GM TUBE TOP SCH ×2 (08:09→20:42)
--- NOTE | 2017-06-06 08:53 | PQF ---
ANGELICA MONROE RICHARD D MD [id number] CCU-C10 [id number] CLINICAL DOCUMENTATION IMPROVEMENT CLARIFICATION FORM: ICD-10 Updated PLEASE DO AN ADDENDUM TO THE PROGRESS NOTE WITH ANY DOCUMENTATION UPDATES OR ADDITIONS AND CARRY THROUGH TO DC SUMMARY. THANK YOU. Date: 06-05-17 ATTN: DR. LAYTON Please exercise your independent, professional judgment in responding to the clarification form. Clinical indicators are provided on the bottom of this form for your review Please check appropriate box(s): [ ] Protein Calorie Malnutrition: [ ] Mild [ ] Moderate [ ] Severe [ ] Other Malnutrition (please specify) __ [ ] Underweight without malnutrition [ ] Cachexia [ ] Other diagnosis [ ] Unable to determine In addition, please specify: Present on Admission (POA): [ ] Yes [ ] No [ ] Unable to determine CLINICAL INDICATORS - SIGNS / SYMPTOMS / LABS BMI of 33.5 PN 2-25 DR. LAYTON: MALNUTRITION NUTRITION ASSESSMENT 3-2: % WEIGHT CHANGE: +11% since admit 1+ PITTING EDEMA BLE STAGE 2 PU BUTTOCK RISK FACTORS PN 3-5 CALIN: 4 1/2 HRS ADHESIOLYSIS AND 2 SEGMENTAL SMALL BOWEL RESECTIONS - PN 3-1 CALIN: ILEUS ; DECONDITIONING TREATMENT: MAR - TPN 2-21 TO 3-5 Moderate Malnutrition (in acute illness) Energy Intake: <75% of estimated energy requirement for > 7 days Weight Loss: 1-2%/1 week; 5%/ 1 month; 7.5%/3 months Other: mild body fat loss; mild muscle mass loss; mild fluid accumulation; Severe Malnutrition (in acute illness) Energy Intake: < 50% of estimated energy requirement for > 5 days Weight Loss: >1-2%/1 week; >5%/1 month; >7.5%/3 months Other: moderate body fat loss; moderate muscle mass loss; moderate- severe fluid accumulation; measurably reduced lead burner apprentice strength Moderate Malnutrition (in chronic illness) Energy Intake: <75% of estimated energy requirement for >1 month Weight Loss: 5%/1 month; 7.5%/3 months; 10%/6 months; 20%/1 year Other: mild body fat loss; mild muscle mass loss; mild fluid accumulation Severe Malnutrition (in chronic illness) Energy Intake: <75% of estimated energy requirement for >1 month Weight Loss: >5%/1 month; >7.5%/3 months; >10%/6 months; >20%/1 year Other: severe body fat loss; severe muscle mass loss; severe fluid accumulation ; measurably reduced lead burner apprentice strength THANK YOU, KRISTIN (This form is maintained as a part of the permanent medical record) 2015 [employer]. All Rights Reserved Kristin Weaver RN, BS [email or web address] Cell [facility]
--- NOTE | 2017-06-06 08:54 | PQF ---
ANGELICA MONROE RICHARD D MD [id number] CCU-C10 [id number] CLINICAL DOCUMENTATION IMPROVEMENT CLARIFICATION FORM: ICD-10 Updated PLEASE DO AN ADDENDUM TO THE PROGRESS NOTE WITH ANY DOCUMENTATION UPDATES OR ADDITIONS AND CARRY THROUGH TO DC SUMMARY. THANK YOU. DATE: 06-05-17 ATTN: DR. LAYTON Please exercise your independent, professional judgment in responding to the clarification form. Clinical indicators are provided on the bottom of this form for your review Please check appropriate box(s): [ ] ILEUS related to current/recent surgery - complication [ ] ILEUS NOT related to current/recent surgery - Not complication [ ] Other diagnosis [ ] Unable to determine CLINICAL INDICATORS - SIGNS / SYMPTOMS / LABS PN 2-22 DR. LAYTON - ILEUS AFTER 4 HR ADHESIOLYSIS AND BOWEL RESECTION PN 2-23 DR. MADDOX - PROLONGED ILEUS PN 3-4 DR. PELLETIER - POSTOPERATIVE ILEUS RISK FACTORS H&P: SBO FROM PRIOR SURGERY 2--18 4 1/2 HR ADHESIOLYSIS AND 2 SEGMENTAL SMALL BOWEL RESECTIONS 2-17 SEVERE CHRONIC BACK PAIN ON NARCOTICS AT HOME TREATMENT: NGT PN 2-19: START TPN THANK YOU, KRISTIN (This form is maintained as a part of the permanent medical record) 2014 [employer]. All Rights Reserved Kristin Weaver RN, BS [email or web address] Cell [facility]
[2017-06-06] MEDS: Lorazepam 2 MG/ML VIAL SLOW IVP PRN (13:40)
[2017-06-06] MEDS: FAT EMULSION IV SCH ×10 (16:27)
[2017-06-06] MEDS: [UNRECOGNIZED DRUG - OTHER] IV SCH ×10 (16:27)
[2017-06-06] MEDS: MULTIVITAMINS IV SCH ×10 (16:27)
[2017-06-06] MEDS: CALCIUM CHLORIDE IV SCH ×10 (16:27)
--- NOTE | 2017-06-06 17:04 | PRG ---
DATE OF SERVICE: 06/06/2017 SUBJECTIVE: Ms. Melissa is stable. OBJECTIVE: VITAL SIGNS: Temperature is 99, heart rate is 82, respiratory rate is 20, oximetry is 96 on room air , blood pressure is elevated earlier at 188/110. Follow up blood pressure is 163/68. LUNGS: Remain ed clear. HEART: Unchanged. ABDOMEN: Unchanged. EXTREMITIES: Unchanged. LABORATORY DATA: Sodium 137, potassium 3.6, chloride 99, bicarbonate 32, BUN 40, creatinine 0.62. IMPRESSION: 1. Ileus. 2. Deconditioning. 3. Enterocutaneous fistula. 4. Advanced age. 5. DO NOT RESUSCITATE status. PLAN: Continue current care per General Surgery.
--- NOTE | 2017-06-06 17:05 | SPC ---
PROCEDURE: Peripheral insertion central catheter. INDICATION: Need for chronic IV treatment. FINDINGS: Dual lumen 5 Ukrainian PICC line placed into the right basilic vein using ultrasound guidance and fluoro scopic confirmation. The tip is positioned in the SVC. PROCEDURE NOTE: Right upper extremity is prepped and draped in the sterile manner. Ultrasound was used to assess veno us structures. Basilic vein in mid to upper humerus was chosen for puncture. Local anesthesia was giv en with lidocaine and bicarb. This vein was punctured using a micropuncture technique under ultrasoun d guidance. Wire was advanced into the vein and the tip of the wire was positioned in the SVC. Cathet er length was then measured and cut. Sheath was placed over the wire. The catheter was then advanced over the wire. Peel away sheaths were removed. The wire removed. The catheter was flushed and secured with a sterile dressing. There were no problems. POS: RADHA
--- NOTE | 2017-06-06 17:09 | RAD ---
SUPINE ABDOMEN: 06/06/17 HISTORY: Assessing G-tube placement. FINDINGS/IMPRESSION: NG tube has been placed. The tube passes through the EG junction and the tip of the tube coils in the mid gastric fundus with the tip of the tube projecting into the upper gastric fundus. Bowel gas pattern appears unremarkable. POS: RADHA
[2017-06-06] MEDS ORDERED: Fluconazole In NaCl,Iso-Osm 100 MG in Premix Bag 1 BAG IVPB SCH ×2 (18:00)
[2017-06-06] MEDS ORDERED: Fluconazole In NaCl,Iso-Osm 100 MG, Admixture Fee 1 EACH in Premix Bag 1 BAG IVPB SCH (20:00)
--- NOTE | 2017-06-06 20:34 | PRG ---
DATE OF SERVICE: 06/06/2017 SUBJECTIVE: Tanisha Melissa is doing well. She is awake and has been up in a chair, although she is n ot always cooperative in getting into the chair. PHYSICAL EXAMINATION: VITAL SIGNS: 98.4 degrees, 98, 188/110. LUNGS: Clear to auscultation. CARDIAC: Regular rate and rhythm without murmur or gallop. ABDOMEN: Soft. Minimal bowel sounds. ASSESSMENT AND PLAN: 1. Abdominal wound granulating, upper wound. Lower wound, minimal drainage. Beltran catheter has sed iment. We will remove the Beltran catheter today and try to leave it out. Central line has been in so me time. We will arrange a PICC line and remove her central line. She has been experiencing some an xiety. We will add Ativan. Overall, nasogastric tube output is 400-600. We will consider small bow el follow-through tomorrow. Continue Sandostatin, TPN, bowel rest, NG tube, allowing fistula resolve . Small bowel follow-through, Gastrografin in the next 1 or 2 days. 2. Deconditioning. She will need LTAC.
[2017-06-06] MEDS: Fluconazole In NaCl,Iso-Osm 100 MG, Admixture Fee 1 EACH in Premix Bag 1 BAG IVPB SCH (20:39)
[2017-06-06] MEDS: Enoxaparin Sodium 40 MG/0.4 ML SYRINGE SC SCH (20:40)
[2017-06-06] MEDS: HumaLOG 300 UNITS/3 ML VIAL SC PRN (23:08)
[2017-06-07] MEDS: hydrALAZINE 20 MG/ML VIAL SLOW IVP SCH ×4 (01:41→21:03)
[2017-06-07] MEDS: Metoprolol Tartrate 5 MG/5 ML VIAL IVP SCH ×6 (01:42→21:57)
[2017-06-07 05:24] LABS: Anion Gap 19 mmol/L (10-20); Calc. Creatinine Clearance 48 mL/min (70-130); Calcium 8.6 mg/dL (7.8-10.44); Carbon Dioxide 25 mmol/L (23-31); Chloride 86 mmol/L (98-107); Estimated GFR-MDRD 54; Magnesium 1.6 mg/dL (1.6-2.6); Potassium 5.2 mmol/L (3.5-5.1); Sodium 125 mmol/L (136-145)
[2017-06-07 05:27] LABS: BUN (Urea Nitrogen) 37 mg/dL (9.8-20.1)
[2017-06-07] MEDS: Octreotide Acetate 100 MCG/ML VIAL SC SCH ×3 (05:49→21:58)
[2017-06-07] MEDS: HumaLOG 300 UNITS/3 ML VIAL SC PRN ×3 (05:49→22:22)
[2017-06-07 06:48] LABS: Glucose 165 mg/dL (83-110)
--- NOTE | 2017-06-07 10:35 | PRG ---
DATE OF SERVICE: 06/07/2017 She has no complaints. Apparently, her wound is looking better after reviewing Dr. Cartagena's note. PHYSICAL EXAMINATION: VITAL SIGNS: She is afebrile. Her vital signs remain stable. LUNGS: Her lungs are clear. HEART: Regular rate and rhythm, no murmur. ABDOMEN: Soft. EXTREMITIES: Without asymmetry or edema. Intake and output is 2286 in, 1875 out. Gastric drainage output was 300 mL. Her wound VAC drainage was 25 mL. IMPRESSION: 1. Enterocutaneous fistula that clinically may be closing. 2. Prolonged ileus. 3. Advanced age. 4. Obesity and deconditioning. It is highly likely she will be bedridden the rest of her life in some type of fulltime care environm ent. Continue current care. She is still intermittently receiving IV medications for hypertension, so she needs to stay in the Intermediate Care Unit from what I am told.
[2017-06-07] MEDS: Fluconazole In NaCl,Iso-Osm 100 MG, Admixture Fee 1 EACH in Premix Bag 1 BAG IVPB SCH ×2 (11:46→20:29)
[2017-06-07] MEDS: Clotrimazole 1 % Cream 30 GM TUBE TOP SCH ×2 (11:50→21:02)
[2017-06-07] MEDS: Lorazepam 2 MG/ML VIAL SLOW IVP PRN (15:11)
[2017-06-07] MEDS: CALCIUM CHLORIDE IV SCH ×10 (15:39)
[2017-06-07] MEDS: FAT EMULSION IV SCH ×10 (15:39)
[2017-06-07] MEDS: [UNRECOGNIZED DRUG - OTHER] IV SCH ×10 (15:39)
[2017-06-07] MEDS: MULTIVITAMINS IV SCH ×10 (15:39)
--- NOTE | 2017-06-07 16:48 | RAD ---
GASTROGRAFIN SMALL BOWEL 06/07/17 HISTORY: Evaluate for bowel obstruction. 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 Surgical cl ips in the right hemiabdomen and superior right hemipelvis are noted. Scattered fecal material in a n ondistended, nondilated colon. Suture chain is noted in the pelvis. Patient administered gastrografin. There are multiple dilated contrast filled loops of proximal and m id small bowel. On the two and three hour images, there is minimal passage of contrast. The patient s tarted having multiple episodes of emesis and the five hour image was obtained. There is still incomp lete passage of oral contrast after five hours. Definite contrast opacifying the right hemicolon is n ot appreciated. Findings are worrisome for a significant/high grade obstruction. IMPRESSION: Delayed passage of contrast. Possibility of a high grade obstruction cannot be excluded given delayed passage of contrast and dilated contrast filled loops of proximal and mid small bowel. POS: [facility]
--- NOTE | 2017-06-07 18:58 | PRG ---
SUBJECTIVE: Tanisha Melissa is in IMCU. She has small bowel followthrough. There was not much progre ssion after 4 hours. NG tube was placed back to suction and filled 3 canisters. Overnight, she only had 150 mL for 24 hours out of her NG tube. She has not passed any flatus or stool. OBJECTIVE: VITAL SIGNS: Temperature 97.9, 91, 158/72. GENERAL: Yesterday, she had a PICC line, had her central line removed. LUNGS: Clear to auscultation. CARDIAC: Regular rate and rhythm without murmur or gallop. ABDOMEN: Soft, quiet. EXTREMITIES: Unremarkable. ASSESSMENT AND PLAN: 1. Enterocutaneous fistula, very little output. Continue Sandostatin, NG tube, n.p.o., TPN. Small bowel follow through did not show any progression after 4 hours. We will repeat abdominal x-rays in the morning to follow this. Continue NG tube. 2. Deconditioning. Physical therapy. 3. NG tube changed yesterday. 4. Continue Lovenox. 5. Acute kidney injury, resolving with hydration and support. 6. Before we send her to an LTAC, I would like to see some evidence of bowel recovery.
[2017-06-07] MEDS: Enoxaparin Sodium 40 MG/0.4 ML SYRINGE SC SCH (21:00)
[2017-06-08] MEDS: Metoprolol Tartrate 5 MG/5 ML VIAL IVP SCH ×6 (01:04→21:18)
[2017-06-08] MEDS: hydrALAZINE 20 MG/ML VIAL SLOW IVP SCH ×4 (02:15→20:13)
[2017-06-08 05:11] LABS: #Basophils 0.1 thou/uL (0.0-0.2); #Eosinphils 0.1 thou/uL (0.0-0.7); #Lymphocytes 2.2 thou/uL (1.20-3.40); #Monocytes 0.4 thou/uL (0.11-0.59); #Neutrophils 7.6 thou/uL (1.40-6.50); %Basophils 0.5 % (0.0-1.0); %Eosinophils 0.9 % (0.0-10.0); %Lymphocytes 20.9 % (21.0-51.0); %Monocytes 3.8 % (0.0-10.0); %Neutrophils 73.9 % (42.0-75.0); Hemoglobin 7.7 g/dL (12.0-16.0); Mean Corpuscular HGB CONC 32.6 g/dL (32.0-36.0); Mean Corpuscular Hemoglobin 30.5 pg (27.0-31.0); Mean Corpuscular Volume 93.5 fl (81.0-99.0); Mean Platelet Volume 8.8 fL (7.4-10.4); Platelet Count 311 thou/uL (130-400); RBC Distribution Width 14.8 % (11.5-14.5); Red Blood Cell (RBC) Count 2.52 mill/uL (4.20-5.40); White Blood Cell (WBC) Count 10.3 thou/uL (4.8-10.8)
[2017-06-08 05:20] LABS: Anion Gap 11 mmol/L (10-20); BUN (Urea Nitrogen) 52 mg/dL (9.8-20.1); Calc. Creatinine Clearance 73 mL/min (70-130); Calcium 8.5 mg/dL (7.8-10.44); Carbon Dioxide 34 mmol/L (23-31); Chloride 98 mmol/L (98-107); Estimated GFR-MDRD 87; Glucose 171 mg/dL (83-110); Magnesium 1.5 mg/dL (1.6-2.6); Phosphorus 3.3 mg/dL (2.3-4.7); Potassium 3.1 mmol/L (3.5-5.1); Sodium 140 mmol/L (136-145)
[2017-06-08 05:21] LABS: ALT (SGPT) 15 U/L (8-55); AST (SGOT) 23 U/L (5-34); Albumin 2.1 g/dL (3.4-4.8); Alkaline Phosphatase 193 U/L (40-150); Bilirubin, Direct 0.2 mg/dL (0.1-0.3); Bilirubin, Total 0.3 mg/dL (0.2-1.2); Protein, Total 6.6 g/dL (6.0-8.3)
[2017-06-08] MEDS: Octreotide Acetate 100 MCG/ML VIAL SC SCH ×3 (05:42→21:47)
[2017-06-08] MEDS: HumaLOG 300 UNITS/3 ML VIAL SC PRN ×3 (05:49→22:12)
[2017-06-08] MEDS ORDERED: Magnesium Sulfate 3 GM, Admixture Fee 1 EACH in Sodium Chloride 0.9% 100 ML IVPB SCH (07:30)
[2017-06-08] MEDS ORDERED: Magnesium 2 GM/NS 0.9% 100 ML 2 GM in Premix Bag 1 BAG IVPB SCH (07:30)
[2017-06-08] MEDS: Lorazepam 2 MG/ML VIAL SLOW IVP PRN (08:52)
[2017-06-08] MEDS: fentaNYL 50 mcg/hour Patch TD SCH (09:29)
[2017-06-08] MEDS: Fluconazole In NaCl,Iso-Osm 100 MG, Admixture Fee 1 EACH in Premix Bag 1 BAG IVPB SCH ×2 (09:30→20:12)
--- NOTE | 2017-06-08 09:41 | RAD ---
TWO VIEWS ABDOMEN: HISTORY: Followup small bowel obstruction. COMPARISON: Small bowel series from 06/07/2017. FINDINGS: Re-demonstration of a nasogastric tube. Surgical kai are also redemonstrated. Previously noted oral contrast is no longer seen. There is fecal material and air attenuation in a nondistended colon . No obvious small bowel distention. No definite pneumoperitoneum. IMPRESSION: Previously noted oral contrast is not appreciated and is presumed to have been absorbed by the alimen tary canal. The bowel gas pattern is nonspecific. POS: [facility]
[2017-06-08] MEDS ORDERED: Heparin 1,000 UNITS/ML VIAL ONE (11:59)
[2017-06-08] MEDS: Clotrimazole 1 % Cream 30 GM TUBE TOP SCH ×2 (12:45→21:13)
[2017-06-08] MEDS: [UNRECOGNIZED DRUG - OTHER] IV SCH ×10 (14:11)
[2017-06-08] MEDS: FAT EMULSION IV SCH ×10 (14:11)
[2017-06-08] MEDS: CALCIUM CHLORIDE IV SCH ×10 (14:11)
[2017-06-08] MEDS: MULTIVITAMINS IV SCH ×10 (14:11)
--- NOTE | 2017-06-08 17:06 | PRG ---
DATE OF SERVICE: 06/08/2017 HISTORY: She is about the same. A small bowel follow through done yesterday evening showed findings worrisome for an obstruction. Film done this morning did not show any contrast or specific bowel pattern. She continues to be really the same, afebrile, heart rate 80, respiratory rate 24, oximetry is 97 on room air, blood pressure 151/56. She started to feel like she is not going to survive and she is tir ed of all this. She has a fentanyl patch on. It is not sure whether or not this is interfering with her bowel motility (i.e., opiate-induced bowel motility issues). She has PRNs for hypertension. She might do well with Catapres patch for control of her blood pressure. Palliative Care is followin g her as well.
[2017-06-08] MEDS: Sodium Chloride 0.45% 1,000 ML IV SCH (18:17)
[2017-06-08] MEDS: Enoxaparin Sodium 40 MG/0.4 ML SYRINGE SC SCH (21:11)
--- NOTE | 2017-06-08 22:53 | PRG ---
DATE OF SERVICE: 06/08/2017 SUBJECTIVE: Tanisha Melissa is doing well today. She has been up in a chair. She is sometimes resist ance, but nurses have insisted as I have. OBJECTIVE: VITAL SIGNS: Temperature 97.5 degrees, 80, 151/56. LUNGS: Clear to auscultation. CARDIAC: Regular rate and rhythm without murmur or gallop. ABDOMEN: Soft. LABORATORY DATA: Hemoglobin is 7.7 this morning, which is stable. White count is 10.3. Her magnesi um was down to 1.5. She is given 1 gram of magnesium parenterally. Potassium is low at 3.1. She wa s given potassium. Her NG tube output overnight after it was rehooked up after a small bowel followthrough put out 3.3 l iters. Abdominal x-rays this morning obtained are nonspecific. I do not see any contrast residual s claudette her NG tube has been placed back to suction. There was a fecal matter in the right colon. She has not had any bowel movement. ASSESSMENT AND PLAN: 1. Enterocutaneous fistula, seems to be improving. Continue nasogastric tube, TPN, Sandostatin. 2. Deconditioning. 3. Open wound of abdomen. Continue Sunday.
[2017-06-09] MEDS: Metoprolol Tartrate 5 MG/5 ML VIAL IVP SCH ×6 (01:45→21:41)
[2017-06-09] MEDS: hydrALAZINE 20 MG/ML VIAL SLOW IVP SCH ×4 (03:00→20:25)
[2017-06-09] MEDS: Octreotide Acetate 100 MCG/ML VIAL SC SCH ×3 (05:56→21:40)
[2017-06-09 05:58] LABS: Anion Gap 9 mmol/L (10-20); BUN (Urea Nitrogen) 43 mg/dL (9.8-20.1); Calc. Creatinine Clearance 85 mL/min (70-130); Calcium 8.5 mg/dL (7.8-10.44); Carbon Dioxide 33 mmol/L (23-31); Chloride 99 mmol/L (98-107); Estimated GFR-MDRD Greater than 90; Glucose 142 mg/dL (83-110); Magnesium 1.6 mg/dL (1.6-2.6); Potassium 3.3 mmol/L (3.5-5.1); Sodium 138 mmol/L (136-145)
[2017-06-09] MEDS: Fluconazole In NaCl,Iso-Osm 100 MG, Admixture Fee 1 EACH in Premix Bag 1 BAG IVPB SCH ×2 (08:49→20:25)
[2017-06-09] MEDS: Ondansetron HCl/PF 4 MG/2 ML Vial IVP PRN (08:50)
[2017-06-09] MEDS: Clotrimazole 1 % Cream 30 GM TUBE TOP SCH ×2 (08:50→20:57)
[2017-06-09] MEDS: Potassium Chloride 40 MEQ in Premix Bag 1 BAG IVPB PRN (09:23)
[2017-06-09] MEDS ORDERED: Magnesium Sulfate 3 GM in Sodium Chloride 0.9% 100 ML IVPB SCH (12:30)
[2017-06-09] MEDS ORDERED: Potassium Chloride 40 MEQ in Premix Bag 1 BAG IVPB SCH (12:30)
[2017-06-09] MEDS: [UNRECOGNIZED DRUG - OTHER] IV SCH ×10 (13:36)
[2017-06-09] MEDS: CALCIUM CHLORIDE IV SCH ×10 (13:36)
[2017-06-09] MEDS: MULTIVITAMINS IV SCH ×10 (13:36)
[2017-06-09] MEDS: FAT EMULSION IV SCH ×10 (13:36)
[2017-06-09] MEDS: HumaLOG 300 UNITS/3 ML VIAL SC PRN ×2 (13:38→22:41)
--- NOTE | 2017-06-09 15:54 | PRG ---
DATE OF SERVICE: 06/09/2017 SUBJECTIVE: Tanisha Melissa doing well. She is in IMCU. Again nurses doing excellent job, getting he r out of bed this morning. She is due to get out of the bed this afternoon again. The patient is as shawn to get out of bed. She seems to be more cooperative. OBJECTIVE: VITAL SIGNS: 97.9, 84, 141/46. NG tube output today is 1020 in the last 24 hours, decreased from 3. 3 liters the day before. She has not had any bowel function. LUNGS: Clear to auscultation. CARDIAC: Regular rate and rhythm without murmur or gallop. ABDOMEN: Soft, quiet, no bowel sounds, nontender. VAC wound in place. LABORATORY: This morning her white count is 10, hemoglobin 7.7. Basic metabolic profile 138 sodium, 3.3 potassium, carbon dioxide 33, creatinine 0.64, BUN 43. Accu-Cheks 150-194. Magnesium was down to 1.6, which is the lower limits of normal. ASSESSMENT AND PLAN: 1. Low magnesium and infuse magnesium. 2. Low potassium and few potassium replacement. 3. Enterocutaneous fistula, hopefully resolving. Continue wound VAC to the wound, Sandostatin subcu . NG tube and TPN nutritional support. 4. Deconditioning. Continue out of bed and can be worked with therapy. 5. DNR status. 6. Postoperative bowel obstruction. Continue nonoperative treatment.
--- NOTE | 2017-06-09 15:57 | EKG ---
Test Reason : Blood Pressure : / mmHG Vent. Rate : 067 BPM Atrial Rate : 067 BPM P-R Int : 148 ms QRS Dur : 084 ms QT Int : 382 ms P-R-T Axes : 047 016 021 degrees QTc Int : 403 ms Normal sinus rhythm with sinus arrhythmia Normal ECG Confirmed by ERICK PALOMO, ELIZABETH ([id number]), map editor ALIS AGUILAR ([id number]) on 06/09/2017 3:56:13 PM Referred By: ERICK Confirmed By:ELIZABETH SUAREZ MD
[2017-06-09] MEDS: Enoxaparin Sodium 40 MG/0.4 ML SYRINGE SC SCH (20:57)
[2017-06-10] MEDS: Metoprolol Tartrate 5 MG/5 ML VIAL IVP SCH ×4 (01:26→14:06)
[2017-06-10] MEDS: hydrALAZINE 20 MG/ML VIAL SLOW IVP SCH ×3 (03:15→14:07)
[2017-06-10] MEDS: Octreotide Acetate 100 MCG/ML VIAL SC SCH ×3 (05:42→22:07)
[2017-06-10 05:56] LABS: #Basophils 0.1 thou/uL (0.0-0.2); #Eosinphils 0.3 thou/uL (0.0-0.7); #Lymphocytes 2.8 thou/uL (1.20-3.40); #Monocytes 0.5 thou/uL (0.11-0.59); #Neutrophils 5.6 thou/uL (1.40-6.50); %Basophils 0.9 % (0.0-1.0); %Eosinophils 2.7 % (0.0-10.0); %Lymphocytes 30.4 % (21.0-51.0); %Monocytes 5.1 % (0.0-10.0); Hemoglobin 7.7 g/dL (12.0-16.0); Mean Corpuscular HGB CONC 32.3 g/dL (32.0-36.0); Mean Corpuscular Hemoglobin 30.7 pg (27.0-31.0); Mean Corpuscular Volume 95.2 fl (81.0-99.0); Mean Platelet Volume 8.2 fL (7.4-10.4); Platelet Count 323 thou/uL (130-400); RBC Distribution Width 15.2 % (11.5-14.5); White Blood Cell (WBC) Count 9.2 thou/uL (4.8-10.8)
[2017-06-10 06:01] LABS: INR-International Normal Ratio 1.1; Prothrombin Time 14.8 SEC (12.0-14.7)
[2017-06-10 06:07] LABS: Anion Gap 8 mmol/L (10-20); BUN (Urea Nitrogen) 32 mg/dL (9.8-20.1); Calc. Creatinine Clearance 86 mL/min (70-130); Calcium 8.5 mg/dL (7.8-10.44); Carbon Dioxide 34 mmol/L (23-31); Chloride 100 mmol/L (98-107); Estimated GFR-MDRD Greater than 90; Glucose 111 mg/dL (83-110); Magnesium 1.6 mg/dL (1.6-2.6); Potassium 3.7 mmol/L (3.5-5.1); Sodium 138 mmol/L (136-145)
[2017-06-10] MEDS: Fluconazole In NaCl,Iso-Osm 100 MG, Admixture Fee 1 EACH in Premix Bag 1 BAG IVPB SCH ×2 (09:27→20:40)
[2017-06-10] MEDS: Clotrimazole 1 % Cream 30 GM TUBE TOP SCH ×2 (09:28→20:42)
[2017-06-10] MEDS: Lorazepam 2 MG/ML VIAL SLOW IVP PRN (09:52)
--- NOTE | 2017-06-10 12:15 | PRG ---
DATE OF SERVICE: 06/10/2017 SUBJECTIVE: Tanisha Melissa is doing well today. She has been up in a chair. She is not having compl aints. She is taking a nap. OBJECTIVE: VITAL SIGNS: 98.9 degrees, 84, 150/53. Gastric output for the past 24 hours, 1200 mL. She has no f latus or stool. LUNGS: Clear to auscultation. CARDIAC: Regular rate and rhythm without murmur, rub, or gallop. ABDOMEN: Soft, normal bowel sounds, nontender. Wound VAC in place. LABORATORY DATA: This morning, white count 9, hemoglobin 7.7. Sodium 138, potassium 3.7, BUN 32, cr eatinine 0.61, magnesium 1.6, phosphorus 3.0. ASSESSMENT: 1. Overall, the patient is doing well. Continue NG tube, Sandostatin, TPN for resolving her cutaneo us fistula and ileus. Normoactive bowel sounds audible. Small bowel follow-through earlier in the w paimiut. No passage beyond mid small bowel after four hours with patient having vomiting during the stud y. 2. Deconditioning. Continue mobility. 3. Discussed with family and they are agreeable with nonoperative therapy. Consider LTAC in the fut ure.
[2017-06-10] MEDS: MULTIVITAMINS IV SCH ×10 (14:01)
[2017-06-10] MEDS: CALCIUM CHLORIDE IV SCH ×10 (14:01)
[2017-06-10] MEDS: [UNRECOGNIZED DRUG - OTHER] IV SCH ×10 (14:01)
[2017-06-10] MEDS: FAT EMULSION IV SCH ×10 (14:01)
[2017-06-10] MEDS: Sodium Chloride 0.45% 1,000 ML IV SCH (14:35)
[2017-06-10] MEDS ORDERED: Metoprolol Tartrate 5 MG/5 ML VIAL IVP PRN (15:06)
--- NOTE | 2017-06-10 15:12 | PRG ---
DATE OF SERVICE: 06/10/2017 Tanisha Melissa is clinically unchanged. Her vital signs remain stable. Her lungs, heart, and abdomen are unchanged. She is still on IV antihypertensives. Started a Catapres patch today. We will change her hydralazine to p.r.n. if systolic blood pressure greater than 180. Hopefully, we can get her off IV medications.
[2017-06-10] MEDS: cloNIDine 0.3mg/24 Hour PATCH TD SCH (16:33)
[2017-06-10] MEDS: Enoxaparin Sodium 40 MG/0.4 ML SYRINGE SC SCH (20:41)
[2017-06-10] MEDS: HumaLOG 300 UNITS/3 ML VIAL SC PRN (22:08)
[2017-06-11] MEDS: Octreotide Acetate 100 MCG/ML VIAL SC SCH ×3 (05:55→21:52)
[2017-06-11 07:31] LABS: Anion Gap 9 mmol/L (10-20); BUN (Urea Nitrogen) 27 mg/dL (9.8-20.1); Calc. Creatinine Clearance 85 mL/min (70-130); Calcium 8.2 mg/dL (7.8-10.44); Carbon Dioxide 31 mmol/L (23-31); Chloride 99 mmol/L (98-107); Estimated GFR-MDRD Greater than 90; Glucose 118 mg/dL (83-110); Magnesium 1.2 mg/dL (1.6-2.6); Potassium 3.9 mmol/L (3.5-5.1); Sodium 135 mmol/L (136-145)
[2017-06-11 07:43] VITALS: BMI 31.6
--- NOTE | 2017-06-11 09:47 | PRG ---
DATE OF SERVICE: 06/11/2017 This morning she is awake, alert, responsive. Denies any pain or shortness of breath. PHYSICAL EXAMINATION: VITAL SIGNS: Sats are 99% on 1 liter, temperature 99, respiration 18, pulse 98, blood pressure 150/6 9. CHEST: Chest revealed decreased breath sounds without any wheezing. CARDIAC: Normal S1. ABDOMEN: Soft. No masses. IMPRESSION: 1. Status post lap for bowel obstruction and ischemic bowel. 2. Chronic obstructive pulmonary disease. 3. Lung disease. 4. Severe deconditioning. 5. Obesity. 6. Dementia. PLAN: At this stage continue TPN, supportive care, eventually placement. I will follow.
[2017-06-11] MEDS: Fluconazole In NaCl,Iso-Osm 100 MG, Admixture Fee 1 EACH in Premix Bag 1 BAG IVPB SCH ×2 (09:57→20:17)
[2017-06-11] MEDS: Clotrimazole 1 % Cream 30 GM TUBE TOP SCH ×2 (09:57→20:17)
[2017-06-11] MEDS: fentaNYL 50 mcg/hour Patch TD SCH (10:13)
[2017-06-11] MEDS: Morphine 4 MG/ML VIAL SLOW IVP PRN (13:35)
[2017-06-11] MEDS: [UNRECOGNIZED DRUG - OTHER] IV SCH ×10 (14:03)
[2017-06-11] MEDS: FAT EMULSION IV SCH ×10 (14:03)
[2017-06-11] MEDS: MULTIVITAMINS IV SCH ×10 (14:03)
[2017-06-11] MEDS: CALCIUM CHLORIDE IV SCH ×10 (14:03)
[2017-06-11] MEDS: Enoxaparin Sodium 40 MG/0.4 ML SYRINGE SC SCH (20:15)
[2017-06-11] MEDS: Sodium Chloride 0.45% 1,000 ML IV SCH (20:23)
--- NOTE | 2017-06-11 20:42 | PRG ---
DATE OF SERVICE: 06/11/2017 SUBJECTIVE: Tanisha Melissa is doing well today. She is up in a chair this evening. OBJECTIVE: VITAL SIGNS: Temperature, T-max 100 degrees, currently 99 degrees. Blood pressure is 147/61. LUNGS: Clear to auscultation. CARDIAC: Regular rate and rhythm without murmur. ABDOMEN: Soft, no bowel sounds. Gastric drainage is 950 mL over the past 24 hours. LABORATORY DATA: White count 9 and hemoglobin 7.7. Sodium 135, potassium 3.9, BUN 27, creatinine 0. 61, and magnesium 1.2. ASSESSMENT AND PLAN: 1. Enterocutaneous fistula. Continue NG tube, Sandostatin, TPN, await bowel function. 2. Open wound. View wound in the next dressing change on .
[2017-06-11] MEDS: HumaLOG 300 UNITS/3 ML VIAL SC PRN (21:51)
[2017-06-12 04:51] LABS: Anion Gap 10 mmol/L (10-20); BUN (Urea Nitrogen) 27 mg/dL (9.8-20.1); Calc. Creatinine Clearance 88 mL/min (70-130); Calcium 8.3 mg/dL (7.8-10.44); Carbon Dioxide 30 mmol/L (23-31); Chloride 100 mmol/L (98-107); Estimated GFR-MDRD Greater than 90; Glucose 78 mg/dL (83-110); Magnesium 1.1 mg/dL (1.6-2.6); Potassium 3.9 mmol/L (3.5-5.1); Sodium 136 mmol/L (136-145)
[2017-06-12] MEDS: Octreotide Acetate 100 MCG/ML VIAL SC SCH ×3 (05:30→21:02)
[2017-06-12] MEDS ORDERED: Magnesium 2 GM/NS 0.9% 100 ML 2 GM in Premix Bag 1 BAG IVPB SCH (08:15)
[2017-06-12] MEDS: Fluconazole In NaCl,Iso-Osm 100 MG, Admixture Fee 1 EACH in Premix Bag 1 BAG IVPB SCH ×2 (08:49→21:05)
--- NOTE | 2017-06-12 09:26 | PRG ---
DATE OF SERVICE: 06/12/2017 She denies any pain or discomfort. NG tube in place. Copious amounts of green drainage. PHYSICAL EXAMINATION: VITAL SIGNS: Sats 90% on room air, respiration 22. Blood pressure 122/74, temperature 100.2. CHEST: Chest revealed bilateral rhonchi and crackles. CARDIAC: Normal S1-S2. ABDOMEN: Soft, no masses. IMPRESSION: Status post lap. Initially bowel, status post enterocutaneous fistula. Open wound. PLAN: Antibiotics as per Surgery. TPN, supportive care. Pulmonary will follow.
[2017-06-12] MEDS: Clotrimazole 1 % Cream 30 GM TUBE TOP SCH ×2 (10:30→20:51)
[2017-06-12] MEDS: Magnesium 2 GM/NS 0.9% 100 ML 2 GM in Premix Bag 1 BAG IVPB PRN (10:31)
[2017-06-12] MEDS: Acetaminophen 500 MG TAB PO PRN (11:45)
--- NOTE | 2017-06-12 13:06 | PRG ---
DATE OF SERVICE: 06/12/2017 SUBJECTIVE: Tanisha Melissa is doing well today. OBJECTIVE: VITAL SIGNS: 100 degrees, 78, 22, 136/54. LUNGS: Clear to auscultation. CARDIAC: Regular rate and rhythm without murmur, rub, or gallop. ABDOMEN: Soft, nontender. Wound VAC in place to be viewed . EXTREMITIES: Unremarkable. LABORATORY DATA: No CBC today. Basic metabolic profile normal with potassium 3.9; magnesium 1.1, wh ich was replaced. Accu-Cheks 113-150. The patient is up in bed, into a chair. ASSESSMENT AND PLAN: The patient is doing well. Her Beltran catheter has been removed. Mobility is g ood. Heart rate has been under control. Plan to transfer to the surgery floor today.
[2017-06-12] MEDS: [UNRECOGNIZED DRUG - OTHER] IV SCH ×10 (14:37)
[2017-06-12] MEDS: MULTIVITAMINS IV SCH ×10 (14:37)
[2017-06-12] MEDS: CALCIUM CHLORIDE IV SCH ×10 (14:37)
[2017-06-12] MEDS: FAT EMULSION IV SCH ×10 (14:37)
[2017-06-12] MEDS: HumaLOG 300 UNITS/3 ML VIAL SC PRN (16:22)
[2017-06-12] MEDS: diphenhydrAMINE 50 MG/ML VIAL IM/IV PRN (19:25)
[2017-06-12] MEDS: Enoxaparin Sodium 40 MG/0.4 ML SYRINGE SC SCH (20:51)
--- NOTE | 2017-06-12 21:13 | RAD ---
PORTABLE CHEST: 06/12/17 HISTORY: Fever. COMPARISON: 06/05/17. FINDINGS/IMPRESSION: Question new patchy infiltrate in the right lung base. Heart size is upper normal. Mild vascular engo rgement is again noted. No other change from the 06/05/17 exam. POS: [facility]
[2017-06-13] MEDS: Acetaminophen 500 MG TAB PO PRN ×2 (03:26→23:48)
[2017-06-13] MEDS: Octreotide Acetate 100 MCG/ML VIAL SC SCH ×3 (05:54→20:43)
[2017-06-13] MEDS: Benzocaine 20% Spray 60 ML CAN PO PRN (06:58)
[2017-06-13] MEDS: Fluconazole In NaCl,Iso-Osm 100 MG, Admixture Fee 1 EACH in Premix Bag 1 BAG IVPB SCH ×2 (08:39→20:39)
[2017-06-13] MEDS: Clotrimazole 1 % Cream 30 GM TUBE TOP SCH ×2 (08:39→20:52)
--- NOTE | 2017-06-13 10:52 | PRG ---
DATE OF SERVICE: 06/13/2017 This morning NG tube in place, TPN on board. Denying any pain or discomfort. Denied any shortness o f breath. X-ray taken yesterday shows no acute infiltrates. Magnesium 1.4. PHYSICAL EXAMINATION: VITAL SIGNS: Sats 90% on room air, respiration 20, temperature 97, blood pressure is 120/66. CHEST: Chest reveals decreased breath sounds, no wheezing. CARDIAC: Normal S1, S2. ABDOMEN: Soft, no masses. IMPRESSION: 1. Chronic obstructive pulmonary disease, ILD stable. 2. Status post lap for small bowel ischemia, peritonitis. PLAN: Continue TPN, supportive care, PT. I will follow.
[2017-06-13] MEDS ORDERED: Magnesium Sulfate 3 GM in Sodium Chloride 0.9% 100 ML IVPB SCH ×3 (13:00→18:00)
--- NOTE | 2017-06-13 13:21 | PRG ---
DATE OF SERVICE: 06/13/2017 SUBJECTIVE: Tanisha Melissa is an 87-year-old female now transferred from [facility] to the surgical floor. The patient has NG tube in place. Chloraseptic spray has been ordered for p.r.n. use. PHYSICAL EXAMINATION: VITAL SIGNS: Temperature 99.2 degrees, 74, 94% room air, 120/66. Gastric output in the last 24 hour s not recorded. LUNGS: Clear to auscultation. CARDIAC: Regular rate and rhythm without murmur or gallop. ABDOMEN: Soft, no bowel sounds. VAC in place will be changed tomorrow (Mondays and ). EXTREMITIES: Unremarkable. LABORATORY DATA: Labs ordered for the morning, this morning magnesium is 1.4. She received a dose o f magnesium. We will give her another dose that she has been chronically low. ASSESSMENT AND PLAN: 1. Enterocutaneous fistula on Sandostatin, total parenteral nutrition and nasogastric tube. Continu e treatment. There is minimal enteric drainage. We will view her wound next week and could consider stopping the Sandostatin at that time, but need to continue total parenteral nutrition as there has been no bowel function. Previous Gastrografin swallow several days ago did not reveal transit into t he colon and she had 3.5 liters out of her nasogastric tube today. A 24 hours after this study, woul d not repeat that for now, continue supportive care. Consider, LTAC possibly in next week, pending c linical course. Continue physical therapy mobility for deconditioning. 2. Low magnesium, replaced. Dr. Galvan is covering over the next few days.
[2017-06-13] MEDS: CALCIUM CHLORIDE IV SCH ×10 (13:54)
[2017-06-13] MEDS: MULTIVITAMINS IV SCH ×10 (13:54)
[2017-06-13] MEDS: FAT EMULSION IV SCH ×10 (13:54)
[2017-06-13] MEDS: [UNRECOGNIZED DRUG - OTHER] IV SCH ×10 (13:54)
[2017-06-13] MEDS: HumaLOG 300 UNITS/3 ML VIAL SC PRN (17:57)
[2017-06-13] MEDS: Enoxaparin Sodium 40 MG/0.4 ML SYRINGE SC SCH (20:41)
[2017-06-14] MEDS: Octreotide Acetate 100 MCG/ML VIAL SC SCH ×3 (05:46→22:33)
[2017-06-14 06:13] LABS: Anion Gap 10 mmol/L (10-20); BUN (Urea Nitrogen) 27 mg/dL (9.8-20.1); Calc. Creatinine Clearance 90 mL/min (70-130); Calcium 8.3 mg/dL (7.8-10.44); Carbon Dioxide 28 mmol/L (23-31); Chloride 99 mmol/L (98-107); Estimated GFR-MDRD Greater than 90; Glucose 139 mg/dL (83-110); Magnesium 1.9 mg/dL (1.6-2.6); Potassium 3.8 mmol/L (3.5-5.1); Sodium 133 mmol/L (136-145)
[2017-06-14] MEDS: Acetaminophen 1,000 MG in Premix Bag 1 BAG IVPB PRN ×3 (06:20→22:40)
[2017-06-14 07:26] LABS: Band 5 % (5-11); Hemoglobin 7.4 g/dL (12.0-16.0); Lymphocytes 35 % (21-51); MDiff Complete? YES; Mean Corpuscular HGB CONC 32.7 g/dL (32.0-36.0); Mean Corpuscular Hemoglobin 31.8 pg (27.0-31.0); Mean Corpuscular Volume 97.1 fl (81.0-99.0); Mean Platelet Volume 8.2 fL (7.4-10.4); Monocytes 4 % (0-10); Myelocyte 2 % (0-0); Neutrophil 51 % (42-75); Platelet Count 372 thou/uL (130-400); Polychromasia MODERATE = 3-4 cells (100X) (0-2/hpf); RBC Distribution Width 15.6 % (11.5-14.5); Reactive Lymphocytes 2 % (0-10); Red Blood Cell (RBC) Count 2.34 mill/uL (4.20-5.40); Stomatocytes SLIGHT = 2-5 cells (100X) (0-1/hpf)
[2017-06-14] MEDS: Fluconazole In NaCl,Iso-Osm 100 MG, Admixture Fee 1 EACH in Premix Bag 1 BAG IVPB SCH ×2 (08:49→20:39)
[2017-06-14] MEDS: Clotrimazole 1 % Cream 30 GM TUBE TOP SCH ×2 (08:51→21:17)
--- NOTE | 2017-06-14 09:36 | PRG ---
DATE OF SERVICE: 06/14/2017 This morning is better. In no distress. NG tube in place. PHYSICAL EXAMINATION: VITAL SIGNS: Sats 90% on room air, respiration 20, temperature 99, blood pressure 146/72. CHEST: Chest reveals decreased breath sounds, no wheezing. CARDIAC: Normal S1, S2. LABORATORY: White count 12,000, H&H is 7 and 22. IMPRESSION: 1. Interstitial lung disease. 2. Chronic obstructive pulmonary disease. 3. Lap peritonitis. PLAN: TPN, supportive care. I will follow.
[2017-06-14] MEDS: fentaNYL 50 mcg/hour Patch TD SCH (09:49)
[2017-06-14] MEDS: HumaLOG 300 UNITS/3 ML VIAL SC PRN (12:23)
[2017-06-14] MEDS: Morphine 4 MG/ML VIAL SLOW IVP PRN (14:26)
[2017-06-14] MEDS: [UNRECOGNIZED DRUG - OTHER] IV SCH ×10 (14:28)
[2017-06-14] MEDS: FAT EMULSION IV SCH ×10 (14:28)
[2017-06-14] MEDS: MULTIVITAMINS IV SCH ×10 (14:28)
[2017-06-14] MEDS: CALCIUM CHLORIDE IV SCH ×10 (14:28)
--- NOTE | 2017-06-14 17:38 | PRG ---
DATE OF SERVICE: 06/14/2017 SUBJECTIVE: Ms. Melissa is postoperative day #29 from an exploratory laparotomy for small-bowel obstru ction. She subsequently developed an anastomotic leak resulting in an enterocutaneous fistula. This has been treated with wound care and a wound VAC. She has nasogastric tube, antibiotics, TPN. Toda y, she has no new complaints. OBJECTIVE: VITAL SIGNS: She is afebrile. Vital signs within normal limits. LUNGS: Clear to auscultation. HEART: Regular rate and rhythm. ABDOMEN: Has a wound VAC in place. Bowel sounds are scant if any. LABORATORY DATA: Her white blood cell count has gone up from 9.2 four days ago up to 12.0 today. He r hemoglobin remains low at 7.4. Her differential is unremarkable. Chemistries revealed minor elect rolyte abnormalities. ASSESSMENT AND PLAN: She appears to be stable with her chronic abdominal problems secondary to her r ecent surgery. She will continue on TPN and Sandostatin. She is currently getting Diflucan that jing ears to be her only antibiotic that she is on. Continue with current treatment with plan to reassess her abdominal wound this upcoming week.
[2017-06-14] MEDS: Enoxaparin Sodium 40 MG/0.4 ML SYRINGE SC SCH (20:39)
[2017-06-14] MEDS: Benzocaine 20% Spray 60 ML CAN PO PRN (20:39)
[2017-06-15] MEDS: Acetaminophen 1,000 MG in Premix Bag 1 BAG IVPB PRN (05:08)
[2017-06-15] MEDS: Octreotide Acetate 100 MCG/ML VIAL SC SCH ×3 (05:24→22:09)
[2017-06-15] MEDS: Fluconazole In NaCl,Iso-Osm 100 MG, Admixture Fee 1 EACH in Premix Bag 1 BAG IVPB SCH ×2 (09:31→21:29)
[2017-06-15] MEDS: Clotrimazole 1 % Cream 30 GM TUBE TOP SCH ×2 (09:33→21:29)
[2017-06-15] MEDS: FAT EMULSION IV SCH ×11 (14:58)
[2017-06-15] MEDS: [UNRECOGNIZED DRUG - OTHER] IV SCH ×11 (14:58)
[2017-06-15] MEDS: MULTITRACE IV SCH ×11 (14:58)
[2017-06-15] MEDS: MULTIVITAMINS IV SCH ×11 (14:58)
[2017-06-15] MEDS: Morphine 4 MG/ML VIAL SLOW IVP PRN (15:28)
--- NOTE | 2017-06-15 16:58 | PRG ---
DATE OF SERVICE: 06/15/2017 SUBJECTIVE: Ms. Melissa is postoperative day #30 from exploratory laparotomy for small-bowel obstructi on with subsequent anastomotic leak resulting in enterocutaneous fistula. She continues treatment wi th nasogastric tube, wound VAC and TPN. She has no new complaints, but voices frustration and wants a discussion of her options regarding fur ther care. She denies any significant pain, but has irritation with her nasogastric tube. PHYSICAL EXAMINATION: VITAL SIGNS: She is afebrile. Vital signs within normal limits. LUNGS: Clear to auscultation. ABDOMEN: Soft with VAC in place. She appears to have some very hypoactive bowel sounds. There is n o focal tenderness to palpation. LABORATORY DATA: There are no new labs today. ASSESSMENT AND PLAN: Patient with an enterocutaneous fistula following surgery for a small-bowel obs truction. She continues with conservative management. Continue with same care including Sandostatin until Dr. Cartagena returns to visit with her and her family on Sunday.
[2017-06-15] MEDS: Cepastat Lozenges 1 LOZ PO PRN (18:00)
[2017-06-15] MEDS: diphenhydrAMINE 50 MG/ML VIAL IM/IV PRN (21:29)
[2017-06-15] MEDS: Enoxaparin Sodium 40 MG/0.4 ML SYRINGE SC SCH (21:30)
[2017-06-16] MEDS: Morphine 4 MG/ML VIAL SLOW IVP PRN ×2 (06:26→17:52)
[2017-06-16] MEDS: Octreotide Acetate 100 MCG/ML VIAL SC SCH ×3 (06:26→21:10)
[2017-06-16] MEDS: hydrALAZINE 20 MG/ML VIAL SLOW IVP PRN (06:26)
[2017-06-16 07:22] LABS: Anion Gap 12 mmol/L (10-20); BUN (Urea Nitrogen) 21 mg/dL (9.8-20.1); Calc. Creatinine Clearance 93 mL/min (70-130); Calcium 8.4 mg/dL (7.8-10.44); Carbon Dioxide 27 mmol/L (23-31); Chloride 102 mmol/L (98-107); Estimated GFR-MDRD Greater than 90; Glucose 120 mg/dL (83-110); Magnesium 1.3 mg/dL (1.6-2.6); Potassium 3.7 mmol/L (3.5-5.1); Sodium 137 mmol/L (136-145)
[2017-06-16 07:55] LABS: Anisocytosis SLIGHT = 6-15 cells (100X) (0-5/hpf); Band 10 % (5-11); Eosinophils 1 % (0-10); Hemoglobin 7.4 g/dL (12.0-16.0); Lymphocytes 29 % (21-51); MDiff Complete? YES; Mean Corpuscular HGB CONC 31.3 g/dL (32.0-36.0); Mean Corpuscular Hemoglobin 30.5 pg (27.0-31.0); Mean Corpuscular Volume 97.4 fl (81.0-99.0); Mean Platelet Volume 8.3 fL (7.4-10.4); Metamyelocyte 1 % (0-0); Monocytes 7 % (0-10); Neutrophil 51 % (42-75); Platelet Count 367 thou/uL (130-400); Polychromasia SLIGHT = 2-3 cells (100X) (0-2/hpf); RBC Distribution Width 16.3 % (11.5-14.5); Red Blood Cell (RBC) Count 2.43 mill/uL (4.20-5.40); White Blood Cell (WBC) Count 12.5 thou/uL (4.8-10.8)
[2017-06-16] MEDS: Clotrimazole 1 % Cream 30 GM TUBE TOP SCH ×2 (09:02→21:39)
[2017-06-16] MEDS: Fluconazole In NaCl,Iso-Osm 100 MG, Admixture Fee 1 EACH in Premix Bag 1 BAG IVPB SCH ×2 (09:02→21:09)
[2017-06-16] MEDS: HumaLOG 300 UNITS/3 ML VIAL SC PRN (12:05)
[2017-06-16] MEDS: FAT EMULSION IV SCH ×11 (14:28)
[2017-06-16] MEDS: MULTITRACE IV SCH ×11 (14:28)
[2017-06-16] MEDS: [UNRECOGNIZED DRUG - OTHER] IV SCH ×11 (14:28)
[2017-06-16] MEDS: MULTIVITAMINS IV SCH ×11 (14:28)
[2017-06-16] MEDS: diphenhydrAMINE 50 MG/ML VIAL IM/IV PRN (21:09)
[2017-06-16] MEDS: Acetaminophen 500 MG TAB PO PRN (21:10)
[2017-06-16] MEDS: Enoxaparin Sodium 40 MG/0.4 ML SYRINGE SC SCH (21:10)
--- NOTE | 2017-06-16 23:44 | PRG ---
DATE OF SERVICE: 06/16/2017 SUBJECTIVE: Mrs. Melissa is postoperative day 31 from exploratory laparotomy for small-bowel obstructi on with subsequent anastomotic leak, resulting in enterocutaneous fistula. She has an NG tube and wo und VAC with TPN. This evening, she vocalized no complaints upon my evaluation. OBJECTIVE: VITAL SIGNS: Reviewed. Patient had a low-grade temperature yesterday evening and early this morning . I suspect this is secondary to atelectasis, as her current oxygen saturation is 94% on room air. LUNGS: Pulmonology is following her, as she has a history of COPD and interstitial lung disease. Br eathing is nonlabored. NG tube is in place. ABDOMEN: Soft, nontender, nondistended. Wound VAC is in place. EXTREMITIES: Moves all extremities x4. NEUROLOGIC: No focal deficit noted. LABORATORY FINDINGS: WBC 12.5, hemoglobin 7.4, hematocrit 23.7, platelet count 367. Sodium 137, pot assium 3.7, chloride 102, carbon dioxide 27, BUN 21, creatinine 0.56, glucose 120, magnesium 1.3, NG tube output 875 mL for 24 hours. ASSESSMENT AND PLAN: This is a patient with an enterocutaneous fistula, status post exploratory lapa rotomy for small-bowel obstruction. PLAN: Continue supportive care and conservative management as ordered. Continue wound care as order ed. Dr. Cartagena plans to visit with her and the family on Sunday regarding additional plans. Patient was discussed with Dr. Delgadillo.
[2017-06-17] MEDS: Octreotide Acetate 100 MCG/ML VIAL SC SCH ×3 (04:58→20:18)
[2017-06-17] MEDS: Sodium Chloride 0.45% 1,000 ML IV SCH (04:58)
[2017-06-17] MEDS: fentaNYL 50 mcg/hour Patch TD SCH (08:58)
[2017-06-17] MEDS: Clotrimazole 1 % Cream 30 GM TUBE TOP SCH ×2 (09:00→20:18)
[2017-06-17] MEDS: Morphine 4 MG/ML VIAL SLOW IVP PRN (12:01)
[2017-06-17] MEDS: MULTIVITAMINS IV SCH ×11 (14:36)
[2017-06-17] MEDS: [UNRECOGNIZED DRUG - OTHER] IV SCH ×11 (14:36)
[2017-06-17] MEDS: FAT EMULSION IV SCH ×11 (14:36)
[2017-06-17] MEDS: MULTITRACE IV SCH ×11 (14:36)
[2017-06-17] MEDS: cloNIDine 0.3mg/24 Hour PATCH TD SCH (14:37)
--- NOTE | 2017-06-17 18:10 | PRG ---
DATE OF SERVICE: 06/17/2017 SUBJECTIVE: Ms. Melissa is postoperative day 32 from exploratory laparotomy for small-bowel obstruction with subsequent anastomotic leak resulting in enterocutaneous fistula. She has a NG tube and wound VAC with nutrition via TPN. She has remained stable on the surgical floor with pain well controlled. OBJECTIVE: VITAL SIGNS: Temperature 98.8, pulse 79, blood pressure 181/74, respirations 18 , O2 sat 97%. CONSTITUTIONAL: Elderly female sitting up in chair in no acute distress, expresses no pain. PULMONARY: Respirations even, unlabored. No respiratory distress. ABDOMEN: Soft, nontender, nondistended. Wound VAC in place to midline abdomen , functioning normally. EXTREMITIES: Moves all extremities. Cap refill brisk. NEUROLOGIC: GCS 15. Alert and oriented x3. ASSESSMENT: 1. Status post exploratory laparotomy. 2. Enterocutaneous fistula. 3. Negative pressure wound therapy, VAC in place, functioning normally. Wound care ostomy nurse following. PLAN: 1. Continue antihypertensives as ordered. 2. Continue wound VAC therapy. 3. Will continue Sandostatin [address] Cartagena to see the patient tomorrow and discuss with the patient and family additional recommendation and plan. The patient was seen and examined with Dr. Delgadillo who agrees with the plan. GREGORIO
[2017-06-17] MEDS: Enoxaparin Sodium 40 MG/0.4 ML SYRINGE SC SCH (20:17)
[2017-06-17] MEDS: diphenhydrAMINE 50 MG/ML VIAL IM/IV PRN (20:18)
[2017-06-18] MEDS: Morphine 4 MG/ML VIAL SLOW IVP PRN ×3 (03:03→19:37)
[2017-06-18] MEDS: Octreotide Acetate 100 MCG/ML VIAL SC SCH ×3 (05:33→21:25)
[2017-06-18] MEDS ORDERED: Magnesium Sulfate 3 GM in Sodium Chloride 0.9% 100 ML IVPB SCH (07:45)
[2017-06-18] MEDS: Clotrimazole 1 % Cream 30 GM TUBE TOP SCH ×2 (09:01→21:27)
--- NOTE | 2017-06-18 13:45 | PRG ---
DATE OF SERVICE: 06/18/2017 SUBJECTIVE: Tanisha Melissa is doing well today. She is on the surgical floor and has done well ov er the weekend. Today is Sunday. PHYSICAL EXAMINATION: VITAL SIGNS: Temperature 99.2 degrees, 82, 150/63. LUNGS: Clear to auscultation. CARDIAC: Regular rate and rhythm without murmur or gallop. ABDOMEN: Soft, bowel sounds active. Wound granulating superiorly and near closed inferiorly. The w ound is granulating. Once the wound VAC is removed, there is a foul odor, but there is no enteric co ntents appreciated. In the wound VAC, there is minimal drainage. Depths of the wound revealed visib le fascia and there is a defect, but no herniation. LABORATORY DATA: Last laboratory data were two days ago and were more normal. Hemoglobin stable at 7.4, magnesium yesterday 1.3. ASSESSMENT AND PLAN: 1. Enterocutaneous fistula appears to have resolved. There is still no evidence of bowel function. She has not passed flatus or stool. We will obtain abdominal x-rays today, plain films. Continue N G tube suction. NG tube suction last 24 hours has only been 300 mL and she continues to tolerate NG tube presence well. In the last two days, she has had 525 mL out. NG tube 24 hours past and prior t o that 500 mL. 2. Low magnesium. Continue to replace. Recheck labs in the morning. 3. Deconditioning. The patient is much better. She has walked 85 feet today with physical therapy and seems to have turned the corner and gained great amount of strength.
--- NOTE | 2017-06-18 13:59 | RAD ---
ONE VIEW CHEST TWO VIEWS ABDOMEN: HISTORY: Followup postop fistula/ileus. COMPARISON: 06/05/17. FINDINGS: PORTABLE SINGLE VIEW CHEST: There is evidence of right-sided PICC line with the distal tip projecting over the superior vena cava . There is atherosclerosis of the aorta. Nasogastric tube extends beyond the diaphragm. Normal car diac silhouette. The pulmonary vessels are slightly prominent. Patchy interstitial opacities. No m asses or consolidation. No pneumothorax. There is diffuse bone demineralization. ABDOMEN 2 VIEWS: Nasogastric tube terminates in the epigastric region. No evidence of bowel distention or dilatation. There is fecal material in the right hemicolon. No pneumoperitoneum. No differential air fluid le vels. Skin kai and surgical clips are noted. Nonspecific nondistended air-fluid loops of small bowel in the left hemiabdomen. IMPRESSION: 1. Nonspecific bowel gas pattern. 2. No acute cardiopulmonary process. POS: [facility]
[2017-06-18] MEDS: MULTIVITAMINS IV SCH ×11 (14:37)
[2017-06-18] MEDS: MULTITRACE IV SCH ×11 (14:37)
[2017-06-18] MEDS: FAT EMULSION IV SCH ×11 (14:37)
[2017-06-18] MEDS: [UNRECOGNIZED DRUG - OTHER] IV SCH ×11 (14:37)
[2017-06-18] MEDS: Cepastat Lozenges 1 LOZ PO PRN (16:23)
[2017-06-18] MEDS: Enoxaparin Sodium 40 MG/0.4 ML SYRINGE SC SCH (21:23)
[2017-06-18] MEDS: diphenhydrAMINE 50 MG/ML VIAL IM/IV PRN (21:24)
[2017-06-19] MEDS: Octreotide Acetate 100 MCG/ML VIAL SC SCH ×3 (05:20→22:09)
[2017-06-19 05:54] LABS: #Basophils 0.1 thou/uL (0.0-0.2); #Lymphocytes 5.1 thou/uL (1.20-3.40); #Neutrophils 6.4 thou/uL (1.40-6.50); %Basophils 0.5 % (0.0-1.0); %Eosinophils 0.4 % (0.0-10.0); %Lymphocytes 40.6 % (21.0-51.0); %Monocytes 7.7 % (0.0-10.0); %Neutrophils 50.8 % (42.0-75.0); Hemoglobin 7.5 g/dL (12.0-16.0); Mean Corpuscular HGB CONC 31.6 g/dL (32.0-36.0); Mean Corpuscular Hemoglobin 30.7 pg (27.0-31.0); Mean Corpuscular Volume 97.4 fl (81.0-99.0); Mean Platelet Volume 7.8 fL (7.4-10.4); Platelet Count 452 thou/uL (130-400); Red Blood Cell (RBC) Count 2.45 mill/uL (4.20-5.40); White Blood Cell (WBC) Count 12.6 thou/uL (4.8-10.8)
[2017-06-19 06:09] LABS: ALT (SGPT) 33 U/L (8-55); AST (SGOT) 52 U/L (5-34); Albumin 2.1 g/dL (3.4-4.8); Alkaline Phosphatase 254 U/L (40-150); Anion Gap 7 mmol/L (10-20); BUN (Urea Nitrogen) 21 mg/dL (9.8-20.1); Bilirubin, Total 0.3 mg/dL (0.2-1.2); Calc. Creatinine Clearance 91 mL/min (70-130); Calcium 8.4 mg/dL (7.8-10.44); Carbon Dioxide 30 mmol/L (23-31); Chloride 99 mmol/L (98-107); Estimated GFR-MDRD Greater than 90; Globulin 5.2 g/dL (2.4-3.5); Glucose 89 mg/dL (83-110); Magnesium 1.4 mg/dL (1.6-2.6); Phosphorus 2.1 mg/dL (2.3-4.7); Potassium 3.4 mmol/L (3.5-5.1); Protein, Total 7.3 g/dL (6.0-8.3); Sodium 133 mmol/L (136-145)
[2017-06-19] MEDS: Clotrimazole 1 % Cream 30 GM TUBE TOP SCH ×2 (08:30→22:05)
[2017-06-19] MEDS ORDERED: Magnesium Sulfate 4 GM in Sodium Chloride 0.9% 250 ML 250 ML IVPB SCH (10:30)
[2017-06-19] MEDS ORDERED: Potassium Chloride 40 MEQ in Premix Bag 1 BAG IVPB SCH (10:30)
[2017-06-19] MEDS: Morphine 4 MG/ML VIAL SLOW IVP PRN ×2 (11:40→17:06)
[2017-06-19] MEDS: MULTIVITAMINS IV SCH ×11 (14:36)
[2017-06-19] MEDS: MULTITRACE IV SCH ×11 (14:36)
[2017-06-19] MEDS: FAT EMULSION IV SCH ×11 (14:36)
[2017-06-19] MEDS: [UNRECOGNIZED DRUG - OTHER] IV SCH ×11 (14:36)
--- NOTE | 2017-06-19 16:41 | RAD ---
LUMBAR SPINE TWO VIEW: 06/19/17 HISTORY: Back pain. COMPARISON: Radiograph from 2006. FINDINGS: The exam is limited as the exam to be performed on cross-table lateral views. There is no acute displ aced fracture or malalignment of the lumbar spine. Enteric tube tip is at the gastric antrum. There are surgical clips projecting over the pelvis. No dilated air fluid loops of the large or small bowel. There is anterolisthesis of L4 over L5 of approximately 7 mm. Extensive vascular calcification of the aorta. IMPRESSION: Grade 1 L4 over L5 anterolisthesis likely sequela of chronic facet arthropathy. No acute fracture or malalignment is appreciated. POS: [facility]
--- NOTE | 2017-06-19 18:06 | PRG ---
DATE OF SERVICE: 06/19/2017 SUBJECTIVE: Tanisha Melissa is doing well today. NG tube output 500 mL. OBJECTIVE: LUNGS: Clear to auscultation. CARDIAC: Regular rate and rhythm without murmur or gallop. ABDOMEN: Soft. Bowel sounds present, no bowel movements. No flatus today. LABORATORY DATA: Her hemoglobin is 7.5, white count 12.6. Basic metabolic profile: Sodium 133, pot assium 3.4, creatinine 0.57, BUN 21, magnesium is still low at 1.4, phosphorus 2.1. ASSESSMENT AND PLAN: Prolonged ileus versus bowel obstruction. Yesterday's x-rays reveal gas in the colon, some stool in the right colon. NG tube output still remains 300-500 mL per 24 hours. I have talked to the family and we have explored options of LTAC versus hospice versus continued care. The y will discuss matters. If we are to do inpatient, she would need a PEG tube for gravity drainage to prevent problems. Tonight, we will clamp her NG tube to see how she fares overnight with this clamp ed. We will make further recommendations on his progress. Consideration for repeating small bowel f ollow-through could be given. Magnesium replacement, potassium replacement, phosphorus replacement.
--- NOTE | 2017-06-19 20:09 | EKG ---
Test Reason : Blood Pressure : / mmHG Vent. Rate : 083 BPM Atrial Rate : 083 BPM P-R Int : 154 ms QRS Dur : 082 ms QT Int : 376 ms P-R-T Axes : 036 012 035 degrees QTc Int : 441 ms Normal sinus rhythm Normal ECG When compared with ECG of 15-MAY-2017 19:52, No significant change was found Confirmed by NABILA BAUER ([id number]) on 06/19/2017 8:09:13 PM Referred By: CALIN Confirmed By:NABILA BAUER
[2017-06-19] MEDS: Enoxaparin Sodium 40 MG/0.4 ML SYRINGE SC SCH (22:04)
[2017-06-19] MEDS: diphenhydrAMINE 50 MG/ML VIAL IM/IV PRN (22:04)
[2017-06-20] MEDS: Sodium Chloride 0.45% 1,000 ML IV SCH (04:32)
[2017-06-20] MEDS: Octreotide Acetate 100 MCG/ML VIAL SC SCH ×3 (04:33→22:57)
[2017-06-20] MEDS ORDERED: Magnesium Sulfate 3 GM in Sodium Chloride 0.9% 100 ML IVPB SCH (08:00)
[2017-06-20] MEDS: Morphine 4 MG/ML VIAL SLOW IVP PRN (08:44)
[2017-06-20] MEDS: Clotrimazole 1 % Cream 30 GM TUBE TOP SCH ×2 (08:49→22:57)
--- NOTE | 2017-06-20 09:14 | ADD-PRG ---
DATE OF SERVICE: 06/19/2017 ADDENDUM SUBJECTIVE: Ms. Melissa fell out of bed last night. She has chronic low back pain and is on a fentany l patch for that. She complains of increased low back pain since sliding out of bed last night. She did not lose consciousness. There is no radiation of the pain. There is no radiculopathy. She is symmetrically strong and neurologically intact. We will obtain a 3-view lumbar x-rays as a baseline and see how she fares overnight.
[2017-06-20] MEDS ORDERED: MD-Gastroview 120 ML BOT ONE (09:38)
[2017-06-20] MEDS: Ondansetron HCl/PF 4 MG/2 ML Vial IVP PRN (12:28)
[2017-06-20] MEDS: fentaNYL 50 mcg/hour Patch TD SCH (12:29)
[2017-06-20] MEDS: [UNRECOGNIZED DRUG - OTHER] IV SCH ×11 (14:04)
[2017-06-20] MEDS: FAT EMULSION IV SCH ×11 (14:04)
[2017-06-20] MEDS: MULTIVITAMINS IV SCH ×11 (14:04)
[2017-06-20] MEDS: MULTITRACE IV SCH ×11 (14:04)
--- NOTE | 2017-06-20 15:52 | PRG ---
DATE OF SERVICE: 06/20/2017 SUBJECTIVE: Tanisha Melissa is doing well today. OBJECTIVE: VITAL SIGNS: 100.1 degrees T-max, 99.5 degrees, heart rate 85, respiration rate 18, blood pressure 1 05/84. LUNGS: Clear to auscultation. CARDIAC: Regular rate and rhythm without murmur. ABDOMEN: Soft, nondistended, nontender. Occasional bowel sounds heard. LABORATORY DATA: Not performed this morning. Accu-Cheks 140-150. Magnesium parenteral given today for chronically low magnesium. Recheck tomorrow. NG tube residual after 12-hours clamp 100 mL. No nausea or vomiting. Small bowel follow-through ordered and contrast progressing over the 2-1/2 hour film and she is tolerating this NG tube clamp with oral contrast well. This is contrary to 2 weeks a go when she had nausea, vomiting, and no progression of contrast. ASSESSMENT AND PLAN: 1. Resolving ileus, possible postoperative bowel obstruction. Hopefully, resolving, some flatus las t night and has a smear of stool when she changed her diaper yesterday. Continue small bowel follow- through, await results. 2. Low magnesium. Recheck tomorrow. 3. Malnutrition. Continue TPN and NG tube. Hopefully, can remove the NG tube later today or tomorr ow.
--- NOTE | 2017-06-20 22:22 | RAD ---
SMALL BOWEL SERIES: 06/20/17 HISTORY: 87-year-old female with abdominal pain and diagnosis of "small bowel obstruction." TECHNIQUE: Exposure Machine Operator view obtained at 9:57 a.m. Gastrografin injected through NG tube. Serial images obtained immedi ately, and at 1.5 hours, 2.5 hours, 6.5 hours, and 9.5 hours. FINDINGS: On the merchant miller view, there is a large amount of stool in the right hemicolon. The bowel gas pattern is nonobstructive, with gas in nondilated transverse colon and in hepatic and splenic flexures, but no e vidence of air filled dilated small bowel loops. The contrast distends the stomach and travels throug h multiple small bowel loops. The jejunal loops are at least mildly dilated. Contrast then reaches th e right hemicolon, mixing with the large amount of feces in that location, on the 9.5 hour image stud y. As of that last image, the contrast has not reached the transverse or descending colon. IMPRESSION: 1. No evidence of high grade small bowel obstruction. 2. Constipation POS: [facility]
[2017-06-20] MEDS: Enoxaparin Sodium 40 MG/0.4 ML SYRINGE SC SCH (22:56)
[2017-06-21] MEDS: HumaLOG 300 UNITS/3 ML VIAL SC PRN (01:03)
[2017-06-21] MEDS: Morphine 4 MG/ML VIAL SLOW IVP PRN ×3 (03:34→21:06)
[2017-06-21 04:54] LABS: #Eosinphils 0.1 thou/uL (0.0-0.7); #Lymphocytes 4.9 thou/uL (1.20-3.40); #Monocytes 1.4 thou/uL (0.11-0.59); #Neutrophils 6.9 thou/uL (1.40-6.50); %Basophils 0.1 % (0.0-1.0); %Eosinophils 0.8 % (0.0-10.0); %Lymphocytes 37.2 % (21.0-51.0); %Monocytes 10.3 % (0.0-10.0); %Neutrophils 51.7 % (42.0-75.0); Hemoglobin 7.1 g/dL (12.0-16.0); Mean Corpuscular HGB CONC 31.4 g/dL (32.0-36.0); Mean Corpuscular Volume 95.5 fl (81.0-99.0); Mean Platelet Volume 7.4 fL (7.4-10.4); Platelet Count 483 thou/uL (130-400); Red Blood Cell (RBC) Count 2.36 mill/uL (4.20-5.40); White Blood Cell (WBC) Count 13.3 thou/uL (4.8-10.8)
[2017-06-21 05:11] LABS: ALT (SGPT) 25 U/L (8-55); AST (SGOT) 36 U/L (5-34); Albumin 2.1 g/dL (3.4-4.8); Alkaline Phosphatase 208 U/L (40-150); Anion Gap 10 mmol/L (10-20); BUN (Urea Nitrogen) 28 mg/dL (9.8-20.1); Bilirubin, Total 0.3 mg/dL (0.2-1.2); Calc. Creatinine Clearance 82 mL/min (70-130); Calcium 8.7 mg/dL (7.8-10.44); Carbon Dioxide 33 mmol/L (23-31); Chloride 100 mmol/L (98-107); Estimated GFR-MDRD Greater than 90; Globulin 5.5 g/dL (2.4-3.5); Glucose 108 mg/dL (83-110); Magnesium 1.9 mg/dL (1.6-2.6); Potassium 3.6 mmol/L (3.5-5.1); Protein, Total 7.6 g/dL (6.0-8.3); Sodium 139 mmol/L (136-145)
[2017-06-21] MEDS: Octreotide Acetate 100 MCG/ML VIAL SC SCH ×3 (06:22→21:04)
--- NOTE | 2017-06-21 09:09 | RAD ---
ABDOMEN 1 VIEW: Date: 06/21/17 HISTORY: Follow-up small bowel follow-through. COMPARISON: Small bowel follow-through yesterday. FINDINGS: There is some contrast throughout the ascending and transverse colon, as well as the distal small bow el. Surgical clips are present in the abdomen. There is an air-filled distended loop of sigmoid colon . IMPRESSION: Ingested contrast now within the large bowel. No evidence of small bowel obstruction. POS: OFF
[2017-06-21] MEDS: Clotrimazole 1 % Cream 30 GM TUBE TOP SCH ×2 (10:51→23:02)
[2017-06-21] MEDS: [UNRECOGNIZED DRUG - OTHER] IV SCH ×11 (15:17)
[2017-06-21] MEDS: MULTIVITAMINS IV SCH ×11 (15:17)
[2017-06-21] MEDS: TRACE ELEMENT IV SCH ×11 (15:17)
[2017-06-21] MEDS: FAT EMULSION IV SCH ×11 (15:17)
[2017-06-21] MEDS: Sodium Chloride 0.45% 1,000 ML IV SCH (15:21)
[2017-06-21] MEDS: Acetaminophen 500 MG TAB PO PRN (18:12)
[2017-06-21] MEDS: Enoxaparin Sodium 40 MG/0.4 ML SYRINGE SC SCH (21:03)
[2017-06-21] MEDS: diphenhydrAMINE 50 MG/ML VIAL IM/IV PRN (23:53)
[2017-06-22] MEDS: Morphine 4 MG/ML VIAL SLOW IVP PRN ×3 (04:16→18:37)
[2017-06-22] MEDS: Octreotide Acetate 100 MCG/ML VIAL SC SCH (05:54)
[2017-06-22] MEDS ORDERED: Lidocaine 1% PF 5 ML VIAL ONE (06:57)
[2017-06-22] MEDS ORDERED: Propofol 200 MG/20 ML VIAL ONE (06:57)
[2017-06-22] MEDS: hydrALAZINE 20 MG/ML VIAL SLOW IVP PRN (08:28)
[2017-06-22] MEDS: Clotrimazole 1 % Cream 30 GM TUBE TOP SCH ×2 (08:35→21:30)
--- NOTE | 2017-06-22 08:50 | PRG ---
DATE OF SERVICE: 06/21/2017 SUBJECTIVE: Tanisha Melissa had her NG tube clamped yesterday for small bowel follow-through. She did not have progression of contrast in her colon; however, later in the study, she developed nausea and vomiting and NG tube placed back to suction. She has had more than 1000 mL output. Patient had isidro sis, has been passing flatus, but not yet had a bowel movement, but I was seen her gastric drainage 2 4 hours prior to this morning 2049. LABORATORY DATA: White count 13, hemoglobin 7.1. Basic metabolic profile unremarkable. BUN 28. Cr eatinine 0.63, Potassium 3.6, magnesium 1.9. OBJECTIVE: LUNGS: Clear to auscultation. CARDIAC: Regular rate and rhythm without rub murmur or gallop. ABDOMEN: Soft. Occasional bowel sounds, flatus present. No stool today, although she feels like ne ed to have a bowel movement. ASSESSMENT AND PLAN: Partial bowel obstruction, it is encouraging the contrast has passed to her col on. It is encouraging that she tolerated the contrast with her NG tube clamped for a longer period t aguilar she did two weeks ago. She, however, has experienced nausea and vomiting, she is not ready to ea t. I have talked to the family regarding the necessity of the tube and at this point she is not read y to start eating. Her bowels are improved, but they have not opened up enough to allow eating, we w ould continue TPN. Could discontinue the Sandostatin. Continue wound care, wound VAC. Wound is gra nulating. There is a foul odor to the lower wound, but there is no enteric drainage. I have talked to the family regarding the NG tube. She is getting very tired of this and has been several weeks si nce her operation. We will plan placement of a PEG tube to gravity drainage and minimize input and g sukhwinder her some time, I have talked to the family. The patient placed management regarding disposition options include LTACH. Continue TPN and G-tube to gravity drainage. The family understands there is a slight possibility that she may need another type of tube if this gastrostomy tube does not provid e adequate drainage. Options include going to LTACH versus home with TPN, NG tube to gravity drainag e and waiting. Other option is hospice. I do not think the family is ready to go to the hospice dir ection. She is DNR.
[2017-06-22] MEDS: Acetaminophen 1,000 MG in Premix Bag 1 BAG IVPB PRN ×2 (09:29→16:08)
--- NOTE | 2017-06-22 09:47 | RAD ---
CHEST ONE VIEW: HISTORY: An 87-year-old female with a history of fever. COMPARISON: 06/18/2017 FINDINGS: NG tube and right PICC lines are in place. Bilateral vascular congestion with minimal increased line ar and interstitial changes bilaterally, evidence for old granulomatous disease. Biapical pleural th ickening. No confluent pneumonia, overt edema, or pleural effusion. IMPRESSION: Overall stable vascular congestion. No confluent pneumonia. POS: OFF
--- NOTE | 2017-06-22 10:15 | RAD ---
LEFT FOOT THREE VIEWS: HISTORY: An 87-year-old female with a history of left foot pain. FINDINGS: Generalized soft tissue swelling. Arthrosis changes, particularly of the first metatarsophalangeal j oint with associated hallux valgus deformity, evidence for small Achilles and plantar calcaneal enthe sophytes. IMPRESSION: 1. Minimal soft tissue swelling. 2. Generalized degenerative changes. 3. No acute fracture or dislocation. 4. Progressive bone demineralization, degenerative change, and osteoarthrosis from 05/03/2012. POS: OFF
[2017-06-22] MEDS ORDERED: Levofloxacin 500 mg/D5W 100 ml Premix Bag ONE (11:29)
[2017-06-22] MEDS ORDERED: Lidocaine 1% (PF) 30 ML VIAL ONE (11:52)
[2017-06-22] MEDS ORDERED: Piperacillin/Tazobactam 3.375 GM in Sodium Chloride 0.9% 100 ML IVPB SCH (12:00)
[2017-06-22] MEDS ORDERED: Fentanyl 100 MCG/2 ML VIAL ONE (13:21)
[2017-06-22] MEDS ORDERED: Morphine Sulfate 2 MG/ML SYRINGE SLOW IVP PRN (13:31)
[2017-06-22] MEDS ORDERED: Ondansetron HCl/PF 4 MG/2 ML Vial IVP PRN (13:31)
[2017-06-22] MEDS ORDERED: Promethazine HCl 25 MG/ML VIAL IM PRN (13:31)
[2017-06-22] MEDS ORDERED: Promethazine HCl 25 MG/ML VIAL SLOW IVP PRN (13:31)
[2017-06-22] MEDS: FAT EMULSION IV SCH ×11 (14:08)
[2017-06-22] MEDS: MULTIVITAMINS IV SCH ×11 (14:08)
[2017-06-22] MEDS: TRACE ELEMENT IV SCH ×11 (14:08)
[2017-06-22] MEDS: [UNRECOGNIZED DRUG - OTHER] IV SCH ×11 (14:08)
[2017-06-22] MEDS: fentaNYL 50 mcg/hour Patch TD SCH (16:49)
--- NOTE | 2017-06-22 17:25 | PRG ---
DATE OF SERVICE: 06/22/2017 SUBJECTIVE: Ms. Melissa is doing well today. She had a PEG tube today palliative to get rid of her NG tube. She does have contrast in her colon from recent small bowel follow through. Although she did not tolerate the small bowel follow through. She had copious vomiting around the tube and had to pl tres back to suction. Delayed films reveal contrast in the colon, contrast to pass small bowel follow through. It seems that her ileus is resolving and she probably has a partial bowel obstruction. Tan hong is not ready to start feeding. She still is in the need of TPN. 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 We will stop her Sandostatin. We wi ll continue her TPN and relatively n.p.o. status. The PEG tube will be placed to gravity. Patient fell out of bed, and sprained her left ankle x-rays reveal absence of any fracture, splint, o r walking boot will be ordered to improve her mobility 99.9 degrees, 98, 146/74. No labs today. NG tube output 900 mL past 24 hours, but only about 100 mL in the last 6 hours. PHYSICAL EXAMINATION: LUNGS: Clear to auscultation. CARDIAC: Regular rate and rhythm without murmur or gallop. ABDOMEN: Soft. Wound VAC in place. Bowel sounds present. She is passing flatus. There has been n o significant stool. ASSESSMENT AND PLAN: 1. Enterocutaneous fistula. Apparently closed. We will discontinue Sandostatin. 2. Resolving ileus, partial bowel obstruction. It is encouraging her small bowel follow through. S he has a contrast in her colon. We would continue her TPN. Remove the NG tube and place a PEG tube to drainage. She can have ice chips. We would not advance her diet until more definitive bowel func tion, I have informed the family that she may need an NG tube. The G-tube sometimes does not provide adequate drainage, but in her case it might and maybe we could have keep the NG tube out, which she has had so long. 3. Ankle fracture, splint, and walking boot. 4. DNR status. I have talked to the family about options. We have talked about going to an LTAC. Apparently, she has a brother in [place] to provide family support. We would continue TPN through he r PICC line and await bowel function. Other option of course would be home care with TPN and home th erapy and home health nursing. manager intranet is talking to the patient and the family regarding optio ns. Dr. Parra covering the next few days.
[2017-06-22] MEDS: HumaLOG 300 UNITS/3 ML VIAL SC PRN (18:20)
[2017-06-22] MEDS: Enoxaparin Sodium 40 MG/0.4 ML SYRINGE SC SCH (21:30)
[2017-06-22] MEDS: diphenhydrAMINE 50 MG/ML VIAL IM/IV PRN (22:33)
[2017-06-22] MEDS: Ondansetron HCl/PF 4 MG/2 ML Vial IVP PRN (22:33)
--- NOTE | 2017-06-22 23:37 | OP ---
DATE OF PROCEDURE: 06/22/2017 PREOPERATIVE DIAGNOSES: Postoperative prolonged ileus and partial bowel obstruction, malnutrition, p rolonged NG tube and need to get rid of. POSTOPERATIVE DIAGNOSES: Postoperative prolonged ileus and partial bowel obstruction, malnutrition, prolonged NG tube and need to get rid of. Of note, the patient had a small bowel follow through recently and she initially tolerated but began vomiting, copiously has had more than 2 liters out in the next 24 hours. She did not have a bowel mo vement; however, x-ray suggested contrast to be in the colon and a complete bowel obstruction was not present. Enterocutaneous fistula is resolving with TPN and bowel rest, and there has been no enteri c drainage out of the open abdominal wound. SURGEON: Dr. Armando Cartagena. ANESTHESIA: TIVA. Local 1% Xylocaine. PROCEDURE IN DETAIL: The patient's bedside in the operating room under intravenous sedation, endosco pe placed per os under direct visualization, passed throughout the esophagus and the stomach, which w as insufflated. A good indentation noted left subcostal medially. Local anesthetic infiltrated into skin and subcutaneous tissue after ChloraPrep and stab incision made, and trocar catheter induced pe rcutaneously within the gastric lumen visualized endoscopically, placing the wire and grasping the wi re with a snare, bringing the endoscope and wire out through the mouth. Wire connected to the feedin g tube device, which was lubricated and pulled back down through the mouth and the esophagus into the stomach and brought out and fixated to the abdominal wall with a fixation device over antibiotic oin tment and 2x2's. Tube tailored to length and connected to a Beltran catheter bag for gravity drainage. The patient tolerated the procedure well.
[2017-06-23 05:01] LABS: #Lymphocytes 5.1 thou/uL (1.20-3.40); #Monocytes 1.2 thou/uL (0.11-0.59); #Neutrophils 10.5 thou/uL (1.40-6.50); %Basophils 0.1 % (0.0-1.0); %Eosinophils 0.3 % (0.0-10.0); %Lymphocytes 30.2 % (21.0-51.0); %Monocytes 7.2 % (0.0-10.0); %Neutrophils 62.1 % (42.0-75.0); Hemoglobin 7.7 g/dL (12.0-16.0); Mean Corpuscular HGB CONC 32.5 g/dL (32.0-36.0); Mean Corpuscular Hemoglobin 31.8 pg (27.0-31.0); Mean Corpuscular Volume 97.7 fl (81.0-99.0); Mean Platelet Volume 7.6 fL (7.4-10.4); Platelet Count 496 thou/uL (130-400); RBC Distribution Width 15.4 % (11.5-14.5); White Blood Cell (WBC) Count 16.9 thou/uL (4.8-10.8)
[2017-06-23 05:12] LABS: ALT (SGPT) 45 U/L (8-55); AST (SGOT) 58 U/L (5-34); Albumin 2.1 g/dL (3.4-4.8); Alkaline Phosphatase 211 U/L (40-150); Anion Gap 11 mmol/L (10-20); BUN (Urea Nitrogen) 29 mg/dL (9.8-20.1); Bilirubin, Total 0.6 mg/dL (0.2-1.2); Calc. Creatinine Clearance 76 mL/min (70-130); Calcium 8.8 mg/dL (7.8-10.44); Carbon Dioxide 32 mmol/L (23-31); Chloride 95 mmol/L (98-107); Estimated GFR-MDRD Greater than 90; Globulin 5.8 g/dL (2.4-3.5); Glucose 180 mg/dL (83-110); Magnesium 1.4 mg/dL (1.6-2.6); Potassium 3.8 mmol/L (3.5-5.1); Protein, Total 7.9 g/dL (6.0-8.3); Sodium 134 mmol/L (136-145)
[2017-06-23] MEDS: Acetaminophen 1,000 MG in Premix Bag 1 BAG IVPB PRN (05:31)
[2017-06-23] MEDS: Morphine 4 MG/ML VIAL SLOW IVP PRN (05:31)
[2017-06-23] MEDS: Clotrimazole 1 % Cream 30 GM TUBE TOP SCH ×2 (09:00→20:24)
[2017-06-23] MEDS: MULTIVITAMINS IV SCH ×11 (14:36)
[2017-06-23] MEDS: TRACE ELEMENT IV SCH ×11 (14:36)
[2017-06-23] MEDS: FAT EMULSION IV SCH ×11 (14:36)
[2017-06-23] MEDS: [UNRECOGNIZED DRUG - OTHER] IV SCH ×11 (14:36)
[2017-06-23] MEDS: HumaLOG 300 UNITS/3 ML VIAL SC PRN (18:39)
[2017-06-23] MEDS: Enoxaparin Sodium 40 MG/0.4 ML SYRINGE SC SCH (20:24)
[2017-06-23] MEDS: diphenhydrAMINE 50 MG/ML VIAL IM/IV PRN (20:24)
[2017-06-24] MEDS: Morphine 4 MG/ML VIAL SLOW IVP PRN ×3 (01:01→21:01)
[2017-06-24] MEDS: Clotrimazole 1 % Cream 30 GM TUBE TOP SCH ×2 (10:11→20:49)
[2017-06-24] MEDS: HumaLOG 300 UNITS/3 ML VIAL SC PRN ×2 (13:16→19:29)
[2017-06-24] MEDS: FAT EMULSION IV SCH ×11 (14:30)
[2017-06-24] MEDS: [UNRECOGNIZED DRUG - OTHER] IV SCH ×11 (14:30)
[2017-06-24] MEDS: MULTIVITAMINS IV SCH ×11 (14:30)
[2017-06-24] MEDS: TRACE ELEMENT IV SCH ×11 (14:30)
[2017-06-24] MEDS: cloNIDine 0.3mg/24 Hour PATCH TD SCH (16:00)
[2017-06-24] MEDS: Enoxaparin Sodium 40 MG/0.4 ML SYRINGE SC SCH (20:47)
[2017-06-24] MEDS: diphenhydrAMINE 50 MG/ML VIAL IM/IV PRN (20:48)
[2017-06-25] MEDS: HumaLOG 300 UNITS/3 ML VIAL SC PRN ×4 (00:57→17:59)
[2017-06-25] MEDS: Morphine 4 MG/ML VIAL SLOW IVP PRN ×2 (03:31→13:07)
[2017-06-25] MEDS: fentaNYL 50 mcg/hour Patch TD SCH (09:36)
[2017-06-25] MEDS: Clotrimazole 1 % Cream 30 GM TUBE TOP SCH ×2 (09:42→22:41)
[2017-06-25] MEDS: [UNRECOGNIZED DRUG - OTHER] IV SCH ×11 (15:13)
[2017-06-25] MEDS: TRACE ELEMENT IV SCH ×11 (15:13)
[2017-06-25] MEDS: FAT EMULSION IV SCH ×11 (15:13)
[2017-06-25] MEDS: MULTIVITAMINS IV SCH ×11 (15:13)
[2017-06-25] MEDS ORDERED: Activase 2 MG VIAL CATH PRN (22:25)
[2017-06-25] MEDS ORDERED: Sterile Water 10 ML VIAL IVP PRN (22:26)
[2017-06-25] MEDS ORDERED: Acetaminophen 1,000 MG in Premix Bag 1 BAG IVPB SCH (22:30)
[2017-06-25] MEDS ORDERED: Sterile Water 20 ML VIAL IVP PRN (22:30)
[2017-06-25] MEDS: Enoxaparin Sodium 40 MG/0.4 ML SYRINGE SC SCH (22:37)
[2017-06-25] MEDS: Ondansetron HCl/PF 4 MG/2 ML Vial IVP PRN (23:51)
[2017-06-26] MEDS: HumaLOG 300 UNITS/3 ML VIAL SC PRN ×4 (01:39→18:05)
[2017-06-26 07:57] LABS: Anion Gap 14 mmol/L (10-20); Carbon Dioxide 34 mmol/L (23-31); Chloride 91 mmol/L (98-107); Potassium 4.4 mmol/L (3.5-5.1); Sodium 135 mmol/L (136-145)
[2017-06-26 07:58] LABS: ALT (SGPT) 80 U/L (8-55); AST (SGOT) 158 U/L (5-34); Albumin 2.1 g/dL (3.4-4.8); Alkaline Phosphatase 360 U/L (40-150); BUN (Urea Nitrogen) 36 mg/dL (9.8-20.1); Bilirubin, Total 0.7 mg/dL (0.2-1.2); Calc. Creatinine Clearance 67 mL/min (70-130); Calcium 9.8 mg/dL (7.8-10.44); Estimated GFR-MDRD 84; Globulin 6.8 g/dL (2.4-3.5); Glucose 212 mg/dL (83-110); Magnesium 1.7 mg/dL (1.6-2.6); Protein, Total 8.9 g/dL (6.0-8.3)
[2017-06-26 08:15] LABS: Band 4 % (5-11); Hemoglobin 7.6 g/dL (12.0-16.0); Hypochromia SLIGHT = 6-15 cells (100X) (0-5/hpf); Lymphocytes 17 % (21-51); MDiff Complete? YES; Mean Corpuscular Hemoglobin 30.1 pg (27.0-31.0); Mean Platelet Volume 8.2 fL (7.4-10.4); Metamyelocyte 3 % (0-0); Monocytes 3 % (0-10); Neutrophil 73 % (42-75); PLT Morphology Comment Appears Increased; Platelet Count 530 thou/uL (130-400); RBC Distribution Width 15.5 % (11.5-14.5); Red Blood Cell (RBC) Count 2.52 mill/uL (4.20-5.40); White Blood Cell (WBC) Count 21.6 thou/uL (4.8-10.8)
[2017-06-26] MEDS: Morphine 4 MG/ML VIAL SLOW IVP PRN (08:56)
[2017-06-26] MEDS: Clotrimazole 1 % Cream 30 GM TUBE TOP SCH ×2 (09:02→21:10)
[2017-06-26] MEDS: Acetaminophen 500 MG TAB PO PRN ×2 (11:40→18:05)
[2017-06-26] MEDS: MULTIVITAMINS IV SCH ×11 (14:24)
[2017-06-26] MEDS: FAT EMULSION IV SCH ×11 (14:24)
[2017-06-26] MEDS: TRACE ELEMENT IV SCH ×11 (14:24)
[2017-06-26] MEDS: [UNRECOGNIZED DRUG - OTHER] IV SCH ×11 (14:24)
[2017-06-26] MEDS: Enoxaparin Sodium 40 MG/0.4 ML SYRINGE SC SCH (21:00)
[2017-06-26] MEDS ORDERED: [UNRECOGNIZED DRUG - OTHER] IV SCH ×11 (22:00)
[2017-06-26] MEDS ORDERED: FAT EMULSION IV SCH ×11 (22:00)
[2017-06-26] MEDS ORDERED: TRACE ELEMENT IV SCH ×11 (22:00)
[2017-06-26] MEDS ORDERED: MULTIVITAMINS IV SCH ×11 (22:00)
[2017-06-27] MEDS: HumaLOG 300 UNITS/3 ML VIAL SC PRN ×3 (01:13→12:31)
[2017-06-27] MEDS: diphenhydrAMINE 50 MG/ML VIAL IM/IV PRN ×2 (01:39→21:22)
[2017-06-27] MEDS: Morphine 4 MG/ML VIAL SLOW IVP PRN ×2 (07:52→15:38)
[2017-06-27] MEDS: Clotrimazole 1 % Cream 30 GM TUBE TOP SCH ×2 (07:57→23:04)
[2017-06-27] MEDS: Acetaminophen 500 MG TAB PO PRN ×2 (11:12→20:33)
--- NOTE | 2017-06-27 11:36 | PRG ---
DATE OF SERVICE: 06/26/2017 SUBJECTIVE: Tanisha Melissa has done well over the weekend. Temperature 98.3 degrees, 81, 136/71. Sh gely has had fevers to 100.5 degrees yesterday, [place] [address]. Basic metabolic profile is normal except for a trend of slightly increased BUN. Accu-Cheks have been sligh tly elevated to 220-288. Blood cultures obtained on 06/22/2017 are negative. Clean catch urine reve als vancomycin resistant Enterococcus 25,000-50,000, quite not significant. Chest x-ray from 018 reveals no acute changes, no evidence of pneumonia. Wound care yesterday revealed the wound is s table. OBJECTIVE: LUNGS: Clear to auscultation. CARDIAC: Regular rate and rhythm without murmur or gallop. ABDOMEN: Soft, nontender. Bowel sounds present. No stool today. I spent approximately 45 minutes in my office talking to the family, her multiple family members incl uding her son who lives with her. I have previously discussed with him treatment options. After con sidering LTAC out of town, which they do not want versus hospice, which they are not ready for. They have chosen home care with home health nursing with home infusion of TPN. Considering this, we will remove her senescent PICC line and place a Frausto catheter tomorrow and plan transfer to home with home infusion TPN and wound care and DNR status. The patient's overall prognosis is poor. Family do es not want another operation and would rather place her on hospice, then proceed with another operat ion at this time; although, their sentiments could change in the future. The patient is status post 05/16/2017 six weeks ago for one-half hour adhesiolysis, two segmental small bowel resections with pr olonged ileus and suspected high grade partial bowel obstruction. Continue G-tube to gravity drainag e and TPN, and place a PICC line tomorrow.
[2017-06-27] MEDS ORDERED: TRACE ELEMENT IV SCH ×11 (14:00)
[2017-06-27] MEDS ORDERED: MULTIVITAMINS IV SCH ×11 (14:00)
[2017-06-27] MEDS ORDERED: [UNRECOGNIZED DRUG - OTHER] IV SCH ×11 (14:00)
[2017-06-27] MEDS ORDERED: FAT EMULSION IV SCH ×11 (14:00)
[2017-06-27 14:45] LABS: Actual Bicarbonate (HCO3a) 24.8 mEq/L (22-26); Analyzer IN Cardio OR; Base Excess (BEa) 0.2 mEq/L (0 (+/-) 2.5); CO2 Tension 40.1 mmHg (35.0-45.0); Hematocrit-ABG 31.7 % (36.0-47.0); Hemoglobin (Hb) 9.8 g/dL (12.0-16.0); O2 Tension (PaO2) 336.5 mmHg (80.0-100.0); Puncture Site ALINE; pH, Arterial 7.41 (7.35-7.45)
[2017-06-27] MEDS: Enoxaparin Sodium 40 MG/0.4 ML SYRINGE SC SCH (20:33)
[2017-06-28] MEDS: Morphine 4 MG/ML VIAL SLOW IVP PRN ×3 (00:20→15:34)
[2017-06-28] MEDS: Acetaminophen 500 MG TAB PO PRN (02:45)
[2017-06-28] MEDS: diphenhydrAMINE 50 MG/ML VIAL IM/IV PRN (03:02)
[2017-06-28] MEDS: HumaLOG 300 UNITS/3 ML VIAL SC PRN ×3 (06:46→20:11)
[2017-06-28] MEDS: fentaNYL 50 mcg/hour Patch TD SCH (10:04)
[2017-06-28] MEDS: Clotrimazole 1 % Cream 30 GM TUBE TOP SCH (10:10)
[2017-06-28] MEDS ORDERED: Bupivacaine HCl 0.5%/Epinephrine 1:200,000/PF 30 ml Vial ONE (13:33)
[2017-06-28] MEDS ORDERED: Heparin 10,000 UNITS/1 ML VIAL ONE (13:33)
[2017-06-28] MEDS ORDERED: Lidocaine 2% 10 ML INJ ONE (13:33)
[2017-06-28] MEDS ORDERED: Sodium Chloride 0.9% 0 ML ONE (13:33)
[2017-06-28] MEDS ORDERED: FAT EMULSION IV SCH ×11 (14:00)
[2017-06-28] MEDS ORDERED: TRACE ELEMENT IV SCH ×11 (14:00)
[2017-06-28] MEDS ORDERED: [UNRECOGNIZED DRUG - OTHER] IV SCH ×11 (14:00)
[2017-06-28] MEDS ORDERED: MULTIVITAMINS IV SCH ×11 (14:00)
--- NOTE | 2017-06-28 15:32 | RAD ---
PORTABLE CHEST 1 VIEW: Date: 06/28/17 Time: 1440 hours HISTORY: Central line placement. FINDINGS/IMPRESSION: Comparison made with exam of 06/22/17. NG tube has been removed in the interim. The right upper extremity PICC line remains in place. There has been interval placement of a right subclavian central venous catheter with tip in the projection of the SVC. No pneumothoraces are seen. The heart size is normal. The aorta is tortuous. Mild promine nce of the pulmonary vascularity is again seen. No lobar consolidation, pneumothoraces, or large effu sions are identified. Postop changes of right shoulder arthroplasty are redemonstrated. POS: [facility]
--- NOTE | 2017-06-28 19:30 | PRG ---
DATE OF SERVICE: 06/28/2017 SUBJECTIVE: Tanisha fleming is doing well today. OBJECTIVE: VITAL SIGNS: She remains afebrile, 98 degrees, 96, 16, 158/71. HEAD, EYES, EARS, NOSE, AND THROAT: Unremarkable. LUNGS: Clear to auscultation. CARDIAC: Regular rate and rhythm without murmur or gallop. ABDOMEN: Soft, nontender. Wound VAC in place. Wound care changed the wound VAC today. Today, we will plan a Frausto catheter. PLAN: Discharge home tonight with home TPN, DNR status, and G-tube to gravity, palliative measures.
[2017-06-28 20:28] VITALS: BP 142/73; TEMP 99.8
--- NOTE | 2017-06-29 03:55 | DIS ---
PROCEDURES THIS HOSPITALIZATION: 1. 05/16/2017 - Left subclavian vein central line, laparotomy with 4 hours of adhesiolysis, 2 segmen ts of small bowel resection, terminal ileum slightly more than 1 foot and jejunum approximately 3 inc hes, closure of enterotomy, Seprafilm application, VAC application to subcutaneous tissues. 2. 06/22/2017 - PEG tube placement. 3. 06/28/2017 - Frausto catheter placement. 4. 06/06/2017 - PICC line placement. CONSULTATIONS: 1. Pulmonary Medicine, Dr. Gay 2. Nephrology, Dr. Robles 3. Cardiology, Dr. Slaughter DISCHARGE DIAGNOSES: 1. Severe peritoneal adhesions with obstruction. 2. Hypertension. 3. Diabetes mellitus. 4. History of coronary artery disease, mild. 5. Chronic obstructive pulmonary disease. 6. History of pulmonary embolus. 7. Chronic back pain on fentanyl patch. 8. Proximal atrial fibrillation. PAST SURGICAL HISTORY: Hysterectomy, cholecystectomy, knee surgery, small bowel surgery several year s ago requiring 2-3 hour operation with a more than 3 week ileus performed at another facility. IMAGING PROCEDURES: Abdominal pelvis CAT scan 05/15/2017, PICC line placement 06/06/2017. Small prashant wel follow through 06/07/2017 no progress. Repeat small bowel follow through 06/20/2017 revealed non obstructive bowel gas pattern, no evidence of air filled dilated small bowel loops, contrast distende d the stomach travels through multiple small bowel loops, jejunal loops were released, mildly dilated contrast and reaches the right hemicolon mixed with a large amount of feces in that location after a 9 hour study; however, during the study the patient experienced nausea and vomiting after a delayed period of time requiring NG tube placed back to suction. DISCHARGE MEDICATIONS: Home TPN. Tylenol per PEG tube orally and clamping the PEG tube for 2 hours afterwards, clonidine TTS patch 3 q.7 days, prescription given. TPN infusion ordered, Duragesic patc hes 50 mg transdermal every 3 days, sips and chips, hard candy and gum as tolerated CODE STATUS: DNR status. HISTORY: An 87-year-old female presented to the hospital 05/15/2017. CAT scan suggests complete bow el obstruction. NG tube placed. She had fecal output foul smelling. She had not passed any flatus or stool. Abdomen was very tender on the left with guarding. White count 16,000, hemoglobin 11.6, carbon dioxide 31, creatinine 3.27, terribly dehydrated. Dr. Moy reyes saw her in consultation per emergency room request. The renal function improved with hydration. HOME MEDICATIONS: Zanaflex 4 tablets at bedtime, Adalat 500 mg p.r.n. pain, discontinued due to acut e kidney injury, amlodipine 5/320 daily, hydrocodone p.r.n. pain, gabapentin 300 mg t.i.d., Advair Di skus inhalers, INH b.i.d., Celexa 10 mg daily, carvedilol 12.5 mg t.i.d., aspirin 81 mg daily, metfor min 500, 1700, hydralazine 75 t.i.d., Duragesic patch 50 mcg q. 3 days, Crestor 10 mg at bedtime, Duo Nebs as needed, insulin subcu at bedtime 5 units and 10 units a.m., insulin NovoLog 70/30 FlexPen as needed. Past surgical history as noted above. The patient was admitted. NG tube placed overnight and then t he patient was taken to the operating room for the above described operation. Postoperatively she re mained on the ventilator and was followed Dr. Gay and weaned toward extubation. She had a prolonged ileus. She developed an enterocutaneous fistula with feculent drainage low volume from her lower wo und. This was managed with Sandostatin IV 3 times a day, bowel rest, NG tube and TPN. With time, th is resolved, Sandostatin was discontinued. She had a small bowel through performed 06/07/2017 that s he did not tolerate at all. There was no progression of contrast to the colon. NG tube placed back to suction and after that she had 3 liters of output diminishing over time to 400-600 per day. She h ad a smear of stool after that and developed better bowel sounds and repeat small bowel follow throug h performed with results as described above. She, however, never had a bowel movement. She grew tir ed of the NG tube and DNR established, made and the plan at this time is discharge home with DNR stat us. Continue supportive care with home TPN infusion through a Frausto catheter placed the day of dis charge. Follow up in my office in 2-3 weeks. [facility] is seeing her with home wound VAC 2-3 times a week changed. Home infusion TPN.
--- NOTE | 2017-06-29 09:30 | OP ---
DATE OF OPERATION: 06/28/2017 PREOPERATIVE DIAGNOSES: Malnutrition, prolonged ileus, partial bowel obstruction secondary to perito yordy adhesions. POSTOPERATIVE DIAGNOSES: Bowel obstruction resolving of cutaneous fistula, open wound abdomen, poor IV access and need of TPN access, central access, PICC line. PROCEDURE: Placement of a Frausto catheter, dual lumen, right subclavian vein. Fluoroscopy used. SURGEON: Armando Cartagena MD ANESTHESIA: Local 0.5% Marcaine with epinephrine, 30 mL, mixed with 2% Xylocaine, 10 mL. PROCEDURE IN DETAIL: At the patient's bedside, her chest and neck were prepared with chloraprep, carlos ped in routine fashion. Local anesthetic mixture infiltrating skin and subcutaneous tissue about the operative site with 0.5% Marcaine with epinephrine 30 mL mixed with Xylocaine, 10 mL mixture used. Trocar catheter cannulated the subclavian vein. J wire threaded. Trocar catheter removed. Skin inc ised and enlarged sharply. Dilator and pull-away sheath placed over the J-wire into the superior fidencio a cava and dilator and J-wire were removed. Catheter placed through the pull-away sheath after tailo ring to length and cuff placed beneath the skin as the pull-away sheath was removed. Catheter secure d with 2 interrupted suture of 3-0 Prolene. Biopatch sterile dressing applied. Each port aspirated blood and flushed with saline solution. Fluoroscopic images revealed good line placement.
--- NOTE | 2017-06-29 10:04 | PRG ---
DATE OF SERVICE: 06/27/2017 SUBJECTIVE: Tanisha Melissa is doing well today. Sunday planning Frausto catheter placement postpo evert due to long case load. The patient does not have any new complaints. Abdominal soreness is impr maritza from yesterday. OBJECTIVE: LUNGS: Clear to auscultation. CARDIAC: Regular rate and rhythm without murmur or gallop. ABDOMEN: Soft. G-tube to gravity. LABORATORY DATA: No new labs today. Accu-Cheks 180-282. ASSESSMENT AND PLAN: A Frausto catheter for home TPN, G-tube to gravity, palliative measures, DNR st atus. High grade partial bowel obstruction. Continue monitoring. No evidence of bowel movement sin ce surgery on 05/16/2017.
--- NOTE | 2017-06-29 13:58 | OP ---
DATE OF PROCEDURE: 06/28/2017 PREOPERATIVE DIAGNOSES: Malnutrition, ileus, partial bowel obstruction, peritoneal adhesions, in nee d of IV access, senescent PICC line, leukocytosis. POSTOPERATIVE DIAGNOSES: Malnutrition, ileus, partial bowel obstruction, periotenal adhesions, in ne ed of IV access, senescent PICC line, leukocytosis. PROCEDURE: Right subclavian vein dual lumen Frausto catheter. SURGEON: Dr. Armando Cartagena. ANESTHESIA: Fluoroscopy. PROCEDURE IN DETAIL: Patient was taken to the operating room where in the supine position, neck and chest prepped with ChloraPrep, draped in routine fashion. Local anesthetic mixture 0.5% Marcaine wit h epinephrine 30 mL mixed with 2% Xylocaine, 10 mL infiltrated into skin and subcutaneous tissue abou t the operative site. Trocar cannulated the right subclavian vein. Good return of venous blood. J- wire threaded. Trocar catheter removed. Skin was incised and enlarged sharply. Dilator and pull-aw ay sheath placed over the J-wire under fluoroscopic visualization in the superior vena cava and dilat or and J-wire removed. Catheter was placed with pull-away sheath and pull-away sheath removed. Cath eter had been tailored to length and tip noted to be in the superior vena cava and cuff beneath the s kin exit site. Catheter secured with 2 interrupted sutures of 3-0 nylon. Biopatch sterile dressings applied. Patient tolerated the procedure well.
== END 2017-06-28 20:27 | disposition home or self-care (01) | DRG 329 ==
LOC: ERS 19:03 → T4-A 05-16 00:01 → CCU 05-16 18:50 → IMCU/EMU 05-20 13:04 → SURG A 06-12 15:23
PROVIDERS: ADMIT Specialist; ATTEND Specialist
PROC: 0DNB0ZZ Release Ileum, Open Approach (ICD-10-PCS; principal; 2017-05-16)
PROC: 0DBB0ZZ Excision of Ileum, Open Approach (ICD-10-PCS; 2017-05-16)
PROC: 0DBA0ZZ Excision of Jejunum, Open Approach (ICD-10-PCS; 2017-05-16)
PROC: 0DNU0ZZ Release Omentum, Open Approach (ICD-10-PCS; 2017-05-16)
PROC: 05H633Z Insertion of Infusion Device into Left Subclavian Vein, Percutaneous Approach (ICD-10-PCS; 2017-05-16)
PROC: 5A1945Z Respiratory Ventilation, 24-96 Consecutive Hours (ICD-10-PCS; 2017-05-16)
PROC: 02HV33Z Insertion of Infusion Device into Superior Vena Cava, Percutaneous Approach (ICD-10-PCS; 2017-06-06)
PROC: 0DH63UZ Insertion of Feeding Device into Stomach, Percutaneous Approach (ICD-10-PCS; 2017-06-22)
PROC: 02HV33Z Insertion of Infusion Device into Superior Vena Cava, Percutaneous Approach (ICD-10-PCS; 2017-06-28)
DX: K56.52 Intestinal adhesions [bands] with complete obstruction (principal); R57.1 Hypovolemic shock; G93.40 Encephalopathy, unspecified; N17.9 Acute kidney failure, unspecified; K63.2 Fistula of intestine; E46 Unspecified protein-calorie malnutrition; E87.0 Hyperosmolality and hypernatremia; I48.0 Paroxysmal atrial fibrillation; I13.0 Hypertensive heart and chronic kidney disease with heart failure and stage 1 through stage 4 chronic kidney disease, or unspecified chronic kidney disease; Z51.5 Encounter for palliative care; I50.32 Chronic diastolic (congestive) heart failure; E11.22 Type 2 diabetes mellitus with diabetic chronic kidney disease; T81.83XA Persistent postprocedural fistula, initial encounter; E78.5 Hyperlipidemia, unspecified; E86.0 Dehydration; F41.9 Anxiety disorder, unspecified; J44.9 Chronic obstructive pulmonary disease, unspecified; G89.29 Other chronic pain; M54.5 Low back pain; I25.10 Atherosclerotic heart disease of native coronary artery without angina pectoris; N18.9 Chronic kidney disease, unspecified; F03.90 Unspecified dementia, unspecified severity, without behavioral disturbance, psychotic disturbance, mood disturbance, and anxiety; I70.0 Atherosclerosis of aorta; E66.9 Obesity, unspecified; K56.7 Ileus, unspecified; D64.9 Anemia, unspecified; Z68.33 Body mass index [BMI] 33.0-33.9, adult; Z66 Do not resuscitate; Z78.1 Physical restraint status; Z86.711 Personal history of pulmonary embolism; Z88.0 Allergy status to penicillin; Z79.82 Long term (current) use of aspirin; Z79.4 Long term (current) use of insulin; Z79.899 Other long term (current) drug therapy
CPT/HCPCS: 36415; 36416; 36430; 36569; 51701; 71045; 72100; 74018; 74019; 74022; 74176; 74250; 80048; 80053; 80076; 81001; 81003; 82533; 82570; 82805; 83036; 83690; 83735; 84100; 84134; 84300; 85025; 85610; 86850; 86900; 86901; 87040; 87077; 87086; 87186; 88307; 93005; 93010; 94002; 94003; 94640; 96361; 96374; 96375; A4216; A4217; A4353; C1751; G8978-GP-CK; G8978-GP-CM; G8979-GP-CJ; G8979-GP-CK; G8979-GP-CL; G8996-GN-CH; G8997-GN-CH; J0131; J0360; J0670; J0696; J1170; J1200; J1450; J1642; J1644; J1650; J1720; J1815; J1940; J1956; J2001; J2250; J2270; J2354; J2370; J2405; J2543; J2704; J2997; J3010; J3475; J3480; J3490; J7050; J7620; P9016; P9045; P9047

== ENCOUNTER 2017-06-29 04:55 | Emergency (ER) | payer MEDICARE, MEDICAID ==
[2017-06-29 06:08] LABS: #Eosinphils 0.1 thou/uL (0.0-0.7); #Lymphocytes 4.1 thou/uL (1.20-3.40); #Monocytes 1.5 thou/uL (0.11-0.59); #Neutrophils 14.1 thou/uL (1.40-6.50); %Basophils 0.1 % (0.0-1.0); %Eosinophils 0.4 % (0.0-10.0); %Lymphocytes 20.9 % (21.0-51.0); %Monocytes 7.4 % (0.0-10.0); %Neutrophils 71.2 % (42.0-75.0); Hemoglobin 7.8 g/dL (12.0-16.0); Mean Corpuscular HGB CONC 31.7 g/dL (32.0-36.0); Mean Corpuscular Volume 94.6 fl (81.0-99.0); Mean Platelet Volume 7.6 fL (7.4-10.4); Platelet Count 605 thou/uL (130-400); RBC Distribution Width 15.6 % (11.5-14.5); Red Blood Cell (RBC) Count 2.59 mill/uL (4.20-5.40); White Blood Cell (WBC) Count 19.8 thou/uL (4.8-10.8)
[2017-06-29 06:22] LABS: ALT (SGPT) 56 U/L (8-55); AST (SGOT) 56 U/L (5-34); Albumin 2.3 g/dL (3.4-4.8); Alkaline Phosphatase 307 U/L (40-150); BUN (Urea Nitrogen) 35 mg/dL (9.8-20.1); Bilirubin, Total 0.4 mg/dL (0.2-1.2); Calc. Creatinine Clearance 0 mL/min (70-130); Calcium 9.8 mg/dL (7.8-10.44); Estimated GFR-MDRD 88; Globulin 6.5 g/dL (2.4-3.5); Glucose 265 mg/dL (83-110); Protein, Total 8.8 g/dL (6.0-8.3)
[2017-06-29 06:31] LABS: Anion Gap 15 mmol/L (10-20); Carbon Dioxide 33 mmol/L (23-31); Chloride 89 mmol/L (98-107); Sodium 134 mmol/L (136-145)
[2017-06-29 06:32] LABS: Potassium 2.8 mmol/L (3.5-5.1)
[2017-06-29 06:53] LABS: Bilirubin Negative (Negative); Blood, Urine Negative (Negative); Clarity CLEAR (Clear); Glucose, Urine (Dipstick) Negative (Negative); Leukocyte Moderate (Negative); Nitrite Negative (Negative); Protein, Urine (Dipstick) Trace mg/dL (Neg-Trace); pH, Urine 7.5 (5.0-9.0)
[2017-06-29 06:56] LABS: Bacteria/HPF 2+ HPF (None Seen); Hyaline Casts/LPF 4-6 HYALINE CAST LPF (0-3 Hyaline); Pathc Cast-AUWi Flag 0.29 (0-2.49); RBC/HPF 0-3 HPF (0-3); Squamous Epithelial None Seen HPF (0-3); WBC/HPF 21-50 HPF (0-3)
[2017-06-29] MEDS ORDERED: Cefepime 2 GM, Syringe 2.5 ML in Sodium Chloride 0.9% 10 ML SLOW IVP SCH (08:00)
[2017-06-29] MEDS ORDERED: Vancomycin HCl 1.25 GM in Sodium Chloride 0.9% 250 ML 250 ML IVPB SCH (08:00)
--- NOTE | 2017-06-29 08:47 | CT ---
PRELIMINARY REPORT/[facility]/EMERGENCY AFTER HOURS PROCEDURE: EXAM: CT Abdomen and Pelvis Without Intravenous Contrast CLINICAL HISTORY: 87 years old, female; Device placement; Gi device; Peg tube; Patient HX: Additional history obtained from ems, 87 yo f. Pt presents with peg tube dislodged this morning by accident. Reports to ed for in sertion. Family reports that this tube is for her to pass stool with, that she was recently admitted for bowel obstruction, and dc'd home to continue tpn. states that she never had a bm while in patient and still hasn't had a bm at home. still reporting pt having continued discomfort and distention. TECHNIQUE: Axial computed tomography images of the abdomen and pelvis without intravenous contrast. Coronal reformatted images were created and reviewed. COMPARISON: No relevant prior studies available. FINDINGS: Lung bases: There is a 2.5 cm consolidation in the peripheral basal right lower lobe suspicious for s mall area of pneumonia. There is intrathoracic calcification consistent with chronic pulmonary granul omatous inflammatory disease. Heart: There is incompletely imaged coronary vascular calcification. ABDOMEN: Liver: There is a mildly nodular contour of the hepatic margin which could represent mild cirrhosis. There is hepatomegaly measuring 21 cm craniocaudal length. Gallbladder and bile ducts: The gallbladder is absent. No ductal dilation. Pancreas: Unremarkable. No ductal dilation. Spleen: The spleen demonstrates punctate calcification, consistent with remote granulomatous organism exposure. Adrenals: Unremarkable. No mass. Kidneys and ureters: There is a simple fluid density probable cyst in the left kidney. There is no ac table mountain renal process. No obstructing stones. No hydronephrosis. Stomach and bowel: There are surgical changes of the small bowel in the midline anterior pelvis. Ther e is abnormal opacity of the mesentery in the lower abdomen and pelvis which could be acute edema, ve rsus granulation tissue or scar. There is contrast within the right colon. There is no bowel dilation or evidence of bowel obstruction. There is minimal retained colonic stool in the distal sigmoid colo n and rectum. Appendix: No findings to suggest acute appendicitis. PELVIS: Bladder: Unremarkable. No stones. Reproductive: The uterus is absent. ABDOMEN and PELVIS: Intraperitoneal space: See above. Bones/joints: No acute fracture. No dislocation. Soft tissues: There is a cutaneous wound VAC at the umbilicus. There is low density material within t he umbilicus. Small bowel loops do approximate the ventral abdominal wall near this location and ther e could be an occult enterocutaneous fistula. There is mild edema along the PEG tube tract in the sof t tissues, consistent with recent manipulation. There is no abscess or organized fluid collection. Vasculature: See above. Lymph nodes: Unremarkable. No enlarged lymph nodes. Tubes, lines and devices: There is a normally positioned PEG tube with balloon inflated in the distal stomach. IMPRESSION: 1. There are surgical changes of the small bowel in the midline anterior pelvis. There is abnormal op acity of the mesentery in the lower abdomen and pelvis which could be acute edema, versus granulation tissue or scar. 2. There is contrast within the right colon. There is no bowel dilation or evidence of bowel obstruct ion. There is minimal retained colonic stool in the distal sigmoid colon and rectum. 3. There is a cutaneous wound VAC at the umbilicus. There is low density material within the umbilicu s. Small bowel loops do approximate the ventral abdominal wall near this location and there could be an occult enterocutaneous fistula. 4. There is mild edema along the PEG tube tract in the soft tissues, consistent with recent manipulat ion. There is no abscess or organized fluid collection. 5. There is a 2.5 cm consolidation in the peripheral basal right lower lobe suspicious for small area of pneumonia. This interpretation was based upon the receipt of 276 image(s). Thank you for allowing us to participate in the care of your patient. Dictated and Authenticated by: Ceasar Ly DO 06/29/2017 6:54 AM Central Time ([place] & [place]) FINAL REPORT CT ABDOMEN AND PELVIS WITHOUT CONTRAST: Date: 06/29/17 FINDINGS/IMPRESSION: I agree with the preliminary report given by Dr. Ceasar Ly of [facility]. POS: [facility]
--- NOTE | 2017-06-29 08:59 | RAD ---
CHEST FRONTAL VIEW: Date: 06/29/17 COMPARISON: 06/28/17. INDICATION: Chest pain. FINDINGS: There is a supportive catheter with coiled tubing overlying the right chest. Catheter terminates at t he SVC region, similar appearing. Prior right PICC line has been removed. Interstitial prominence rem ains throughout each lung. Stable prominence to the cardiomediastinal silhouette. There remains eleva tion of the right hemidiaphragm. IMPRESSION: 1. No new consolidation. Interstitial prominence of each lung persists. 2. Interval removal of right PICC line. POS: [facility]
--- NOTE | 2017-06-29 09:06 | RAD ---
LEFT WRIST RADIOGRAPH SERIES: Date: 06/29/17 CLINICAL HISTORY: Pain. FINDINGS: There is marked degenerative hypertrophy with heterotopic bone about the wrist. Prominent associated joint space narrowing is present. Chondrocalcinosis is seen. No evidence of acute fracture visualized . Slight widening of the scapholunate distance. IMPRESSION: 1. 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 2. There is no obvious acute osseous abnormality. POS: [facility]
[2017-06-29] MEDS ORDERED: Gentamicin 80 MG/2 ML VIAL ONE (10:31)
[2017-06-29] MEDS ORDERED: Gentamicin Sulfate 80 MG in Premix Bag 1 BAG IVPB SCH (11:00)
--- NOTE | 2017-06-29 17:02 | CON ---
EMERGENCY ROOM EVALUATION: 06/29/2017 An 87-year-old female who was discharged from the hospital yesterday to home with home TPN via [place] n catheter and DNR status. The patient has a postoperative high grade to moderate grade bowel obstru ction and ileus and does not have any GI function, has a G-tube to gravity and has TPN in place. She had a 4-hour adhesiolysis with small bowel resection and developed an enterocutaneous fistula postop eratively that resolved with Sandostatin, NG tube, TPN, and approximately a week ago had a small margot l through demonstrating contrast in her colon within a few hours, but she did not tolerate this well with nausea, vomiting, and thus diagnosed with moderate partial bowel obstruction postoperatively, russo ch that she cannot tolerate liquids. It is not a good time to consider reoperation. The patient biswas s not want a reoperation. She desires DNR status and wants to go home. Options were given for an LT AC versus rehab versus long-term, but they wanted to go home. Arrangements were made for home hea lth, guardian to take care of her wound care, VAC and infusion therapy, TPN, which I am managing. Th e patient had a G-tube, PEG placed on 06/22/2017. Patient's PEG tube was dislodged and the family br ought her to the emergency room. Fortunately, the PEG tube was replaced and CAT scan verified placem ent with contrast. The patient has baseline abdominal pain. Her abdominal exam is unchanged. In ad dition, the labs were found to have potassium of 2.8 and chest x-ray obtained was read by the emergen cy room physician suspicious for the pneumonia. The patient does not have cough or fever or congesti on. He is breathing normally. My interpretation of the chest x-ray, she has interstitial prominence and there is no change in the chest x-ray relative to the past 2 days. She does not have pneumonia. Since that evaluation by the time of this dictation, chest x-ray interpreted by Radiology reveals t he same interpretation and mine is that she does not have pneumonia. 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 It is sensitive to high dose AMINOGLYCOSIDES and her vancomycin in the emerge ncy room was canceled. She received a dose of Rocephin prior to my arrival. In addition, she was gi fidencio a dose of 80 mg of gentamicin single dose. She is sent home with Zyvox 600 mg p.o. b.i.d. mariam tatum in her G-tube for 12 hours afterwards. Lungs are clear to auscultation. Abdomen is soft, baseline tenderness. Wound VAC in place. G-tube to gravity drainage. G-tube was secured to the abdominal w all. Family present and is instructed on G-tube care. I have since called regarding home health and updated him on these findings. Family wants to go home. Family is being instructed on infusion the rapy for home TPN. She has followup laboratories on Sunday ordered. She will have followup in of [place] in 2 weeks. Guardian [facility] has my personal cell phone number and home number to call m e as did the family members for any concerns. Patient instead of being admitted, will be discharged home.
--- NOTE | 2017-07-18 15:06 | EKG ---
Test Reason : Blood Pressure : / mmHG Vent. Rate : 085 BPM Atrial Rate : 085 BPM P-R Int : 154 ms QRS Dur : 086 ms QT Int : 392 ms P-R-T Axes : 020 026 042 degrees QTc Int : 466 ms Normal sinus rhythm Normal ECG Confirmed by SREEKANTH GOODMAN ([id number]), health editor ALIS AGUILAR ([id number]) on 07/18/2017 3:05:21 PM Referred By: Confirmed By:SREEKANTH GOODMAN
== END 2017-06-29 15:18 | disposition home or self-care (01) ==
LOC: ERS 04:55
DX: K94.29 Other complications of gastrostomy (principal); E87.6 Hypokalemia; J18.9 Pneumonia, unspecified organism; N39.0 Urinary tract infection, site not specified; E11.9 Type 2 diabetes mellitus without complications; E78.5 Hyperlipidemia, unspecified; F41.9 Anxiety disorder, unspecified; Z79.82 Long term (current) use of aspirin; Z79.899 Other long term (current) drug therapy
CPT/HCPCS: 36415; 36416; 51701; 71045; 74176; 80053; 81003; 81015; 85025; 87040; 87077; 87086; 87186; 93005; 96365; 96366; 96368; 96375; A4353; B4087; J0692; J1580; J1642; J3370; J3480; J7050

== ENCOUNTER 2017-06-30 16:32 | Emergency (ER) | payer MEDICARE, MEDICAID ==
[2017-06-30] MEDS ORDERED: Acetaminophen 500 MG TAB ONE (17:42)
--- NOTE | 2017-06-30 20:15 | RAD ---
KUB 06/30/17 INDICATION: PEG placement. FINDINGS: There is contrast injected into the PEG catheter with contrast filling the lumen of the stomach. Ther e is some residual contrast within the colon seen on comparison study of 06/21/17. Cholecystectomy cli ps seen within the right upper quadrant. Bowel pattern is nonobstructed. No free air is evident. Ther e is elevation of the right hemidiaphragm. IMPRESSION: No evidence of leak at the patient's PEG tube site. POS: [facility]
== END 2017-06-30 20:02 | disposition home or self-care (01) ==
LOC: ERS 16:32
DX: Z46.59 Encounter for fitting and adjustment of other gastrointestinal appliance and device (principal); E11.9 Type 2 diabetes mellitus without complications; E78.5 Hyperlipidemia, unspecified; I10 Essential (primary) hypertension; Z86.711 Personal history of pulmonary embolism; Z79.899 Other long term (current) drug therapy; Z79.82 Long term (current) use of aspirin
CPT/HCPCS: 43760; 74018; B4087